=== PATIENT | female | born 1930 | race Caucasian/White ===

== ENCOUNTER 2018-09-30 01:36 | Inpatient (IN) | payer MEDICARE, OTHER ==
[~2018-09-30] VITALS: Ht 157.5 cm; Wt 72.0 kg
[~2018-09-30 01:36] MED LIST: ADVIL; ASPI81TA3; COUM1TAB18; FIBER LAX; HYDR25TA6; PERC5TAB8; POTA20TA; THERGRAN; [UNRECOGNIZED DRUG - OTHER]
[2018-09-30 02:29] VITALS: BP 135/87
[2018-09-30] MEDS ORDERED: GLUCOSE 4 GM CHEW TABLET PO PRN (03:30)
[2018-09-30] MEDS ORDERED: DEXTROSE 50% 50 ML SYRINGE IV PRN (03:30)
[2018-09-30] MEDS ORDERED: D5W/0.45% SODIUM CHLORIDE 1,000 ML IV SCH (03:30)
[2018-09-30] MEDS ORDERED: GLUCAGON FOR INJ 1 MG VIAL (J1610) SC PRN (03:30)
--- NOTE | 2018-09-30 04:16 | HPEPDOC ---
General Date of Admission September 30, 2018 at 02:29 Date of Service: September 30, 2018 Chief Complaint The patient is a 88-year-old female admitted with a reason for visit of Intrathoracic Stomach. 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 She presented to [facility] ER with c/o nausea and vomiting for one day. She admits to intermittent, chronic nausea and vomiting; but gracie severe in nature. Pt is denies abdominal pain, fever, chills. Her last meal was yesterday breakfast. Last bowel movement was yesterday. In the ER, CT chest/abd was reported as "Thoracic stomach with large amount of debris, possible obstruction". WBC 16K, otherwise normal labs and vitals. Pt is functional at baseline; and has no known cardiopulmonary problems. EKG shows RSR patterns with normal QRS and RVH, which may be due to cardiac displacement from hiatal hernia. Home Medications Miscellaneous Medications Hydrochlorothiazide (Hydrochlorothiazide) 25 Mg Tab, (Reported) Multivitamins (Theragran) 1 Tab Tab, (Reported) Oxycodone/Acetaminophen (Percocet) 1 Tab Tab, (Reported) Potassium Chloride (Klor-Con M20) 20 Meq Tab, (Reported) Warfarin Sodium (Coumadin) 2.5 Mg Tab, (Reported) [arthritis tylenol pm] , (Reported) [fiber lax] , (Reported) Allergies Coded Allergies: Penicillins (Verified Allergy, Intermediate, RASH, 09/30/18) diphenhydramine (Verified Allergy, Intermediate, RASH, 09/30/18) Past Medical History Medical History None Surgical History , Hernia Repair, Tonsillectomy Family History Significant Family History: No pertinent family hx Social History * Smoker: Denies Alcohol: Denies Drugs: denies A-FIB/CHADSVASC A-FIB History Current/History of A-Fib/PAF?: No Review of Systems Constitutional: Denies: Chills, Fever Eyes: Denies: Pain ENT: Denies: Head Aches Skin: Denies: Rash, Lesions Pulmonary: Denies: Dyspnea, Cough Cardiovascular: Denies: Chest Pain, Edema Gastrointestinal: Reports: Nausea, Vomiting; Denies: Abdominal Pain, Diarrhea, Constipation Musculoskeletal: Denies: Neck Pain, Back Pain Neurological: Denies: Weakness, Numbness Psych: Reports: Mood Normal; Denies: Anxiety Physical Examination General Exam: Positive: Alert, Cooperative, No Acute Distress Eye Exam: Positive: PERRLA ENT Exam: Positive: Atraumatic Neck Exam: Positive: Supple; Negative: JVD Chest Exam: Positive: Clear to auscultation, Normal air movement Heart Exam: Positive: Rate Normal, Regular Rhythm Abdomen Exam: Positive: Normal bowel sounds, Soft; Negative: Tenderness Extremity Exam: Positive: Normal pulses; Negative: Edema Skin Exam: Positive: Nl turgor and temperature; Negative: Rash, Breakdown Neuro Exam: Positive: Normal Speech, Strength at 5/5 X4 ext Psych Exam: Positive: Mental status NL, Mood NL, Oriented x 3 Vital Signs see nursing note Assessment/Plan Nausea and Vomiting, suspect Hiatal Hernia with Obstruction - Admit to inpatient - NG with LIS; NPO; IV fluid - Surgery consult. I spoke with Dr. Germain who will see pt in the morning; pt agreeable for surgery if needed - Routine labs - Pt needs no medical optimization before surgery; RCRI of 1 (for high risk surgery): Class II risk; 6.0% of 30-day risk of , OK or cardiac arrest. - DVT prophylaxis Plan / VTE VTE Prophylaxis Ordered?: Yes PATRICIA AZUL MD September 30, 2018 04:16
[2018-09-30 05:00] LABS: HEMATOCRIT 47.5 % (36.0-47.0); HEMOGLOBIN 15.7 g/dl (12.0-15.5); MEAN CORPUSCULAR HEMOGLOBIN 30.8 pg (27.0-33.0); MEAN CORPUSCULAR HGB CONC 33.1 g/dl (32.0-36.5); MEAN CORPUSCULAR VOLUME 93.3 fl (80.0-96.0); PLATELET COUNT, AUTOMATED 300 10^3/uL (150-450); RED BLOOD COUNT 5.09 10^6/uL (4.00-5.40); WHITE BLOOD COUNT 20.1 10^3/uL (4.0-10.0)
[2018-09-30 05:10] LABS: INR 0.98; PARTIAL THROMBOPLASTIN TIME 32.8 SECONDS (25.4-37.6); PROTHROMBIN TIME 13.1 SECONDS (12.1-14.4)
[2018-09-30 05:23] LABS: ALBUMIN 3.1 GM/DL (3.2-5.2); BILIRUBIN,TOTAL 0.4 MG/DL (0.2-1.0); CALCIUM LEVEL 9.2 MG/DL (8.8-10.2); CREATININE FOR GFR 0.97 MG/DL (0.55-1.30); GLOMERULAR FILTRATION RATE 57.8 (>32); POTASSIUM SERUM 3.6 MEQ/L (3.5-5.1)
[2018-09-30 06:15] LABS: BASO % 0.1 % (0.0-1.0); LYMPH % 4.9 % (24.0-44.0); MONO # 1.7 10^3/uL (0.0-0.8); MONO % 8.5 % (0.0-5.0); NEUTROPHILS # 16.7 10^3/uL (1.8-7.7); NEUTROPHILS % 85.9 % (36.0-66.0)
[2018-09-30 08:00] VITALS: BP 142/98
[2018-09-30] MEDS ORDERED: PANTOPRAZOLE 40MG INJ (PROTONIX) (C9113) IV SCH (09:00)
[2018-09-30] MEDS ORDERED: SODIUM CHLORIDE 0.9% 1000ML IV ONE (09:15)
[2018-09-30 09:54] LABS: PLATELET ESTIMATE NORMAL (NORMAL)
[2018-09-30] MEDS ORDERED: BUPIVACAINE LIPOSOME/PF 1.3% 20ML VIAL (13.3MG/ML)(EXPAREL)(C9290 PER1MG) As Ordered ONE (10:27)
[2018-09-30] MEDS ORDERED: BUPIVACAINE HCL 0.25% 30 ML VIAL As Ordered ONE (10:27)
[2018-09-30] MEDS ORDERED: ROCURONIUM BROMIDE 50 MG/5 ML VIAL As Ordered ONE ×2 (10:44→13:56)
[2018-09-30] MEDS ORDERED: PROPOFOL 200 MG/20 ML VIAL As Ordered ONE (10:44)
[2018-09-30] MEDS ORDERED: LIDOCAINE 2% INJ 100 MG/5 ML SDV (FOR ANES.) As Ordered ONE ×2 (10:44→19:12)
[2018-09-30] MEDS ORDERED: dexameTHASONE 4 MG/ML 1ML VIAL (J1100) As Ordered ONE (10:48)
[2018-09-30] MEDS ORDERED: ONDANSETRON 4MG/2ML VIAL (J2405) As Ordered ONE (10:49)
[2018-09-30] MEDS ORDERED: KETOROLAC 60 MG/2 ML VIAL (J1885) As Ordered ONE (10:50)
[2018-09-30] MEDS ORDERED: MIDAZOLAM INJ 2 MG/2 ML VIAL (J2250) As Ordered ONE (10:52)
[2018-09-30] MEDS ORDERED: fentaNYL 250 MCG/5 ML INJECTION (J3010) As Ordered ONE (10:52)
--- NOTE | 2018-09-30 10:59 | REP ---
KUB: Two views presented. History: Evaluate for aspiration. Gastric distension. No comparison imaging. Findings: Contrast opacified urine is seen in the intrarenal collecting system of the right kidney and within the urinary bladder. Left kidney shows no evidence of opacification. The left kidney is not clearly apparent. There is a moderate dextroconvex lumbar curvature. The bowel gas pattern is normal in the abdomen. There is air density in what appears to be a large hiatal hernia to the right of midline in the chest. A nasogastric or tube courses to the right of midline in the lower chest and then enters left upper quadrant of the abdomen. Electronically Signed by Beto Cantor MD 09/30/2018 10:45 A
--- NOTE | 2018-09-30 11:02 | REP ---
CHEST X-RAY: Single AP view. HISTORY: Evaluate for aspiration. Gastric distension. No comparison imaging. FINDINGS: A nasogastric tube is seen entering the left upper quadrant of the abdomen coursing through a large hiatal hernia which projects well to the right of midline. There is discoid atelectasis in the right base. No other evidence of infiltrate is seen. Moderate cardiomegaly is observed. Vascular calcification is seen in the transverse aorta. IMPRESSION: There is evidence of a fairly large hiatal hernia with gastric air seen projecting to the right of midline over the heart. NG tube enters left upper quadrant. No definite infiltrate. Discoid atelectasis right base. Electronically Signed by Beto Cantor MD 09/30/2018 12:33 P
[2018-09-30] MEDS ORDERED: SUCCINYLCHOLINE 100 MG/5 ML SYRINGE (J0330) As Ordered ONE (11:26)
[2018-09-30] MEDS ORDERED: ERTAPENEM 1 GM INJ (INVanz) (J1335) As Ordered ONE (11:41)
[2018-09-30] MEDS ORDERED: PHENYLEPHRINE INJ 10MG/ML VIAL (J2370) As Ordered ONE ×2 (12:20→15:51)
--- NOTE | 2018-09-30 13:04 | IPNPDOC ---
Text Note Date of Service The patient was seen on 09/30/18. NOTE SUBJECTIVE: Ms. Goldstein is seen at bedside rounds today, she does have an NG tube in place that is on low intermittent suction with dark brown secretions. She is very tired. She otherwise denied chest pain, shortness breath, nausea, vomiting, fevers, chills. ROS: 12 POINT review of systems was reviewed with patient and negative other than what is described in subjective. OBJECTIVE PHYSICAL EXAMINATION: VITAL SIGNS: Please see below. GENERAL: Elderly 88-year-old female appearing older than her stated age, laying in her bed with NG tube in place. She is very fatigued but is able to answer questions on examination. Does not appear in acute distress HEENT: EOMI, somewhat dry mucous membranes, no JVD appreciated CARDIOVASCULAR: Distant heart sounds but normal S1 and S2 with no murmurs rubs or gallops appreciated RESPIRATORY: Diminished throughout likely secondary to effort, no rales, rhonchi, wheezing or crackles appreciated ABDOMINAL: Soft, NABSx4, no pain to palpation, no distention, no rebound rigidity or guarding, no hepatosplenomegaly or masses appreciated. EXTREMITIES: No clubbing cyanosis or edema NEUROLOGICAL: No focal neurologic deficits appreciated PSYCHOLOGICAL: Appropriate affect LABORATORY DATA, MICROBIOLOGY: Please see below. ASSESSMENT AND PLAN: This is an 88-year-old female who was admitted to the hospital for possible intestinal obstruction and hiatal hernia. PROBLEMS: 1. Nausea and vomiting secondary to hiatal hernia and possible obstruction - General surgery on consult, appreciate their help. Patient does have NG tube in place and is draining dark brown secretions. Seems that her nausea is under control. Continue to monitor for now, we will await surgeries recommendation for patient. Continue with Protonix. 2. Leukocytosis - Elevated CRP, without fever, she received dose of Invanz. We will continue to monitor for now, could be secondary to stress of possible bowel obstruction. DISPOSITION: Patient's prognosis given her age is certainly guarded at this point. We will await to see surgery's recommendations regarding her intra- abdominal pathology. VS,Fishbone, I+O VS, Fishbone, I+O Laboratory Tests 09/30/18 04:42 Red Blood Count 5.09, Mean Corpuscular Volume 93.3, Mean Corpuscular Hemoglobin 30.8, Mean Corpuscular Hemoglobin Concent 33.1, Red Cell Distribution Width 14.6 H, Calcium Level 9.2, Aspartate Amino Transf (AST/SGOT) 15, Alanine Aminotransferase (ALT/SGPT) 14, Alkaline Phosphatase 78, Total Bilirubin 0.4, Total Protein 7.0, Albumin 3.1 L Vital Signs Date Time Temp Pulse Resp B/P (MAP) Pulse Ox O2 Delivery O2 Flow Rate FiO2 09/30/18 08:00 2.0 09/30/18 08:00 98.8 78 18 142/98 (113) 95 I&O- Last 24 Hours up to 6 AM 09/30/18 06:00 Intake Total 0 ml Output Total 0 ml Balance 0 ml GME ATTESTATION GME ATTESTATION My faculty preceptor for this patient encounter was physically present during the encounter and was fully available. All aspects of the patient interview, examination, medical decision making process, and medical care plan development were reviewed and approved by the faculty preceptor. The faculty preceptor is aware and concurs with the plan as stated in the body of this note and will attest to such by his/her cosignature. ATTENDING NOTE I saw and evaluated the patient. I agree with the findings and plan of care as documented in the resident's note MADELEINE GLASS DO September 30, 2018 13:04 RAFAEL COLEY MD Oct 03, 2018 12:20
[2018-09-30] MEDS ORDERED: ePHEDrine SULFATE 25 MG/5 ML(5MG/ML) SYRINGE As Ordered ONE (13:10)
[2018-09-30] MEDS ORDERED: PHENYLephrine HCL 500 MCG/5 ML (100MCG/ML) SYRINGE (J2370) As Ordered ONE (13:10)
[2018-09-30] MEDS ORDERED: KETAMINE HCL 200 MG/20 ML VIAL As Ordered ONE (13:12)
[2018-09-30] MEDS ORDERED: SUGAMMADEX SODIUM 500 MG/5 ML VIAL (BRIDION) As Ordered ONE (13:57)
[2018-09-30 14:40] LABS: HEMATOCRIT 46.8 % (36.0-47.0); HEMOGLOBIN 15.2 g/dl (12.0-15.5)
[2018-09-30] MEDS ORDERED: ACETAMINOPHEN 1000MG 100ML IV BTL (OFIRMEV) (J0131 PER 10MG) As Ordered ONE (16:48)
[2018-09-30] MEDS ORDERED: fentaNYL 100 MCG/2 ML INJECTION (J3010) As Ordered ONE ×2 (18:25→20:50)
[2018-09-30] MEDS: LR 1,000 ML IV SCH (19:50)
[2018-09-30] MEDS ORDERED: ONDANSETRON 4MG/2ML VIAL (J2405) IV PRN ×2 (20:00→20:45)
[2018-09-30] MEDS ORDERED: METOCLOPRAMIDE INJ 10MG/2ML VIAL (J2765) IV PRN (20:00)
[2018-09-30] MEDS ORDERED: MORPHINE 4 MG/ML 1ML VIAL/SYRINGE (J2270) IV PRN ×2 (20:00)
[2018-09-30 20:26] LABS: BASO % 0.2 % (0.0-1.0); HEMATOCRIT 43.7 % (36.0-47.0); HEMOGLOBIN 14.2 g/dl (12.0-15.5); LYMPH # 0.8 10^3/uL (1.5-4.5); LYMPH % 4.2 % (24.0-44.0); MEAN CORPUSCULAR HEMOGLOBIN 31.1 pg (27.0-33.0); MEAN CORPUSCULAR HGB CONC 32.5 g/dl (32.0-36.5); MEAN CORPUSCULAR VOLUME 95.8 fl (80.0-96.0); MONO # 1.3 10^3/uL (0.0-0.8); MONO % 6.9 % (0.0-5.0); NEUTROPHILS # 17.1 10^3/uL (1.8-7.7); NEUTROPHILS % 88.3 % (36.0-66.0); PLATELET COUNT, AUTOMATED 240 10^3/uL (150-450); RED BLOOD COUNT 4.56 10^6/uL (4.00-5.40); WHITE BLOOD COUNT 19.4 10^3/uL (4.0-10.0)
[2018-09-30] MEDS ORDERED: LR 1,000 ML IV SCH (20:45)
[2018-09-30] MEDS ORDERED: MORPHINE 10 MG/ML 1ML VIAL (J2270) IV PRN (20:45)
[2018-09-30] MEDS: fentaNYL 100 MCG/2 ML INJECTION (J3010) IV PRN ×4 (20:55→21:25)
[2018-09-30] MEDS ORDERED: HEPARIN SOD (PORCINE) 5000 UNITS/ML VIAL SC SCH (21:00)
[2018-09-30] MEDS ORDERED: KETOROLAC 30 MG/ML VIAL (J1885) As Ordered ONE (21:00)
[2018-09-30] MEDS: KETOROLAC 30 MG/ML VIAL (J1885) IV PRN (21:02)
[2018-09-30 21:10] LABS: ALBUMIN 2.5 GM/DL (3.2-5.2); ALT/SGPT 97 U/L (12-78); BILIRUBIN,TOTAL 0.4 MG/DL (0.2-1.0); BLOOD UREA NITROGEN 26 MG/DL (7-18); CALCIUM LEVEL 8.3 MG/DL (8.8-10.2); CARBON DIOXIDE LEVEL 23 MEQ/L (21-32); CHLORIDE LEVEL 107 MEQ/L (98-107); CREATININE FOR GFR 0.74 MG/DL (0.55-1.30); GLOMERULAR FILTRATION RATE > 60.0 (>32); GLUCOSE, FASTING 144 MG/DL (70-100); SODIUM LEVEL 138 MEQ/L (136-145); TOTAL PROTEIN 4.3 GM/DL (6.4-8.2)
[2018-09-30] MEDS ORDERED: LR 500 ML IV ONE (21:35)
[2018-09-30 22:09] VITALS: BP_SYST 102; BP_SYST 105; BP_DIAS 64; BP_DIAS 71
[2018-09-30 23:00] VITALS: BP_SYST 102; BP_SYST 97; BP_DIAS 60; BP_DIAS 61
[2018-10-01] VITALS (24 sets, daily range): BP systolic 78–109; BP diastolic 48–70
[2018-10-01] MEDS: HumaLOG INSULIN (NovoLOG) PER UNIT SC SCH ×5 (00:12→23:26)
[2018-10-01] MEDS ORDERED: SODIUM CHLORIDE 0.9% 1000ML IV ONE ×2 (02:30→05:45)
[2018-10-01] MEDS: LR 1,000 ML IV SCH ×2 (02:32→12:34)
--- NOTE | 2018-10-01 02:50 | REPVR ---
EXAM: XR Chest, 1 View EXAM DATE/TIME: 10/01/2018 2:17 AM CLINICAL HISTORY: 88 years old, female; Signs and symptoms; Shortness of breath; Additional info: Decreased lung sounds TECHNIQUE: Imaging protocol: XR of the chest, 1 view. COMPARISON: CR Chest, 1 view 09/30/2018 10:15 AM FINDINGS: Tubes, catheters and devices: Interval removal of the NG tube since the prior study. Lungs: Left base infiltrate or atelectasis obscuring the left hemidiaphragm. Decreased right base infiltrate or atelectasis. Pleural space: Question of left pleural effusion. Heart/Mediastinum: The heart and mediastinum are unchanged. Bones/joints: Unremarkable. Soft tissues: Skin marie overlying the midline upper abdomen and tube across the upper abdomen which may reflect a drain. IMPRESSION: 1. Interval removal of an NG tube since 09/30/2018. 2. Interval upper abdominal surgery to the prior study with a tube or drain extending across the upper abdomen. 3. New left base infiltrate or atelectasis and possible left pleural effusion since the prior study. 4. Decreased right base infiltrate or atelectasis. Electronically signed by: Neno Marina On 10/01/2018 02:50:21 AM
[2018-10-01 06:23] LABS: BASO % 0.1 % (0.0-1.0); HEMATOCRIT 40.1 % (36.0-47.0); HEMOGLOBIN 13.2 g/dl (12.0-15.5); LYMPH # 1.3 10^3/uL (1.5-4.5); MEAN CORPUSCULAR HEMOGLOBIN 30.3 pg (27.0-33.0); MEAN CORPUSCULAR HGB CONC 32.9 g/dl (32.0-36.5); MONO # 1.1 10^3/uL (0.0-0.8); MONO % 7.9 % (0.0-5.0); NEUTROPHILS # 11.5 10^3/uL (1.8-7.7); NEUTROPHILS % 82.6 % (36.0-66.0); PLATELET COUNT, AUTOMATED 216 10^3/uL (150-450); RED BLOOD COUNT 4.36 10^6/uL (4.00-5.40)
[2018-10-01 06:46] LABS: ALBUMIN 2.1 GM/DL (3.2-5.2); ALT/SGPT 98 U/L (12-78); BILIRUBIN,TOTAL 0.5 MG/DL (0.2-1.0); BLOOD UREA NITROGEN 29 MG/DL (7-18); CALCIUM LEVEL 7.7 MG/DL (8.8-10.2); CARBON DIOXIDE LEVEL 24 MEQ/L (21-32); CHLORIDE LEVEL 109 MEQ/L (98-107); CREATININE FOR GFR 0.87 MG/DL (0.55-1.30); GLOMERULAR FILTRATION RATE > 60.0 (>32); GLUCOSE, FASTING 97 MG/DL (70-100); POTASSIUM SERUM 4.4 MEQ/L (3.5-5.1); SODIUM LEVEL 141 MEQ/L (136-145); TOTAL PROTEIN 4.4 GM/DL (6.4-8.2)
[2018-10-01] MEDS: PANTOPRAZOLE 40MG INJ (PROTONIX) (C9113) IV SCH (09:45)
[2018-10-01] MEDS: ERTAPENEM SODIUM 1 GM in NS MINI-BAG PLUS 50 ML IV SCH (09:45)
[2018-10-01] MEDS: KETOROLAC 30 MG/ML VIAL (J1885) IV PRN (09:50)
--- NOTE | 2018-10-01 12:49 | IPNPDOC ---
Text Note Date of Service The patient was seen on 10/01/18. NOTE SUBJECTIVE: Ms. Goldstein is seen at bedside rounds today in the ICU. She is s/p h iatal hernia repair. She currently is laying in bed, fatigued but arouses easily and states she doesn't feel much pain except in her left shoulder after her nurse re-positioned her. She otherwise denied chest pain, shortness breath, nausea, vomiting, fevers, chills. ROS: 12 POINT review of systems was reviewed with patient and negative other than what is described in subjective. OBJECTIVE PHYSICAL EXAMINATION: VITAL SIGNS: Please see below. GENERAL: Elderly 88-year-old female appearing older than her stated age, laying in her bed with GJ tube and FELICITAS drain in place. She is very fatigued. Does not appear in acute distress HEENT: EOMI, moist mucous membranes, no JVD appreciated CARDIOVASCULAR: Distant heart sounds but normal S1 and S2 with no murmurs rubs or gallops appreciated RESPIRATORY: Diminished throughout likely secondary to effort, no rales, rhonchi, wheezing or crackles appreciated ABDOMINAL: Soft, NABSx4, no pain to palpation, no distention, no rebound rigidity or guarding, no hepatosplenomegaly or masses appreciated, GJ tube with dark brown secretions and FELICITAS drain in place with serosanguineous fluid. Dressings are clean and intact. EXTREMITIES: No clubbing cyanosis or edema NEUROLOGICAL: No focal neurologic deficits appreciated PSYCHOLOGICAL: Appropriate affect LABORATORY DATA, MICROBIOLOGY: Please see below. ASSESSMENT AND PLAN: This is an 88-year-old female who was admitted to the hospital for possible intestinal obstruction and hiatal hernia. PROBLEMS: 1. Nausea and vomiting secondary to hiatal hernia and possible obstruction - S/p surgical repair. She has maintenance fluids of LR @125 cc/hr. Can continue this, her MAP is > 60. Hold on bolus fluid for right now. She is being covered broadly with Ertapenem, pain control with toradol & morphine, nausea controlled with zofran and reglan. 2. Leukocytosis - Improved today. She did have an elevated CRP, without fever, but she continues on Ertapenem. We will continue to monitor for now, could be secondary to stress of recent surgery. DISPOSITION: Patient's prognosis given her age is certainly guarded at this point. She is recovering in ICU from surgery. She will need to ambulate and have PT once she is strong enough to do so. VS,Fishbone, I+O VS, Fishbone, I+O Laboratory Tests 09/30/18 14:14 09/30/18 20:12 Red Blood Count 4.56, Mean Corpuscular Volume 95.8, Mean Corpuscular Hemoglobin 31.1, Mean Corpuscular Hemoglobin Concent 32.5, Red Cell Distribution Width 14.6 H, Neutrophils (%) (Auto) 88.3 H, Lymphocytes (%) (Auto) 4.2 L, Monocytes (%) (Auto) 6.9 H, Eosinophils (%) (Auto) 0.0, Basophils (%) (Auto) 0.2, Neutrophils # (Auto) 17.1 H, Lymphocytes # (Auto) 0.8 L, Monocytes # (Auto) 1.3 H, Eosinophils # (Auto) 0.0, Basophils # (Auto) 0.0, Calcium Level 8.3 L, Aspartate Amino Transf (AST/SGOT) 112 H, Alanine Aminotransferase (ALT/SGPT) 97 H, Alkaline Phosphatase 50, Total Bilirubin 0.4, Total Protein 4.3 #L, Albumin 2.5 L 10/01/18 05:53 Red Blood Count 4.36, Mean Corpuscular Volume 92.0, Mean Corpuscular Hemoglobin 30.3, Mean Corpuscular Hemoglobin Concent 32.9, Red Cell Distribution Width 14.7 H, Neutrophils (%) (Auto) 82.6 H, Lymphocytes (%) (Auto) 9.0 L, Monocytes (%) (Auto) 7.9 H, Eosinophils (%) (Auto) 0.0, Basophils (%) (Auto) 0.1, Neutrophils # (Auto) 11.5 H, Lymphocytes # (Auto) 1.3 L, Monocytes # (Auto) 1.1 H, Eosinophils # (Auto) 0.0, Basophils # (Auto) 0.0, Calcium Level 7.7 L, Aspartate Amino Transf (AST/SGOT) 91 H, Alanine Aminotransferase (ALT/SGPT) 98 H, Alkaline Phosphatase 51, Total Bilirubin 0.5, Total Protein 4.4 L, Albumin 2.1 L Vital Signs Date Time Temp Pulse Resp B/P (MAP) Pulse Ox O2 Delivery O2 Flow Rate FiO2 10/01/18 07:59 1.0 10/01/18 06:00 93 16 84/48 (60) 89 81/50 (61) 10/01/18 04:00 97.9 I&O- Last 24 Hours up to 6 AM 10/01/18 06:00 Intake Total 6775 ml Output Total 1330 ml Balance 5445 ml GME ATTESTATION GME ATTESTATION My faculty preceptor for this patient encounter was physically present during the encounter and was fully available. All aspects of the patient interview, examination, medical decision making process, and medical care plan development were reviewed and approved by the faculty preceptor. The faculty preceptor is aware and concurs with the plan as stated in the body of this note and will attest to such by his/her cosignature. ATTENDING NOTE I saw and evaluated the patient. I agree with the findings and plan of care as documented in the resident's note MADELEINE GLASS DO October 01, 2018 12:49 RAFAEL COLEY MD Oct 03, 2018 12:25
[2018-10-01] MEDS: D5W/0.9% SODIUM CHLORIDE 1,000 ML IV SCH ×2 (15:30→22:28)
[2018-10-02] VITALS (13 sets, daily range): BP systolic 86–110; BP diastolic 46–61
[2018-10-02 05:07] LABS: BASO % 0.2 % (0.0-1.0); EOS % 0.4 % (0.0-3.0); HEMATOCRIT 38.5 % (36.0-47.0); HEMOGLOBIN 12.2 g/dl (12.0-15.5); LYMPH # 1.2 10^3/uL (1.5-4.5); MEAN CORPUSCULAR HEMOGLOBIN 30.3 pg (27.0-33.0); MEAN CORPUSCULAR HGB CONC 31.7 g/dl (32.0-36.5); MEAN CORPUSCULAR VOLUME 95.8 fl (80.0-96.0); MONO # 1.3 10^3/uL (0.0-0.8); MONO % 11.5 % (0.0-5.0); NEUTROPHILS # 8.4 10^3/uL (1.8-7.7); NEUTROPHILS % 76.5 % (36.0-66.0); PLATELET COUNT, AUTOMATED 146 10^3/uL (150-450); RED BLOOD COUNT 4.02 10^6/uL (4.00-5.40)
[2018-10-02 05:22] LABS: ALBUMIN 1.8 GM/DL (3.2-5.2); ALT/SGPT 104 U/L (12-78); BILIRUBIN,TOTAL 0.4 MG/DL (0.2-1.0); BLOOD UREA NITROGEN 28 MG/DL (7-18); CALCIUM LEVEL 7.6 MG/DL (8.8-10.2); CARBON DIOXIDE LEVEL 25 MEQ/L (21-32); CHLORIDE LEVEL 113 MEQ/L (98-107); CREATININE FOR GFR 0.78 MG/DL (0.55-1.30); GLOMERULAR FILTRATION RATE > 60.0 (>32); GLUCOSE, FASTING 104 MG/DL (70-100); POTASSIUM SERUM 4.1 MEQ/L (3.5-5.1); SODIUM LEVEL 142 MEQ/L (136-145); TOTAL PROTEIN 4.7 GM/DL (6.4-8.2)
[2018-10-02] MEDS: HumaLOG INSULIN (NovoLOG) PER UNIT SC SCH ×3 (05:55→18:00)
[2018-10-02] MEDS: D5W/0.9% SODIUM CHLORIDE 1,000 ML IV SCH ×3 (05:55→22:50)
--- NOTE | 2018-10-02 08:31 | IPN ---
DATE: 10/01/2018 The patient was seen at approximately 8:30 in the morning. HISTORY: The patient is now postop day #1 from an extensive procedure on the for an incarcerated hiatal hernia with ischemia of the proximal stomach. She underwent a proximal gastric resection with a very difficult esophagogastrostomy. She is in the intensive care unit for very close monitoring. Overnight she received two boluses of fluid from the hospitalist for a mild hypotension and reduced urine output. She reportedly responds appropriately to the nurses when she is awake. She has not requested any pain medication. Vital signs: Show that she has been afebrile since surgery. Her pulse has been in the 70s to low 90s. Her blood pressure has dipped as the low 80s systolically. She has generally maintained a mean arterial pressure above 60 but had dipped just slightly below this requiring the fluid boluses. Intake and output 5100 mL on the with an output of 410 mL of urine 200 from her NG tube and 70 recorded from her Fidel drain. PHYSICAL EXAM: The patient's color is actually quite good. She appears to be dozing quietly. She does open her eyes and respond appropriately to voice. Heart exam shows a regular rhythm in the 90s. Lungs show good bilateral breath sounds without any rhonchi or wheezing. The abdomen is full but soft. Her dressings are dry. Her Sutton gastrojejunal tube in the left side of the abdomen has a small amount of murky bilious possibly old bloody fluid in the tubing. The tubing is flushed and is suction adjusted to a medium intermittent suction. Her Fidel drain has a small amount of serosanguineous fluid in the tubing and in the bulb. She may have a few faint bowel sounds in the lower abdomen. Laboratory studies this morning show a white count of 14,000 with a hemoglobin of 13, hematocrit of 40 and a platelet count of 216,000. Differential count shows 83% neutrophils, 9% lymphocytes and 8% monocytes. Her chemistry profile today shows a sodium of 141, potassium 4.4, chloride 109, CO2 of 24, BUN of 29, creatinine 0.9 and a glucose of 97. AST and ALT are minimally elevated at 91 and 98 respectively. Total protein is low at 4.4 with an albumin of 2.1 and she had a repeat lactic acid of 1.3. IMPRESSION: The patient overall appears to be doing fairly well since her surgery. Her blood pressure has remained borderline but adequate requiring several boluses of fluid, but this appears to have stabilized. Her urine output is I believe adequate at this time. Her drain is putting out acceptable amounts of serosanguineous fluid. PLAN: I adjusted her Sutton tube by deflating the balloon slightly. This had been filled with 10 mL of saline and I reduced this to about 5 to 6 in hopes that this would help prevent the balloon from blocking the gastric outflow tract. I will continue her ertapenem for antibiotic coverage given the contamination at the time of her surgery. She will be kept nothing by mouth. My greatest concern is that her anastomosis is somewhat tenuous and if she develops a leak this could proved to be disaster. I will consider starting her on some enteral feeding through the J-tube portion of the Sutton tube tomorrow. We will reassess her blood tests in the morning as well. The patient will be out of bed as tolerated. TIRSO
[2018-10-02] MEDS: ERTAPENEM SODIUM 1 GM in NS MINI-BAG PLUS 50 ML IV SCH (10:24)
[2018-10-02] MEDS: PANTOPRAZOLE 40MG INJ (PROTONIX) (C9113) IV SCH (10:25)
--- NOTE | 2018-10-02 12:09 | IPNPDOC ---
Text Note Date of Service The patient was seen on 10/02/18. NOTE SUBJECTIVE: Ms. Goldstein is seen at bedside rounds today in the ICU. She is s/p h iatal hernia repair. She currently is laying in bed, she arouses easily and jokes with me on physical examination. She isn't in any pain, she actually has no complaints for me today. She otherwise denied chest pain, shortness breath, nausea, vomiting, fevers, chills. ROS: 12 POINT review of systems was reviewed with patient and negative other than what is described in subjective. OBJECTIVE PHYSICAL EXAMINATION: VITAL SIGNS: Please see below. GENERAL: Elderly 88-year-old female appearing older than her stated age, laying in her bed with GJ tube and FELICITAS drain in place. Does not appear in acute distress, she is in good spirits. HEENT: EOMI, moist mucous membranes, no JVD appreciated CARDIOVASCULAR: Distant heart sounds but normal S1 and S2 with no murmurs rubs or gallops appreciated RESPIRATORY: Diminished throughout likely secondary to effort, no rales, rhonchi, wheezing or crackles appreciated ABDOMINAL: Soft, faint but NABSx4, no pain to palpation, no distention, no rebound rigidity or guarding, no hepatosplenomegaly or masses appreciated, GJ tube in left abdomen with dark brown bilious secretions continued today, and FELICITAS drain in place with minimal serosanguineous fluid. Dressings covering both are clean and intact. EXTREMITIES: No clubbing cyanosis or edema NEUROLOGICAL: No focal neurologic deficits appreciated PSYCHOLOGICAL: Appropriate affect LABORATORY DATA, MICROBIOLOGY: Please see below. ASSESSMENT AND PLAN: This is an 88-year-old female who was admitted to the hosp [facility] for possible intestinal obstruction and hiatal hernia. PROBLEMS: 1. Nausea and vomiting secondary to hiatal hernia and possible obstruction - S/p surgical repair. Her BP is a bit soft, but is maintaining, she had been receiving IVF bolus'. She has maintenance fluids of LR @125 cc/hr. Can continue this, her MAP is > 60. Hold on bolus fluid for right now. She is being covered broadly with Ertapenem, pain control with toradol & morphine, nausea controlled with zofran and reglan. 2. Leukocytosis - Improved today. C/w Ertapenem as per surgery recommendations, apparently there was some contamination during surgey. She did have an elevated CRP, but continues without fever. We will continue to monitor for now, could be secondary to stress of recent surgery. DISPOSITION: Patient's prognosis given her age is certainly guarded at this point. She is still recovering in ICU from surgery, but seems to be doing well. She will need to ambulate and have PT once she is strong enough to do so. VS,Fishbone, I+O VS, Fishbone, I+O Laboratory Tests 10/02/18 04:41 Red Blood Count 4.02, Mean Corpuscular Volume 95.8, Mean Corpuscular Hemoglobin 30.3, Mean Corpuscular Hemoglobin Concent 31.7 L, Red Cell Distribution Width 14.9 H, Neutrophils (%) (Auto) 76.5 H, Lymphocytes (%) (Auto) 11.0 L, Monocytes (%) (Auto) 11.5 H, Eosinophils (%) (Auto) 0.4, Basophils (%) (Auto) 0.2, Neutrophils # (Auto) 8.4 H, Lymphocytes # (Auto) 1.2 L, Monocytes # (Auto) 1.3 H, Eosinophils # (Auto) 0.0, Basophils # (Auto) 0.0, Calcium Level 7.6 L, Aspartate Amino Transf (AST/SGOT) 86 H, Alanine Aminotransferase (ALT/SGPT) 104 H, Alkaline Phosphatase 50, Total Bilirubin 0.4, Total Protein 4.7 L, Albumin 1.8 L Vital Signs Date Time Temp Pulse Resp B/P (MAP) Pulse Ox O2 Delivery O2 Flow Rate FiO2 10/02/18 06:00 76 94/55 (68) 95 3.0 95/54 10/02/18 04:00 98.6 16 I&O- Last 24 Hours up to 6 AM 10/02/18 06:00 Intake Total 2980 ml Output Total 992 ml Balance 1988 ml GME ATTESTATION GME ATTESTATION My faculty preceptor for this patient encounter was physically present during the encounter and was fully available. All aspects of the patient interview, examination, medical decision making process, and medical care plan development were reviewed and approved by the faculty preceptor. The faculty preceptor is aware and concurs with the plan as stated in the body of this note and will attest to such by his/her cosignature. ATTENDING NOTE I saw and evaluated the patient. I agree with the findings and plan of care as documented in the resident's note MADELEINE GLASS DO October 02, 2018 12:09 RAFAEL COLEY MD Oct 03, 2018 12:33
[2018-10-02] MEDS: KETOROLAC 30 MG/ML VIAL (J1885) IV PRN (16:37)
--- NOTE | 2018-10-02 18:09 | IPN ---
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 The anastomosis was very difficult. She has a drain in the area of the anastomosis as well as a Sutton tube entering her residual stomach. She was started on some tube feedings through the jejunal (J) tube portion this morning. Vital signs show that she has been afebrile over the past 24 hours. Her pulse has been in the 70s to 80s. Blood pressure is somewhat improved today with a systolic pressure in the 90s to low one 100s. Intake and output show that yesterday she had 3800 in with 900 out. Her urine output has picked up somewhat today. Her gastric drainage has improved, and this afternoon that appears to be somewhat more bilious, and I suspect that some of the gastric ports, because of her smaller stomach, are down in the duodenum and are now draining some of her bile directly. Her Fidel drain has had only 40 mL out today after 180 mL yesterday. PHYSICAL EXAMINATION: The patient is more alert and interactive. Her heart exam shows a regular rate and rhythm. The lungs are clear. The abdomen shows some faint bowel sounds. Her incisions are all clean. The gastrostomy (G) tube site and drain site appear to be healthy. Laboratory studies show that today her white blood cell count is down to 11 with a differential showing 76% neutrophils, 11% lymphocytes, and 12% monocytes. Hemoglobin and hematocrit are 12 and 38. Her chemistry profile today shows a sodium of 142, potassium 4.1, chloride 113, CO2 of 25, BUN 28, creatinine 0.8, and a glucose of 104. Her protein and albumin are 4.7 and 1.8, respectively. Fingerstick blood sugars have been right around 100. Pathology revealed an unremarkable hernia sac as well as a partial gastric resection with the mucosa showing vascular congestion and ischemic change. IMPRESSION: The patient is doing well at this point without any distinct evidence of an anastomotic leak. Her white count is falling toward normal. Her protein and albumin are low, but we have just started her on some enteral feeds. Her blood pressure is improved, and she is making better urine output today. PLAN: I will increase her tube feeds over the next 12-24 hours. I will cut back her intravenous (IV) fluids slightly, as she now has a better blood pressure. We will continue to follow her white blood cell count. She will remain on the ertapenem for now. NISHAD
[2018-10-03] VITALS: BP 112/60
[2018-10-03 03:33] LABS: HEMATOCRIT 33.3 % (36.0-47.0); HEMOGLOBIN 10.4 g/dl (12.0-15.5); MEAN CORPUSCULAR HEMOGLOBIN 29.9 pg (27.0-33.0); MEAN CORPUSCULAR HGB CONC 31.2 g/dl (32.0-36.5); MEAN CORPUSCULAR VOLUME 95.7 fl (80.0-96.0); PLATELET COUNT, AUTOMATED 162 10^3/uL (150-450); RED BLOOD COUNT 3.48 10^6/uL (4.00-5.40); WHITE BLOOD COUNT 11.4 10^3/uL (4.0-10.0)
[2018-10-03 03:58] LABS: ALBUMIN 1.6 GM/DL (3.2-5.2); ALT/SGPT 81 U/L (12-78); BILIRUBIN,TOTAL 0.3 MG/DL (0.2-1.0); BLOOD UREA NITROGEN 22 MG/DL (7-18); CALCIUM LEVEL 7.8 MG/DL (8.8-10.2); CARBON DIOXIDE LEVEL 28 MEQ/L (21-32); CHLORIDE LEVEL 115 MEQ/L (98-107); CREATININE FOR GFR 0.67 MG/DL (0.55-1.30); GLOMERULAR FILTRATION RATE > 60.0 (>32); GLUCOSE, FASTING 120 MG/DL (70-100); POTASSIUM SERUM 3.5 MEQ/L (3.5-5.1); SODIUM LEVEL 145 MEQ/L (136-145); TOTAL PROTEIN 4.7 GM/DL (6.4-8.2)
[2018-10-03 04:00] VITALS: BP 127/60
[2018-10-03] MEDS: HumaLOG INSULIN (NovoLOG) PER UNIT SC SCH ×4 (06:00→18:27)
[2018-10-03 08:00] VITALS: BP 129/69
[2018-10-03] MEDS: ERTAPENEM SODIUM 1 GM in NS MINI-BAG PLUS 50 ML IV SCH (09:01)
[2018-10-03] MEDS: PANTOPRAZOLE 40MG INJ (PROTONIX) (C9113) IV SCH (09:01)
--- NOTE | 2018-10-03 09:19 | IPNPDOC ---
Date Seen The patient was seen on 10/03/18. Progress Note SUBJECTIVE: Patient tells me that her pain is well-controlled, she denies lightheadedness or dizziness. She complains that she did have some shortness of breath while up ambulating to the bathroom and back otherwise patient denies chest pain, nausea, vomiting, fevers, chills OBJECTIVE PHYSICAL EXAMINATION: VITAL SIGNS: Please see below. GENERAL: Pleasant elderly female laying in bed at 25 angle awake alert oriented speaking in complete sentences appears fatigued no acute distress HEENT: Moist mucous membranes no elevation and CVP CARDIOVASCULAR: S1 S2 regular no additional heart sounds appreciated. RESPIRATORY: Some transmitted upper airway sounds possibly some bibasilar scattered rales ABDOMINAL: Bowel sounds diminished, abdomen soft and nontender. G-tube draining dark green bilious appearing fluid, tube feeds running through J-tube. FELICITAS drain with minimal serosanguineous fluid EXTREMITIES: No clubbing cyanosis or edema NEUROLOGICAL: Spontaneously moves all 4 extremities cranial 2 through 12 grossly intact no gross focal deficits appreciated PSYCHOLOGICAL: Appropriate LABORATORY DATA, MICROBIOLOGY: Please see below. IMAGING STUDIES: Chest x-ray 09/30:There is evidence of a fairly large hiatal hernia with gastric air seen projecting to the right of midline over the heart. NG tube enters left upper quadrant. No definite infiltrate. Discoid atelectasis right base. Abdominal x-ray:Contrast opacified urine is seen in the intrarenal collecting system of the right kidney and within the urinary bladder. Left kidney shows no evidence of opacification. The left kidney is not clearly apparent. There is a moderate dextroconvex lumbar curvature. The bowel gas pattern is normal in the abdomen. There is air density in what appears to be a large hiatal hernia to the right of midline in the chest. A nasogastric or tube courses to the right of midline in the lower chest and then enters left upper quadrant of the abdomen. Chest x-ray 10/01:1. Interval removal of an NG tube since 09/30/2018. 2. Interval upper abdominal surgery to the prior study with a tube or drain extending across the upper abdomen. 3. New left base infiltrate or atelectasis and possible left pleural effusion since the prior study. 4. Decreased right base infiltrate or atelectasis. 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 PROBLEMS: 1. Volvulus infarction of the proximal stomach: Status post resection Gen. surgery's help is greatly appreciated she appears to have tolerated her proce dure quite well. The anastomosis was complicated and as such she does have a FELICITAS drain in place which is minimal output today. Her Yoni tube still has fairly significant output. She is tolerating her tube feeds quite nicely through her J- tube. Her hemoglobin did drop somewhat today but there is no evidence of any active bleeding may be postsurgical as well as partly dilutional she does not meet an indication for transfusion at this time her blood pressure is improved. I'll discontinue IV fluids and recheck her hemoglobin this afternoon I would transfuse her if her hemoglobin drops below 8. Given that she is doing better I believe she is medically stable for transfer the medical surgical floor. Her A- line has been removed. Aggressive management as per general surgery, she remains on ertapenem as well as IV pain control 2. Shortness of breath: She is currently requiring 1 L of oxygen this is different from her baseline she has received significant IV fluids and I do appreciate some bibasilar Rales I will check a chest x-ray this morning. She has also been in bed for the last several days following and leading up to her operation. I've encouraged her to use it is probably treat as well as spends little time in bed as possible today. 3. Left renal mass and left adnexal cyst: Consider outpatient follow-up after her acute illness is resolved. 4. Hypertension: She has been hypotensive her hydrochlorothiazide at home is currently on hold DVT prophylaxis: Antiembolic stockings early ambulation continue to monitor hemoglobin DISPOSITION: [facility]. [facility] Signs/I&O Vital Signs Date Time Temp Pulse Resp B/P (MAP) Pulse Ox O2 Delivery O2 Flow Rate FiO2 10/03/18 08:00 98.3 90 22 129/69 (89) 91 1.0 I&O- Last 24 Hours up to 6 AM 10/03/18 05:59 Intake Total 2775 ml Output Total 1533 ml Balance 1242 ml Laboratory Data 24H LABS Laboratory Tests 2 10/02/18 13:36: Bedside Glucose (Misc Panel) 102 10/02/18 19:20: Bedside Glucose (Misc Panel) 115H 10/03/18 00:08: Bedside Glucose (Misc Panel) 108 10/03/18 03:10: Nucleated Red Blood Cells % (auto) 0.0, Anion Gap 2L, Glomerular Filtration Rate > 60.0, Blood Urea Nitrogen 22H, Creatinine 0.67, Sodium Level 145, Potassium Level 3.5, Chloride Level 115H, Carbon Dioxide Level 28, Calcium Level 7.8L, Aspartate Amino Transf (AST/SGOT) 47H, Alanine Aminotransferase (ALT/SGPT) 81H, Alkaline Phosphatase 53, Total Bilirubin 0.3, Total Protein 4.7L, Albumin 1.6L, Albumin/Globulin Ratio 0.52L 10/03/18 05:51: Bedside Glucose (Misc Panel) 117H CBC/BMP Laboratory Tests 10/03/18 03:10 Red Blood Count 3.48 L, Mean Corpuscular Volume 95.7, Mean Corpuscular Hemoglobin 29.9, Mean Corpuscular Hemoglobin Concent 31.2 L, Red Cell Distrib ution Width 14.8 H, Calcium Level 7.8 L, Aspartate Amino Transf (AST/SGOT) 47 H, Alanine Aminotransferase (ALT/SGPT) 81 H, Alkaline Phosphatase 53, Total Bilirubin 0.3, Total Protein 4.7 L, Albumin 1.6 L RAFAEL COLEY MD Oct 03, 2018 09:19
--- NOTE | 2018-10-03 09:26 | REP ---
Clinical: Shortness of breath. Comparison: 10/01/2018. Findings: Stable cardiomegaly is appreciated. Pulmonary vascular congestion along with bibasilar opacities and pleural effusions appear slightly increased from prior examination. No pneumothorax. Skeletal structures stable. Impression: A presumed pulmonary vascular congestion with bibasilar atelectasis and pleural effusions which appear slightly increased from prior examination. Electronically Signed by Harlan Bell MD 10/03/2018 09:17 A
--- NOTE | 2018-10-03 09:28 | IPNPDOC ---
Subjective General Date/Time Seen The patient was seen on 10/03/18 at 09:24. Subject Chief Complaint/History The patient is a 88-year-old female admitted with a reason for visit of Intrathoracic Stomach. Patient seen in the ICU. She is laying comfortably. Occasional coughing. Seems to have some slight labored breathing though she denies any sensation of shortness of breath. No acute events reported overnight. She has been tolerating tube feedings. Current Medications Current Medications Current Medications Dextrose (Dextrose 50%) 25 ml ASDIRECTED PRN IV SEE LABEL COMMENTS; Start 09/30/18 at 03:30; Stop 09/30/18 at 20:04; Status DC Dextrose/Sodium Chloride 1,000 ml @ 125 mls/hr Q8H IV Last administered on 10/02/18at 22:50; Start 10/01/18 at 15:30; Stop 10/03/18 at 08:46; Status DC Dextrose/Sodium Chloride 1,000 ml @ 150 mls/hr Q6H40M IV Last administered on 09/30/18at 04:38; Start 09/30/18 at 03:30; Stop 09/30/18 at 20:04; Status DC Ertapenem 1 gm/ Sodium Chloride 50 ml @ 100 mls/hr Q24H IV Last administered on 10/03/18at 09:01; Start 10/01/18 at 09:00 Fentanyl Citrate (Sublimaze) 25 mcg Q5MP PRN IV MODERATE PAIN (PS 4-7) Last administered on 09/30/18at 21:25; Start 09/30/18 at 20:45; Stop 09/30/18 at 21:34; Status DC Glucagon (Glucagon) 1 mg ASDIRECTED PRN SC SEE LABEL COMMENTS; Start 09/30/18 at 03:30; Stop 09/30/18 at 20:04; Status DC Glucose (Glucose) 16 GM ASDIRECTED PRN PO SEE LABEL COMMENTS; Start 09/30/18 at 03:30; Stop 09/30/18 at 20:04; Status DC Heparin Sodium (Porcine) (Heparin) 5,000 units Q12H SC ; Start 09/30/18 at 21:00; Stop 09/30/18 at 21:00; Status DC Home Med (Med Rec Complete!) ASDIRECTED XX ; Start 10/01/18 at 08:15; Stop 10/01/18 at 08:15; Status DC Insulin Human Lispro (HumaLOG INSULIN) SEE PROTOCOL TABLE Q6H SC Last administered on 10/01/18at 00:12; Start 10/01/18 at 00:00 Ketorolac Tromethamine (ToRADol) 15 mg Q6HP PRN IV MILD/MODERATE PAIN (PS 1-7) Last administered on 10/02/18at 16:37; Start 09/30/18 at 20:00; Stop 10/05/18 at 19:59 Lactated Ringer's 1,000 ml @ 100 mls/hr Q10H IV ; Start 09/30/18 at 20:45; Stop 09/30/18 at 21:45; Status DC Lactated Ringer's 1,000 ml @ 125 mls/hr Q8H IV Last administered on 10/01/18at 12:34; Start 09/30/18 at 19:50; Stop 10/01/18 at 15:25; Status DC Metoclopramide HCl (REGLAN INJection) 10 mg Q6HP PRN IV NAUSEA OR VOMITING; Start 09/30/18 at 20:00 Morphine Sulfate (Morphine Sulfate Inj) 2 mg Q2HP PRN IV MODERATE/SEVERE PAIN (PS 5-10); Start 09/30/18 at 20:00 Morphine Sulfate (Morphine Sulfate Inj) 2 mg Q5M PRN IV MODERATE/SEVERE PAIN (PS 5-10); Start 09/30/18 at 20:45; Stop 09/30/18 at 21:45; Status DC Morphine Sulfate (Morphine Sulfate Inj) 4 mg Q2HP PRN IV SEVERE PAIN (PS 8-10) Last administered on 10/01/18at 23:23; Start 09/30/18 at 20:00 Ondansetron HCl (ZOFRAN INJection) 4 mg Q4HP PRN IV NAUSEA OR VOMITING; Start 09/30/18 at 20:45; Stop 09/30/18 at 21:45; Status DC Ondansetron HCl (ZOFRAN INJection) 4 mg Q6HP PRN IV NAUSEA OR VOMITING; Start 09/30/18 at 20:00 Pantoprazole Sodium (Protonix) 40 mg DAILY IV Last administered on 09/30/18at 08:11; Start 09/30/18 at 09:00; Stop 09/30/18 at 20:04; Status DC Pantoprazole Sodium (Protonix) 40 mg DAILY IV Last administered on 10/03/18at 09:01; Start 10/01/18 at 09:00 Allergies Coded Allergies: Penicillins (Verified Allergy, Intermediate, RASH, 09/30/18) diphenhydramine (Verified Allergy, Intermediate, RASH, 09/30/18) Objective Physical Examination Examination GENERAL APPEARANCE:relatively comfortable, occasional cough. SKIN: warm and dry. HEENT: Normocephalic, atraumatic. [place] palpebral conjunctiva, anicteric sclerae. Lips and mucosa appear moist. NECK: Supple, no thyromegaly. No obvious jugular venous distention. LUNGS: Clear to auscultation bilaterally. No wheezing appreciated. HEART: No chest wall abnormalities. Regular rate and rhythm with no murmurs appreciated. ABDOMEN: Abdomen is round, soft, nondistended. drain - serosanguenous, Sutton tube drainage mixed bilious and prob tube feeds, not much increase in drainage with increased tube feeding. EXTREMITIES: mild le edema. Vital Signs Vital Signs Date Time Temp Pulse Resp B/P (MAP) Pulse Ox O2 Delivery O2 Flow Rate FiO2 10/03/18 08:00 98.3 90 22 129/69 (89) 91 1.0 I&Os I&O- Last 24 Hours up to 6 AM 10/03/18 05:59 Intake Total 2775 ml Output Total 1533 ml Balance 1242 ml Laboratory Data Labs 24H Laboratory Tests 2 10/02/18 13:36: Bedside Glucose (Misc Panel) 102 10/02/18 19:20: Bedside Glucose (Misc Panel) 115H 10/03/18 00:08: Bedside Glucose (Misc Panel) 108 10/03/18 03:10: Nucleated Red Blood Cells % (auto) 0.0, Anion Gap 2L, Glomerular Filtration Rate > 60.0, Blood Urea Nitrogen 22H, Creatinine 0.67, Sodium Level 145, Potassium Level 3.5, Chloride Level 115H, Carbon Dioxide Level 28, Calcium Level 7.8L, Aspartate Amino Transf (AST/SGOT) 47H, Alanine Aminotransferase (ALT/SGPT) 81H, Alkaline Phosphatase 53, Total Bilirubin 0.3, Total Protein 4.7L, Albumin 1.6L, Albumin/Globulin Ratio 0.52L 10/03/18 05:51: Bedside Glucose (Misc Panel) 117H CBC/BMP Laboratory Tests 10/03/18 03:10 Red Blood Count 3.48 L, Mean Corpuscular Volume 95.7, Mean Corpuscular Hemoglobin 29.9, Mean Corpuscular Hemoglobin Concent 31.2 L, Red Cell Distribution Width 14.8 H, Calcium Level 7.8 L, Aspartate Amino Transf (AST/SGOT) 47 H, Alanine Aminotransferase (ALT/SGPT) 81 H, Alkaline Phosphatase 53, Total Bilirubin 0.3, Total Protein 4.7 L, Albumin 1.6 L Impression POD3 hemigastrectomy, esophagogastrostomy, Sutton tube placement for gastric volvulus doing well over all. No signs of sepsis, Denies chest pains, shortness of breath continue Ertapenem, PPI will increase tube feeds some more start increasing activity, getting out of bed patient would like to hold off on removing werner catheter for one more day at some point next week, esophagram to look at anastomosis X-ray reviewed shows some mild pulmonary vascular congestion. Give her dose of IV Lasix Plan / VTE VTE Prophylaxis Ordered?: Yes JAILYN PANDYA MD Oct 03, 2018 09:28
[2018-10-03] MEDS ORDERED: FUROSEMIDE 40 MG/4 ML VIAL (J1940) IV ONE (11:00)
[2018-10-03 11:44] VITALS: BP 130/82
[2018-10-03 14:00] VITALS: BP 133/72
--- NOTE | 2018-10-03 15:47 | RO ---
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 PROCEDURE PERFORMED: Laparoscopy and laparotomy, reduction of incarcerated hiatal hernia, proximal hemigastrectomy with esophagogastrostomy, placement of gastrojejunal tube, and esophagoscopy. SURGEON: Dr. Rex Germain COMMERCIAL CREDIT OFFICER: Dr. Amado Garcia ANESTHESIA: General. INDICATIONS FOR PROCEDURE: The patient is an 88-year-old woman who had presented at [facility] on the evening of September 29, 2018. She was complaining of upper abdominal and lower chest pain with some nausea and vomiting, which had been ongoing. A CT scan showed a very large hiatal hernia incorporating most if not all of the stomach. There was some compressive atelectasis in both lower lobes of the long. She was transferred to [facility]. A nasogastric (NG) tube was placed, and she was admitted by the hospitalist service. I was consulted. She was draining what appeared to be some old blood from her NG tube, and I was concerned about gastric ischemia, and she is now for laparoscopy and possible laparotomy for repair of her hiatal hernia and possible gastric volvulus. DESCRIPTION OF PROCEDURE: The patient was brought to the operating room and placed supine on the operating table. A nasogastric tube was already in place. A radial arterial line was placed by anesthesia. The patient was placed under general endotracheal anesthesia. A Clancy catheter was inserted. Thromboembolism deterrents (TEDs) and sequentials were utilized. The patient was moved into a low lithotomy position with the lower extremities placed in padded leg holders. The patient's blood pressure was slightly soft, and she required some Shawn-Synephrine from anesthesia. Initially I proceeded laparoscopically. A small incision was made in the left upper quadrant. 0.25% Marcaine was used for her trocar sites. A Veress needle was inserted and after a positive hanging drop test, the abdomen was insufflated with carbon dioxide gas. A 5 mm port with the scope was passed through the abdominal wall without difficulty. Initial examination showed normal appearing liver. There were some filmy adhesions from the omentum up to the area of the falciform ligament and mid abdominal wall. The patient was also noted to have a small hernia along the midline, roughly just above the umbilicus. A second 5 mm trocar was placed in the far lateral left upper quadrant. Hot ritu were used to divide the adhesions. A third 5 mm port was placed just above and slightly to the left of the umbilicus. A fourth 5 mm trocar was placed in the right upper quadrant slightly above the level of the umbilicus and a 5th 5 mm port was placed in the lateral right upper quadrant. A flexible liver retractor was inserted through the far right port and used to elevate the left lobe of the liver, and this was attached to an instrument ellison on the post of the Bookwalter retractor. The patient was tilted somewhat to a reverse Trendelenburg position. Graspers were inserted. The distal stomach was identified and with some gentle traction, the antrum and distal body of the stomach were retracted inferiorly. The fundus was entirely within the chest through what appeared to be a 7-8 cm esophageal hiatus. The upper stomach appeared to be full of air and possibly fluid. I attempted to displace the stomach back down into the abdomen by gentle traction, but there appeared to be adhesions, particularly along the lesser curve side that precluded reducing the hernia. I continued with multiple attempts to identify any attachments that would prevent a reduction of the hernia without success. I did perform some dissection of the lesser omentum and was working along the lesser curve of the stomach using the harmonic scalpel to divide some attachments. Some bleeding resulted and this was controlled with hemoclips. I had spent perhaps an hour to an hour and a half trying to mobilize the stomach and elected to proceed with a laparotomy. Dr. Garcia was not assisting initially with the laparoscopic portion of the procedure. I made the laparotomy and used the Bookwalter retractor for exposure. I was able to insert my hand up through the diaphragmatic hiatus and mobilize the stomach down into the abdomen. The esophagogastric junction remained within the chest. It was difficult to visualize this area because of what appeared to be some shortening of the esophagus, likely chronic from a longstanding hiatal hernia. The fundus of the stomach was noted to be quite dusky and appeared somewhat thinned. It appeared that the fundus and upper portion of the body of the stomach were ischemic. I contacted Dr. Garcia who came to the operating room to assist with the procedure from this point forward. He was essential to the progress of the procedure. He provided exposure at the esophageal hiatus, he was essential to perform upper endoscopy and assist in passage of the EEA stapler anvil down the esophagus to facilitate the anastomosis. He was very helpful in providing additional thoughts on how best to proceed with the procedure. I elected to proceed with resection of the proximal stomach. Therefore, the stomach was transected with two loads of the echelon stapler with green loads. The tissues on the lesser curve side were divided with the cautery. The proximal stomach was then opened and emptied of any residual fluid. I had planned to place an EEA stapler up into the distal esophagus to perform a stapled esophagogastric anastomosis. I attempted to insert a 25 mm stapler up through the gastrotomy into the esophagus. This was unsuccessful. I subsequently attempted passage of a 25 mm EEA sizer, and a linear split of the esophagus just above the gastroesophageal junction occurred. A 21 mm stapler was obtained. I was able to insert the 21 mm anvil into the esophagus. I attempted to place a pursestring suture of #3-0 Prolene while using the attachment to the upper stomach for traction for better control and exposure. However, the tissues were friable, and I was not able to get a secure pursestring in place. The anvil was removed and three Prolene sutures were placed to close the end of the esophagus and to use these for traction, and the esophagus was then stapled with a TX30 stapler to transect and occlude the esophagus. Dr. Garcia then went up to the head and performed upper endoscopy. This allowed identification of the esophageal stump. This was grasped with a long Allis clamp. We had discussed passing the anvil of the EEA stapler down the esophagus. To accomplish this, a flow 20 percutaneous endoscopic gastrostomy (PEG) tube kit was opened, and the internal gastric retention disc was cut off. The silicone tubing would fit snugly over the shaft of the anvil. With the endoscope in the distal esophagus, I inserted the styletted needle into the esophagus adjacent to the staple line and advanced the guidewire up the esophagus. The long dilator of the PEG tube was then inserted down the guidewire and out the end of the esophagus adjacent to the staple line and with gentle traction, the stapler anvil was pulled down the esophagus. It did hang up at the level of the glottis and Dr. Garcia was able to help advance this past this point using the endoscope. The post of the anvil was brought through the end of the esophagus and held with a clamp while the plastic tubing was removed. A small gastrotomy was made in the residual portion of the stomach and the stapler was inserted. The post was directed out the posterior wall of the stomach. This was then advanced up into the lower mediastinum through the dilated esophageal hiatus. The post of the stapler was attached to the anvil, and the stapler was then closed and fired. The stapler was removed. There was an excellent tissue doughnut from the stomach but a few fragments of esophageal muscle were all that was remaining from the proximal doughnut, that is from the esophageal doughnut. I then proceeded to perform endoscopy with the flexible fiberoptic endoscope. I advanced this down to just above the level of the anastomosis. I was able to insufflate air with excellent filling of the stomach. Dr. Garcia monitored for any sign of an air leak with the upper abdomen filled with saline, and there was no sign of air leak. The stomach was then decompressed and the gastroscope was removed. I elected to place a Sutton gastrostomy tube in the residual stomach. This was placed through a small gastrotomy through two pursestring sutures of #0 Vicryl. These were used to suture the stomach to the anterior abdominal wall. The Sutton tube was readily advanced past the pylorus using the guidewire and advanced into the jejunum. The balloon was inflated with 10 mL of saline. Because the stomach was only partial, the tube was inserted closer to the pylorus then perhaps ideal, and I was concerned about the possibility of the balloon causing a gastric outlet obstruction, so the balloon was not inflated to full 20 mL but only to 10. The residual gastrotomy was closed with the TX60G stapler. A #19-[place] Fidel drain was inserted through a stab wound in the left upper quadrant and directed up into the esophageal hiatus. The patient tolerated the procedure surprisingly well. A portion of the hernia sac had been resected, and this was sent as a specimen. The proximal stomach was also sent as a specimen. The midline incision was closed with interrupted simple sutures of #1 Vicryl. The skin incisions were all closed with skin marie. Bandages were applied. A chlorhexidine gluconate OpSite was placed at the drain site. A small split gauze was placed beneath the external flange of the Sutton tube. The patient was awakened in the operating room, extubated and moved to the recovery room in stable condition. TIRSO
[2018-10-03 19:07] LABS: HEMATOCRIT 37.6 % (36.0-47.0)
[2018-10-03 22:00] VITALS: BP 131/73
[2018-10-04 06:00] VITALS: BP 138/80
[2018-10-04] MEDS: HumaLOG INSULIN (NovoLOG) PER UNIT SC SCH ×4 (06:00→18:00)
[2018-10-04 06:09] LABS: HEMATOCRIT 34.2 % (36.0-47.0); HEMOGLOBIN 11.2 g/dl (12.0-15.5); MEAN CORPUSCULAR HEMOGLOBIN 31.1 pg (27.0-33.0); MEAN CORPUSCULAR HGB CONC 32.7 g/dl (32.0-36.5); PLATELET COUNT, AUTOMATED 189 10^3/uL (150-450); WHITE BLOOD COUNT 11.4 10^3/uL (4.0-10.0)
[2018-10-04 06:40] LABS: ALT/SGPT 58 U/L (12-78); BILIRUBIN,TOTAL 0.5 MG/DL (0.2-1.0); BLOOD UREA NITROGEN 16 MG/DL (7-18); CALCIUM LEVEL 8.6 MG/DL (8.8-10.2); CARBON DIOXIDE LEVEL 28 MEQ/L (21-32); CHLORIDE LEVEL 111 MEQ/L (98-107); CREATININE FOR GFR 0.48 MG/DL (0.55-1.30); GLOMERULAR FILTRATION RATE > 60.0 (>32); GLUCOSE, FASTING 86 MG/DL (70-100); POTASSIUM SERUM 3.2 MEQ/L (3.5-5.1); SODIUM LEVEL 147 MEQ/L (136-145); TOTAL PROTEIN 4.5 GM/DL (6.4-8.2)
[2018-10-04 07:48] LABS: MAGNESIUM LEVEL 1.8 MG/DL (1.8-2.4)
[2018-10-04] MEDS: PANTOPRAZOLE 40MG INJ (PROTONIX) (C9113) IV SCH (09:20)
[2018-10-04] MEDS: ERTAPENEM SODIUM 1 GM in NS MINI-BAG PLUS 50 ML IV SCH (09:20)
[2018-10-04] MEDS ORDERED: FUROSEMIDE 40 MG/4 ML VIAL (J1940) IV ONE (10:45)
--- NOTE | 2018-10-04 10:55 | IPNPDOC ---
Date Seen The patient was seen on 10/04/18. Progress Note SUBJECTIVE: Patient tells me that her pain is well-controlled, she tells me she still feels short of breath and notices no significant difference from yesterday. She also continues to complain of cough. She doesn't she did not get out of bed much yesterday that she is intermittently been using incentive spirometer. otherwise patient denies chest pain, nausea, vomiting, fevers, chills OBJECTIVE PHYSICAL EXAMINATION: VITAL SIGNS: Please see below. GENERAL: Pleasant elderly female laying in bed at 25 angle awake alert appears fatigued speaking in complete sentences she is somewhat slow to respond today but does provide appropriate answers to questions. She does have a wet cough during the exam HEENT: Moist mucous membranes no elevation and CVP CARDIOVASCULAR: S1 S2 regular no additional heart sounds appreciated. RESPIRATORY: Some transmitted upper airway sounds possibly some bibasilar scattered rales ABDOMINAL: Bowel sounds diminished, abdomen soft and nontender. G-tube draining dark green bilious appearing fluid, tube feeds running through J-tube. FELICITAS drain with minimal serosanguineous fluid EXTREMITIES: No clubbing cyanosis or edema NEUROLOGICAL: Spontaneously moves all 4 extremities cranial 2 through 12 grossly intact no gross focal deficits appreciated PSYCHOLOGICAL: Appropriate LABORATORY DATA, MICROBIOLOGY: Please see below. IMAGING STUDIES: Chest x-ray 09/30:There is evidence of a fairly large hiatal hernia with gastric air seen projecting to the right of midline over the heart. NG tube enters left upper quadrant. No definite infiltrate. Discoid atelectasis right base. Abdominal x-ray:Contrast opacified urine is seen in the intrarenal collecting system of the right kidney and within the urinary bladder. Left kidney shows no evidence of opacification. The left kidney is not clearly apparent. There is a moderate dextroconvex lumbar curvature. The bowel gas pattern is normal in the abdomen. There is air density in what appears to be a large hiatal hernia to the right of midline in the chest. A nasogastric or tube courses to the right of midline in the lower chest and then enters left upper quadrant of the abdomen. Chest x-ray 10/01:1. Interval removal of an NG tube since 09/30/2018. 2. Interval upper abdominal surgery to the prior study with a tube or drain extending across the upper abdomen. 3. New left base infiltrate or atelectasis and possible left pleural effusion since the prior study. 4. Decreased right base infiltrate or atelectasis. Chest x-ray 61:A presumed pulmonary vascular congestion with bibasilar atelectasis and pleural effusions which appear slightly increased from prior examination. ASSESSMENT AND PLAN: This is a 88-year-old female postop day 4 for proximal gastric resection secondary to volvulus with infarction of incarcerated hiatal hernia. PROBLEMS: 1. Volvulus infarction of the proximal stomach: Status post resection Gen. surge ry's help is greatly appreciated she appears to have tolerated her procedure quite well. The anastomosis was complicated and as such she does have a FELICITAS drain in place which has minimal output at this time. Her Yoni tube still has fairly significant output from her anastomotic site. She is tolerating her tube feeds quite nicely through her J-tube. She remains on ertapenem as well as IV pain control. 2. Shortness of breath: She is currently requiring 2 L of oxygen this is different from her baseline she has received significant IV fluids, chest x-ray yesterday was concerning for pulmonary edema she did receive a one-time dose of 40 of IV Lasix provided with an additional dose of 40 IV Lasix at this time. I also did speak directly with nursing staff encouraged patient to get up out of bed use incentive from her spend more time in the chair and ambulating. I did concern for atelectasis which could progress to pneumonia she is not mobilized adequately. We will discontinue her Clancy catheter this afternoon. 3. Left renal mass and left adnexal cyst: Consider outpatient follow-up after her acute illness is resolved. 4. Hypertension: She has been hypotensive initially her home hydrochlorothiazide is currently on hold, resume as indicated 5. Hypokalemia: I will replete with 20 mEq in 1 L of D5. She has some mild hypernatremia, she is currently receiving tube feeds and IV diuresis. I will Check magnesium level and replete as needed DVT prophylaxis: Antiembolic stockings early ambulation, her hemoglobin has remained stable postoperatively I will start her on Lovenox DISPOSITION: Pending clinical improvement VS, I&O, 24H, Fishbone Vital Signs/I&O Vital Signs Date Time Temp Pulse Resp B/P (MAP) Pulse Ox O2 Delivery O2 Flow Rate FiO2 10/04/18 06:00 97.4 65 21 138/80 (99) 95 2.0 I&O- Last 24 Hours up to 6 AM 10/04/18 06:00 Intake Total 645 ml Output Total 4625 ml Balance -3980 ml Laboratory Data 24H LABS Laboratory Tests 2 10/03/18 12:17: Bedside Glucose (Misc Panel) 111H 10/03/18 17:06: Bedside Glucose (Misc Panel) 121H 10/04/18 05:35: Nucleated Red Blood Cells % (auto) 0.0, Anion Gap 8, Glomerular Filtration Rate > 60.0, Blood Urea Nitrogen 16, Creatinine 0.48L, Sodium Level 147H, Potassium Level 3.2L, Chloride Level 111H, Carbon Dioxide Level 28, Calcium Level 8.6L, Aspartate Amino Transf (AST/SGOT) 25, Alanine Aminotransferase (ALT/SGPT) 58, A lkaline Phosphatase 59, Total Bilirubin 0.5#, Total Protein 4.5L, Albumin 2.0#L, Magnesium Level 1.8, Albumin/Globulin Ratio 0.80L CBC/BMP Laboratory Tests 10/03/18 18:58 10/04/18 05:35 Red Blood Count 3.60 L, Mean Corpuscular Volume 95.0, Mean Corpuscular Hemoglobin 31.1, Mean Corpuscular Hemoglobin Concent 32.7, Red Cell Distribution Width 14.5, Calcium Level 8.6 L, Aspartate Amino Transf (AST/SGOT) 25, Alanine Aminotransferase (ALT/SGPT) 58, Alkaline Phosphatase 59, Total Bilirubin 0.5 #, Total Protein 4.5 L, Albumin 2.0 #L RAFAEL COLEY MD Oct 04, 2018 10:55
[2018-10-04] MEDS ORDERED: MAG SULF 1GM/100ML (MAG RUN) 1 GM in APPROPRIATE DILUENT 1 EA IV ONE (11:00)
[2018-10-04] MEDS ORDERED: KCL 20MEQ IN D5W 1000ML 1,000 ML IV SCH (12:00)
--- NOTE | 2018-10-04 12:13 | IPNPDOC ---
Subjective General Date/Time Seen The patient was seen on 10/04/18 at 12:12. Subject Chief Complaint/History The patient is a 88-year-old female admitted with a reason for visit of Intrathoracic Stomach. Patient seen. Reports not much abdominal discomfort. She denies any chest pains or shortness of breath. Nurse's been reporting slight increase in drainage from the gastrostomy part of her GJ tube. Current Medications Current Medications Current Medications Dextrose (Dextrose 50%) 25 ml ASDIRECTED PRN IV SEE LABEL COMMENTS; Start 09/30/18 at 03:30; Stop 09/30/18 at 20:04; Status DC Dextrose/Sodium Chloride 1,000 ml @ 125 mls/hr Q8H IV Last administered on 10/02/18at 22:50; Start 10/01/18 at 15:30; Stop 10/03/18 at 08:46; Status DC Dextrose/Sodium Chloride 1,000 ml @ 150 mls/hr Q6H40M IV Last administered on 09/30/18at 04:38; Start 09/30/18 at 03:30; Stop 09/30/18 at 20:04; Status DC Enoxaparin Sodium (Lovenox) 40 mg DAILY SC ; Start 10/04/18 at 11:00 Ertapenem 1 gm/ Sodium Chloride 50 ml @ 100 mls/hr Q24H IV Last administered on 10/04/18at 09:20; Start 10/01/18 at 09:00 Fentanyl Citrate (Sublimaze) 25 mcg Q5MP PRN IV MODERATE PAIN (PS 4-7) Last administered on 09/30/18at 21:25; Start 09/30/18 at 20:45; Stop 09/30/18 at 21:34; Status DC Glucagon (Glucagon) 1 mg ASDIRECTED PRN SC SEE LABEL COMMENTS; Start 09/30/18 at 03:30; Stop 09/30/18 at 20:04; Status DC Glucose (Glucose) 16 GM ASDIRECTED PRN PO SEE LABEL COMMENTS; Start 09/30/18 at 03:30; Stop 09/30/18 at 20:04; Status DC Heparin Sodium (Porcine) (Heparin) 5,000 units Q12H SC ; Start 09/30/18 at 21:00; Stop 09/30/18 at 21:00; Status DC Home Med (Med Rec Complete!) ASDIRECTED XX ; Start 10/01/18 at 08:15; Stop 10/01/18 at 08:15; Status DC Insulin Human Lispro (HumaLOG INSULIN) SEE PROTOCOL TABLE Q6H SC Last administered on 10/03/18at 18:27; Start 10/01/18 at 00:00 Ketorolac Tromethamine (ToRADol) 15 mg Q6HP PRN IV MILD/MODERATE PAIN (PS 1-7) Last administered on 10/02/18at 16:37; Start 09/30/18 at 20:00; Stop 10/05/18 at 19:59 Lactated Ringer's 1,000 ml @ 100 mls/hr Q10H IV ; Start 09/30/18 at 20:45; Stop 09/30/18 at 21:45; Status DC Lactated Ringer's 1,000 ml @ 125 mls/hr Q8H IV Last administered on 10/01/18at 12:34; Start 09/30/18 at 19:50; Stop 10/01/18 at 15:25; Status DC Metoclopramide HCl (REGLAN INJection) 10 mg Q6HP PRN IV NAUSEA OR VOMITING; Start 09/30/18 at 20:00 Morphine Sulfate (Morphine Sulfate Inj) 2 mg Q2HP PRN IV MODERATE/SEVERE PAIN (PS 5-10); Start 09/30/18 at 20:00 Morphine Sulfate (Morphine Sulfate Inj) 2 mg Q5M PRN IV MODERATE/SEVERE PAIN (PS 5-10); Start 09/30/18 at 20:45; Stop 09/30/18 at 21:45; Status DC Morphine Sulfate (Morphine Sulfate Inj) 4 mg Q2HP PRN IV SEVERE PAIN (PS 8-10) Last administered on 10/01/18at 23:23; Start 09/30/18 at 20:00 Ondansetron HCl (ZOFRAN INJection) 4 mg Q4HP PRN IV NAUSEA OR VOMITING; Start 09/30/18 at 20:45; Stop 09/30/18 at 21:45; Status DC Ondansetron HCl (ZOFRAN INJection) 4 mg Q6HP PRN IV NAUSEA OR VOMITING; Start 09/30/18 at 20:00 Pantoprazole Sodium (Protonix) 40 mg DAILY IV Last administered on 09/30/18at 08:11; Start 09/30/18 at 09:00; Stop 09/30/18 at 20:04; Status DC Pantoprazole Sodium (Protonix) 40 mg DAILY IV Last administered on 10/04/18at 09:20; Start 10/01/18 at 09:00 Potassium Chloride/Dextrose 1,000 ml @ 50 mls/hr Q20H IV Last administered on 10/04/18at 11:52; Start 10/04/18 at 12:00 Allergies Coded Allergies: Penicillins (Verified Allergy, Intermediate, RASH, 09/30/18) diphenhydramine (Verified Allergy, Intermediate, RASH, 09/30/18) Objective Physical Examination Examination GENERAL APPEARANCE: Appears relatively comfortable. SKIN: Warm and dry. HEENT: Mild pale palpebral conjunctiva, mildly dry. NECK: [Supple, no thyromegaly. No obvious jugular venous distention]. LUNGS: [Clear to auscultation bilaterally. No wheezing appreciated]. HEART: [No chest wall abnormalities. Regular rate and rhythm with no murmurs appreciated]. ABDOMEN: Abdomen is round, soft, nondistended. Drain is serosanguineous. Sutton tube gastrostomy drainage mixed bile and tube feeds. The jejunostomy part disconnected to tube feedings. EXTREMITIES: Mild lower extremity edema. Vital Signs Vital Signs Date Time Temp Pulse Resp B/P (MAP) Pulse Ox O2 Delivery O2 Flow Rate FiO2 10/04/18 06:00 97.4 65 21 138/80 (99) 95 2.0 I&Os I&O- Last 24 Hours up to 6 AM 10/04/18 06:00 Intake Total 645 ml Output Total 4625 ml Balance -3980 ml Laboratory Data Labs 24H Laboratory Tests 2 10/03/18 12:17: Bedside Glucose (Misc Panel) 111H 10/03/18 17:06: Bedside Glucose (Misc Panel) 121H 10/04/18 05:35: Nucleated Red Blood Cells % (auto) 0.0, Anion Gap 8, Glomerular Filtration Rate > 60.0, Blood Urea Nitrogen 16, Creatinine 0.48L, Sodium Level 147H, Potassium Level 3.2L, Chloride Level 111H, Carbon Dioxide Level 28, Calcium Level 8.6L, Aspartate Amino Transf (AST/SGOT) 25, Alanine Aminotransferase (ALT/SGPT) 58, Alkaline Phosphatase 59, Total Bilirubin 0.5#, Total Protein 4.5L, Albumin 2.0#L , Magnesium Level 1.8, Albumin/Globulin Ratio 0.80L CBC/BMP Laboratory Tests 10/03/18 18:58 10/04/18 05:35 Red Blood Count 3.60 L, Mean Corpuscular Volume 95.0, Mean Corpuscular H emoglobin 31.1, Mean Corpuscular Hemoglobin Concent 32.7, Red Cell Distribution Width 14.5, Calcium Level 8.6 L, Aspartate Amino Transf (AST/SGOT) 25, Alanine Aminotransferase (ALT/SGPT) 58, Alkaline Phosphatase 59, Total Bilirubin 0.5 #, Total Protein 4.5 L, Albumin 2.0 #L Impression POD4 hemigastrectomy, esophagogastrostomy for gastric volvulus will come down on tube feeds a little d/c werner today continue antibiotics Plan / VTE VTE Prophylaxis Ordered?: Yes JAILYN PANDYA MD Oct 04, 2018 12:13
[2018-10-04] MEDS: ENOXAPARIN 40 MG/0.4 ML SYRINGE (J1650) SC SCH (13:22)
[2018-10-04 14:00] VITALS: BP 134/65
[2018-10-04 22:00] VITALS: BP 117/70
[2018-10-05] MEDS: HumaLOG INSULIN (NovoLOG) PER UNIT SC SCH ×4 (01:09→17:29)
[2018-10-05 06:00] VITALS: BP 121/71
[2018-10-05 06:31] LABS: BASO % 0.3 % (0.0-1.0); EOS # 0.5 10^3/uL (0.0-0.50); HEMATOCRIT 33.4 % (36.0-47.0); HEMOGLOBIN 11.2 g/dl (12.0-15.5); LYMPH # 1.6 10^3/uL (1.5-4.5); LYMPH % 13.8 % (24.0-44.0); MEAN CORPUSCULAR HEMOGLOBIN 30.1 pg (27.0-33.0); MEAN CORPUSCULAR HGB CONC 33.5 g/dl (32.0-36.5); MEAN CORPUSCULAR VOLUME 89.8 fl (80.0-96.0); MONO # 1.5 10^3/uL (0.0-0.8); MONO % 12.7 % (0.0-5.0); NEUTROPHILS % 67.3 % (36.0-66.0); PLATELET COUNT, AUTOMATED 211 10^3/uL (150-450); RED BLOOD COUNT 3.72 10^6/uL (4.00-5.40); WHITE BLOOD COUNT 11.8 10^3/uL (4.0-10.0)
[2018-10-05 07:17] LABS: ALBUMIN 1.9 GM/DL (3.2-5.2); ALT/SGPT 40 U/L (12-78); BILIRUBIN,TOTAL 0.5 MG/DL (0.2-1.0); BLOOD UREA NITROGEN 16 MG/DL (7-18); CALCIUM LEVEL 8.5 MG/DL (8.8-10.2); CARBON DIOXIDE LEVEL 28 MEQ/L (21-32); CHLORIDE LEVEL 104 MEQ/L (98-107); GLOMERULAR FILTRATION RATE > 60.0 (>32); GLUCOSE, FASTING 112 MG/DL (70-100); POTASSIUM SERUM 2.9 MEQ/L (3.5-5.1); SODIUM LEVEL 140 MEQ/L (136-145); TOTAL PROTEIN 5.2 GM/DL (6.4-8.2)
[2018-10-05] MEDS ORDERED: POTASSIUM CHLORIDE 10% LIQ 20 MEQ/15 ML UDC JT ONE (08:00)
[2018-10-05] MEDS: PANTOPRAZOLE 40MG INJ (PROTONIX) (C9113) IV SCH (08:42)
[2018-10-05] MEDS: KCL 10MEQ/100ML SWI (KRUN) 10 MEQ in APPROPRIATE DILUENT 1 EA IV SCH ×4 (08:43→15:52)
[2018-10-05] MEDS: ERTAPENEM SODIUM 1 GM in NS MINI-BAG PLUS 50 ML IV SCH (08:43)
[2018-10-05] MEDS: ENOXAPARIN 40 MG/0.4 ML SYRINGE (J1650) SC SCH (08:43)
[2018-10-05] MEDS ORDERED: GASTROGRAFIN SOLUTION 30ML (Q9963) As Ordered ONE (14:06)
--- NOTE | 2018-10-05 15:58 | IPNPDOC ---
Subjective Date Seen The patient was seen on 10/05/18. Subjective Chief Complaint/HPI Patient seen and examined at the bedside. No acute overnight events noted. 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 s/p laparscopic and laparotomy reduction of incarcerated hiatal hernia, proximal hemigastrectomy with esophagogastrostomy, and placement of GJ tube FELICITAS drain and Sutton Tube drain totals noted Patient tolerating tube feeds at this time Continue meropenem for intra-abdominal coverage Further management as per surgery Shortness of breath Improved s/p Lasix Will wean off supplemental oxygen as tolerated Patient encouraged to use incentive spirometry, nursing made aware to encourage patient as well Cont to monitor Hypokalemia Repleted GERD/GI prophylaxis Continue Protonix DVT prophylaxis Continue Lovenox VS, I&O, 24H, Mj Vital Signs/I&O Vital Signs Date Time Temp Pulse Resp B/P (MAP) Pulse Ox O2 Delivery O2 Flow Rate FiO2 10/05/18 06:00 98.0 74 19 121/71 (88) 91 10/04/18 06:00 2.0 I&O- Last 24 Hours up to 6 AM 10/05/18 06:00 Intake Total 1195 ml Output Total 3330 ml Balance -2135 ml Laboratory Data 24H LABS Laboratory Tests 2 10/04/18 17:48: Bedside Glucose (Misc Panel) 105 10/05/18 00:50: Bedside Glucose (Misc Panel) 112H 10/05/18 05:48: Bedside Glucose (Misc Panel) 115H 10/05/18 05:54: Immature Granulocyte % (Auto) 1.9, White Blood Count 11.8H, Red Blood Count 3 .72L, Hemoglobin 11.2L, Hematocrit 33.4L, Mean Corpuscular Volume 89.8, Mean Corpuscular Hemoglobin 30.1, Mean Corpuscular Hemoglobin Concent 33.5, Red Cell Distribution Width 14.1, Platelet Count 211, Neutrophils (%) (Auto) 67.3H, Lymphocytes (%) (Auto) 13.8L, Monocytes (%) (Auto) 12.7H, Eosinophils (%) (Auto) 4.0H, Basophils (%) (Auto) 0.3, Neutrophils # (Auto) 8.0H, Lymphocytes # (Auto) 1.6, Monocytes # (Auto) 1.5H, Eosinophils # (Auto) 0.5, Basophils # (Auto) 0.0, Nucleated Red Blood Cells % (auto) 0.0, Anion Gap 8, Glomerular Filtration Rate > 60.0, Blood Urea Nitrogen 16, Creatinine 0.60, Sodium Level 140, Potassium Level 2.9*L, Chloride Level 104, Carbon Dioxide Level 28, Calcium Level 8.5L, Aspartate Amino Transf (AST/SGOT) 19, Alanine Aminotransferase (ALT/SGPT) 40, Alkaline Phosphatase 61, Total Bilirubin 0.5, Total Protein 5.2L, Albumin 1.9L, Albumin/Globulin Ratio 0.58L 10/05/18 11:30: Bedside Glucose (Misc Panel) 82L CBC/BMP Laboratory Tests 10/05/18 05:54 Red Blood Count 3.72 L, Mean Corpuscular Volume 89.8, Mean Corpuscular Hemog lobin 30.1, Mean Corpuscular Hemoglobin Concent 33.5, Red Cell Distribution Width 14.1, Neutrophils (%) (Auto) 67.3 H, Lymphocytes (%) (Auto) 13.8 L, Monocytes (%) (Auto) 12.7 H, Eosinophils (%) (Auto) 4.0 H, Basophils (%) (Auto) 0.3, Neutrophils # (Auto) 8.0 H, Lymphocytes # (Auto) 1.6, Monocytes # (Auto) 1.5 H, Eosinophils # (Auto) 0.5, Basophils # (Auto) 0.0, Calcium Level 8.5 L, Aspartate Amino Transf (AST/SGOT) 19, Alanine Aminotransferase (ALT/SGPT) 40, Alkaline Phosphatase 61, Total Bilirubin 0.5, Total Protein 5.2 L, Albumin 1.9 L ERNESTINE AYALA MD Oct 05, 2018 15:58
[2018-10-05 16:13] LABS: MAGNESIUM LEVEL 1.8 MG/DL (1.8-2.4)
[2018-10-05] MEDS: ACETAMINOPHEN 325 MG/10.15 ML UDC JT PRN (18:49)
[2018-10-05 22:00] VITALS: BP 128/68
--- NOTE | 2018-10-05 22:30 | IPN ---
DATE: 10/05/2018 HISTORY: The patient is now postop day #5 from an emergency laparoscopy and laparotomy with a proximal gastric resection and an ileogastric anastomosis. She has been receiving feedings through a gastrojejunal tube inserted through the stomach. She has remained nothing by mouth since her surgery because there was some concern about the integrity of the esophagogastric anastomosis. Vital signs: The patient has remained afebrile over the past 24 hours. Her pulse is in the 60s and 70s generally and her blood pressure is excellent. Intake and output: She has been receiving some diuretics from the hospitalist apparently. Her intake and output yesterday was 895 recorded in with 3900 recorded out. She had 1700 mL out from her gastric portion of her gastrojejunal tube and 2100 of urine output. She had only 100 mL out in her Fidel drain. Her weight is down 2.2 kg today. PHYSICAL EXAMINATION: The patient is lying quietly in the hospital bed dozing. She arouses readily to voice. Sclerae are anicteric. Skin turgor is good. Patient is alert and appears oriented. Heart exam shows a regular rate and rhythm of about 70. The lungs are clear to auscultation bilaterally. The abdomen shows that her incisions are all healing nicely. The drain in the epigastrium has minimal amount of serosanguineous fluid. She is receiving tube feeds at 45 mL an hour through her J tube portion of her Sutton tube. Laboratory studies today show white count of 12, hemoglobin of 11, hematocrit of 33 and platelet count of 211,000. Her differential count shows 67% neutrophils, 14% lymphocytes and 13% monocytes. Chemistry profile shows a sodium of 140, potassium 2.9, chloride 104, CO2 of 28, BUN of 16, creatinine 0.6 and a glucose of 112. Liver function tests are normal and her total protein has risen slightly to 5.2 with an albumin of 1.9. IMPRESSION: The patient appears to be doing fairly well so far. She has no overt signs of an anastomotic leak. Her white count remains slightly elevated, but it has been 11-12 for the last 4 days. Her differential was returning slowly toward normal. She seems to be tolerating the tube feedings but has a lot of drainage from her G-tube. I suspect that the G-tube suction ports are actually partially down into the duodenum so we are probably also draining her bile and pancreatic fluids. PLAN: The patient will be scheduled for a water-soluble contrast barium swallow today to look for any evidence of the leak. If there is no sign of leak, she can be started on clear liquids. If there is a leak, we will need to assess the extent and determine our best approach to address this. She will be continued on her feedings through the J-tube and we will actually increase the feeds to 65 cc/hour. We will need to keep an eye on her potassium and probably administer some potassium through her J tube. TIRSO
[2018-10-06] MEDS: HumaLOG INSULIN (NovoLOG) PER UNIT SC SCH ×4 (00:49→17:37)
[2018-10-06] MEDS: NS 1,000 ML IV SCH ×2 (05:50→19:52)
[2018-10-06 06:00] VITALS: BP 124/64
[2018-10-06 06:22] LABS: BASO # 0.1 10^3/uL (0.0-0.2); BASO % 0.7 % (0.0-1.0); EOS # 0.7 10^3/uL (0.0-0.50); EOS % 4.9 % (0.0-3.0); HEMATOCRIT 34.8 % (36.0-47.0); HEMOGLOBIN 11.9 g/dl (12.0-15.5); LYMPH # 1.6 10^3/uL (1.5-4.5); LYMPH % 11.7 % (24.0-44.0); MEAN CORPUSCULAR HEMOGLOBIN 31.8 pg (27.0-33.0); MEAN CORPUSCULAR HGB CONC 34.2 g/dl (32.0-36.5); MONO # 1.8 10^3/uL (0.0-0.8); MONO % 13.6 % (0.0-5.0); NEUTROPHILS # 8.8 10^3/uL (1.8-7.7); NEUTROPHILS % 64.7 % (36.0-66.0); PLATELET COUNT, AUTOMATED 236 10^3/uL (150-450); RED BLOOD COUNT 3.74 10^6/uL (4.00-5.40); WHITE BLOOD COUNT 13.5 10^3/uL (4.0-10.0)
[2018-10-06 06:46] LABS: BLOOD UREA NITROGEN 18 MG/DL (7-18); CALCIUM LEVEL 8.4 MG/DL (8.8-10.2); CARBON DIOXIDE LEVEL 24 MEQ/L (21-32); CHLORIDE LEVEL 108 MEQ/L (98-107); GLOMERULAR FILTRATION RATE > 60.0 (>32); GLUCOSE, FASTING 115 MG/DL (70-100); POTASSIUM SERUM 3.9 MEQ/L (3.5-5.1); SODIUM LEVEL 138 MEQ/L (136-145)
[2018-10-06] MEDS ORDERED: ISOVUE-370 76% 100ML VIAL (Q9967) As Ordered ONE (09:31)
[2018-10-06] MEDS: PANTOPRAZOLE 40MG INJ (PROTONIX) (C9113) IV SCH (10:15)
[2018-10-06] MEDS: ENOXAPARIN 40 MG/0.4 ML SYRINGE (J1650) SC SCH (10:15)
[2018-10-06] MEDS: ERTAPENEM SODIUM 1 GM in NS MINI-BAG PLUS 50 ML IV SCH (10:15)
[2018-10-06] MEDS: ACETAMINOPHEN 325 MG/10.15 ML UDC JT PRN (10:16)
--- NOTE | 2018-10-06 11:34 | REP ---
CT CHEST WITH IV CONTRAST: TECHNIQUE: Axial contrast enhanced images from the thoracic inlet to the upper abdomen using 100 mL Isovue 370 intravenous contrast material with multiplanar reformations. The patient has had a recent partial gastric resection specifically of a hiatal hernia. The esophagus was connected surgically to the stomach in the lower posterior mediastinum. An anastomotic suture line is visualized in that region of the gastroesophageal anastomosis. There is some residual oral contrast throughout the esophagus from Gastrografin swallow performed yesterday. Again noted is a contained leak to the right side of the anastomosis. Air and contrast is seen in the right posterior mediastinal region with measurements approximately 5.6 x 5.1 cm. There is adjacent mild to moderate posterior mediastinal fluid present, more so on the right than on the left. In addition, there are moderate bilateral pleural effusions present with mild adjacent bibasilar atelectasis/infiltrate. Mild cardiomegaly is noted with a small amount of pericardial fluid. A surgical drain is seen in the adjacent upper abdomen, adjacent to the stomach and curving to the right upper quadrant with the distal tip in the region of the elysia hepatis. I do not see significant adenopathy in the chest. There is a subcentimeter nodule in the right lobe of the thyroid, which is of doubtful significance. IMPRESSION: As seen on yesterday's Gastrografin swallow, there is a contained leak to the right of the gastroesophageal anastomosis in the lower posterior mediastinum. Collection of air and Gastrografin is seen to the right of the anastomosis measuring 5.6 x 5.1 cm. There is also mild to moderate adjacent unopacified fluid in the posterior mediastinum bilaterally, right greater than left. Moderate bilateral pleural effusions with mild adjacent atelectasis/infiltrate. Mild cardiomegaly and mild amount of pericardial fluid. Electronically Signed by Amado Arteaga MD 10/08/2018 08:33 A
--- NOTE | 2018-10-06 11:54 | REP ---
CT ABDOMEN WITH IV CONTRAST: TECHNIQUE: Axial contrast enhanced images from the lung bases to the pubic symphysis using 100 mL Isovue 370 intravenous contrast material with multiplanar reformations. Posterior mediastinal fluid collection is described on today's CT chest report. Surgical drain is seen in the upper abdomen surrounding the stomach with the distal tip in the elysia hepatis. There is a gastrojejunostomy tube in place. Metallic marie are seen in the midline of the lower chest and anterior abdominal wall. There is mild edema in the perigastric fat without fluid collection. No free air is seen. Small area of low density in the lateral left lobe of the liver may represent postsurgical or inflammatory change measuring about 2.5 cm in diameter. Gallbladder is collapsed. There is no biliary dilatation. The spleen, adrenals, pancreas are unremarkable. Right kidney demonstrates a dilated renal pelvis. The right ureter is normal in caliber containing contrast. Left kidney demonstrates an enhancing mass in the mid aspect measuring approximately 2 cm in diameter. There are adjacent cysts in the upper and lower poles of the left kidney. I see no adenopathy in the abdomen. IMPRESSION: Surgical drain in the upper abdomen. Gastrojejunostomy tube in place. Postsurgical edema in the upper abdomen without evidence of abscess or fluid collection. There is a fluid collection in the posterior mediastinum of the lower chest described in today's CT of the chest report. There is mild ill-defined low density in the lateral segment of the left lobe of the liver approximately 2.5 cm in diameter which may represent postsurgical or inflammatory change. Left renal mass in the mid aspect 2 cm in diameter is exophytic and may represent renal cell carcinoma. Electronically Signed by Amado Arteaga MD 10/08/2018 08:34 A
--- NOTE | 2018-10-06 11:56 | REP ---
Examination Requested: Esophagram Barium Swallow Reason For Exam/Comment: Water soluble contrast small evaluate for perforation Esophagram: The procedure was performed PAZ aBñuelos, under the direct supervision of Dr. Arteaga. The images were reviewed with Dr. Arteaga. The patient has a recent history of a partial resection of the stomach. This is a limited examination to evaluate the gastroesophageal anastomosis. A single PA chest x-ray is submitted as a medical record librarians teacher film. There is bibasilar parenchymal opacities similar in appearance to the chest x-ray done October 03, 2018. A 50/50 mix of gastrograph and water was given to the patient in the right posterior oblique position, in order to perform a water soluble esophagram examination. Oral and pharyngeal stages of the examination were unremarkable. Esophageal transport is efficient and there is no esophagitis, stricture, or mucosal ring noted. Contrast flows freely into the gastric fundus. There is a focal collection of gastrograph outside and to the right of the gastroesophageal anastomosis, consistent with a contained leak. Impression: 1. Focal collection to the right of the gastroesophageal anastomosis consistent with a contained leak 1.4 minutes of fluoroscopy time was utilized for this procedure. Reviewed by PAZ Goodrich 10/05/2018 04:29 P Electronically Signed by Amado Arteaga MD 10/06/2018 11:47 A
[2018-10-06 14:00] VITALS: BP 97/59
--- NOTE | 2018-10-06 15:53 | IPNPDOC ---
Subjective Date Seen The patient was seen on 10/06/18. Subjective Chief Complaint/HPI Complains of some abdominal discomfort at the site of the Drains and the feeding tube. No fever or chills, no chest pain or SOb. 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 s/p laparscopic and laparotomy reduction of incarcerated hiatal hernia, proximal hemigastrectomy with esophagogastrostomy, and placement of GJ tube FELICITAS drain and Sutton Tube drain totals noted Patient tolerating tube feeds at this time Continue Ertapenem for intra-abdominal coverage Further management as per surgery Shortness of breath Improved s/p Lasix successfully weaned off supplemental oxygen Patient encouraged to use incentive spirometry, nursing made aware to encourage patient as well Cont to monitor Hypokalemia Repleted GERD/GI prophylaxis Continue Protonix DVT prophylaxis Continue Lovenox Plan/VTE VTE Prophylaxis Ordered?: Yes VS, [facility] Sign[facility]/I&O Vital Signs Date Time Temp Pulse Resp B/P (MAP) Pulse Ox O2 Delivery O2 Flow Rate FiO2 10/06/18 14:00 98.1 74 20 97/59 (72) 94 10/04/18 06:00 2.0 I&O- Last 24 Hours up to 6 AM 10/06/18 06:00 Intake Total 710 ml Output Total 3765 ml Balance -3055 ml Laboratory Data 24H LABS Laboratory Tests 2 10/05/18 16:37: Bedside Glucose (Misc Panel) 83 10/05/18 23:57: Bedside Glucose (Misc Panel) 104 10/06/18 05:22: Bedside Glucose (Misc Panel) 112H 10/06/18 06:09: Immature Granulocyte % (Auto) 4.4H, White Blood Count 13.5H, Red Blood Count 3.74L, Hemoglobin 11.9L, Hematocrit 34.8L, Mean Corpuscular Volume 93.0, Mean Corpuscular Hemoglobin 31.8, Mean Corpuscular Hemoglobin Concent 34.2, Red Cell Distribution Width 14.5, Platelet Count 236, Neutrophils (%) (Auto) 64.7, Lymphocytes (%) (Auto) 11.7L, Monocytes (%) (Auto) 13.6H, Eosinophils (%) (Auto) 4.9H, Basophils (%) (Auto) 0.7, Neutrophils # (Auto) 8.8H, Lymphocytes # (Auto) 1.6, Monocytes # (Auto) 1.8H, Eosinophils # (Auto) 0.7H, Basophils # (Auto) 0.1, Nucleated Red Blood Cells % (auto) 0.0, Anion Gap 6L, Glomerular Filtration Rate > 60.0, Blood Urea Nitrogen 18, Creatinine 0.60, Sodium Level 138, Potassium Level 3.9#, Chloride Level 108H, Carbon Dioxide Level 24, Calcium Level 8.4L 10/06/18 11:30: Bedside Glucose (Misc Panel) 106 CBC/BMP Laboratory Tests 10/06/18 06:09 Red Blood Count 3.74 L, Mean Corpuscular Volume 93.0, Mean Corpuscular Hemoglobin 31.8, Mean Corpuscular Hemoglobin Concent 34.2, Red Cell Distribution Width 14.5, Neutrophils (%) (Auto) 64.7, Lymphocytes (%) (Auto) 11.7 L, Monocytes (%) (Auto) 13.6 H, Eosinophils (%) (Auto) 4.9 H, Basophils (%) (Auto) 0.7, Neutrophils # (Auto) 8.8 H, Lymphocytes # (Auto) 1.6, Monocytes # (Auto) 1.8 H, Eosinophils # (Auto) 0.7 H, Basophils # (Auto) 0.1, Calcium Level 8.4 L ANTHONY BARRETT MD Oct 06, 2018 15:53
[2018-10-06] MEDS ORDERED: FLUCONAZOLE 400 MG in APPROPRIATE DILUENT 1 EA IV ONE (17:00)
[2018-10-06 22:00] VITALS: BP 138/78
--- NOTE | 2018-10-06 23:31 | IPN ---
DATE: 10/06/2018 HISTORY: The patient is now postop day #6 from her proximal gastrectomy and esophagogastrostomy. She had a water-soluble contrast esophagram yesterday that does show a small leak at the anastomosis with a collection of contrast adjacent to the anastomosis. Vital signs: Show that she has remained afebrile over the past 24 hours. Her pulse is in the 60s and 70s, and her blood pressure has been excellent. Pulse oximetry is normal. Intake and output shows that yesterday she had 950 mL recorded in, although this does not appear to include her tube feedings which are not recorded in the record. She had 2475 recorded out, 525 of urine output and 1900 from her G- tube. There was only 50 mL from her Fidel drain. PHYSICAL EXAMINATION: The patient is awake and alert. She appears fairly comfortable at rest. Heart exam shows a regular rate and rhythm. The lungs are clear. The abdomen shows that her incisions are all healing well. The drain site and G tube site are clean. She has bowel sounds present from all four quadrants and the abdomen is soft. Laboratory studies this morning show a white count of 13.5, hemoglobin of 12, hematocrit of 35 and a platelet count of 236,000. Differential count shows 65% neutrophils, 12% lymphocytes and 14% monocytes. Her chemistry profile shows a sodium of 138, potassium 3.9, chloride 108, CO2 of 24, BUN of 18, creatinine 0.6 and a glucose of 115. IMPRESSION: The patient has now a definite small anastomotic leak confirmed by her oral contrast swallow. The patient was counseled regarding the presence of the leak. I have recommended that we obtain a CT scan of the abdomen and pelvis. This will better help to identify the location of the leak and the fluid collection. PLAN: The patient will be continued on her tube feedings. Her G-tube, which has been on suction, has had a large amount of bilious fluid, and I will place this to gravity drainage. I believe that the reason for the high output stems from the gastric drainage ports being displaced down into the duodenum. Her J-tube appears to be working well and feedings will be increased. I will need to speak with radiology to see if it would be possible to obtain a percutaneous drainage of her anastomotic leak site at [facility] or whether I would need to transfer her elsewhere. I do not think that proceeding with additional surgery, even laparoscopically, would be prudent at this point. Her ertapenem will be continued, and I will actually start her on some fluconazole as well given the possibility of seeding of yeast into the abscess cavity from her oral fluids. We will recheck her labs in the morning and see how the CT scan of the chest and abdomen looks. TIRSO
[2018-10-07 06:00] VITALS: BP 138/78
[2018-10-07] MEDS: HumaLOG INSULIN (NovoLOG) PER UNIT SC SCH ×4 (06:00→17:16)
[2018-10-07 06:39] LABS: HEMATOCRIT 31.1 % (36.0-47.0); HEMOGLOBIN 10.4 g/dl (12.0-15.5); MEAN CORPUSCULAR HEMOGLOBIN 30.3 pg (27.0-33.0); MEAN CORPUSCULAR HGB CONC 33.4 g/dl (32.0-36.5); MEAN CORPUSCULAR VOLUME 90.7 fl (80.0-96.0); PLATELET COUNT, AUTOMATED 296 10^3/uL (150-450); RED BLOOD COUNT 3.43 10^6/uL (4.00-5.40); WHITE BLOOD COUNT 14.7 10^3/uL (4.0-10.0)
[2018-10-07 07:15] LABS: ALBUMIN 1.7 GM/DL (3.2-5.2); ALT/SGPT 55 U/L (12-78); BILIRUBIN,TOTAL 0.4 MG/DL (0.2-1.0); BLOOD UREA NITROGEN 15 MG/DL (7-18); C REACTIVE PROTEIN QUANTITATIV 5.88 MG/DL (0.00-0.30); CALCIUM LEVEL 7.9 MG/DL (8.8-10.2); CARBON DIOXIDE LEVEL 27 MEQ/L (21-32); CHLORIDE LEVEL 110 MEQ/L (98-107); CREATININE FOR GFR 0.54 MG/DL (0.55-1.30); GLOMERULAR FILTRATION RATE > 60.0 (>32); GLUCOSE, FASTING 80 MG/DL (70-100); POTASSIUM SERUM 3.7 MEQ/L (3.5-5.1); SODIUM LEVEL 142 MEQ/L (136-145); TOTAL PROTEIN 5.3 GM/DL (6.4-8.2)
[2018-10-07 07:24] LABS: EOSINOPHILS 5 % (0-5); LYMPHOCYTES 8 % (16-52); MONOCYTES 13 % (0-8); NEUTROPHILS 74 % (35-75)
[2018-10-07 07:25] LABS: PLATELET ESTIMATE NORMAL (NORMAL)
[2018-10-07] MEDS: NS 1,000 ML IV SCH ×2 (08:41→23:42)
[2018-10-07] MEDS: PANTOPRAZOLE 40MG INJ (PROTONIX) (C9113) IV SCH (08:41)
[2018-10-07] MEDS: ERTAPENEM SODIUM 1 GM in NS MINI-BAG PLUS 50 ML IV SCH (08:41)
[2018-10-07] MEDS ORDERED: LIDOCAINE 1% MDV 20ML VIAL As Ordered ONE (08:59)
[2018-10-07 14:00] VITALS: BP 117/71
--- NOTE | 2018-10-07 17:24 | IPNPDOC ---
Subjective Date Seen The patient was seen on 10/07/18. Subjective Chief Complaint/HPI ccomplains of diffuse abdominal pain. No nausea or vomiting. Feels very weak and says does not feel like she is improving. No fever or chills. Objective Physical Examination General Exam: Positive: Alert, Cooperative, No Acute Distress ENT Exam: Positive: Atraumatic Neck Exam: Negative: JVD Chest Exam: Positive: Clear to auscultation, Normal air movement Heart Exam: Positive: Rate Normal, Regular Rhythm, Normal S1, Normal S2; Negative: Gallops, Murmurs, Rubs Abdomen Exam: Positive: BS Hypoactive, Soft, Other (+J/P drain, +Sutton Tube); Negative: Tenderness Extremity Exam: Negative: Clubbing, Cyanosis, Edema, Tenderness, Swelling, Other Psych Exam: Positive: Mental status NL, Mood NL, Oriented x 3 Assessment /Plan Assessment Incarcerated hiatal hernia with obstruction and gangrene gastric infarction and extensive adhesions s/p laparscopic and laparotomic reduction of incarcerated hiatal hernia, proximal hemigastrectomy with esophagogastrostomy, and placement of GJ tube FELICITAS drain and Sutton Tube drain totals noted Patient tolerating tube feeds at this time Continue Ertapenem for intra-abdominal coverage Further management as per surgery Posterior mediastinal fluid collection / abscess contained leak to the right of the gastroesophageal anastomosis in the lower posterior mediastinum. Collection of air and Gastrografin is seen to the right of the anastomosis measuring 5.6 x 5.1 cm. s/p IR drainage today Shortness of breath Moderate bilateral pleural effusions with mild adjacent atelectasis/infiltrate. Mild cardiomegaly and mild amount of pericardial fluid. Improved s/p Lasix successfully weaned off supplemental oxygen Patient encouraged to use incentive spirometry, nursing made aware to encourage patient as well Cont to monitor Hypokalemia Repleted Left renal mass exophytic 2 cm may be renal cell carcinoma. Age related dementia will poor short term memory. GERD/GI prophylaxis Continue Protonix DVT prophylaxis Continue Lovenox Plan/VTE VTE Prophylaxis Ordered?: Yes VS, I&O, 24H, Fishbone Vital Signs/I&O Vital Signs Date Time Temp Pulse Resp B/P (MAP) Pulse Ox O2 Delivery O2 Flow Rate FiO2 10/07/18 14:00 98.6 82 15 117/71 (86) 93 10/04/18 06:00 2.0 I&O- Last 24 Hours up to 6 AM 10/07/18 06:00 Intake Total 900 ml Output Total 1154 ml Balance -254 ml Laboratory Data 24H LABS Laboratory Tests 2 10/07/18 00:05: Bedside Glucose (Misc Panel) 94 10/07/18 02:19: Bedside Glucose (Misc Panel) 78L 10/07/18 04:30: Bedside Glucose (Misc Panel) 86 10/07/18 05:54: Bedside Glucose (Misc Panel) 90 10/07/18 05:59: Immature Granulocyte % (Auto) , Nucleated Red Blood Cells % (auto) 0.0, Neutrophils 74, Lymphocytes (Manual) 8L, Monocytes (Manual) 13H, Eosinophils (Manual) 5, Platelet Estimate NORMAL, Red Blood Cell Morphology NORMAL, Anion Gap 5L, Glomerular Filtration Rate > 60.0, Blood Urea Nitrogen 15, Creatinine 0.54L, Sodium Level 142, Potassium Level 3.7, Chloride Level 110H, Carbon Dioxide Level 27, Calcium Level 7.9L, Aspartate Amino Transf (AST/SGOT) 37, Alanine Aminotransferase (ALT/SGPT) 55, Alkaline Phosphatase 85, Total Bilirubin 0.4, Total Protein 5.3L, Albumin 1.7L, C-Reactive Protein, Quantitative 5.88H, Albumin/Globulin Ratio 0.47L 10/07/18 11:25: Bedside Glucose (Misc Panel) 76L 10/07/18 16:34: Bedside Glucose (Misc Panel) 115H CBC/BMP Laboratory Tests 10/07/18 05:59 Red Blood Count 3.43 L, Mean Corpuscular Volume 90.7, Mean Corpuscular Hemoglobin 30.3, Mean Corpuscular Hemoglobin Concent 33.4, Red Cell Distribution Width 14.6 H, Calcium Level 7.9 L, Aspartate Amino Transf (AST/SGOT) 37, Alanine Aminotransferase (ALT/SGPT) 55, Alkaline Phosphatase 85, Total Bilirubin 0.4, Total Protein 5.3 L, Albumin 1.7 L Microbiology Microbiology 10/07/18 Gram Stain - Final, Resulted 10/07/18 Abscess Culture, Resulted Pending 10/07/18 Anaerobic Culture, Resulted Pending ANTHONY BARRETT MD Oct 07, 2018 17:24
[2018-10-07 20:00] VITALS: BP 122/63
--- NOTE | 2018-10-07 20:07 | REP ---
CT-GUIDED MEDIASTINAL ABSCESS DRAIN The procedure was performed under the personal supervision of Dr. arteaga. The patient has a history of a contained leak to the right of the gastroesophageal anastomosis in the lower posterior mediastinum seen on a previous CT scan dated 10/06/2018. The risks and benefits of the procedure were explained to the patient and informed consent was obtained. The mediastinal fluid collection was localized using CT guidance. The skin was prepped and draped in a sterile fashion. 1% lidocaine was used as a local anesthetic. Using CT guidance and Seldinger technique an 8-[place] Skater APDL catheter was inserted into the collection. 35 ml of base of thick fluid was withdrawn and sent to lab for analysis. The catheter was affixed to the skin and a sterile dressing was applied. Images obtained after catheter placement show that the catheter and three portion of the lung. Dr. Arteaga wall may be recommendation for Dr. Germain to do a daily chest x-ray to make sure no pneumothorax occurs. Reviewed by PAZ Hart 10/07/2018 10:51 A Electronically Signed by Amado Arteaga MD 10/07/2018 07:58 P
[2018-10-07] MEDS: ENOXAPARIN 40 MG/0.4 ML SYRINGE (J1650) SC SCH (20:19)
[2018-10-07] MEDS: FLUCONAZOLE 200 MG in APPROPRIATE DILUENT 1 EA IV SCH (20:19)
[2018-10-07 22:00] VITALS: BP 122/63
--- NOTE | 2018-10-07 23:22 | IPN ---
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 She was found to have a small anastomotic leak and a CT scan yesterday showed a small collection in the lower mediastinum, which appears to lie slightly posterior to the anastomosis. Plan is for a percutaneous drainage today and x-ray. Vital signs: The patient has been afebrile over the last 24 hours. Her pulse is in the 70s and low 80s. Blood pressure is excellent and her pulse oximetry is normal. Intake and output shows that yesterday she had 510 recorded in with 1754 recorded out. Unfortunately, her tube feedings are not being recorded as intake. She had 600 mL of urine recorded and 1000 recorded from her G-tube. Her G-tube was placed to gravity drainage yesterday with a significant reduction in the amount of output. PHYSICAL EXAMINATION The patient is lying quietly in the hospital bed. She is alert and responsive. Heart exam shows a regular rhythm. Lungs are clear. The abdomen is soft and without significant tenderness. Her incisions appear clean. Her drain has minimal serosanguineous fluid in the bulb. There is some bilious fluid in the Clancy bag attached to her G-tube. Laboratory studies show a white count of 14.7, hemoglobin of 10, hematocrit of 31 and a platelet count of 296,000. Her differential count shows 78% neutrophils, 8% lymphocytes and 13% monocytes. Chemistry profile shows sodium of 142, potassium 3.7, chloride 110, CO2 of 27, BUN of 15, creatinine 0.5 and glucose of 80. Her liver function tests are normal. C-reactive protein is only 5.9. Total protein is 5.3 with an albumin of 1.7. IMPRESSION The patient is doing well despite her now documented small esophagogastric anastomotic leak. She is scheduled for a percutaneous drain placement today in x-ray. PLAN The patient's tube feeds will be held in accordance with the request for x-ray. We will try placing the drain. If this is successful then I can address with gastroenterology whether they might have any other suggestions regarding occlusion of the leak. Her gastrostomy will be continued to gravity drainage. She was started on Diflucan yesterday and I will continue this today. Her ertapenem will also be continued. Once her percutaneous drainage has been completed her tube feedings will be resumed. MTDD
[2018-10-08] MEDS: HumaLOG INSULIN (NovoLOG) PER UNIT SC SCH ×4 (01:09→17:43)
[2018-10-08] MEDS: ACETAMINOPHEN 325 MG/10.15 ML UDC JT PRN (01:10)
[2018-10-08 02:25] VITALS: BP 113/58
[2018-10-08 06:00] VITALS: BP 114/56
[2018-10-08 06:23] LABS: HEMOGLOBIN 9.8 g/dl (12.0-15.5); MEAN CORPUSCULAR HEMOGLOBIN 30.7 pg (27.0-33.0); MEAN CORPUSCULAR HGB CONC 32.7 g/dl (32.0-36.5); PLATELET COUNT, AUTOMATED 289 10^3/uL (150-450); RED BLOOD COUNT 3.19 10^6/uL (4.00-5.40); WHITE BLOOD COUNT 16.4 10^3/uL (4.0-10.0)
[2018-10-08 06:52] LABS: ALBUMIN 1.7 GM/DL (3.2-5.2); ALT/SGPT 39 U/L (12-78); BILIRUBIN,TOTAL 0.4 MG/DL (0.2-1.0); BLOOD UREA NITROGEN 16 MG/DL (7-18); CALCIUM LEVEL 8.6 MG/DL (8.8-10.2); CARBON DIOXIDE LEVEL 23 MEQ/L (21-32); CHLORIDE LEVEL 111 MEQ/L (98-107); CREATININE FOR GFR 0.61 MG/DL (0.55-1.30); GLOMERULAR FILTRATION RATE > 60.0 (>32); GLUCOSE, FASTING 124 MG/DL (70-100); POTASSIUM SERUM 3.9 MEQ/L (3.5-5.1); SODIUM LEVEL 141 MEQ/L (136-145); TOTAL PROTEIN 5.2 GM/DL (6.4-8.2)
[2018-10-08] MEDS: ERTAPENEM SODIUM 1 GM in NS MINI-BAG PLUS 50 ML IV SCH (07:59)
[2018-10-08] MEDS: PANTOPRAZOLE 40MG INJ (PROTONIX) (C9113) IV SCH (07:59)
[2018-10-08] MEDS ORDERED: methylPREDNISolone INJ 40 MG/1 ML VIAL (J2920) IV ONE (10:00)
[2018-10-08] MEDS: KETOROLAC 30 MG/ML VIAL (J1885) IV PRN (10:34)
[2018-10-08] MEDS: NS 1,000 ML IV SCH (12:06)
--- NOTE | 2018-10-08 13:00 | IPNPDOC ---
Subjective Date Seen The patient was seen on 10/08/18. Subjective Chief Complaint/HPI Complains of severe right foot pain on the dorsum to restriction in movement due to pain. No fever or chills, the foot is warm and slightly more red than the other. No cough or phlegm , no SOB, Abdominal pain and discomfort unchanged. 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 Collection of air and Gastrografin is seen to the right of the anastomosis measuring 5.6 x 5.1 cm. s/p IR drainage on 10/07/18 culture positive for fungas with hyphae started on fluconazole Right foot pain with redness of the dorsum ? gout will give a dose of methyl pred and give toradol. patient unable to use tylenol CO Shortness of breath Moderate bilateral pleural effusions with mild adjacent atelectasis/infiltrate. Mild cardiomegaly and mild amount of pericardial fluid. Improved s/p Lasix successfully weaned off supplemental oxygen Patient encouraged to use incentive spirometry, nursing made aware to encourage patient as well Cont to monitor Hypokalemia Repleted Left renal mass exophytic 2 cm may be renal cell carcinoma. Age related dementia will poor short term memory. GERD/GI prophylaxis Continue Protonix DVT prophylaxis Continue Lovenox Plan/VTE VTE Prophylaxis Ordered?: Yes VS, I&O, 24H, Fishbone Vital Signs/I&O Vital Signs Date Time Temp Pulse Resp B/P (MAP) Pulse Ox O2 Delivery O2 Flow Rate FiO2 10/08/18 06:00 97.5 75 24 114/56 (75) 94 1.0 I&O- Last 24 Hours up to 6 AM 10/08/18 06:00 Intake Total 2145 ml Output Total 2353 ml Balance -208 ml Laboratory Data 24H LABS Laboratory Tests 2 10/07/18 16:34: Bedside Glucose (Misc Panel) 115H 10/08/18 00:38: Bedside Glucose (Misc Panel) 103 10/08/18 05:44: Bedside Glucose (Misc Panel) 117H 10/08/18 06:05: Nucleated Red Blood Cells % (auto) 0.0, Anion Gap 7L, Glomerular Filtration Rate > 60.0, Blood Urea Nitrogen 16, Creatinine 0.61, Sodium Level 141, Potassium Level 3.9, Chloride Level 111H, Carbon Dioxide Level 23, Calcium Level 8.6L, Aspartate Amino Transf (AST/SGOT) 19, Alanine Aminotransferase (ALT/SGPT) 39, Alkaline Phosphatase 80, Total Bilirubin 0.4, Total Protein 5.2L, Albumin 1.7L, Albumin/Globulin Ratio 0.49L 10/08/18 11:42: Bedside Glucose (Misc Panel) 116H CBC/BMP Laboratory Tests 10/08/18 06:05 Red Blood Count 3.19 L, Mean Corpuscular Volume 94.0, Mean Corpuscular Hemoglobin 30.7, Mean Corpuscular Hemoglobin Concent 32.7, Red Cell Distribution Width 14.6 H, Calcium Level 8.6 L, Aspartate Amino Transf (AST/SGOT) 19, Alanine Aminotransferase (ALT/SGPT) 39, Alkaline Phosphatase 80, Total Bilirubin 0.4, Total Protein 5.2 L, Albumin 1.7 L Microbiology Microbiology 10/07/18 Gram Stain - Final, Resulted 10/07/18 Abscess Culture - Preliminary, Resulted Yeast Like Organism 10/07/18 Anaerobic Culture, Resulted Pending ANTHONY BARRETT MD Oct 08, 2018 12:59
[2018-10-08 14:00] VITALS: BP 113/63
[2018-10-08] MEDS: ENOXAPARIN 40 MG/0.4 ML SYRINGE (J1650) SC SCH (21:21)
[2018-10-08] MEDS: FLUCONAZOLE 200 MG in APPROPRIATE DILUENT 1 EA IV SCH (21:21)
[2018-10-08 22:00] VITALS: BP 114/64
[2018-10-09] MEDS: HumaLOG INSULIN (NovoLOG) PER UNIT SC SCH ×5 (00:42→23:56)
[2018-10-09] MEDS: NS 1,000 ML IV SCH (00:45)
[2018-10-09 06:00] VITALS: BP 128/66
[2018-10-09 06:28] LABS: BASO % 0.2 % (0.0-1.0); EOS % 0.1 % (0.0-3.0); HEMATOCRIT 30.6 % (36.0-47.0); LYMPH % 5.4 % (24.0-44.0); MEAN CORPUSCULAR HEMOGLOBIN 31.1 pg (27.0-33.0); MEAN CORPUSCULAR HGB CONC 32.7 g/dl (32.0-36.5); MONO # 1.1 10^3/uL (0.0-0.8); MONO % 5.9 % (0.0-5.0); NEUTROPHILS % 85.1 % (36.0-66.0); PLATELET COUNT, AUTOMATED 330 10^3/uL (150-450); RED BLOOD COUNT 3.22 10^6/uL (4.00-5.40); WHITE BLOOD COUNT 18.8 10^3/uL (4.0-10.0)
[2018-10-09 06:57] LABS: ALBUMIN 1.7 GM/DL (3.2-5.2); ALT/SGPT 36 U/L (12-78); BILIRUBIN,TOTAL 0.2 MG/DL (0.2-1.0); BLOOD UREA NITROGEN 25 MG/DL (7-18); CALCIUM LEVEL 8.7 MG/DL (8.8-10.2); CARBON DIOXIDE LEVEL 23 MEQ/L (21-32); CHLORIDE LEVEL 113 MEQ/L (98-107); GLOMERULAR FILTRATION RATE > 60.0 (>32); GLUCOSE, FASTING 132 MG/DL (70-100); POTASSIUM SERUM 4.3 MEQ/L (3.5-5.1); SODIUM LEVEL 142 MEQ/L (136-145); TOTAL PROTEIN 5.5 GM/DL (6.4-8.2)
--- NOTE | 2018-10-09 07:30 | IPN ---
DATE: 10/08/2018 HISTORY: The patient is now 8 days postop from a proximal gastrectomy with 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 Several days ago, she was found on contrast swallow to have a small anastomotic leak and a percutaneous drain was placed by Dr. Arteaga of radiology yesterday. She has not been complaining of any significant abdominal pain. She has had no nausea or vomiting. Vital signs show that she has been afebrile over the past 24 hours. Her pulse is in the 70s generally. Blood pressure is excellent with a room air oxygen saturation in the mid 90s. Intake and output shows that yesterday she had 1700 in with 1960 out. I do not believe the numbers reflect her total amount of tube feedings. Her urine output has been excellent. She had 1100 out in gastric drainage. Her Fidel drain had 85 mL. PHYSICAL EXAMINATION: The patient is sitting up in a chair visiting with her daughter. She is alert and oriented. Sclerae are anicteric. Heart and lung exams are unremarkable. The abdomen is soft with positive bowel sounds. Her Fidel drain has minimal out. The G-tube site is clean. She has a pigtail drain in her back. The drain was flushed with 2-3 mL aliquots of sterile water and approximately 6-8 mL of slightly thick clear to milky fluid were returned. LABORATORY STUDIES: Today show a white count now up to 16,000 with a hemoglobin of 10, hematocrit of 30 and a platelet count of 289,000. Chemistry profile shows normal electrolytes with her BUN now stable at 16 with a creatinine of 0.6 and glucose of 124. Her total protein is 5.2 with an albumin of 1.7. IMPRESSION: The patient is doing well now 8 days postop from her surgery. She has a small anastomotic leak and this has now been drained with a percutaneous pigtail catheter. I irrigated this today with return of 6 to 8 additional mL of fluid that looks very much like saliva. She remains afebrile and her white count is up only slightly. She is on Diflucan for the yeast that was identified in her chest fluid. PLAN: The patient will be continued on her ertapenem and her Diflucan. She will be kept nothing by mouth (n.p.o.). We will continue with her enteral feedings. We will give her leak at least several days to a week to see if this will heal without the need for any additional intervention.
[2018-10-09] MEDS: ERTAPENEM SODIUM 1 GM in NS MINI-BAG PLUS 50 ML IV SCH (10:08)
[2018-10-09] MEDS: PANTOPRAZOLE 40MG INJ (PROTONIX) (C9113) IV SCH (10:08)
--- NOTE | 2018-10-09 11:45 | IPNPDOC ---
Subjective Date Seen The patient was seen on 10/09/18. Subjective Chief Complaint/HPI Feeling better today. NO more right foot pain, able to flex and extend the foot without issues. has been working with PT. Did well today. Drains continue to drain significant amounts. No fever or chills. Wbc higher partly because of methyl pred she got yesterday. 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 She was found on contrast swallow to have a small anastomotic leak placement of GJ tube, FELICITAS drain and Sutton Tube drain totals noted Patient tolerating tube feeds at this time Continue Ertapenem and fluconazole Further management as per surgery Posterior mediastinal fluid collection / abscess contained leak to the right of the gastroesophageal anastomosis in the lower posterior mediastinum. Collection of air and Gastrografin is seen to the right of the anastomosis measuring 5.6 x 5.1 cm. s/p IR drainage on 10/07/18 continue Ertapenem and fluconazole. Right foot pain with redness of the dorsum ? gout attack now improved with toradol and methyl pred 1 dose. Moderate bilateral pleural effusions with mild adjacent atelectasis/infiltrate. Mild cardiomegaly and mild amount of pericardial fluid. Improved s/p Lasix successfully weaned off supplemental oxygen Patient encouraged to use incentive spirometry, nursing made aware to encourage patient as well Cont to monitor Hypokalemia Repleted Left renal mass exophytic 2 cm may be renal cell carcinoma. Age related dementia will poor short term memory. GERD/GI prophylaxis Continue Protonix DVT prophylaxis Continue Lovenox Plan/VTE VTE Prophylaxis Ordered?: Yes VS, I&O, 24H, Fishbone Vital Signs/I&O Vital Signs Date Time Temp Pulse Resp B/P (MAP) Pulse Ox O2 Delivery O2 Flow Rate FiO2 10/09/18 06:00 97.8 65 18 128/66 (86) 96 10/08/18 21:00 0.5 I&O- Last 24 Hours up to 6 AM 10/09/18 06:00 Intake Total 1880 ml Output Total 2725 ml Balance -845 ml Laboratory Data 24H LABS Laboratory Tests 2 10/08/18 11:42: Bedside Glucose (Misc Panel) 116H 10/08/18 17:39: Bedside Glucose (Misc Panel) 138H 10/09/18 00:22: Bedside Glucose (Misc Panel) 145H 10/09/18 05:01: Bedside Glucose (Misc Panel) 127H 10/09/18 06:00: Immature Granulocyte % (Auto) 3.3H, White Blood Count 18.8H, Red Blood Count 3.22L, Hemoglobin 10.0L, Hematocrit 30.6L, Mean Corpuscular Volume 95.0, Mean Corpuscular Hemoglobin 31.1, Mean Corpuscular Hemoglobin Concent 32.7, Red Cell Distribution Width 15.0H, Platelet Count 330, Neutrophils (%) (Auto) 85.1H, Ly mphocytes (%) (Auto) 5.4L, Monocytes (%) (Auto) 5.9H, Eosinophils (%) (Auto) 0.1, Basophils (%) (Auto) 0.2, Neutrophils # (Auto) 16.0H, Lymphocytes # (Auto) 1.0L, Monocytes # (Auto) 1.1H, Eosinophils # (Auto) 0.0, Basophils # (Auto) 0.0, Nucleated Red Blood Cells % (auto) 0.0, Anion Gap 6L, Glomerular Filtration Rate > 60.0, Blood Urea Nitrogen 25#H, Creatinine 0.60, Sodium Level 142, Potassium Level 4.3, Chloride Level 113H, Carbon Dioxide Level 23, Calcium Level 8.7L, Aspartate Amino Transf (AST/SGOT) 22, Alanine Aminotransferase (ALT/SGPT) 36, Alkaline Phosphatase 102, Total Bilirubin 0.2, Total Protein 5.5L, Albumin 1.7L, Albumin/Globulin Ratio 0.45L CBC/BMP Laboratory Tests 10/09/18 06:00 Red Blood Count 3.22 L, Mean Corpuscular Volume 95.0, Mean Corpuscular Hemog lobin 31.1, Mean Corpuscular Hemoglobin Concent 32.7, Red Cell Distribution Width 15.0 H, Neutrophils (%) (Auto) 85.1 H, Lymphocytes (%) (Auto) 5.4 L, Monocytes (%) (Auto) 5.9 H, Eosinophils (%) (Auto) 0.1, Basophils (%) (Auto) 0.2, Neutrophils # (Auto) 16.0 H, Lymphocytes # (Auto) 1.0 L, Monocytes # (Auto) 1.1 H, Eosinophils # (Auto) 0.0, Basophils # (Auto) 0.0, Calcium Level 8.7 L, Aspartate Amino Transf (AST/SGOT) 22, Alanine Aminotransferase (ALT/SGPT) 36, Alkaline Phosphatase 102, Total Bilirubin 0.2, Total Protein 5.5 L, Albumin 1.7 L Microbiology Microbiology 10/07/18 Gram Stain - Final, Resulted 10/07/18 Abscess Culture - Preliminary, Resulted Yeast Like Organism 10/07/18 Anaerobic Culture, Resulted Pending ANTHONY BARRETT MD Oct 09, 2018 11:45
--- NOTE | 2018-10-09 13:15 | IPNPDOC ---
Subjective General Date/Time Seen The patient was seen on 10/09/18 at 13:07. Subject Chief Complaint/History Patient seen sitting up on a recliner. She looks comfortable. She denies any ongoing abdominal pain, chest pain, shortness of breath. She is a little confused on the date/day. Current Medications Current Medications Current Medications Acetaminophen (Tylenol Suspension) 650 mg Q4HP PRN JT MILD PAIN or TEMP > 100.4 Last administered on 10/08/18at 01:10; Start 10/05/18 at 14:15 Dextrose (Dextrose 50%) 25 ml ASDIRECTED PRN IV SEE LABEL COMMENTS; Start 09/30 at 03:30; Stop 09/30/18 at 20:04; Status DC Dextrose/Sodium Chloride 1,000 ml @ 125 mls/hr Q8H IV Last administered on 10/02/18at 22:50; Start 10/01/18 at 15:30; Stop 10/03/18 at 08:46; Status DC Dextrose/Sodium Chloride 1,000 ml @ 150 mls/hr Q6H40M IV Last administered on 09/30/18at 04:38; Start 09/30/18 at 03:30; Stop 09/30/18 at 20:04; Status DC Enoxaparin Sodium (Lovenox) 40 mg DAILY SC Last administered on 10/06/18at 10:15; Start 10/04/18 at 11:00; Stop 10/06/18 at 16:54; Status DC Enoxaparin Sodium (Lovenox) 40 mg DAILY@2000 SC Last administered on 10/08/18at 21:21; Start 10/07/18 at 20:00 Ertapenem 1 gm/ Sodium Chloride 50 ml @ 100 mls/hr Q24H IV Last administered on 10/09/18at 10:08; Start 10/01/18 at 09:00 Fentanyl Citrate (Sublimaze) 25 mcg Q5MP PRN IV MODERATE PAIN (PS 4-7) Last administered on 09/30/18at 21:25; Start 09/30/18 at 20:45; Stop 09/30/18 at 21:34; Status DC Fluconazole 200 mg/IV Miscellaneous Supplies 100 ml @ 100 mls/hr Q24H IV Last administered on 10/08/18at 21:21; Start 10/07/18 at 20:00 Glucagon (Glucagon) 1 mg ASDIRECTED PRN SC SEE LABEL COMMENTS; Start 09/30/18 at 03:30; Stop 09/30/18 at 20:04; Status DC Glucose (Glucose) 16 GM ASDIRECTED PRN PO SEE LABEL COMMENTS; Start 09/30/18 at 03:30; Stop 09/30/18 at 20:04; Status DC Heparin Sodium (Porcine) (Heparin) 5,000 units Q12H SC ; Start 09/30/18 at 21:00; Stop 09/30/18 at 21:00; Status DC Home Med (Med Rec Complete!) ASDIRECTED XX ; Start 10/01/18 at 08:15; Stop 10/01/18 at 08:15; Status DC Insulin Human Lispro (HumaLOG INSULIN) SEE PROTOCOL TABLE Q6H SC Last administered on 10/09/18at 05:09; Start 10/01/18 at 00:00 Ketorolac Tromethamine (ToRADol) 15 mg Q6H PRN IV PAIN Last administered on 10/08/18at 10:34; Start 10/08/18 at 09:45; Stop 10/13/18 at 09:44 Ketorolac Tromethamine (ToRADol) 15 mg Q6HP PRN IV MILD/MODERATE PAIN (PS 1-7) Last administered on 10/02/18at 16:37; Start 09/30/18 at 20:00; Stop 10/05/18 at 14:20; Status DC Lactated Ringer's 1,000 ml @ 100 mls/hr Q10H IV ; Start 09/30/18 at 20:45; Stop 09/30/18 at 21:45; Status DC Lactated Ringer's 1,000 ml @ 125 mls/hr Q8H IV Last administered on 10/01/18at 12:34; Start 09/30/18 at 19:50; Stop 10/01/18 at 15:25; Status DC Metoclopramide HCl (REGLAN INJection) 10 mg Q6HP PRN IV NAUSEA OR VOMITING; Start 09/30/18 at 20:00; Stop 10/05/18 at 14:20; Status DC Morphine Sulfate (Morphine Sulfate Inj) 2 mg Q2HP PRN IV MODERATE/SEVERE PAIN (PS 5-10); Start 09/30/18 at 20:00; Stop 10/05/18 at 09:24; Status DC Morphine Sulfate (Morphine Sulfate Inj) 2 mg Q5M PRN IV MODERATE/SEVERE PAIN (PS 5-10); Start 09/30/18 at 20:45; Stop 09/30/18 at 21:45; Status DC Morphine Sulfate (Morphine Sulfate Inj) 4 mg Q2HP PRN IV SEVERE PAIN (PS 8-10) Last administered on 10/01/18at 23:23; Start 09/30/18 at 20:00; Stop 10/05/18 at 0 9:24; Status DC Ondansetron HCl (ZOFRAN INJection) 4 mg Q4HP PRN IV NAUSEA OR VOMITING; Start 09/30/18 at 20:45; Stop 09/30/18 at 21:45; Status DC Ondansetron HCl (ZOFRAN INJection) 4 mg Q6HP PRN IV NAUSEA OR VOMITING; Start 09/30/18 at 20:00 Pantoprazole Sodium (Protonix) 40 mg DAILY IV Last administered on 09/30/18at 08:11; Start 09/30/18 at 09:00; Stop 09/30/18 at 20:04; Status DC Pantoprazole Sodium (Protonix) 40 mg DAILY IV Last administered on 10/09/18at 10:08; Start 10/01/18 at 09:00 Potassium Chloride 10 meq/ IV Miscellaneous Supplies 100 ml @ 100 mls/hr Q1H IV Last administered on 10/05/18at 15:52; Start 10/05/18 at 08:00; Stop 10/05/18 at 11:59; Status DC Potassium Chloride/Dextrose 1,000 ml @ 50 mls/hr Q20H IV Last administered on 10/04/18at 11:52; Start 10/04/18 at 12:00; Stop 10/05/18 at 08:00; Status DC Sodium Chloride 1,000 ml @ 75 mls/hr [id number] IV Last administered on 10/09/18at 00:45; Start 10/06/18 at 05:45; Stop 10/09/18 at 11:45; Status DC Allergies Coded Allergies: Penicillins (Verified Allergy, Intermediate, RASH, 09/30/18) diphenhydramine (Verified Allergy, Intermediate, RASH, 09/30/18) Objective Physical Examination Examination GENERAL APPEARANCE: Looks comfortable.. SKIN: Warm and moist.. LUNGS: Clear to auscultation bilaterally. No wheezing appreciated. HEART: Regular heart rate and rhythm. ABDOMEN: Abdomen is round, soft, nondistended. Upper midline incision is covered with dry gauze. She has a operative drain is putting out serous fluid. She has a feeding tube is working. She has a new percutaneous drain with thick yellowish fluid in the bag. EXTREMITIES: No edema. Vital Signs Vital Signs Date Time Temp Pulse Resp B/P (MAP) Pulse Ox O2 Delivery O2 Flow Rate FiO2 10/09/18 06:00 97.8 65 18 128/66 (86) 96 10/08/18 21:00 0.5 I&Os I&O- Last 24 Hours up to 6 AM 10/09/18 06:00 Intake Total 1880 ml Output Total 2725 ml Balance -845 ml Laboratory Data Labs 24H Laboratory Tests 2 10/08/18 17:39: Bedside Glucose (Misc Panel) 138H 10/09/18 00:22: Bedside Glucose (Misc Panel) 145H 10/09/18 05:01: Bedside Glucose (Misc Panel) 127H 10/09/18 06:00: Immature Granulocyte % (Auto) 3.3H, White Blood Count 18.8H, Red Blood Count 3 .22L, Hemoglobin 10.0L, Hematocrit 30.6L, Mean Corpuscular Volume 95.0, Mean Corpuscular Hemoglobin 31.1, Mean Corpuscular Hemoglobin Concent 32.7, Red Cell Distribution Width 15.0H, Platelet Count 330, Neutrophils (%) (Auto) 85.1H, Lymphocytes (%) (Auto) 5.4L, Monocytes (%) (Auto) 5.9H, Eosinophils (%) (Auto) 0.1, Basophils (%) (Auto) 0.2, Neutrophils # (Auto) 16.0H, Lymphocytes # (Auto) 1.0L, Monocytes # (Auto) 1.1H, Eosinophils # (Auto) 0.0, Basophils # (Auto) 0.0, Nucleated Red Blood Cells % (auto) 0.0, Anion Gap 6L, Glomerular Filtration Rate > 60.0, Blood Urea Nitrogen 25#H, Creatinine 0.60, Sodium Level 142, Potassium Level 4.3, Chloride Level 113H, Carbon Dioxide Level 23, Calcium Level 8.7L, Aspartate Amino Transf (AST/SGOT) 22, Alanine Aminotransferase (ALT/SGPT) 36, Alkaline Phosphatase 102, Total Bilirubin 0.2, Total Protein 5.5L, Albumin 1.7L, Albumin/Globulin Ratio 0.45L 10/09/18 11:48: Bedside Glucose (Misc Panel) 94 CBC/BMP Laboratory Tests 10/09/18 06:00 Red Blood Count 3.22 L, Mean Corpuscular Volume 95.0, Mean Corpuscular Hem oglobin 31.1, Mean Corpuscular Hemoglobin Concent 32.7, Red Cell Distribution Width 15.0 H, Neutrophils (%) (Auto) 85.1 H, Lymphocytes (%) (Auto) 5.4 L, Monocytes (%) (Auto) 5.9 H, Eosinophils (%) (Auto) 0.1, Basophils (%) (Auto) 0.2, Neutrophils # (Auto) 16.0 H, Lymphocytes # (Auto) 1.0 L, Monocytes # (Auto) 1.1 H, Eosinophils # (Auto) 0.0, Basophils # (Auto) 0.0, Calcium Level 8.7 L, Aspartate Amino Transf (AST/SGOT) 22, Alanine Aminotransferase (ALT/SGPT) 36, Alkaline Phosphatase 102, Total Bilirubin 0.2, Total Protein 5.5 L, Albumin 1.7 L Microbiology Microbiology 10/07/18 Gram Stain - Final, Resulted 10/07/18 Abscess Culture - Preliminary, Resulted Yeast Like Organism 10/07/18 Anaerobic Culture, Resulted Pending Impression Postop day 9 after hemigastrectomy with esophagogastrostomy Anastomotic leak controlled with percutaneous drain placed Despite the leak, she is not showing any signs of severe inflammatory response, mediastinitis. They think it is adequately controlled at this point. She will continue on tube feedings through the weekend at some point next week would need another check if the leakage seals itself up. Continue with Diflucan and there And then for antibiotic coverage. Increase activity continue with PT Saline lock IV fluid Plan / VTE VTE Prophylaxis Ordered?: Yes JAILYN PANDYA MD Oct 09, 2018 13:15
[2018-10-09 14:00] VITALS: BP 132/71
[2018-10-09] MEDS: ENOXAPARIN 40 MG/0.4 ML SYRINGE (J1650) SC SCH (20:53)
[2018-10-09] MEDS: FLUCONAZOLE 200 MG in APPROPRIATE DILUENT 1 EA IV SCH (20:53)
[2018-10-09 22:00] VITALS: BP 115/70
[2018-10-10 06:00] VITALS: BP 127/66
[2018-10-10] MEDS: HumaLOG INSULIN (NovoLOG) PER UNIT SC SCH ×3 (06:00→17:51)
[2018-10-10 09:10] LABS: BASO # 0.1 10^3/uL (0.0-0.2); BASO % 0.8 % (0.0-1.0); EOS # 0.8 10^3/uL (0.0-0.50); EOS % 5.2 % (0.0-3.0); HEMATOCRIT 32.1 % (36.0-47.0); HEMOGLOBIN 10.5 g/dl (12.0-15.5); LYMPH # 1.6 10^3/uL (1.5-4.5); LYMPH % 11.3 % (24.0-44.0); MEAN CORPUSCULAR HEMOGLOBIN 31.3 pg (27.0-33.0); MEAN CORPUSCULAR HGB CONC 32.7 g/dl (32.0-36.5); MEAN CORPUSCULAR VOLUME 95.5 fl (80.0-96.0); MONO # 0.9 10^3/uL (0.0-0.8); MONO % 5.9 % (0.0-5.0); NEUTROPHILS # 10.7 10^3/uL (1.8-7.7); NEUTROPHILS % 73.9 % (36.0-66.0); PLATELET COUNT, AUTOMATED 417 10^3/uL (150-450); RED BLOOD COUNT 3.36 10^6/uL (4.00-5.40); WHITE BLOOD COUNT 14.5 10^3/uL (4.0-10.0)
[2018-10-10 09:26] LABS: BLOOD UREA NITROGEN 24 MG/DL (7-18); CALCIUM LEVEL 8.4 MG/DL (8.8-10.2); CARBON DIOXIDE LEVEL 26 MEQ/L (21-32); CHLORIDE LEVEL 111 MEQ/L (98-107); CREATININE FOR GFR 0.59 MG/DL (0.55-1.30); GLOMERULAR FILTRATION RATE > 60.0 (>32); GLUCOSE, FASTING 92 MG/DL (70-100); POTASSIUM SERUM 3.7 MEQ/L (3.5-5.1); SODIUM LEVEL 143 MEQ/L (136-145)
[2018-10-10] MEDS: PANTOPRAZOLE 40MG INJ (PROTONIX) (C9113) IV SCH (09:59)
[2018-10-10] MEDS: ERTAPENEM SODIUM 1 GM in NS MINI-BAG PLUS 50 ML IV SCH (09:59)
--- NOTE | 2018-10-10 10:21 | IPNPDOC ---
Subjective Date Seen The patient was seen on 10/10/18. Subjective Chief Complaint/HPI Patient looks much better last 2 days, working more with PT. More interactive and showing more interest in getting better. DOes not offer any new complaints today. Her foot is better no further pain. Output from her 3 drains have come down significantly overnight. 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 She was found on contrast swallow to have a small anastomotic leak placement of GJ tube, FELICITAS drain and Sutton Tube drain totals noted Patient tolerating tube feeds at this time Continue Ertapenem and fluconazole Further management as per surgery Posterior mediastinal fluid collection / abscess contained leak to the right of the gastroesophageal anastomosis in the lower posterior mediastinum. Collection of air and Gastrografin is seen to the right of the anastomosis measuring 5.6 x 5.1 cm. s/p IR drainage on 10/07/18 continue Ertapenem and fluconazole. Right foot pain with redness of the dorsum gout attack now improved with toradol and methyl pred 1 dose. Moderate bilateral pleural effusions with mild adjacent atelectasis/infiltrate. Mild cardiomegaly and mild amount of pericardial fluid. Improved s/p Lasix successfully weaned off supplemental oxygen Patient encouraged to use incentive spirometry, nursing made aware to encourage patient as well Cont to monitor Hypokalemia Repleted Left renal mass exophytic 2 cm may be renal cell carcinoma. Age related dementia will poor short term memory. GERD/GI prophylaxis Continue Protonix DVT prophylaxis Continue Lovenox Plan/VTE VTE Prophylaxis Ordered?: Yes VS, I&O, 24H, Fishbone Vital Signs/I&O Vital Signs Date Time Temp Pulse Resp B/P (MAP) Pulse Ox O2 Delivery O2 Flow Rate FiO2 10/10/18 06:00 98.5 71 19 127/66 (86) 92 10/08/18 21:00 0.5 I&O- Last 24 Hours up to 6 AM0 10/10/18 06:00 Intake Total 2110 ml Output Total 1711 ml Balance 399 ml Laboratory Data 24H LABS Laboratory Tests 2 10/09/18 11:48: Bedside Glucose (Misc Panel) 94 10/09/18 16:40: Bedside Glucose (Misc Panel) 77L 10/09/18 23:49: Bedside Glucose (Misc Panel) 97 10/10/18 05:50: Bedside Glucose (Misc Panel) 88 10/10/18 08:14: Immature Granulocyte % (Auto) 2.9, White Blood Count 14.5H, Red Blood Count 3.36L, Hemoglobin 10.5L, Hematocrit 32.1L, Mean Corpuscular Volume 95.5, Mean Corpuscular Hemoglobin 31.3, Mean Corpuscular Hemoglobin Concent 32.7, Red Cell Distribution Width 14.9H, Platelet Count 417, Neutrophils (%) (Auto) 73.9H, Lymphocytes (%) (Auto) 11.3L, Monocytes (%) (Auto) 5.9H, Eosinophils (%) (Auto) 5.2H, Basophils (%) (Auto) 0.8, Neutrophils # (Auto) 10.7H, Lymphocytes # (Auto) 1.6, Monocytes # (Auto) 0.9H, Eosinophils # (Auto) 0.8H, Basophils # (Auto) 0.1, Nucleated Red Blood Cells % (auto) 0.0, Anion Gap 6L, Glomerular Filtration Rate > 60.0, Blood Urea Nitrogen 24H, Creatinine 0.59, Sodium Level 143, Potassium Level 3.7, Chloride Level 111H, Carbon Dioxide Level 26, Calcium Level 8.4L CBC/BMP Laboratory Tests 10/10/18 08:14 Red Blood Count 3.36 L, Mean Corpuscular Volume 95.5, Mean Corpuscular Hem oglobin 31.3, Mean Corpuscular Hemoglobin Concent 32.7, Red Cell Distribution Width 14.9 H, Neutrophils (%) (Auto) 73.9 H, Lymphocytes (%) (Auto) 11.3 L, Monocytes (%) (Auto) 5.9 H, Eosinophils (%) (Auto) 5.2 H, Basophils (%) (Auto) 0.8, Neutrophils # (Auto) 10.7 H, Lymphocytes # (Auto) 1.6, Monocytes # (Auto) 0.9 H, Eosinophils # (Auto) 0.8 H, Basophils # (Auto) 0.1, Calcium Level 8.4 L Microbiology Microbiology 10/07/18 Gram Stain - Final, Complete 10/07/18 Abscess Culture - Final, Complete Streptococcus Oralis Yeast Like Organism 10/07/18 Anaerobic Culture - Final, Complete ANTHONY BARRETT MD Oct 10, 2018 10:21
[2018-10-10 14:00] VITALS: BP 144/82
--- NOTE | 2018-10-10 14:01 | IPN ---
DATE: 10/10/2018 The patient overall has been relatively stable. No complaints at this time. Has had good urine output and has had some bowel movements. Not complaining of any specific pain or discomfort and complains that her shortness of breath is still present but it is much better than it was previously. She is not having any nausea. She is actually hungry at this time. Her tube feeds are running and she has two drains in place. A Benedicto-Mir drain is only putting out minimal. The drain in her back, however, had put out 200 mL and today has put out 55 mL. On her physical exam her lungs are clear anteriorly. Abdomen is soft, nontender, nondistended. No guarding or rebound. No peritoneal signs are appreciated. IMPRESSION AND PLAN: The patient overall is doing relatively well at this point. She has had an anastomotic leak and it is under control at this point and she seems clinically to be doing well. Her white count is down today. Her drainage is not purulent and does not appear to be bloody and thus at this point it may be reasonable to continue with current treatment as we are currently doing. I have discussed at length that her leak may heal without further intervention but she also may need additional intervention or may be to continue with tube feeds for long period of time. However, at this point we have some obvious significant improvement and stability without any need for general or emergent intervention. Thus will continue the current treatment for now.
[2018-10-10] MEDS: ENOXAPARIN 40 MG/0.4 ML SYRINGE (J1650) SC SCH (21:17)
[2018-10-10] MEDS: FLUCONAZOLE 200 MG in APPROPRIATE DILUENT 1 EA IV SCH (21:17)
[2018-10-10 22:00] VITALS: BP 142/81
[2018-10-11 06:00] VITALS: BP 137/73
[2018-10-11] MEDS: HumaLOG INSULIN (NovoLOG) PER UNIT SC SCH ×4 (06:15→17:45)
[2018-10-11] MEDS: PANTOPRAZOLE 40MG INJ (PROTONIX) (C9113) IV SCH (10:09)
--- NOTE | 2018-10-11 12:21 | IPNPDOC ---
Subjective Date Seen The patient was seen on 10/11/18. Subjective Chief Complaint/HPI Does not offer any complaints today. No fever or chills, [address] FELICITAS drain minimal output. The back drain also has come down significantly Objective Physical Examination General Exam: Positive: Alert, Cooperative, No Acute Distress ENT Exam: Positive: Atraumatic Neck Exam: Negative: JVD Chest Exam: Positive: Clear to auscultation, Normal air movement Heart Exam: Positive: Rate Normal, Regular Rhythm, Normal S1, Normal S2; Negative: Gallops, Murmurs, Rubs Abdomen Exam: Positive: BS Hypoactive, Soft, Other (+J/P drain, +Sutton Tube); Negative: Tenderness Extremity Exam: Negative: Clubbing, Cyanosis, Edema, Tenderness, Swelling, Other Psych Exam: Positive: Mental status NL, Mood NL, Oriented x 3 Assessment /Plan Assessment 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 She was found on contrast swallow to have a small anastomotic leak placement of GJ tube, FELICITAS drain and Sutton Tube drain totals noted Patient tolerating tube feeds at this time Continue Ertapenem and fluconazole. will stop Ertapenem after 14 day total . Further management as per surgery Posterior mediastinal fluid collection / abscess contained leak to the right of the gastroesophageal anastomosis in the lower posterior mediastinum. Collection of air and Gastrografin is seen to the right of the anastomosis measuring 5.6 x 5.1 cm. s/p IR drainage on 10/07/18 continue Ertapenem and fluconazole. Right foot pain with redness of the dorsum gout attack now improved with toradol and methyl pred 1 dose. Moderate bilateral pleural effusions with mild adjacent atelectasis/infiltrate. Mild cardiomegaly and mild amount of pericardial fluid. Improved s/p Lasix successfully weaned off supplemental oxygen Patient encouraged to use incentive spirometry, nursing made aware to encourage patient as well Cont to monitor Hypokalemia Repleted Left renal mass exophytic 2 cm may be renal cell carcinoma. Age related dementia will poor short term memory. GERD/GI prophylaxis Continue Protonix DVT prophylaxis Continue Lovenox Plan/VTE VTE Prophylaxis Ordered?: Yes VS, I&O, 24H, Fishbone Vital Signs/I&O Vital Signs Date Time Temp Pulse Resp B/P (MAP) Pulse Ox O2 Delivery O2 Flow Rate FiO2 10/11/18 06:00 97.7 68 18 137/73 (94) 93 10/08/18 21:00 0.5 I&O- Last 24 Hours up to 6 AM 10/11/18 06:00 Intake Total 1570 ml Output Total 2113 ml Balance -543 ml Laboratory Data 24H LABS Laboratory Tests 2 10/10/18 17:47: Bedside Glucose (Misc Panel) 87 10/11/18 00:09: Bedside Glucose (Misc Panel) 86 10/11/18 06:09: Bedside Glucose (Misc Panel) 110 10/11/18 11:51: Bedside Glucose (Misc Panel) 97 Microbiology Microbiology 10/07/18 Gram Stain - Final, Complete 10/07/18 Abscess Culture - Final, Complete Streptococcus Oralis Yeast Like Organism 10/07/18 Anaerobic Culture - Final, Complete ANTHONY BARRETT MD Oct 11, 2018 12:21
[2018-10-11 14:00] VITALS: BP 112/69
--- NOTE | 2018-10-11 16:23 | IPN ---
DATE: 10/11/2018 Patient overall has been stable overnight, feeling well, has no other complaints at this time. She is still thirsty. Her white count was down yesterday. We do not have a followup white count, but we will get some tomorrow morning, but overall, we seem to be making some slow but progressive improvements. Her vitals have been stable. She has been afebrile and her Benedicto-Mir drain every day has had minimal and less than 23 mL. It is very minimal serous, at most serosanguineous, but essentially has had about 5 mL over the last 8-12 hours. The other drain, however, continues to drain adequately. She has started to have some bowel movements yesterday and otherwise, her abdomen is soft, nontender, nondistended. IMPRESSION/PLAN: Patient is status post partial gastrectomy and is doing relatively well at this point. Her anastomotic leak seems to be well under control. We will get a followup white count tomorrow, but I anticipate this should be slowly decreasing. I anticipate it will not normalize until the drainage completely resolves. At this point, will see how she is doing overnight and when she stops draining, then proceeding with a repeat swallow study as a reasonable option for us, or if she develops increasing temperature, fever, et cetera, or her white count, we may want to consider that there may be another undrained abscess collection, if she is not continuing to do as well as she has been over the last 48 hours. Otherwise, continue with supportive care at this time.
[2018-10-11] MEDS: ENOXAPARIN 40 MG/0.4 ML SYRINGE (J1650) SC SCH (20:42)
[2018-10-11] MEDS: FLUCONAZOLE 200 MG in APPROPRIATE DILUENT 1 EA IV SCH (20:43)
[2018-10-11 22:00] VITALS: BP 132/73
[2018-10-12] MEDS: HumaLOG INSULIN (NovoLOG) PER UNIT SC SCH ×5 (01:15→23:52)
[2018-10-12 06:00] VITALS: BP 130/66
[2018-10-12 06:10] LABS: BASO # 0.1 10^3/uL (0.0-0.2); BASO % 0.5 % (0.0-1.0); EOS # 0.7 10^3/uL (0.0-0.50); EOS % 3.8 % (0.0-3.0); HEMATOCRIT 33.4 % (36.0-47.0); LYMPH # 1.9 10^3/uL (1.5-4.5); LYMPH % 10.2 % (24.0-44.0); MEAN CORPUSCULAR HEMOGLOBIN 30.6 pg (27.0-33.0); MEAN CORPUSCULAR HGB CONC 32.9 g/dl (32.0-36.5); MONO # 1.2 10^3/uL (0.0-0.8); MONO % 6.4 % (0.0-5.0); NEUTROPHILS # 14.1 10^3/uL (1.8-7.7); NEUTROPHILS % 76.3 % (36.0-66.0); PLATELET COUNT, AUTOMATED 458 10^3/uL (150-450); RED BLOOD COUNT 3.59 10^6/uL (4.00-5.40); WHITE BLOOD COUNT 18.5 10^3/uL (4.0-10.0)
[2018-10-12 06:37] LABS: BLOOD UREA NITROGEN 14 MG/DL (7-18); CALCIUM LEVEL 8.4 MG/DL (8.8-10.2); CARBON DIOXIDE LEVEL 26 MEQ/L (21-32); CHLORIDE LEVEL 106 MEQ/L (98-107); GLOMERULAR FILTRATION RATE > 60.0 (>32); GLUCOSE, FASTING 110 MG/DL (70-100); POTASSIUM SERUM 4.1 MEQ/L (3.5-5.1); SODIUM LEVEL 139 MEQ/L (136-145)
[2018-10-12] MEDS: ERTAPENEM SODIUM 1 GM in NS MINI-BAG PLUS 50 ML IV SCH (08:00)
[2018-10-12] MEDS: PANTOPRAZOLE 40MG INJ (PROTONIX) (C9113) IV SCH (09:00)
--- NOTE | 2018-10-12 10:36 | IPN ---
DATE: 10/12/2018 The patient overall seems to be doing well. She has not complaints per se; however, white count did bump up today. She has still been afebrile. The antibiotics that she was on previously were stopped a couple days ago and thus may have had an elevated white count because of this issue. However, at this point, she seems to be doing well. Her FELICITAS was removed yesterday and her current drain in her back seems to be draining much less fluids, it is a little purulent still but it is decreasing. I irrigated the tube and it irrigated easily, aspirated adequately and there is some minimal purulent fluid but no significant air leak, etc. The urine output seems to be doing well. She has some bilious output in her gastrostomy tube, but otherwise the tube feeds seem to be adequate at this time. Abdomen is otherwise soft, nontender, nondistended. IMPRESSION/PLAN: The patient has an anastomotic leak, it seems to be well-controlled from a surgical standpoint. She looks better each day so each day she seems to be looking better and from my standpoint she is making some good progress. 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 If she continues have decreasing output, it may be reasonable to repeat the upper GI to see if the fistula has closed off. Both of those tests might be in her future, but we will see how we do today given that she continues to look better on a daily basis.
--- NOTE | 2018-10-12 11:31 | IPNPDOC ---
Date Seen The patient was seen on 10/12/18. Progress Note SUBJECTIVE: Patient is a 88-year-old female with intrathoracic stomach s/p laparoscopy and laparotomy with reduction of incarcerated hiatal hernia and proximal hemigastrectomy with esophagogastrostomy and placement of gastrojejunal tube and esophagoscopy. Patient is evaluated at bedside this morning. She states that she would like to go home to be with her dog who she thinks is in the kennel. She has no pain. She denies chest pain, shortness of breath, fever, night sweats, chills. OBJECTIVE PHYSICAL EXAMINATION: VITAL SIGNS: Please see below. GENERAL: Well nourished, well developed female, answers questions appropriately, no acute distress. HEENT: Atraumatic, normocephalic, PERRL, EOMI, oral mucosa appears pink and moist, nasal septum appears midline, nares are patent. CARDIOVASCULAR: Regular rate and rhythm, normal S1 and S2, no murmur, rub, click. RESPIRATORY: Clear to auscultation bilaterally, no wheeze, rhonchi, crackles. ABDOMINAL: Midline stapled incision, drainage tubing note in LUQ with receptacle containing minimal cream/yellow drainage, skin around drainage tube is clean, dry, intact without erythema. EXTREMITIES: Trace pitting edema noted on the RLE, no chronic venous stasis changes noted, peripheral pulses equal and symmetrical. NEUROLOGICAL: CN II-XII grossly intact. PSYCHOLOGICAL: Pleasant, alert. LABORATORY DATA, IMAGING STUDIES, MICROBIOLOGY: Please see below. DVT prophylaxis ordered?: Lovenox 40mg SQ daily. ASSESSMENT AND PLAN: This is a 88-year-old female with intrathoracic stomach s/p laparoscopy and laparotomy with reduction of incarcerated hiatal hernia and proximal hemigastrectomy with esophagogastrostomy and placement of gastrojejunal tube and esophagoscopy. PROBLEMS: 1. 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 NG tube enters left upper quadrant. No definite infiltrate. Discoid atelectasis right base. KUB on 09/30/2018: Contrast opacified urine is seen in the intrarenal collecting system of the right kidney and within the urinary bladder. Left kidney shows no evidence of opacification. The left kidney is not clearly apparent. There is a moderate dextroconvex lumbar curvature. The bowel gas pattern is normal in the abdomen. There is air density in what appears to be a large hiatal hernia to the right of midline in the chest. A nasogastric or tube courses to the right of midline in the lower chest and then enters left upper quadrant of the abdomen. Portable chest x-ray on 10/01/2018: Interval removal of an NG tube since . Interval upper abdominal surgery to the prior study with a tube or drain extending across the upper abdomen. New left base infiltrate or atelectasis and possible left pleural effusion since the prior study. Decreased right base infiltrate or atelectasis. Portable chest x-ray on 10/03/2018: A presumed pulmonary vascular congestion with bibasilar atelectasis and pleural effusions which appear slightly increased from prior examination. Esophagram barium swallow on 10/05/2018: Focal collection to the right of the gastroesophageal anastomosis consistent with a contained leak. CT chest with contrast on 10/06/2018: As seen on yesterday's Gastrografin swallow, there is a contained leak to the right of the gastroesophageal anastomosis in the lower posterior mediastinum. Collection of air and Gastrografin is seen to the right of the anastomosis measuring 5.6 x 5.1 cm. There is also mild to moderate adjacent unopacified fluid in the posterior mediastinum bilaterally, right greater than left. Moderate bilateral pleural effusions with mild adjacent atelectasis/ infiltrate. Mild cardiomegaly and mild amount of pericardial fluid. CT abdomen with IV contrast on 10/06/2018: Surgical drain in the upper abdomen. Gastrojejunostomy tube in place. Postsurgical edema in the upper abdomen without evidence of abscess or fluid collection. There is a fluid collection in the posterior mediastinum of the lower chest described in today's CT of the chest report. There is mild ill-defined low density in the lateral segment of the left lobe of the liver approximately 2.5 cm in diameter which may represent postsurgical or inflammatory change. Left renal mass in the mid aspect 2 cm in diameter is exophytic and may represent renal cell carcinoma. CT guided percutaneous drain of mediastinal fluid collection Patient is tolerating tube feeds @ 65 Minimal drainage from tubes Restarted Ertapenem for 4 days; total 14 days; chest culture positive for Streptococcus Oralis from 10/07/2018 C/W Fluconazole; chest culture positive for Angela Albicans from 10/07/2018 General surgery consulted: recommend continuing antibiotic, obtain updated CT if further increase in white count, consider upper GI if drainage output continues to decrease Remains NPO, FSBS Q6H, SSI Q6H 2. Posterior mediastinal fluid collection / abscess See imaging and drainage results as listed in #1 C/W Fluconazole; chest culture positive for Angela Albicans from 10/07/2018 3. Neutrophilic leukocytosis General surgery consulted Restarted Ertapenem for 4 more days; has already received 10 doses VS stable Low threshold for re-imaging with CT if white count continues to increase or patient develops a fever 4. Right foot pain with erythema on dorsum of foot 2/2 gout attack S/P 1x dose of Methylprednisolone C/W Ketorolac (renal function adequate) 5. Moderate bilateral pleural effusions with mild adjacent atelectasis/infiltrate Mild cardiomegaly and mild amount of pericardial fluid S/P Lasix Oxygen therapy as needed C/W incentive spirometry 6. Left exophytic renal mass, 2cm ? renal cell carcinoma Out-patient work-up 7. Age related dementia Poor short-term memory 8. GERD/GI prophylaxis C/W Protonix DISPOSITION: Continue to monitor. May require updated imaging based on labs and VS. Attending Note I have examined the patient and discussed the plan of care with the resident. I agree with the resident's documentation. VS, I&O, 24H, Fishbone Vital Signs/I&O Vital Signs Date Time Temp Pulse Resp B/P (MAP) Pulse Ox O2 Delivery O2 Flow Rate FiO2 10/12/18 06:00 97.6 73 15 130/66 (87) 94 10/08/18 21:00 0.5 I&O- Last 24 Hours up to 6 AM 10/12/18 06:00 Intake Total 2695 ml Output Total 3400 ml Balance -705 ml Laboratory Data 24H LABS Laboratory Tests 2 10/11/18 11:51: Bedside Glucose (Misc Panel) 97 10/11/18 18:18: Bedside Glucose (Misc Panel) 92 10/12/18 00:24: Bedside Glucose (Misc Panel) 102 10/12/18 05:50: Immature Granulocyte % (Auto) 2.8, White Blood Count 18.5H, Red Blood Count 3.59L, Hemoglobin 11.0L, Hematocrit 33.4L, Mean Corpuscular Volume 93.0, Mean Corpuscular Hemoglobin 30.6, Mean Corpuscular Hemoglobin Concent 32.9, Red Cell Distribution Width 14.7H, Platelet Count 458H, Neutrophils (%) (Auto) 76.3H, Lymphocytes (%) (Auto) 10.2L, Monocytes (%) (Auto) 6.4H, Eosinophils (%) (Auto) 3.8H, Basophils (%) (Auto) 0.5, Neutrophils # (Auto) 14.1H, Lymphocytes # (Auto) 1.9, Monocytes # (Auto) 1.2H, Eosinophils # (Auto) 0.7H, Basophils # (Auto) 0.1, Nucleated Red Blood Cells % (auto) 0.0, Anion Gap 7L, Glomerular Filtration Rate > 60.0, Blood Urea Nitrogen 14, Creatinine 0.60, Sodium Level 139, Potassium Level 4.1, Chloride Level 106, Carbon Dioxide Level 26, Calcium Level 8.4L 10/12/18 06:01: Bedside Glucose (Misc Panel) 121H CBC/BMP Laboratory Tests 10/12/18 05:50 Red Blood Count 3.59 L, Mean Corpuscular Volume 93.0, Mean Corpuscular Hemoglobin 30.6, Mean Corpuscular Hemoglobin Concent 32.9, Red Cell Distribution Width 14.7 H, Neutrophils (%) (Auto) 76.3 H, Lymphocytes (%) (Auto) 10.2 L, Monocytes (%) (Auto) 6.4 H, Eosinophils (%) (Auto) 3.8 H, Basophils (%) (Auto) 0.5, Neutrophils # (Auto) 14.1 H, Lymphocytes # (Auto) 1.9, Monocytes # (Auto) 1.2 H, Eosinophils # (Auto) 0.7 H, Basophils # (Auto) 0.1, Calcium Level 8.4 L Microbiology Microbiology 10/07/18 - Final, Complete Angela Albicans 10/07/18 Gram Stain - Final, Complete 10/07/18 Abscess Culture - Final, Complete Streptococcus Oralis Yeast Like Organism 10/07/18 Anaerobic Culture - Final, Complete OOSTHUIZEN,NIRAV DO Oct 12, 2018 11:31 ANTHONY BARRETT MD Oct 12, 2018 23:42
[2018-10-12 14:00] VITALS: BP 123/71
[2018-10-12] MEDS: ENOXAPARIN 40 MG/0.4 ML SYRINGE (J1650) SC SCH (20:19)
[2018-10-12] MEDS: FLUCONAZOLE 200 MG in APPROPRIATE DILUENT 1 EA IV SCH (20:19)
[2018-10-12] MEDS: KETOROLAC 30 MG/ML VIAL (J1885) IV PRN (21:47)
[2018-10-12 22:00] VITALS: BP 105/67
[2018-10-13 06:00] VITALS: BP 134/72
[2018-10-13] MEDS: HumaLOG INSULIN (NovoLOG) PER UNIT SC SCH ×4 (06:16→23:50)
[2018-10-13 06:41] LABS: BASO # 0.1 10^3/uL (0.0-0.2); BASO % 0.4 % (0.0-1.0); EOS # 0.6 10^3/uL (0.0-0.50); EOS % 3.5 % (0.0-3.0); HEMATOCRIT 30.2 % (36.0-47.0); HEMOGLOBIN 9.8 g/dl (12.0-15.5); LYMPH # 1.7 10^3/uL (1.5-4.5); LYMPH % 9.7 % (24.0-44.0); MEAN CORPUSCULAR HEMOGLOBIN 29.9 pg (27.0-33.0); MEAN CORPUSCULAR HGB CONC 32.5 g/dl (32.0-36.5); MEAN CORPUSCULAR VOLUME 92.1 fl (80.0-96.0); MONO # 1.4 10^3/uL (0.0-0.8); MONO % 8.4 % (0.0-5.0); NEUTROPHILS # 12.6 10^3/uL (1.8-7.7); NEUTROPHILS % 74.6 % (36.0-66.0); PLATELET COUNT, AUTOMATED 440 10^3/uL (150-450); RED BLOOD COUNT 3.28 10^6/uL (4.00-5.40)
[2018-10-13 07:13] LABS: BLOOD UREA NITROGEN 22 MG/DL (7-18); CALCIUM LEVEL 8.1 MG/DL (8.8-10.2); CARBON DIOXIDE LEVEL 27 MEQ/L (21-32); CHLORIDE LEVEL 106 MEQ/L (98-107); CREATININE FOR GFR 0.68 MG/DL (0.55-1.30); GLOMERULAR FILTRATION RATE > 60.0 (>32); GLUCOSE, FASTING 116 MG/DL (70-100); SODIUM LEVEL 139 MEQ/L (136-145)
[2018-10-13] MEDS: ERTAPENEM SODIUM 1 GM in NS MINI-BAG PLUS 50 ML IV SCH (08:25)
[2018-10-13] MEDS: PANTOPRAZOLE 40MG INJ (PROTONIX) (C9113) IV SCH (08:25)
--- NOTE | 2018-10-13 10:49 | IPNPDOC ---
Date Seen The patient was seen on 10/13/18. Progress Note SUBJECTIVE: Pt was seen and examined at the bedside. "I just want to know if I can go back to how it was before, driving by myself, and living on my own." Patient requests re-positioning in bed. She has not been sitting on a chair, or ambulating. "Not today. Maybe tomorrow." She has no pain. She denies chest pain, shortness of breath, fever, night sweats, chills. OBJECTIVE PHYSICAL EXAMINATION: VITAL SIGNS: Please see below. General Exam: Positive: Alert, Cooperative, No Acute Distress ENT Exam: Positive: Atraumatic Neck Exam: Negative: JVD Chest Exam: Positive: Clear to auscultation, Normal air movement Heart Exam: Positive: Rate Normal, Regular Rhythm, Normal S1, Normal S2; Negative: Gallops, Murmurs, Rubs Abdomen Exam: Positive: BS Hypoactive, Soft, Other (+J/P drain, +Sutton Tube); Negative: Tenderness Extremity Exam: Negative: Clubbing, Cyanosis, Edema, Tenderness, Swelling, Other Psych Exam: Positive: Mental status NL, Mood NL, Oriented x 3 LABORATORY DATA, IMAGING STUDIES, MICROBIOLOGY: Please see below. DVT prophylaxis ordered?: Lovenox 40mg SQ daily. ASSESSMENT AND PLAN: This is a 88-year-old female with intrathoracic stomach s/p laparoscopy and laparotomy with reduction of incarcerated hiatal hernia and proximal hemigastrectomy with esophagogastrostomy and placement of gastrojejunal tube and esophagoscopy. 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 She was found on contrast swallow to have a small anastomotic leak placement of GJ tube, FELICITAS drain and Sutton Tube drain totals noted Patient tolerating tube feeds at this time Continue Ertapenem and fluconazole. will stop Ertapenem after 14 day total . Further management as per surgery Posterior mediastinal fluid collection / abscess contained leak to the right of the gastroesophageal anastomosis in the lower posterior mediastinum. Collection of air and Gastrografin is seen to the right of the anastomosis measuring 5.6 x 5.1 cm. s/p IR drainage on 10/07/18 continue Ertapenem and fluconazole. Right foot pain with redness of the dorsum gout attack now improved with toradol and methyl pred 1 dose. Moderate bilateral pleural effusions with mild adjacent atelectasis/infiltrate. Mild cardiomegaly and mild amount of pericardial fluid. Improved s/p Lasix successfully weaned off supplemental oxygen Patient encouraged to use incentive spirometry, nursing made aware to encourage patient as well Cont to monitor Hypokalemia, resolved Repleted Left renal mass exophytic 2 cm may be renal cell carcinoma. Age related dementia will poor short term memory. GERD/GI prophylaxis Continue Protonix DVT prophylaxis Continue Lovenox VS, I&O, 24H, Fishbone Vital Signs/I&O Vital Signs Date Time Temp Pulse Resp B/P (MAP) Pulse Ox O2 Delivery O2 Flow Rate FiO2 10/13/18 06:00 98.1 70 18 134/72 (92) 96 10/08/18 21:00 0.5 I&O- Last 24 Hours up to 6 AM 10/13/18 06:00 Intake Total 1810 ml Output Total 1395 ml Balance 415 ml Laboratory Data 24H LABS Laboratory Tests 2 10/12/18 12:42: Bedside Glucose (Misc Panel) 99 10/12/18 16:50: Bedside Glucose (Misc Panel) 88 10/12/18 20:10: Bedside Glucose (Misc Panel) 117H 10/12/18 23:34: Bedside Glucose (Misc Panel) 125H 10/13/18 05:39: Bedside Glucose (Misc Panel) 125H 10/13/18 06:13: Immature Granulocyte % (Auto) 3.4H, White Blood Count 17.0H, Red Blood Count 3.28L, Hemoglobin 9.8L, Hematocrit 30.2L, Mean Corpuscular Volume 92.1, Mean Corpuscular Hemoglobin 29.9, Mean Corpuscular Hemoglobin Concent 32.5, Red Cell Distribution Width 14.7H, Platelet Count 440, Neutrophils (%) (Auto) 74.6H, Lymphocytes (%) (Auto) 9.7L, Monocytes (%) (Auto) 8.4H, Eosinophils (%) (Auto) 3.5H, Basophils (%) (Auto) 0.4, Neutrophils # (Auto) 12.6H, Lymphocytes # (Auto) 1.7, Monocytes # (Auto) 1.4H, Eosinophils # (Auto) 0.6H, Basophils # (Auto) 0.1, Nucleated Red Blood Cells % (auto) 0.0, Anion Gap 6L, Glomerular Filtration Rate > 60.0, Blood Urea Nitrogen 22#H, Creatinine 0.68, Sodium Level 139, Potassium Level 4.0, Chloride Level 106, Carbon Dioxide Level 27, Calcium Level 8.1L CBC/BMP Laboratory Tests 10/13/18 06:13 Red Blood Count 3.28 L, Mean Corpuscular Volume 92.1, Mean Corpuscular Hemoglobin 29.9, Mean Corpuscular Hemoglobin Concent 32.5, Red Cell Distribution Width 14.7 H, Neutrophils (%) (Auto) 74.6 H, Lymphocytes (%) (Auto) 9.7 L, Monocytes (%) (Auto) 8.4 H, Eosinophils (%) (Auto) 3.5 H, Basophils (%) (Auto) 0.4, Neutrophils # (Auto) 12.6 H, Lymphocytes # (Auto) 1.7, Monocytes # (Auto) 1.4 H, Eosinophils # (Auto) 0.6 H, Basophils # (Auto) 0.1, Calcium Level 8.1 L Microbiology Microbiology 10/07/18 - Final, Complete Angela Albicans 10/07/18 Gram Stain - Final, Complete 10/07/18 Abscess Culture - Final, Complete Streptococcus Oralis Yeast Like Organism 10/07/18 Anaerobic Culture - Final, Complete LEANNE RUSSO MD Oct 13, 2018 10:37
[2018-10-13 14:00] VITALS: BP 116/76
[2018-10-13] MEDS: ENOXAPARIN 40 MG/0.4 ML SYRINGE (J1650) SC SCH (20:13)
[2018-10-13] MEDS: FLUCONAZOLE 200 MG in APPROPRIATE DILUENT 1 EA IV SCH (20:18)
[2018-10-13 22:00] VITALS: BP 113/57
[2018-10-14] MEDS: HumaLOG INSULIN (NovoLOG) PER UNIT SC SCH ×3 (05:54→17:59)
[2018-10-14 06:00] VITALS: BP 133/81
[2018-10-14 06:12] LABS: BASO # 0.1 10^3/uL (0.0-0.2); BASO % 0.5 % (0.0-1.0); EOS # 0.4 10^3/uL (0.0-0.50); EOS % 2.6 % (0.0-3.0); HEMATOCRIT 32.5 % (36.0-47.0); HEMOGLOBIN 10.8 g/dl (12.0-15.5); LYMPH # 1.2 10^3/uL (1.5-4.5); LYMPH % 7.2 % (24.0-44.0); MEAN CORPUSCULAR HEMOGLOBIN 30.9 pg (27.0-33.0); MEAN CORPUSCULAR HGB CONC 33.2 g/dl (32.0-36.5); MEAN CORPUSCULAR VOLUME 93.1 fl (80.0-96.0); MONO # 1.5 10^3/uL (0.0-0.8); NEUTROPHILS # 12.8 10^3/uL (1.8-7.7); NEUTROPHILS % 78.1 % (36.0-66.0); PLATELET COUNT, AUTOMATED 512 10^3/uL (150-450); RED BLOOD COUNT 3.49 10^6/uL (4.00-5.40); WHITE BLOOD COUNT 16.5 10^3/uL (4.0-10.0)
[2018-10-14 06:38] LABS: BLOOD UREA NITROGEN 22 MG/DL (7-18); CALCIUM LEVEL 8.5 MG/DL (8.8-10.2); CARBON DIOXIDE LEVEL 26 MEQ/L (21-32); CHLORIDE LEVEL 106 MEQ/L (98-107); CREATININE FOR GFR 0.68 MG/DL (0.55-1.30); GLOMERULAR FILTRATION RATE > 60.0 (>32); GLUCOSE, FASTING 116 MG/DL (70-100); POTASSIUM SERUM 4.5 MEQ/L (3.5-5.1); SODIUM LEVEL 137 MEQ/L (136-145)
[2018-10-14] MEDS: ERTAPENEM SODIUM 1 GM in NS MINI-BAG PLUS 50 ML IV SCH (09:10)
[2018-10-14] MEDS: PANTOPRAZOLE 40MG INJ (PROTONIX) (C9113) IV SCH (09:11)
--- NOTE | 2018-10-14 10:24 | REP ---
Chest one-view HISTORY: Pleural effusion Comparison: 10/03/2018 Parenchymal densities are present in the lower lobes consistent with bibasilar atelectasis that is decreased compared to the previous study. Small bilateral pleural effusions are present slightly increased on the right and decreased on the left. The cardiac silhouette is enlarged. The heart is normal in size. The pulmonary vasculature is normal in appearance. A drainage catheter and gastrostomy tube are present. Impression: 1. Bibasilar atelectasis decreased compared to the previous study. 2. Small bilateral pleural effusions slightly increased on the right and decreased on the left. Electronically Signed by Audie Gamez MD 10/14/2018 10:15 A
--- NOTE | 2018-10-14 13:09 | IPNPDOC ---
Date Seen The patient was seen on 10/14/18. Progress Note SUBJECTIVE: Pt c/o slight sob s/p ivfluids due to npo status s/p s/p laparoscopy and laparotomy with reduction of incarcerated hiatal hernia and proximal hemigastrectomy with esophagogastrostomy and placement of gastrojejunal tube and esophagoscopy. CXR: small bilateral effusions. s/p one dose of iv lasix 20mg. Pt denies any chest pain pressure, tightness, dizziness, lightheadedness. still w postop pain rated at 5/10 while sitting still. Pt c/o fatigue but has been cooperative with physical therapy. She is worried about not being able to go back to her previous activities, and worried about not being independent in the near future. OBJECTIVE PHYSICAL EXAMINATION: VITAL SIGNS: Please see below. General Exam: Positive: Alert, Cooperative, No Acute Distress ENT Exam: Positive: Atraumatic Neck Exam: Negative: JVD Chest Exam: Positivediminished, fine bibasilar crackles Normal air movement Heart Exam: Positive: Rate Normal, Regular Rhythm, Normal S1, Normal S2; Negative: Gallops, Murmurs, Rubs Abdomen Exam: Positive: BS Hypoactive, Soft, Other (+J/P drain, +Sutton Tube); Negative: Tenderness Extremity Exam: Negative: Clubbing, Cyanosis, Edema, Tenderness, Swelling, Other Psych Exam: Positive: Mental status NL, Mood NL, Oriented x 3 LABORATORY DATA, IMAGING STUDIES, MICROBIOLOGY: Please see below. DVT prophylaxis ordered?: Lovenox 40mg SQ daily. ASSESSMENT AND PLAN: This is a 88-year-old female with intrathoracic stomach s/p laparoscopy and laparotomy with reduction of incarcerated hiatal hernia and proximal hemigastrectomy with esophagogastrostomy and placement of gastrojejunal tube and esophagoscopy. 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 She was found on contrast swallow to have a small anastomotic leak placement of GJ tube, FELICITAS drain and Sutton Tube drain totals noted Patient tolerating tube feeds at this time Continue Ertapenem and fluconazole. will stop Ertapenem after 14 day total . Further management as per surgery Bilateral pleural effusions/Acute fluid overload due to ivfluids due to npo status s/p one dose lasix 20 mg iv 10/14/18 on TPN will need to monitor i/o and may need daily lasix to keep euvolemic Posterior mediastinal fluid collection / abscess contained leak to the right of the gastroesophageal anastomosis in the lower posterior mediastinum. Collection of air and Gastrografin is seen to the right of the anastomosis measuring 5.6 x 5.1 cm. s/p IR drainage on 10/07/18 continue Ertapenem and fluconazole. Right foot pain with redness of the dorsum gout attack now improved with toradol and methyl pred 1 dose. Moderate bilateral pleural effusions with mild adjacent atelectasis/infiltrate. Mild cardiomegaly and mild amount of pericardial fluid. Improved s/p Lasix successfully weaned off supplemental oxygen Patient encouraged to use incentive spirometry, nursing made aware to encourage patient as well Cont to monitor Hypokalemia, resolved Repleted Left renal mass exophytic 2 cm may be renal cell carcinoma. Age related dementia will poor short term memory. GERD/GI prophylaxis Continue Protonix DVT prophylaxis Continue Lovenox VS, I&O, 24H, [facility] Vital Signs/I&O Vital Signs Date Time Temp Pulse Resp B/P (MAP) Pulse Ox O2 Delivery O2 Flow Rate FiO2 10/14/18 06:00 98.0 67 18 133/81 (98) 95 10/08/18 21:00 0.5 I&O- Last 24 Hours up to 6 AM 10/14/18 06:00 Intake Total 1910 ml Output Total 2075 ml Balance -165 ml Laboratory Data 24H LABS Laboratory Tests 2 10/13/18 17:42: Bedside Glucose (Misc Panel) 115H 10/13/18 23:38: Bedside Glucose (Misc Panel) 113H 10/14/18 05:32: Bedside Glucose (Misc Panel) 145H 10/14/18 05:50: Immature Granulocyte % (Auto) 2.6, White Blood Count 16.5H, Red Blood Count 3.49L, Hemoglobin 10.8L, Hematocrit 32.5L, Mean Corpuscular Volume 93.1, Mean Corpuscular Hemoglobin 30.9, Mean Corpuscular Hemoglobin Concent 33.2, Red Cell Distribution Width 14.7H, Platelet Count 512H, Neutrophils (%) (Auto) 78.1H, Ly mphocytes (%) (Auto) 7.2L, Monocytes (%) (Auto) 9.0H, Eosinophils (%) (Auto) 2.6, Basophils (%) (Auto) 0.5, Neutrophils # (Auto) 12.8H, Lymphocytes # (Auto) 1.2L, Monocytes # (Auto) 1.5H, Eosinophils # (Auto) 0.4, Basophils # (Auto) 0.1, Nucleated Red Blood Cells % (auto) 0.0, Anion Gap 5L, Glomerular Filtration Rate > 60.0, Blood Urea Nitrogen 22H, Creatinine 0.68, Sodium Level 137, Potassium Level 4.5, Chloride Level 106, Carbon Dioxide Level 26, Calcium Level 8.5L 10/14/18 11:23: Bedside Glucose (Misc Panel) 107 CBC/BMP Laboratory Tests 10/14/18 05:50 Red Blood Count 3.49 L, Mean Corpuscular Volume 93.1, Mean Corpuscular Hemoglobin 30.9, Mean Corpuscular Hemoglobin Concent 33.2, Red Cell Distribution Width 14.7 H, Neutrophils (%) (Auto) 78.1 H, Lymphocytes (%) (Auto) 7.2 L, Monocytes (%) (Auto) 9.0 H, Eosinophils (%) (Auto) 2.6, Basophils (%) (Auto) 0.5, Neutrophils # (Auto) 12.8 H, Lymphocytes # (Auto) 1.2 L, Monocytes # (Auto) 1.5 H, Eosinophils # (Auto) 0.4, Basophils # (Auto) 0.1, Calcium Level 8.5 L Microbiology Microbiology 10/07/18 - Final, Complete Angela Albicans 10/07/18 Gram Stain - Final, Complete 10/07/18 Abscess Culture - Final, Complete Streptococcus Oralis Yeast Like Organism 10/07/18 Anaerobic Culture - Final, Complete LEANNE RUSSO MD Oct 14, 2018 13:09
[2018-10-14 14:00] VITALS: BP 115/58
[2018-10-14] MEDS ORDERED: FUROSEMIDE 20 MG/2 ML VIAL (J1940) IV ONE (14:00)
[2018-10-14] MEDS: FLUCONAZOLE 200 MG in APPROPRIATE DILUENT 1 EA IV SCH (20:05)
[2018-10-14] MEDS: ENOXAPARIN 40 MG/0.4 ML SYRINGE (J1650) SC SCH (20:05)
[2018-10-14 22:00] VITALS: BP 114/68
[2018-10-15] MEDS: HumaLOG INSULIN (NovoLOG) PER UNIT SC SCH ×4 (00:25→17:17)
[2018-10-15 06:00] VITALS: BP 104/62
[2018-10-15 06:23] LABS: BASO # 0.1 10^3/uL (0.0-0.2); BASO % 0.6 % (0.0-1.0); EOS # 0.3 10^3/uL (0.0-0.50); HEMATOCRIT 30.1 % (36.0-47.0); HEMOGLOBIN 9.6 g/dl (12.0-15.5); LYMPH # 1.3 10^3/uL (1.5-4.5); LYMPH % 7.2 % (24.0-44.0); MEAN CORPUSCULAR HEMOGLOBIN 29.4 pg (27.0-33.0); MEAN CORPUSCULAR HGB CONC 31.9 g/dl (32.0-36.5); MONO # 1.8 10^3/uL (0.0-0.8); MONO % 10.3 % (0.0-5.0); NEUTROPHILS # 13.5 10^3/uL (1.8-7.7); NEUTROPHILS % 77.7 % (36.0-66.0); PLATELET COUNT, AUTOMATED 537 10^3/uL (150-450); RED BLOOD COUNT 3.27 10^6/uL (4.00-5.40); WHITE BLOOD COUNT 17.4 10^3/uL (4.0-10.0)
[2018-10-15 06:47] LABS: ALBUMIN 1.7 GM/DL (3.2-5.2); ALT/SGPT 55 U/L (12-78); BILIRUBIN,TOTAL 0.3 MG/DL (0.2-1.0); BLOOD UREA NITROGEN 29 MG/DL (7-18); CALCIUM LEVEL 8.6 MG/DL (8.8-10.2); CARBON DIOXIDE LEVEL 27 MEQ/L (21-32); CHLORIDE LEVEL 105 MEQ/L (98-107); CREATININE FOR GFR 0.78 MG/DL (0.55-1.30); GLOMERULAR FILTRATION RATE > 60.0 (>32); GLUCOSE, FASTING 133 MG/DL (70-100); POTASSIUM SERUM 4.4 MEQ/L (3.5-5.1); SODIUM LEVEL 138 MEQ/L (136-145); TOTAL PROTEIN 6.2 GM/DL (6.4-8.2)
[2018-10-15] MEDS: PANTOPRAZOLE 40MG INJ (PROTONIX) (C9113) IV SCH (08:20)
[2018-10-15] MEDS: ACETAMINOPHEN 325 MG/10.15 ML UDC JT PRN ×2 (08:31→13:54)
[2018-10-15] MEDS ORDERED: FUROSEMIDE 40 MG/4 ML VIAL (J1940) IV ONE (09:00)
--- NOTE | 2018-10-15 09:15 | REP ---
Chest one-view HISTORY: Pleural effusion Comparison: 10/14/2018 Parenchymal densities are present in the lower lobes consistent with bibasilar atelectasis that is decreased compared to the previous study. Small bilateral pleural effusions are present unchanged on the right and decreased on the left. The heart is normal in size. The pulmonary vasculature is normal in appearance. Impression: 1. Bibasilar atelectasis decreased compared to the previous study. 2. Small bilateral pleural effusions unchanged on the right and decreased on the left. Electronically Signed by Audie Gamez MD 10/15/2018 09:06 A
[2018-10-15] MEDS: ERTAPENEM SODIUM 1 GM in NS MINI-BAG PLUS 50 ML IV SCH (09:50)
--- NOTE | 2018-10-15 10:39 | IPNPDOC ---
Date Seen The patient was seen on 10/15/18. Progress Note SUBJECTIVE: Pt was found to have small b/l pleural effusions on cxr 10/14/18 s/p one dose of iv lasix 20mg with urine output of about 900ml yesterday. Overnight, pt denies sob, chest pain, pressure, heaviness, tightness, dizziness. She continues to c/o fatigue, generalized weakness,and 3/10 pain at surgical site. OBJECTIVE PHYSICAL EXAMINATION: VITAL SIGNS: Please see below. General Exam: Positive: Alert, Cooperative, No Acute Distress ENT Exam: Positive: Atraumatic Neck Exam: Negative: JVD Chest Exam: Positivediminished, fine bibasilar crackles Normal air movement Heart Exam: Positive: Rate Normal, Regular Rhythm, Normal S1, Normal S2; Negative: Gallops, Murmurs, Rubs Abdomen Exam: Positive: BS Hypoactive, Soft, Other (+J/P drain, +Sutton Tube); Negative: Tenderness Extremity Exam: Negative: Clubbing, Cyanosis, Edema, Tenderness, Swelling, Other Psych Exam: Positive: Mental status NL, Mood NL, Oriented x 3 LABORATORY DATA, IMAGING STUDIES, MICROBIOLOGY: Please see below. DVT prophylaxis ordered?: Lovenox 40mg SQ daily. 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 She was found on contrast swallow to have a small anastomotic leak placement of GJ tube, FELICITAS drain and Sutton Tube drain totals noted Patient tolerating tube feeds at this time Continue Ertapenem and fluconazole. will stop Ertapenem after 14 day total . Further management as per surgery Bilateral pleural effusions/Acute fluid overload due to ivfluids due to npo status s/p one dose lasix 20 mg iv 10/14/18 on TPN will need to monitor i/o and may need bid lasix to keep euvolemic Posterior mediastinal fluid collection / abscess contained leak to the right of the gastroesophageal anastomosis in the lower posterior mediastinum. Collection of air and Gastrografin is seen to the right of the anastomosis measuring 5.6 x 5.1 cm. s/p IR drainage on 10/07/18 continue Ertapenem and fluconazole. Right foot pain with redness of the dorsum gout attack now improved with toradol and methyl pred 1 dose. Moderate bilateral pleural effusions with mild adjacent atelectasis/infiltrate. Mild cardiomegaly and mild amount of pericardial fluid. Improved s/p Lasix successfully weaned off supplemental oxygen Patient encouraged to use incentive spirometry, nursing made aware to encourage patient as well Cont to monitor Hypokalemia, resolved Repleted Left renal mass exophytic 2 cm may be renal cell carcinoma. Age related dementia will poor short term memory. GERD/GI prophylaxis Continue Protonix DVT prophylaxis Continue Lovenox VS, I&O, 24H, Fishbone Vital Signs/I&O Vital Signs Date Time Temp Pulse Resp B/P (MAP) Pulse Ox O2 Delivery O2 Flow Rate FiO2 10/15/18 06:00 99.0 88 16 104/62 (76) 99 I&O- Last 24 Hours up to 6 AM 10/15/18 06:00 Intake Total 1620 ml Output Total 2470 ml Balance -850 ml Laboratory Data 24H LABS Laboratory Tests 2 10/14/18 11:23: Bedside Glucose (Misc Panel) 107 10/14/18 17:51: Bedside Glucose (Misc Panel) 118H 10/15/18 00:15: Bedside Glucose (Misc Panel) 131H 10/15/18 05:47: Bedside Glucose (Misc Panel) 135H 10/15/18 05:57: Immature Granulocyte % (Auto) 2.2, White Blood Count 17.4H, Red Blood Count 3.27L, Hemoglobin 9.6L, Hematocrit 30.1L, Mean Corpuscular Volume 92.0, Mean Corpuscular Hemoglobin 29.4, Mean Corpuscular Hemoglobin Concent 31.9L, Red Cell Distribution Width 14.6H, Platelet Count 537H, Neutrophils (%) (Auto) 77.7H, Lymphocytes (%) (Auto) 7.2L, Monocytes (%) (Auto) 10.3H, Eosinophils (%) (Auto) 2.0, Basophils (%) (Auto) 0.6, Neutrophils # (Auto) 13.5H, Lymphocytes # (Auto) 1.3L, Monocytes # (Auto) 1.8H, Eosinophils # (Auto) 0.3, Basophils # (Auto) 0.1, Nucleated Red Blood Cells % (auto) 0.0, Anion Gap 6L, Glomerular Filtration Rate > 60.0, Blood Urea Nitrogen 29H, Creatinine 0.78, Sodium Level 138, Potassium Level 4.4, Chloride Level 105, Carbon Dioxide Level 27, Calcium Level 8.6L, Aspartate Amino Transf (AST/SGOT) 21, Alanine Aminotransferase (ALT/SGPT) 55, Alkaline Phosphatase 176H, Total Bilirubin 0.3, Total Protein 6.2L, Albumin 1.7L, Albumin/Globulin Ratio 0.38L CBC/BMP Laboratory Tests 10/15/18 05:57 Red Blood Count 3.27 L, Mean Corpuscular Volume 92.0, Mean Corpuscular Hemoglobin 29.4, Mean Corpuscular Hemoglobin Concent 31.9 L, Red Cell Distribution Width 14.6 H, Neutrophils (%) (Auto) 77.7 H, Lymphocytes (%) (Auto) 7.2 L, Monocytes (%) (Auto) 10.3 H, Eosinophils (%) (Auto) 2.0, Basophils (%) (Auto) 0.6, Neutrophils # (Auto) 13.5 H, Lymphocytes # (Auto) 1.3 L, Monocytes # (Auto) 1.8 H, Eosinophils # (Auto) 0.3, Basophils # (Auto) 0.1, Calcium Level 8.6 L, Aspartate Amino Transf (AST/SGOT) 21, Alanine Aminotransferase (ALT/SGPT) 55, Alkaline Phosphatase 176 H, Total Bilirubin 0.3, Total Protein 6.2 L, Albumin 1.7 L Microbiology Microbiology 10/07/18 - Final, Complete Angela Albicans 10/07/18 Gram Stain - Final, Complete 10/07/18 Abscess Culture - Final, Complete Streptococcus Oralis Yeast Like Organism 10/07/18 Anaerobic Culture - Final, Complete LEANNE RUSSO MD Oct 15, 2018 10:39
[2018-10-15] MEDS ORDERED: LACTULOSE 20 GM/30 ML SYRUP UD PO PRN (13:45)
[2018-10-15] MEDS ORDERED: MOM 30ML SUSPENSION UDC PO PRN (13:45)
[2018-10-15 14:00] VITALS: BP 101/58
--- NOTE | 2018-10-15 15:46 | CR.PDOC ---
General Date of Consultation: Oct 15, 2018 Referring Provider: Rex Germain Attending Physician: KEYUR ANDREA MD Consultation Primary physician/ hospitalist: Dr. Germain and Dr. Desai Reason for consult: Abnormal CT scan, anastomotic leak. Information obtained from patient, floor RNs and EMR, patient is alert and awake but not able to provide detailed history. HPI: 88-year-old female patient with HTN, hiatal hernia, (unclear history of atrial fibrillation on Coumadin, patient had INR of 0.9 at the time of presentation), has initially presented to [facility] ER with complaints of nausea and vomiting, occurring intermittently for a while. Agent had CT chest/abdomen in [facility] ER - reports not available to review but as per admission note, was noted to have for thoracic stomach with large amount of debris and possible. Patient was evaluated by surgery and had laparoscopic and laparotomy, reduction of incarcerated hiatal hernia, proximal hemigastrectomy with esophagogastrostomy and placement of gastrojejunal tube and esophagoscopy for incarcerated hiatal hernia with gastric infarction and adhesions. Post operatively patient is noted with leak and fluid accumulation in thorax. Patient treated with IR drain in right hemithorax and IV antibiotics. GI was consulted for further evaluation. Patient on examination at bedside denies any chest or abdominal pain but reports she has high pain tolerance. Patient is noted to have bilious drainage from gastric drain part of the Gastrojejunal tube. The drain from IR thoracic drain is minimal. Patient is tolerated Jejunal feeding with bowel movements every 1-2 days. Patient denies any vomiting or chest pain. Pertinent negative GI symptoms: Patient denies nausea, vomiting, diarrhea, loss of appetite, early satiety or unintentional weight loss. No history of hematemesis, melena or hematochezia. Review of Systems: GI: as stated above CVS: No chest pain, No palpitations, No leg swelling. 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 Skin: No rash : No hematuria, No burning sensation of the urine ENT: No ear discharge/ pain, No dysphagia. Eyes: No photophobia. Home medications: reviewed. Antithrombotic agents -none in this hospitalization Medical h/o: As above. Surgical h/o: As above. Social h/o: Alcohol-denies, tobacco-denies, IVDA/ drugs-denies. Family h/o of GI cancers -noncontributory Prior Endoscopies: None in [facility] Prior GI evaluation: None in [facility] Exam: Vitals: reviewed General: Alert and oriented x 3, not in distress HEENT: NO pallor, no icterus. Normal oropharynx, NO cervical lymph nodes. Chest: symmetric with bilateral air entry, right side posterior chest wall drain with mucopulurent discharge. CVS: S1, S2 heard, normal, no murmurs . Abdomen: non-distended, midline laparotomy wound with marie. Non-dstended, Soft, non-tender, no palpable masses, normal bowel sounds heard. Rectal exam: Patient refused. Extremities: no pedal edema, pulses palpable. 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 Moves all extremities Skin: no rash. Labs: reviewed. Imaging tests: reviewed Impression: - Esophago-gastrostomy with anastomotic leak and contained collection in chest, currently being drained by IR thoracic drain. - Elevated WBC likely from above. Recommendations: - Patient educated about the test results, possible differential diagnoses and All questions answered. - Reviewed all imaging and clinically patient is improving. Due to patient clinical status and age, the course can be prolonged. - At this time to assess the anastomotic status would recommend repeat es ophagogram, then upper GI with Gastrografin contrast through gastric port of Gastro-jejunostomy and though jejunostomy port at different time intervals, depending on the clinical course. Or can consider repeat CT imaging. - Due to recent surgery, anastomotic leak with collection and patient clinical status, the benefit of endoscopic evaluation are minimal. If advanced endoscopic assessment is required consider transferring to tertiary center. - Please recall GI if any change in status. Plan of care discussed with patient and primary surgery team.. Laboratory Data CBC/BMP Laboratory Tests 10/15/18 05:57 Allergies Coded Allergies: Penicillins (Verified Allergy, Intermediate, RASH, 09/30/18) diphenhydramine (Verified Allergy, Intermediate, RASH, 09/30/18) Home Medications No Active Prescriptions or Reported Meds KEYUR ANDREA MD Oct 15, 2018 15:46
[2018-10-15] MEDS ORDERED: FUROSEMIDE 20 MG/2 ML VIAL (J1940) IV SCH (17:00)
[2018-10-15 17:04] VITALS: BP 134/60
--- NOTE | 2018-10-15 17:47 | IPN ---
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 She has a stapled esophagus to stomach remnant anastomosis with a leak being controlled by a percutaneously placed drain. She is receiving tube feeds through a gastrojejunal tube. Vital signs: Show that she has been afebrile for the past 24 hours. Her pulse is in the 70s and 80s and her blood pressure is good. Her room air oxygen saturations are normal. Intake and output show that yesterday she had 2500 mL recorded in with 1275 of urine output, 625 from her gastrostomy tube and 80 mL from her percutaneous drain. She had two bowel movements recorded. PHYSICAL EXAMINATION The patient is alert and appears fairly comfortable. She is lying quietly in bed when I saw her this afternoon at about 04:00 p.m. Sclerae are anicteric. Heart exam shows a regular rhythm. The lungs are clear. The abdomen is soft. Her incisions are all healing nicely. Her previous Fidel drain site is healed. The G-tube site is clean and she has some lightly bilious or yellowish rather turbid fluid draining from her gastrostomy. Her back drain has a small amount of also lightly turbid yellowish fluid. Laboratory studies today showed a white count of 17, hemoglobin of 10, hematocrit 30 and platelet count of 537,000. Differential count showed 78% neutrophils, 7% lymphocytes and 10% monocytes. Chemistry profile showed normal electrolytes with a BUN of 29, creatinine 0.8 and a glucose of 133. Liver function tests are normal with a slight elevation of the alkaline phosphatase to 176. Total protein has improved to 6.2 with an albumin of 1.7. Chest x-ray yesterday had shown some improved aeration in the lower lobes. She apparently had another chest x-ray today. IMPRESSION The patient is doing well overall. There is no sign of sepsis. She continues to drain from her drain at the leak site. She is tolerating her jejunal feedings well and her nutritional parameters have improved. PLAN We will reorder some cultures from her drain fluid in the morning. I spoke with Dr. Baeza who saw her today in consultation and at this time he does not recommend any sort of endoscopic intervention. We will continue to monitor her drain output and support her nutritionally. The fluconazole will be continued.
--- NOTE | 2018-10-15 19:32 | IPN ---
DATE: 10/14/2018 HISTORY: The patient is now postop day 14 from her exploration and proximal gastrectomy with an esophagogastric anastomosis. She is tolerating her tube feeds well. She is draining still from the percutaneous drain placed in her lower mediastinum for her anastomotic leak. VITAL SIGNS: Showed that she has been afebrile over the past 24 hours. Her pulse has been in the 60s to 80s. Blood pressure is good and her oxygen saturations are normal. Intake and output show that yesterday she had matched intake and output of 1900 mL. Her percutaneous drain had 85 mL recorded. Her G tube had 1400 and her urine output had 400. PHYSICAL EXAM: The patient was alert and oriented, sitting up in a chair when I saw her in the morning. Sclerae are anicteric. Mucous membranes are moist. Heart exam shows a regular rhythm. The lungs are clear. The drain exits her mid back and had a small amount of turbid yellowish fluid in the collection bag. Abdomen is soft and nontender with active bowel sounds. Laboratory studies for the 12th showed a white count 16,000, hemoglobin of 11, hematocrit of 32 and platelet count of 512,000. Differential count showed 78% neutrophils, 7% lymphocytes and 9% monocytes. Chemistry profile showed normal electrolytes with BUN of 22, creatinine 0.7 and a glucose of 116. IMPRESSION: The patient appears to be doing very well overall from her gastrectomy and anastomotic leak. PLAN: I will continue her J tube feedings. I will order a chest x-ray today to see if her mediastinal fluid and fluid within the hiatal hernia site has diminished. I will continue her ertapenem and fluconazole for now. I will ask Dr. Baeza to see the patient and see if he would recommend any other interventions that might help to close her anastomotic leak.
[2018-10-15] MEDS: ENOXAPARIN 40 MG/0.4 ML SYRINGE (J1650) SC SCH (20:40)
[2018-10-15] MEDS: FLUCONAZOLE 200 MG in APPROPRIATE DILUENT 1 EA IV SCH (20:41)
[2018-10-15 22:00] VITALS: BP 108/62
[2018-10-16] MEDS: HumaLOG INSULIN (NovoLOG) PER UNIT SC SCH ×4 (00:25→17:15)
[2018-10-16 06:00] VITALS: BP 109/64
[2018-10-16 06:05] LABS: BASO # 0.1 10^3/uL (0.0-0.2); BASO % 0.6 % (0.0-1.0); EOS # 0.6 10^3/uL (0.0-0.50); EOS % 3.6 % (0.0-3.0); HEMATOCRIT 33.6 % (36.0-47.0); HEMOGLOBIN 10.9 g/dl (12.0-15.5); LYMPH # 1.5 10^3/uL (1.5-4.5); LYMPH % 8.6 % (24.0-44.0); MEAN CORPUSCULAR HEMOGLOBIN 29.5 pg (27.0-33.0); MEAN CORPUSCULAR HGB CONC 32.4 g/dl (32.0-36.5); MEAN CORPUSCULAR VOLUME 90.8 fl (80.0-96.0); MONO # 1.6 10^3/uL (0.0-0.8); MONO % 9.4 % (0.0-5.0); NEUTROPHILS # 13.2 10^3/uL (1.8-7.7); PLATELET COUNT, AUTOMATED 594 10^3/uL (150-450); WHITE BLOOD COUNT 17.4 10^3/uL (4.0-10.0)
[2018-10-16 06:29] LABS: BLOOD UREA NITROGEN 36 MG/DL (7-18); CALCIUM LEVEL 9.5 MG/DL (8.8-10.2); CARBON DIOXIDE LEVEL 24 MEQ/L (21-32); CHLORIDE LEVEL 107 MEQ/L (98-107); CREATININE FOR GFR 0.88 MG/DL (0.55-1.30); GLOMERULAR FILTRATION RATE > 60.0 (>32); GLUCOSE, FASTING 121 MG/DL (70-100); POTASSIUM SERUM 4.7 MEQ/L (3.5-5.1); SODIUM LEVEL 139 MEQ/L (136-145)
[2018-10-16] MEDS: PANTOPRAZOLE 40MG INJ (PROTONIX) (C9113) IV SCH (09:03)
[2018-10-16] MEDS: ACETAMINOPHEN 325 MG/10.15 ML UDC JT PRN (09:14)
--- NOTE | 2018-10-16 10:38 | IPNPDOC ---
Date Seen The patient was seen on 10/16/18. Progress Note Date Seen The patient was seen on 10/16/18 Progress Note SUBJECTIVE: Pt c/o diffuse abd pain /10 without radiation nausea vomiting fever or chills. white count is increasing, and concern for anastomotic leak. per GI, "esophagogram, then upper GI with Gastrografin contrast through gastric port of Gastro-jejunostomy and though jejunostomy port at different time intervals, depending on the clinical course. Or can consider repeat CT imaging." OBJECTIVE PHYSICAL EXAMINATION: VITAL SIGNS: Please see below. General Exam: Positive: Alert, Cooperative, No Acute Distress ENT Exam: Positive: Atraumatic Neck Exam: Negative: JVD Chest Exam: Positivediminished, fine bibasilar crackles Normal air movement Heart Exam: Positive: Rate Normal, Regular Rhythm, Normal S1, Normal S2; Negative: Gallops, Murmurs, Rubs Abdomen Exam: Positive: BS Hypoactive, Soft, Other (+J/P drain, +Sutton Tube); Negative: Tenderness Extremity Exam: Negative: Clubbing, Cyanosis, Edema, Tenderness, Swelling, Other Psych Exam: Positive: Mental status NL, Mood NL, Oriented x 3 LABORATORY DATA, IMAGING STUDIES, MICROBIOLOGY: Please see below. DVT prophylaxis ordered?: Lovenox 40mg SQ daily. 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 She was found on contrast swallow to have a small anastomotic leak placement of GJ tube, FELICITAS drain and Sutton Tube drain totals noted Patient tolerating tube feeds at this time Continue Ertapenem and fluconazole. will stop Ertapenem after 14 day total . Further management as per surgery S/p gastrectomy with anastomotic leak Due to concerns about anastomotic leak, Dr. Baeza was consulted. "to assess the anastomotic status would recommend repeat esophagogram, then upper GI with Gastrografin contrast through gastric port of Gastro-jejunostomy and though jejunostomy port at different time intervals, depending on the clinical course. Or can consider repeat CT imaging. - Due to recent surgery, anastomotic leak with collection and patient clinical status, the benefit of endoscopic evaluation are minimal. If advanced endoscopic assessment is required consider transferring to tertiary center. - Please recall GI if any change in status." Bilateral pleural effusions/Acute fluid overload due to ivfluids due to npo status s/p one dose lasix 20 mg iv 10/14/18 on TPN will need to monitor i/o and may need bid lasix to keep euvolemic Posterior mediastinal fluid collection / abscess contained leak to the right of the gastroesophageal anastomosis in the lower posterior mediastinum. Collection of air and Gastrografin is seen to the right of the anastomosis measuring 5.6 x 5.1 cm. s/p IR drainage on 10/07/18 continue Ertapenem and fluconazole. Right foot pain with redness of the dorsum gout attack now improved with toradol and methyl pred 1 dose. Moderate bilateral pleural effusions with mild adjacent atelectasis/infiltrate. Mild cardiomegaly and mild amount of pericardial fluid. Improved s/p Lasix successfully weaned off supplemental oxygen Patient encouraged to use incentive spirometry, nursing made aware to encourage patient as well Cont to monitor Hypokalemia, resolved Repleted Left renal mass exophytic 2 cm may be renal cell carcinoma. Age related dementia will poor short term memory. GERD/GI prophylaxis Continue Protonix DVT prophylaxis Continue Lovenox VS, I&O, 24H, Fishbone Vital Signs/I&O Vital Signs Date Time Temp Pulse Resp B/P (MAP) Pulse Ox O2 Delivery O2 Flow Rate FiO2 10/16/18 06:00 97.9 79 18 109/64 (79) 95 I&O- Last 24 Hours up to 6 AM 10/16/18 06:00 Intake Total 2600 ml Output Total 2013 ml Balance 587 ml Laboratory Data 24H LABS Laboratory Tests 2 10/15/18 11:51: Bedside Glucose (Misc Panel) 123H 10/15/18 16:45: Bedside Glucose (Misc Panel) 108 10/16/18 00:06: Bedside Glucose (Misc Panel) 112H 10/16/18 05:51: Immature Granulocyte % (Auto) 1.8, White Blood Count 17.4H, Red Blood Count 3.70L, Hemoglobin 10.9L, Hematocrit 33.6L, Mean Corpuscular Volume 90.8, Mean Corpuscular Hemoglobin 29.5, Mean Corpuscular Hemoglobin Concent 32.4, Red Cell Distribution Width 14.6H, Platelet Count 594H, Neutrophils (%) (Auto) 76.0H, Lymphocytes (%) (Auto) 8.6L, Monocytes (%) (Auto) 9.4H, Eosinophils (%) (Auto) 3.6H, Basophils (%) (Auto) 0.6, Neutrophils # (Auto) 13.2H, Lymphocytes # (Auto) 1.5, Monocytes # (Auto) 1.6H, Eosinophils # (Auto) 0.6H, Basophils # (Auto) 0.1, Nucleated Red Blood Cells % (auto) 0.0, Anion Gap 8, Glomerular Filtration Rate > 60.0, Blood Urea Nitrogen 36H, Creatinine 0.88, Sodium Level 139, Potassium Level 4.7, Chloride Level 107, Carbon Dioxide Level 24, Calcium Level 9.5, C- Reactive Protein, Quantitative 10.60H 10/16/18 06:09: Bedside Glucose (Misc Panel) 117H CBC/BMP Laboratory Tests 10/16/18 05:51 Red Blood Count 3.70 L, Mean Corpuscular Volume 90.8, Mean Corpuscular Hemoglobin 29.5, Mean Corpuscular Hemoglobin Concent 32.4, Red Cell Distribution Width 14.6 H, Neutrophils (%) (Auto) 76.0 H, Lymphocytes (%) (Auto) 8.6 L, Monocytes (%) (Auto) 9.4 H, Eosinophils (%) (Auto) 3.6 H, Basophils (%) (Auto) 0.6, Neutrophils # (Auto) 13.2 H, Lymphocytes # (Auto) 1.5, Monocytes # (Auto) 1.6 H, Eosinophils # (Auto) 0.6 H, Basophils # (Auto) 0.1, Calcium Level 9.5 Microbiology Microbiology 10/07/18 - Final, Complete Angela Albicans 10/07/18 Gram Stain - Final, Complete 10/07/18 Abscess Culture - Final, Complete Streptococcus Oralis Yeast Like Organism 10/07/18 Anaerobic Culture - Final, Complete LEANNE RUSSO MD Oct 16, 2018 09:17
--- NOTE | 2018-10-16 17:58 | IPN ---
DATE: 10/16/2018 HISTORY: The patient is now approximately postop day number 16 from resection of her proximal stomach for volvulus with ischemia and creation of an esophagogastric anastomosis. She subsequently was found to have a small leak from this anastomosis and a percutaneous drain was placed into the lower mediastinum from a posterior approach. She has been kept nothing by mouth and is receiving tube feeds through a jejunal feeding tube. Vital signs: The patient has been afebrile over the past 24 hours. Her pulse is in the 70s to 80s and her blood pressure is good with normal room air oxygen saturations. Intake and output shows that yesterday she had 2600 in with 2700 recorded out. Her G-tube drainage was 2250, but only 13 was recorded from her mediastinal drain. 20 was recorded this morning. PHYSICAL EXAMINATION: The patient is sitting up in the chair looking quite comfortable. She is alert and responsive. Heart and lung exams are unremarkable. The abdomen is soft. I flushed her mediastinal drain with several mL of saline and there was return of air from her catheter. No significant fluid was returned. Laboratory studies today showed a white count of 17, hemoglobin of 11, hematocrit of 34 and a platelet count of 594,000. Differential count showed 76% neutrophils, 9% lymphocytes and 9% monocytes. Chemistries showed normal electrolytes with a BUN up to 36 and a creatinine of 0.9. Glucose was 121. A C-reactive protein today was 10.6. Most recent level was 6 on October 07, 2018. IMPRESSION: The patient still has a small amount of fluid draining from her mediastinal drain, although it seems to be less since putting her G-tube back to suction. I was able to aspirate some air through the tube today, which could be a sign of air leak from the esophagogastric anastomotic leak or could represent air from within a cavity in the mediastinum. PLAN: The patient will be continued on her tube feedings. I will order a repeat CT scan of the abdomen for tomorrow with some oral contrast only to assess the leak and try to estimate the size of whatever cavity might be present. She remains on the fluconazole. The ertapenem was discontinued yesterday.
[2018-10-16] MEDS: ENOXAPARIN 40 MG/0.4 ML SYRINGE (J1650) SC SCH (20:13)
[2018-10-16] MEDS: FLUCONAZOLE 200 MG in APPROPRIATE DILUENT 1 EA IV SCH (20:13)
[2018-10-16 22:00] VITALS: BP 112/60
[2018-10-17] MEDS: HumaLOG INSULIN (NovoLOG) PER UNIT SC SCH ×4 (00:17→18:47)
[2018-10-17 06:00] VITALS: BP 108/62
[2018-10-17 06:31] LABS: BASO # 0.1 10^3/uL (0.0-0.2); BASO % 0.8 % (0.0-1.0); EOS # 0.4 10^3/uL (0.0-0.50); EOS % 2.5 % (0.0-3.0); HEMATOCRIT 38.2 % (36.0-47.0); HEMOGLOBIN 12.2 g/dl (12.0-15.5); LYMPH # 1.9 10^3/uL (1.5-4.5); MEAN CORPUSCULAR HEMOGLOBIN 29.3 pg (27.0-33.0); MEAN CORPUSCULAR HGB CONC 31.9 g/dl (32.0-36.5); MEAN CORPUSCULAR VOLUME 91.6 fl (80.0-96.0); MONO # 1.6 10^3/uL (0.0-0.8); MONO % 9.2 % (0.0-5.0); NEUTROPHILS # 12.6 10^3/uL (1.8-7.7); NEUTROPHILS % 74.1 % (36.0-66.0); PLATELET COUNT, AUTOMATED 649 10^3/uL (150-450); RED BLOOD COUNT 4.17 10^6/uL (4.00-5.40); WHITE BLOOD COUNT 16.9 10^3/uL (4.0-10.0)
[2018-10-17 06:53] LABS: CALCIUM LEVEL 10.2 MG/DL (8.8-10.2); CREATININE FOR GFR 1.15 MG/DL (0.55-1.30); GLOMERULAR FILTRATION RATE 47.5 (>32); POTASSIUM SERUM 5.3 MEQ/L (3.5-5.1)
[2018-10-17] MEDS: GASTROGRAFIN SOLUTION 30ML PO SCH ×2 (07:23→08:12)
[2018-10-17] MEDS: PANTOPRAZOLE 40MG INJ (PROTONIX) (C9113) IV SCH (07:23)
--- NOTE | 2018-10-17 09:42 | IPNPDOC ---
Date Seen The patient was seen on 10/17/18. Progress Note SUBJECTIVE: Pt appeared more fatigued today, and whispering this morning. "I feel very weak." requested to reposition her legs. "I have no energy." no sob, chest heaviness. no nausea or vomiting. OBJECTIVE PHYSICAL EXAMINATION: VITAL SIGNS: Please see below. General Exam: Positive: Alert, Cooperative, No Acute Distress ENT Exam: Positive: Atraumatic Neck Exam: Negative: JVD Chest Exam: Positivediminished, fine bibasilar crackles Normal air movement Heart Exam: Positive: Rate Normal, Regular Rhythm, Normal S1, Normal S2; Negative: Gallops, Murmurs, Rubs Abdomen Exam: Positive: BS Hypoactive, Soft, Other (+J/P drain, +Sutton Tube); Negative: Tenderness Extremity Exam: Negative: Clubbing, Cyanosis, Edema, Tenderness, Swelling, Other Psych Exam: Positive: Mental status NL, Mood NL, Oriented x 3 LABORATORY DATA, IMAGING STUDIES, MICROBIOLOGY: Please see below. DVT prophylaxis ordered?: Lovenox 40mg SQ daily. 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 She was found on contrast swallow to have a small a nastomotic leak placement of GJ tube, FELICITAS drain and Sutton Tube drain totals noted Patient tolerating tube feeds at this time Continue Ertapenem and fluconazole. will stop Ertapenem after 14 day total . Further management as per surgery S/p gastrectomy with anastomotic leak Due to concerns about anastomotic leak, Dr. Baeza was consulted. "to assess the anastomotic status would recommend repeat esophagogram, then upper GI with Gastrografin contrast through gastric port of Gastro-jejunostomy and though jejunostomy port at different time intervals, depending on the clinical course. Or can consider repeat CT imaging. - Due to recent surgery, anastomotic leak with collection and patient clinical status, the benefit of endoscopic evaluation are minimal. If advanced endoscopic assessment is required consider transferring to tertiary center. - Please recall GI if any change in status." Bilateral pleural effusions/Acute fluid overload due to ivfluids due to npo status s/p one dose lasix 20 mg iv 10/14/18 on TPN will need to monitor i/o and may need bid lasix to keep euvolemic Posterior mediastinal fluid collection / abscess contained leak to the right of the gastroesophageal anastomosis in the lower posterior mediastinum. Collection of air and Gastrografin is seen to the right of the anastomosis measuring 5.6 x 5.1 cm. s/p IR drainage on 10/07/18 continue Ertapenem and fluconazole. Right foot pain with redness of the dorsum gout attack now improved with toradol and methyl pred 1 dose. Moderate bilateral pleural effusions with mild adjacent atelectasis/infiltrate. Mild cardiomegaly and mild amount of pericardial fluid. Improved s/p Lasix successfully weaned off supplemental oxygen Patient encouraged to use incentive spirometry, nursing made aware to encourage patient as well Cont to monitor Hypokalemia, resolved Repleted Left renal mass exophytic 2 cm may be renal cell carcinoma. Age related dementia will poor short term memory. GERD/GI prophylaxis Continue Protonix DVT prophylaxis Continue Lovenox VS, I&O, 24H, Fishbone Vital Signs/I&O Vital Signs Date Time Temp Pulse Resp B/P (MAP) Pulse Ox O2 Delivery O2 Flow Rate FiO2 10/16/18 22:00 99.0 70 16 112/60 (77) 92 I&O- Last 24 Hours up to 6 AM 10/17/18 06:00 Intake Total 980 ml Output Total 2170 ml Balance -1190 ml Laboratory Data 24H LABS Laboratory Tests 2 10/16/18 11:35: Bedside Glucose (Misc Panel) 121H 10/16/18 17:10: Bedside Glucose (Misc Panel) 101 10/16/18 23:38: Bedside Glucose (Misc Panel) 122H 10/17/18 06:06: Immature Granulocyte % (Auto) 2.4, White Blood Count 16.9H, Red Blood Count 4.17, Hemoglobin 12.2, Hematocrit 38.2, Mean Corpuscular Volume 91.6, Mean Corpuscular Hemoglobin 29.3, Mean Corpuscular Hemoglobin Concent 31.9L, Red Cell Distribution Width 14.9H, Platelet Count 649H, Neutrophils (%) (Auto) 74.1H, Lymphocytes (%) (Auto) 11.0L, Monocytes (%) (Auto) 9.2H, Eosinophils (%) (Auto) 2.5, Basophils (%) (Auto) 0.8, Neutrophils # (Auto) 12.6H, Lymphocytes # (Auto) 1.9, Monocytes # (Auto) 1.6H, Eosinophils # (Auto) 0.4, Basophils # (Auto) 0.1, Nucleated Red Blood Cells % (auto) 0.0 10/17/18 06:09: Bedside Glucose (Misc Panel) 124H CBC/BMP Laboratory Tests 10/17/18 06:06 Red Blood Count 4.17, Mean Corpuscular Volume 91.6, Mean Corpuscular Hemoglobin 29.3, Mean Corpuscular Hemoglobin Concent 31.9 L, Red Cell Distribution Width 14.9 H, Neutrophils (%) (Auto) 74.1 H, Lymphocytes (%) (Auto) 11.0 L, Monocytes (%) (Auto) 9.2 H, Eosinophils (%) (Auto) 2.5, Basophils (%) (Auto) 0.8, Neutrophils # (Auto) 12.6 H, Lymphocytes # (Auto) 1.9, Monocytes # (Auto) 1.6 H, Eosinophils # (Auto) 0.4, Basophils # (Auto) 0.1 Microbiology Microbiology 10/07/18 - Final, Complete Angela Albicans 10/07/18 Gram Stain - Final, Complete 10/07/18 Abscess Culture - Final, Complete Streptococcus Oralis Yeast Like Organism 10/07/18 Anaerobic Culture - Final, Complete LEANNE RUSSO MD Oct 17, 2018 06:53
--- NOTE | 2018-10-17 11:39 | REP ---
CT ABDOMEN WITHOUT IV CONTRAST: CT abdomen is performed without IV contrast. More soluble oral contrast was administered for the exam. Contrast is seen in the esophagus. The anastomotic suture line is visualized. There is an adjacent pigtail drainage catheter which has been placed 10/07/2018 for a anastomotic leak. There does appear to be a small amount of oral contrast surrounding the distal pigtail of the catheter as well as a small amount of air. This is compatible with persistent anastomotic leak. There is mild residual adjacent posterior mediastinal fluid which has significantly improved since the prior study of 10/06/2018. There is mild adjacent right pleural fluid which has decreased. There is mild adjacent patchy atelectasis or infiltrate in the inferior right lower lobe. Left pleural effusion has resolved with some very mild patchy atelectasis or infiltrate in the inferior left lower lobe. A gastrojejunal ostomy tube is again noted in place. Small hypodense area in the lateral left lobe of the liver peripherally has decreased probably representing resolving postsurgical inflammatory changes. Spleen, adrenals, pancreas and right kidney are grossly unremarkable There are left renal cysts. There is no hydronephrosis. No adenopathy, free air of free fluid is seen in the abdomen. On the most inferior images of the upper pelvis there appears to be a pelvic cyst which is partially imaged having a diameter 4.5 cm. There are degenerative changes of the spine. Previously noted surgical drain in the upper abdomen has been removed . Left renal mass is again seen. IMPRESSION: Ingested oral contrast appears to be present surrounding the distal pigtail of the drainage catheter adjacent to the gastroesophageal anastomosis. This is compatible with persistent leak at the anastomotic suture line. There is significant improvement of posterior mediastinal fluid collection with mild residual. Left pleural effusion has resolved. There is mild persistent right pleural effusion. There is mild bibasilar atelectasis /infiltrate in the lung bases. Surgical drain has been removed from the upper abdomen. No free air or free fluid in the abdomen. In the visualized upper pelvis a partially imaged right pelvic cyst is seen with the visualized portion having a maximum diameter of 4.5 cm. Electronically Signed by Amado Arteaga MD 10/17/2018 07:28 P
[2018-10-17 14:00] VITALS: BP 109/62
--- NOTE | 2018-10-17 18:25 | IPN ---
DATE: 10/17/2018 HISTORY: Patient is now postoperative day #17 from her partial gastrectomy and esophagogastrostomy. She had a CT scan today with some oral contrast. She denies any significant pain. She room remains fairly comfortable at rest. VITAL SIGNS: Show that she has been afebrile over the past 24 hours. Her pulse is in the 60s to low 80s. Blood pressure is normal and she has an excellent room air oxygen saturation. INTAKE AND OUTPUT: Shows that she had 980 mL recorded intake yesterday with 2400 out. Given her tube feeding rate, I anticipate that her intake was significantly underreported. She had 2150 from her gastric tube with 20 reported from her back drain and only 200 of urine recorded. PHYSICAL EXAMINATION: The patient is lying quietly in the hospital bed. She responds to voice appropriately. SKIN: Is warm and dry. HEART EXAM: Shows a regular rhythm. LUNGS: Are clear. ABDOMEN: Soft and without tenderness. Her incisions are nicely healed. The gastrostomy (G) tube site is clean. LABORATORY STUDIES: Show that her complete blood count (CBC) today shows a white count of 17,000, hemoglobin of 12, hematocrit of 38 and platelet count of 649,000. Differential count shows 74% neutrophils, 11% lymphocytes, 9% monocytes. Her chemistry profile shows sodium 137, potassium 5.3, chloride 108, CO2 of 21, BUN of 55, creatinine 1.15 and a glucose of 127. The CT scan from today was reviewed. The radiologist indicated that the ingested oral contrast was noted around the pigtail catheter in the lower mediastinum adjacent to the gastroesophageal anastomosis. This was compatible with a persistent leak, although the open space around the catheter seemed to have diminished significantly and her other inflammatory changes and pleural effusions had improved significantly. IMPRESSION: Patient has evidence of a persistent leak at her gastroesophageal anastomosis. She has been putting a small amount of turbid yellowish fluid out through the drain, very similar to what is coming from her G-tube. It may well be that some of the fluid from within her stomach is what is being drained out through her pigtail catheter. For now, she has remained remarkably stable with this as it is PLAN: We will continue her tube feedings. I will consider again just stopping her suction to her gastric drain to allow more fluid potentially to go south. The only downside of this is the potential that it increases the leakage through her mediastinal drain. She will remain on the Diflucan can for now. She is off other antibiotics.
[2018-10-17] MEDS: FLUCONAZOLE 200 MG in APPROPRIATE DILUENT 1 EA IV SCH (20:23)
[2018-10-17] MEDS: ENOXAPARIN 40 MG/0.4 ML SYRINGE (J1650) SC SCH (20:23)
[2018-10-17 22:00] VITALS: BP 102/64
[2018-10-18] MEDS: HumaLOG INSULIN (NovoLOG) PER UNIT SC SCH ×4 (00:13→17:19)
[2018-10-18 06:00] VITALS: BP 116/65
[2018-10-18 06:18] LABS: BASO # 0.2 10^3/uL (0.0-0.2); BASO % 0.9 % (0.0-1.0); EOS # 0.3 10^3/uL (0.0-0.50); EOS % 1.5 % (0.0-3.0); HEMATOCRIT 38.2 % (36.0-47.0); HEMOGLOBIN 12.4 g/dl (12.0-15.5); LYMPH # 2.5 10^3/uL (1.5-4.5); LYMPH % 13.3 % (24.0-44.0); MEAN CORPUSCULAR HEMOGLOBIN 29.4 pg (27.0-33.0); MEAN CORPUSCULAR HGB CONC 32.5 g/dl (32.0-36.5); MEAN CORPUSCULAR VOLUME 90.5 fl (80.0-96.0); MONO # 1.6 10^3/uL (0.0-0.8); MONO % 8.5 % (0.0-5.0); NEUTROPHILS # 13.5 10^3/uL (1.8-7.7); NEUTROPHILS % 71.7 % (36.0-66.0); PLATELET COUNT, AUTOMATED 735 10^3/uL (150-450); RED BLOOD COUNT 4.22 10^6/uL (4.00-5.40); WHITE BLOOD COUNT 18.8 10^3/uL (4.0-10.0)
[2018-10-18 06:37] LABS: CALCIUM LEVEL 10.2 MG/DL (8.8-10.2); CREATININE FOR GFR 1.36 MG/DL (0.55-1.30); GLOMERULAR FILTRATION RATE 39.2 (>32); POTASSIUM SERUM 6.2 MEQ/L (3.5-5.1)
[2018-10-18] MEDS ORDERED: PATIROMER SORBITEX CALCIUM 8.4 GM POWDER PACKET (VELTASSA) PO ONE (06:45)
[2018-10-18] MEDS ORDERED: CALCIUM GLUCONATE 1,000 MG in D5W MINI-BAG PLUS 100 ML IV ONE (07:00)
[2018-10-18] MEDS ORDERED: NS 1,000 ML IV SCH (07:00)
[2018-10-18] MEDS: PANTOPRAZOLE 40MG INJ (PROTONIX) (C9113) IV SCH (07:21)
--- NOTE | 2018-10-18 10:20 | IPNPDOC ---
Date Seen The patient was seen on 10/18/18. Progress Note SUBJECTIVE: Hyperkalemic this am with acute kidney injury s/p patiromer and calcium gluconate, placed on telemetry. trial of ivfluids, ua, and renal us pending. nephrology consulted. Pt appears to be much more lethargic, but arousable. She c/o fatigue and generalized weakness. s/p ertapenem. still on diflucan. repeat CT abd/pelvis 10/17 " persistent leak at the anastomotic suture line. There issignificant improvement of posterior mediastinal fluid collection with mild residual. Left pleural effusion has resolved. There is mild persistent right pleural effusion. There is mild bibasilar atelectasis /infiltrate in the lung bases. Surgical drain has been removed from the upper abdomen. No free air orfree fluid in the abdomen.In the visualized upper pelvis a partially imaged right pelvic cyst is seen with the visualized portion having a maximum diameter of 4.5 cm." Postop management per surgery, "continue her tube feedings, consider again just stopping her suction to her gastric drain to allow more fluid potentially to go south, potential that it increases the leakage through her mediastinal drain. " OBJECTIVE PHYSICAL EXAMINATION: VITAL SIGNS: Please see below. General Exam: Positive: Alert, Cooperative, No Acute Distress ENT Exam: Positive: Atraumatic Neck Exam: Negative: JVD Chest Exam: Positivediminished, fine bibasilar crackles Normal air movement Heart Exam: Positive: Rate Normal, Regular Rhythm, Normal S1, Normal S2; Negative: Gallops, Murmurs, Rubs Abdomen Exam: Positive: BS Hypoactive, Soft, Other (+J/P drain, +Sutton Tube); Negative: Tenderness Extremity Exam: Negative: Clubbing, Cyanosis, Edema, Tenderness, Swelling, Other Psych Exam: Positive: Mental status NL, Mood NL, Oriented x 3 LABORATORY DATA, IMAGING STUDIES, MICROBIOLOGY: Please see below. 10/17/18 CT ABD/PELVIS: Small hypodense area in the lateral left lobe of the liver peripherally has decreased probably representing resolving postsurgical inflammatory changes. Spleen, adrenals, pancreas and right kidney are grossly unremarkable There are left renal cysts. There is no hydronephrosis. No adenopathy, free air of free fluid is seen in the abdomen. On the most inferior images of the upper pelvis there appears to be a pelvic cyst which is partially imaged having a diameter 4.5 cm. There are degenerative changes of the spine. Previously noted surgical drain in the upper abdomen has been removed . Left renal mass is again seen. Ingested oral contrast appears to be present surrounding the distal pigtail of the drainage catheter adjacent to the gastroesophageal anastomosis. This is compatible with persistent leak at the anastomotic suture line. There is significant improvement of posterior mediastinal fluid collection with mild residual. Left pleural effusion has resolved. There is mild persistent right pleural effusion. There is mild bibasilar atelectasis /infiltrate in the lung bases. Surgical drain has been removed from the upper abdomen. No free air or free fluid in the abdomen.In the visualized upper pelvis a partially imaged right pelvic cyst is seen with the visualized portion having a maximum diameter of 4.5 cm. DVT prophylaxis ordered?: Lovenox 40mg SQ daily. 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 She was found on contrast swallow to have a small anastomotic leak placement of GJ tube, FELICITAS drain and Sutton Tube drain totals noted Patient tolerating tube feeds at this time s/p Ertapenem still on fluconazole. Further management as per surgery 10/17/18 CT ABD/PELVIS: Small hypodense area in the lateral left lobe of the liver peripherally has decreased probably representing resolving postsurgical inflammatory changes. Spleen, adrenals, pancreas and right kidney are grossly unremarkable There are left renal cysts. There is no hydronephrosis. No adenopathy, free air of free fluid is seen in the abdomen. On the most inferior images of the upper pelvis there appears to be a pelvic cyst which is partially imaged having a diameter 4.5 cm. There are degenerative changes of the spine. Previously noted surgical drain in the upper abdomen has been removed . Left renal mass is again seen. Ingested oral contrast appears to be present surrounding the distal pigtail of the drainage catheter adjacent to the gastroesophageal anastomosis. This is compatible with persistent leak at the anastomotic suture line. There is significant improvement of posterior mediastinal fluid collection with mild residual. Left pleural effusion has resolved. There is mild persistent right pleural effusion. There is mild bibasilar atelectasis /infiltrate in the lung bases. Surgical drain has been removed from the upper abdomen. No free air or free fluid in the abdomen.In the visualized upper pelvis a partially imaged right pelvic cyst is seen with the visualized portion having a maximum diameter of 4.5 cm. S/p gastrectomy with anastomotic leak Due to concerns about anastomotic leak, Dr. Baeza was consulted. "to assess the anastomotic status would recommend repeat esophagogram, then upper GI with Gastrografin contrast through gastric port of Gastro-jejunostomy and though jejunostomy port at different time intervals, depending on the clinical course. Or can consider repeat CT imaging. - Due to recent surgery, anastomotic leak with collection and patient clinical status, the benefit of endoscopic evaluation are minimal. If advanced endoscopic assessment is required consider transferring to tertiary center. - 10/17/18 CT ABD/PELVIS: Small hypodense area in the lateral left lobe of the liver peripherally has decreased probably representing resolving postsurgical inflammatory changes. Spleen, adrenals, pancreas and right kidney are grossly unremarkable There are left renal cysts. There is no hydronephrosis. No adenopathy, free air of free fluid is seen in the abdomen. On the most inferior images of the upper pelvis there appears to be a pelvic cyst which is partially imaged having a diameter 4.5 cm. There are degenerative changes of the spine. Previously noted surgical drain in the upper abdomen has been removed . Left renal mass is again seen. Ingested oral contrast appears to be present surrounding the distal pigtail of the drainage catheter adjacent to the gastroesophageal anastomosis. This is compatible with persistent leak at the anastomotic suture line. There is significant improvement of posterior mediastinal fluid collection with mild residual. Left pleural effusion has resolved. There is mild persistent right pleural effusion. There is mild bibasilar atelectasis /infiltrate in the lung bases. Surgical drain has been removed from the upper abdomen. No free air or free fluid in the abdomen.In the visualized upper pelvis a partially imaged right pelvic cyst is seen with the visualized portion having a maximum diameter of 4.5 cm.lease recall GI if any change in status." Bilateral pleural effusions/Acute fluid overload due to ivfluids s/p one dose lasix 20 mg iv 10/14/18 on TPN will need to monitor i/o and may need bid lasix to keep euvolemic Posterior mediastinal fluid collection / abscess contained leak to the right of the gastroesophageal anastomosis in the lower posterior mediastinum. Collection of air and Gastrografin is seen to the right of the anastomosis measuring 5.6 x 5.1 cm. s/p IR drainage on 10/07/18 s/p Ertapenem still on fluconazole. Right foot pain with redness of the dorsum gout attack now improved with toradol and methyl pred 1 dose. Mild cardiomegaly and mild amount of pericardial fluid. Cont to monitor Hyperkalemia s/p patiromer Left renal mass exophytic 2 cm may be renal cell carcinoma. 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 GERD/GI prophylaxis Continue Protonix DVT prophylaxis Continue Lovenox VS, I&O, 24H, Fishbone Vital Signs/I&O Vital Signs Date Time Temp Pulse Resp B/P (MAP) Pulse Ox O2 Delivery O2 Flow Rate FiO2 10/18/18 06:00 97.6 74 20 116/65 (82) 96 I&O- Last 24 Hours up to 6 AM 10/18/18 06:00 Intake Total 950 ml Output Total 1432 ml Balance -482 ml Laboratory Data 24H LABS Laboratory Tests 2 10/17/18 11:25: Bedside Glucose (Misc Panel) 101 10/17/18 17:35: Bedside Glucose (Misc Panel) 128H 10/17/18 23:31: Bedside Glucose (Misc Panel) 125H 10/18/18 05:34: Bedside Glucose (Misc Panel) 156H 10/18/18 05:50: Immature Granulocyte % (Auto) 4.1H, White Blood Count 18.8H, Red Blood Count 4.22, Hemoglobin 12.4, Hematocrit 38.2, Mean Corpuscular Volume 90.5, Mean Corpuscular Hemoglobin 29.4, Mean Corpuscular Hemoglobin Concent 32.5, Red Cell Distribution Width 14.9H, Platelet Count 735H, Neutrophils (%) (Auto) 71.7H, Lymphocytes (%) (Auto) 13.3L, Monocytes (%) (Auto) 8.5H, Eosinophils (%) (Auto) 1.5, Basophils (%) (Auto) 0.9, Neutrophils # (Auto) 13.5H, Lymphocytes # (Auto) 2.5, Monocytes # (Auto) 1.6H, Eosinophils # (Auto) 0.3, Basophils # (Auto) 0.2, Nucleated Red Blood Cells % (auto) 0.0, Anion Gap 9, Glomerular Filtration Rate 39.2, Blood Urea Nitrogen 79H, Creatinine 1.36H, Sodium Level 136, Potassium Level 6.2*H, Chloride Level 110H, Carbon Dioxide Level 17L, Calcium Level 10.2 CBC/BMP Laboratory Tests 10/18/18 05:50 Red Blood Count 4.22, Mean Corpuscular Volume 90.5, Mean Corpuscular Hemoglobin 29.4, Mean Corpuscular Hemoglobin Concent 32.5, Red Cell Distribution Width 14.9 H, Neutrophils (%) (Auto) 71.7 H, Lymphocytes (%) (Auto) 13.3 L, Monocytes (%) (Auto) 8.5 H, Eosinophils (%) (Auto) 1.5, Basophils (%) (Auto) 0.9, Neutrophils # (Auto) 13.5 H, Lymphocytes # (Auto) 2.5, Monocytes # (Auto) 1.6 H, Eosinophils # (Auto) 0.3, Basophils # (Auto) 0.2, Calcium Level 10.2 LEANNE RUSSO MD Oct 18, 2018 06:43
--- NOTE | 2018-10-18 11:16 | REP ---
RENAL ULTRASOUND: Real-time sonographic evaluation of the kidneys performed. Right kidney is mildly atrophic. Right kidney measures 8.8 x 4.1 x 3.8 cm and left kidney 9.3 x 3.8 x 4.8 cm. There appears to be an extrarenal pelvis on the right. There is no hydronephrosis bilaterally. Cyst with a septation in the upper pole of the left kidney measures 2.5 cm in diameter. There is a solid mass of the mid left kidney laterally 2 cm in diameter. A cyst just inferior to this measures 1.5 cm. Note is made of a cyst in the right lower quadrant which may be ovarian or mesenteric measuring 5.5 x 3.7 x 4.6 cm. Urinary bladder is not well distended and not well evaluated. IMPRESSION: Extrarenal pelvis right kidney. No overt hydronephrosis bilaterally. Solid mass mid left kidney 2 cm in diameter. There are also two cyst in the left kidney. Note is made of a cystic structure in the right lower quadrant which may be mesenteric or ovarian in etiology. Maximum diameter is 5.5 cm. Electronically Signed by Amado Arteaga MD 10/18/2018 04:33 P
[2018-10-18 12:25] LABS: CALCIUM LEVEL 10.4 MG/DL (8.8-10.2); CREATININE FOR GFR 1.23 MG/DL (0.55-1.30)
--- NOTE | 2018-10-18 13:46 | ECGEPIP ---
[facility] Test Date: 2018-10-18 Pat Name: NELLY CUMMINS Department: Room: [place] [address] Gender: Female [employer]: HUNTER : [id number] Requested By: LEANNE Prather Order Number: [id number] Reading MD: Bernard Chavarria Measurements Intervals [place] Rate: 76 P: 30 OH: 145 QRS: 7 QRSD: 96 T: 44 QT: 353 QTc: 399 Interpretive Statements SINUS RHYTHM Low QRS complex voltage in the limb leads Comparison tracing not on file Electronically Signed on 10-18-2018 13:45:57 EDT by Bernard Chavarria
[2018-10-18 14:00] VITALS: BP 105/58
[2018-10-18] MEDS ORDERED: NS 500 ML IV ONE (14:00)
[2018-10-18 15:08] LABS: APPEARANCE, URINE HAZY (CLEAR); BACTERIA, URINE AUTO NEGATIVE (NEGATIVE); BILIRUBIN, URINE AUTO NEGATIVE (NEGATIVE); BLOOD, URINE BLOOD NEGATIVE (NEGATIVE); COLOR, URINE AMBER (YELLOW); GLUCOSE, URINE (UA) AUTO NEGATIVE (NEGATIVE); KETONE, URINE AUTO NEGATIVE (NEGATIVE); LEUKOCYTE ESTERASE, URINE AUTO NEGATIVE (NEGATIVE); MUCUS, URINE SMALL (NEGATIVE); NITRITE, URINE AUTO NEGATIVE (NEGATIVE); PROTEIN, URINE AUTO NEGATIVE (NEGATIVE); RBC, URINE AUTO 2 /HPF (0-3); SPECIFIC GRAVITY URINE AUTO 1.023 (1.002-1.035); SQUAMOUS EPITHELIAL CELL UR AU 3 /HPF (0-6); UROBILINOGEN, URINE AUTO 0.2 mg/dL (0.0-2.0); WBC, URINE AUTO 2 /HPF (0-3)
[2018-10-18 18:08] LABS: POTASSIUM RANDOM URINE 75.5 MEQ/L
[2018-10-18 18:29] LABS: CALCIUM LEVEL 9.5 MG/DL (8.8-10.2); CREATININE FOR GFR 1.06 MG/DL (0.55-1.30); GLOMERULAR FILTRATION RATE 52.2 (>32); POTASSIUM SERUM 5.5 MEQ/L (3.5-5.1)
[2018-10-18] MEDS: FLUCONAZOLE 200 MG in APPROPRIATE DILUENT 1 EA IV SCH (19:25)
[2018-10-18] MEDS: ENOXAPARIN 40 MG/0.4 ML SYRINGE (J1650) SC SCH (19:26)
[2018-10-18 22:00] VITALS: BP 110/59
[2018-10-19 00:04] LABS: CALCIUM LEVEL 9.6 MG/DL (8.8-10.2); CREATININE FOR GFR 0.94 MG/DL (0.55-1.30); POTASSIUM SERUM 5.5 MEQ/L (3.5-5.1)
[2018-10-19] MEDS: HumaLOG INSULIN (NovoLOG) PER UNIT SC SCH ×4 (00:13→16:41)
[2018-10-19 06:00] VITALS: BP 108/67
--- NOTE | 2018-10-19 06:01 | CR ---
DATE OF CONSULTATION: 10/18/2018 REQUESTING PHYSICIAN: Dr. Laurel Ramos REASON FOR CONSULTATION: Management of acute kidney injury and hyperkalemia. The patient was admitted on September 30, 2018 with persistent nausea, vomiting, abdominal pain. NOTE: The history was obtained from the patient's chart and from the medical team. The patient is unable to provide any reliable history. HISTORY OF PRESENT ILLNESS: Carol Ann Goldstein is an 88-year-old female with no significant past medical history aside from a hiatal hernia. She was admitted on September 30, 2018 with persistent abdominal pain. Further investigation including CAT scan showed the patient had incarcerated hiatal hernia. The patient was taken to the operating room (OR) on September 30, 2018. She was found to have an incarcerated hiatal hernia with gastric infarction and extensive adhesions. She had laparoscopy and laparotomy. She had reduction of the incarcerated hernia. She had a proximal hemigastrectomy with the esophageal gastrostomy and placement of a gastrojejunal tube. Postoperative course was complicated by persistent gastroesophageal anastomosis leak. She has a drain in the back which is draining the anastomotic leakage fluid. The patient continues to be on tube feed. Today morning the patient developed acute renal failure with a creatinine that bumped from 1.1 - 1.3 and hyperkalemia. Potassium was 6.2. Nephrology service was called for further help in the management of this patient with acute renal failure and hyperkalemia. I saw and evaluated the patient today morning at the bedside. The patient is very weak and cachectic. She is unable to provide much history and she continues to be on tube feed. PAST MEDICAL HISTORY: Past medical history of hiatal hernia. PAST SURGICAL HISTORY: 1. History of (C) section in the past. 2. History of tonsillectomy. 3. History of hernia repair status post partial gastrectomy and reduction of hernia on September 30, 2018. ALLERGIES: Allergic to PENICILLINS and DIPHENHYDRAMINE. FAMILY HISTORY: No significant family history of end-stage renal disease requiring hemodialysis. SOCIAL HISTORY: There is no history of smoking, illicit drug abuse or alcohol abuse. REVIEW OF SYSTEMS: The patient is very sleepy and drowsy. She is weak and cachectic. She is laying in the bed and she is unable to provide any significant review of systems but clinically she is not in any apparent respiratory distress. PHYSICAL EXAMINATION: GENERAL: The patient is drowsy but arousable. Follows commands, laying in bed, malnourished. VITAL SIGNS: Temperature is 98.6, blood pressure 105/58, pulse is 65, respiratory of 20, saturating 96% on room air. INTAKE AND OUTPUT: Urine output recorded since overnight is 320 mL, gastric drainage is 1 liter, drainage from the catheter in the bag is around 5 mL and according to intake and output the patient has a negative fluid balance for the last three days. HEAD AND NECK EXAM: The patient has bitemporal wasting. Pupils equally round and reactive to light. Mucous membranes are moist. NECK: Neck is supple. There is no jugular venous distention (JVD). Cardiovascular: S1, S2 regular rate. No edema of the bilateral lower extremities. RESPIRATORY: Chest is clear to auscultation bilaterally. Bilateral equal air entry. No rales or rhonchi. ABDOMEN: Soft. The patient has marie in the midline. She has a gastrojejunal in the epigastrium and the patient has a drain in the back which has a small amount of yellowish fluid in the bag. The patient gastrojejunal tube, the gastric part is attached to the suctioning and jejunal part is being used for Jevity tube feeds. GENITOURINARY: The bladder is not palpable. The patient does not have a Clancy catheter. MUSCULOSKELETAL: No clubbing or cyanosis. Pulses are 2+. There is no edema of the lower extremities. SKI: The patient has a very low skin turgor indicating signs of dehydration and volume depletion. LABORATORY REVIEW: CBC showed WBC of 18.8, hemoglobin is 12.4, platelets are 735. Urinalysis done today showed no protein, no leukocyte esterase. Urine random creatinine was 138. Random sodium was 11 only. Random potassium of 75 and chloride was 76. Basic metabolic panel (BMP) today morning showed sodium 136, potassium 6.2, chloride 110, bicarb 17, BUN 79, creatinine 1.3, calcium 10.2. IMAGING STUDIES: A renal ultrasound was done today morning which showed extrarenal pelvis on the right kidney. There was no overt hydronephrosis. There was a solid mass in the left kidney which is 2 cm in diameter. There are two cysts on the left kidney. The right kidney is mildly atrophic with the length of 8.8 cm. There was a cystic structure in the right lower quadrant which may be mesenteric or ovarian in etiology. It was 5.5 cm. CURRENT INPATIENT MEDICATIONS: The patient's medications include: - calcium gluconate 1 gram intravenous (IV) times one dose - fluconazole 200 mg IV every 24 - she has been started on normal saline 60 mL an hour starting today morning - she is getting Jevity tube feed at 65 5 mL an hour - she is on Tylenol as needed - Lovenox 40 mg subcutaneous daily - insulin sliding scale - Zofran as needed - Protonix 40 mg IV daily - she was given a dose of Veltassa 8.4 grams by mouth times one dose ASSESSMENT: 88-year-old female initially admitted with an incarcerated hiatal hernia status post reduction of the hiatal heirnia, proximal hemigastrectomy with esophageal gastrostomy, placement of gastrojejunal tube now with acute renal failure and hyperkalemia and evidence of a mass in the left kidney. PLAN: 1. Acute renal failure. Clinically the patient looks dehydrated, urine electrolytes also point towards volume depletion. The patient has a negative fluid balance for the last three days. She is getting constant suctioning of gastric contents. The patient has already been started on normal saline at 60 mL an hour by the primary team. I have also ordered normal saline 500 mL bolus. Further fluid orders management will be done tomorrow morning after seeing the response of IV fluids. 2. Hyperkalemia. It is secondary to acute renal failure and volume depletion. The patient already got a dose of Veltassa. The patient needs IV fluids for improvement of the hyperkalemia. Repeat basic metabolic panel (BMP) done in the afternoon showed improvement of the potassium 5.5. Continue normal saline hydration. 3. Hyponatremia. The patient has hypovolemic hyponatremia. Sodium is expected to improve with IV fluid hydration. 4. Mass in the left kidney. The patient got the ultrasound done today morning which showed evidence of a 2 cm mass in the left kidney. Because of the acute renal failure the patient cannot get any CAT scan with contrast or an MRI because of her medical status. She is not a surgical candidate at this point given her clinical status. I would avoid doing further extensive imaging of this patient. Continue the conservative management of acute renal failure and hyperkalemia. 5. Atrophic right kidney. The patient's right kidney is smaller most likely the majority of the function is coming from the left kidney. No further imaging or workup is needed at this point. Blood pressures are within the acceptable range. 6. Persistent anastomosis leak from the gastroesophageal anastomosis. The patient has a drain in the back. She is being seen by the surgical service. She continues to be on tube feeds. The patient needs continuous slow IV fluid hydration while she is getting the suctioning of the gastric contents. Thank you for involving me in the care of this patient. I shall be happy to follow the patient along with you tomorrow morning.
[2018-10-19] MEDS: PANTOPRAZOLE 40MG INJ (PROTONIX) (C9113) IV SCH (09:02)
[2018-10-19 09:18] LABS: BASO # 0.2 10^3/uL (0.0-0.2); BASO % 1.3 % (0.0-1.0); EOS # 0.4 10^3/uL (0.0-0.50); EOS % 2.4 % (0.0-3.0); HEMATOCRIT 39.8 % (36.0-47.0); HEMOGLOBIN 12.5 g/dl (12.0-15.5); LYMPH # 2.1 10^3/uL (1.5-4.5); LYMPH % 12.9 % (24.0-44.0); MEAN CORPUSCULAR HEMOGLOBIN 29.8 pg (27.0-33.0); MEAN CORPUSCULAR HGB CONC 31.4 g/dl (32.0-36.5); MONO # 1.4 10^3/uL (0.0-0.8); MONO % 8.6 % (0.0-5.0); NEUTROPHILS # 11.3 10^3/uL (1.8-7.7); NEUTROPHILS % 70.4 % (36.0-66.0); PLATELET COUNT, AUTOMATED 631 10^3/uL (150-450); RED BLOOD COUNT 4.19 10^6/uL (4.00-5.40)
[2018-10-19 09:40] LABS: ERYTHROCYTE SEDIMENTATION RATE 72 mm/hr (0-42)
[2018-10-19 09:43] LABS: ALBUMIN 2.4 GM/DL (3.2-5.2); ALT/SGPT 176 U/L (12-78); BILIRUBIN,TOTAL 0.3 MG/DL (0.2-1.0); BLOOD UREA NITROGEN 70 MG/DL (7-18); C REACTIVE PROTEIN QUANTITATIV 1.05 MG/DL (0.00-0.30); CALCIUM LEVEL 9.9 MG/DL (8.8-10.2); CARBON DIOXIDE LEVEL 19 MEQ/L (21-32); CHLORIDE LEVEL 113 MEQ/L (98-107); CREATININE FOR GFR 0.99 MG/DL (0.55-1.30); GLOMERULAR FILTRATION RATE 56.5 (>32); GLUCOSE, FASTING 96 MG/DL (70-100); NT-PRO BNP 118 PG/ML (<450); POTASSIUM SERUM 5.6 MEQ/L (3.5-5.1); SODIUM LEVEL 138 MEQ/L (136-145); TOTAL PROTEIN 6.9 GM/DL (6.4-8.2)
[2018-10-19] MEDS: NS 1,000 ML IV SCH (09:56)
[2018-10-19 10:11] LABS: PREALBUMIN 34.3 MG/DL (20.0-40.0)
[2018-10-19] MEDS ORDERED: PATIROMER SORBITEX CALCIUM 8.4 GM POWDER PACKET (VELTASSA) PO ONE (11:00)
[2018-10-19] MEDS ORDERED: CALCIUM GLUCONATE 1,000 MG in D5W MINI-BAG PLUS 100 ML IV ONE (11:00)
[2018-10-19] MEDS: ACETAMINOPHEN 325 MG/10.15 ML UDC JT PRN (11:46)
--- NOTE | 2018-10-19 11:57 | IPN ---
DATE: 10/18/2018 The patient was seen at approximately 1 o'clock in the afternoon. HISTORY: The patient is now postop day 18 from a proximal gastric resection for volvulus with infarction. She has had a small leak at the esophagogastric anastomosis and this was drained with a percutaneous drain approximately 10-12 days ago. She has a Sutton gastrostomy in the gastric remnant which has been suction draining some bilious turbid yellow fluid. She is also receiving tube feedings. VITAL SIGNS: The patient has been afebrile over the past 24 hours. Her pulse is in the 60s to 80s. Blood pressure is good and her room air oxygen saturations are normal. Intake and output show that yesterday she had 525 mL reported as intake, though her tube feedings have been running at approximately 65 mL/hour and these are not recorded. She had a urine output of 900 mL and gastric output of 750 mL. Her percutaneous drain in the back had only 7 mL recorded. PHYSICAL EXAMINATION: The patient appears somewhat frail and tired, but is otherwise arousable to voice and alert. Skin is warm and dry. Sclerae are anicteric. Heart exam shows a regular rhythm and the lungs are clear. The abdomen is soft. Her incisions are well-healed. Laboratory studies this morning showed a white count of 19,000 with a hemoglobin of 12, hematocrit of 38 and a platelet count of 735,000. Differential count showed 72% neutrophils, 13% lymphocytes and 8% monocytes. Chemistry profile showed a sodium of 136, potassium of 6.2, chloride 110, CO2 of 17, BUN of 79 and a creatinine of 1.36. Her glucose was 138. The hospitalist has now started some IV fluid and requested a consultation from nephrology. She also received some medications for her hyperkalemia from the hospitalist. IMPRESSION: 1. Persistent small esophagogastric anastomotic leak. 2. Hyperkalemia. 3. Acute kidney failure. PLAN: Patient's worsened renal failure and likely her elevated potassium may be partially related to her diuresis by the hospitalist earlier this week. She has had a fair amount of fluid out from her gastrostomy as well and unfortunately the intake is not being clearly recorded in the intake and output record. I agree with giving her some IV fluid and we should also continue her tube feedings. I will have her surgical marie removed. She otherwise appears to be tolerating her anastomotic leak, surprisingly well. We will continue her fluconazole for now.
[2018-10-19 13:06] LABS: HEPATITIS B SURFACE ANTIGEN NEGATIVE (NEGATIVE)
[2018-10-19 13:33] LABS: HEPATITIS C VIRUS ABY INDEX < 0.0 INDEX (<0.8)
[2018-10-19 13:34] LABS: HEPATITIS B CORE ANTIBODY IGM NEGATIVE (NEGATIVE)
[2018-10-19 13:35] LABS: HEPATITIS A ANTIBODY IGM NEGATIVE (NEGATIVE)
[2018-10-19 14:00] VITALS: BP 106/60
--- NOTE | 2018-10-19 14:10 | IPN ---
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 She had a small anastomotic leak addressed by a percutaneous drain in the lower mediastinum. She has generally been doing well and tolerating tube feedings through a Sutton tube. Yesterday, she was noted to have hyperkalemia with a maximum level of 6.2 and she was started on some normal saline by the hospitalist and a nephrology consultation was requested. The patient denies any pain today. Vital Signs: She has remained afebrile over the past 24 hours with a pulse generally in the 70s. Her blood pressure is in the range of 102-116 systolic. Intake and output shows that yesterday she had 3500 in with 1730 out. Her urine output yesterday was recorded as 320 with 1400 of G tube output and only 10 mL from her back drain. PHYSICAL EXAMINATION: The patient is alert and cooperative. She seems somewhat tired, but not particularly uncomfortable. Heart exam shows a regular rhythm. The lungs are clear to auscultation. The abdomen shows that her wounds are nicely healed with the marie now out. The abdomen is soft and nontender. She has bowel sounds present. The G-tube site is clean. There is some turbid yellow fluid in the drainage container. Examination of her back drain shows that the site appears clean. I flushed this gently and returned perhaps 1 or 2 mL of lightly turbid fluid, but nothing of significance and there did not appear to be any air leak with irrigation. LABORATORY STUDIES: Show sodium of 138, potassium 5.6, chloride 113, CO2 of 19, BUN of 70, creatinine 0.99 and a glucose of 96. Her liver function tests show a normal bilirubin with slight elevations of the AST, ALT and alk phos. She has a C-reactive protein that is only 1.05. Total protein is 6.9 with an albumin of 2.4. A CBC shows a white count of 16 with a hemoglobin of 12, hematocrit of 40 and a platelet count of 631,000. Differential count shows 70% neutrophils, 13% lymphocytes and 9% monocytes. She had an ESR of 72. IMPRESSION: The patient appears overall to be doing quite well for what has been going on. Her potassium is down to a safer level today. She remains on some normal saline. She appears be tolerating her tube feedings. I cannot document a definite continued leak at the esophagogastric junction. When I flushed the catheter, there does not seem to be any definite return of significance. I suspect that her leak is sealing. PLAN: I will go ahead and stop the suction to her gastrostomy tube and see if she will continue to tolerate her tube feedings. This should increase her enteral fluid intake significantly as we have been removing a significant amount of fluid this way. She remains on her Diflucan because of the early yeast culture from the mediastinum. We will continue with physical therapy and encourage her to be out of bed as tolerated. I will let her take a few ice chips and see if this has any effect on the drainage from her mediastinal drain.
--- NOTE | 2018-10-19 15:24 | REP ---
CT of the abdomen and pelvis without IV and oral contrast for hepatic Code inflammation": Comparison is 10/17/2018. There is a percutaneous graphic tube with the tip terminating in proximal small bowel loops. This is unchanged. There is a pigtail drainage catheter with its tip near the gastric cardia. This is unchanged. The volume of mediastinal fluid and right pleural effusion of fluid continues to decrease. In the absence of IV contrast the study is insensitive for hepatic abscess. The unenhanced hepatic parenchyma is otherwise unremarkable. Consider MRI follow up for further evaluation of the hepatic parenchyma. There is a tiny gallbladder calculus. The gallbladder is collapsed. The gallbladder is otherwise unremarkable. Pancreas and spleen are unremarkable. The adrenals are unremarkable. The there are left renal cysts, unchanged. The unenhanced abdominal aorta is unremarkable except for occasional calcified atheroma. There is no bowel distension or obstruction. The previous bowel contrast is migrated into the colon. The mesentery is unremarkable. There is no pneumoperitoneum. No ascites. Pelvis: There is descending colon and sigmoid colon diverticulosis without diverticulitis. The uterus appears atrophic. The adnexa are unremarkable. The bladder is incompletely distended and cannot be further evaluated. Impression: No evidence of hepatic abscess, however the study is insensitive in the absence of IV contrast. Further evaluation of the liver might be considered by MRI. The volume of mediastinal fluid and right pleural continues to decrease. Electronically Signed by Amado Florez MD 10/19/2018 03:16 P
--- NOTE | 2018-10-19 19:46 | IPNPDOC ---
Date Seen The patient was seen on 10/19/18. Progress Note SUBJECTIVE: cooperative with physical therapy, but still very weak. white count still elevated much more alert. fluids managed by nephrology due recent ERICKA with hyperkalemia s/p patiromer and calcium gluconate. increasing lft's with ctabd; liver-inflammatory changes. denies sob this am. "when can I eat?", deferred to general surgery. afebrile overnight. OBJECTIVE PHYSICAL EXAMINATION: VITAL SIGNS: Please see below. General Exam: Positive: Alert, Cooperative, No Acute Distress ENT Exam: Positive: Atraumatic Neck Exam: Negative: JVD Chest Exam: Positivediminished, fine bibasilar crackles Normal air movement Heart Exam: Positive: Rate Normal, Regular Rhythm, Normal S1, Normal S2; Negative: Gallops, Murmurs, Rubs Abdomen Exam: Positive: BS Hypoactive, Soft, Other (+J/P drain, +Sutton Tube); Negative: Tenderness Extremity Exam: Negative: Clubbing, Cyanosis, Edema, Tenderness, Swelling, Other Psych Exam: Positive: Mental status NL, Mood NL, Oriented x 3 LABORATORY DATA, IMAGING STUDIES, MICROBIOLOGY: Please see below. 10/17/18 CT ABD/PELVIS: Small hypodense area in the lateral left lobe of the liver peripherally has decreased probably representing resolving postsurgical inflammatory changes. Spleen, adrenals, pancreas and right kidney are grossly unremarkable There are left renal cysts. There is no hydronephrosis. No adenopathy, free air of free fluid is seen in the abdomen. On the most inferior images of the upper pelvis there appears to be a pelvic cyst which is partially imaged having a diameter 4.5 cm. There are degenerative changes of the spine. Previously noted surgical drain in the upper abdomen has been removed . Left renal mass is again seen. Ingested oral contrast appears to be present surrounding the distal pigtail of the drainage catheter adjacent to the gastroesophageal anastomosis. This is compatible with persistent leak at the anastomotic suture line. There is significant improvement of posterior mediastinal fluid collection with mild residual. Left pleural effusion has resolved. There is mild persistent right pleural effusion. There is mild bibasilar atelectasis /infiltrate in the lung bases. Surgical drain has been removed from the upper abdomen. No free air or free fluid in the abdomen.In the visualized upper pelvis a partially imaged right pelvic cyst is seen with the visualized portion having a maximum diameter of 4.5 cm. DVT prophylaxis ordered?: Lovenox 40mg SQ daily. 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 She was found on contrast swallow to have a small anastomotic leak placement of GJ tube, FELICITAS drain and Sutton Tube drain totals noted Patient tolerating tube feeds at this time s/p Ertapenem still on fluconazole. Further management as per surgery 10/17/18 CT ABD/PELVIS: Small hypodense area in the lateral left lobe of the liver peripherally has decreased probably representing resolving postsurgical inflammatory changes. Spleen, adrenals, pancreas and right kidney are grossly unremarkable There are left renal cysts. There is no hydronephrosis. No adenopathy, free air of free fluid is seen in the abdomen. On the most inferior images of the upper pelvis there appears to be a pelvic cyst which is partially imaged having a diameter 4.5 cm. There are degenerative changes of the spine. Previously noted surgical drain in the upper abdomen has been removed . Left renal mass is again seen. Ingested oral contrast appears to be present surrounding the distal pigtail of the drainage catheter adjacent to the gastroesophageal anastomosis. This is compatible with persistent leak at the anastomotic suture line. There is significant improvement of posterior mediastinal fluid collection with mild residual. Left pleural effusion has resolved. There is mild persistent right pleural effusion. There is mild bibasilar atelectasis /infiltrate in the lung bases. Surgical drain has been removed from the upper abdomen. No free air or free fluid in the abdomen.In the visualized upper pelvis a partially imaged right pelvic cyst is seen with the visualized portion having a maximum diameter of 4.5 cm. S/p gastrectomy with anastomotic leak Due to concerns about anastomotic leak, Dr. Baeza was consulted. "to assess the anastomotic status would recommend repeat esophagogram, then upper GI with Gastrografin contrast through gastric port of Gastro-jejunostomy and though jejunostomy port at different time intervals, depending on the clinical course. Or can consider repeat CT imaging. - Due to recent surgery, anastomotic leak with collection and patient clinical status, the benefit of endoscopic evaluation are minimal. If advanced endoscopic assessment is required consider transferring to tertiary center. - 10/17/18 CT ABD/PELVIS: Small hypodense area in the lateral left lobe of the liver peripherally has decreased probably representing resolving postsurgical inflammatory changes. Spleen, adrenals, pancreas and right kidney are grossly unremarkable There are left renal cysts. There is no hydronephrosis. No adenopathy, free air of free fluid is seen in the abdomen. On the most inferior images of the upper pelvis there appears to be a pelvic cyst which is partially imaged having a diameter 4.5 cm. There are degenerative changes of the spine. Previously noted surgical drain in the upper abdomen has been removed . Left renal mass is again seen. Ingested oral contrast appears to be present surrounding the distal pigtail of the drainage catheter adjacent to the gastroesophageal anastomosis. This is compatible with persistent leak at the anastomotic suture line. There is significant improvement of posterior mediastinal fluid collection with mild residual. Left pleural effusion has resolved. There is mild persistent right pleural effusion. There is mild bibasilar atelectasis /infiltrate in the lung bases. Surgical drain has been removed from the upper abdomen. No free air or free fluid in the abdomen.In the visualized upper pelvis a partially imaged right pelvic cyst is seen with the visualized portion having a maximum diameter of 4.5 cm.lease recall GI if any change in status." Bilateral pleural effusions/Acute fluid overload due to ivfluids s/p one dose lasix 20 mg iv 10/14/18 on TPN will need to monitor i/o and may need bid lasix to keep euvolemic Posterior mediastinal fluid collection / abscess contained leak to the right of the gastroesophageal anastomosis in the lower posterior mediastinum. Collection of air and Gastrografin is seen to the right of the anastomosis measuring 5.6 x 5.1 cm. s/p IR drainage on 10/07/18 s/p Ertapenem still on fluconazole. Right foot pain with redness of the dorsum gout attack now improved with toradol and methyl pred 1 dose. Mild cardiomegaly and mild amount of pericardial fluid. Cont to monitor Hyperkalemia s/p patiromer Left renal mass exophytic 2 cm may be renal cell carcinoma. 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 GERD/GI prophylaxis Continue Protonix DVT prophylaxis Continue Lovenox VS, I&O, 24H, Fishbone Vital Signs/I&O Vital Signs Date Time Temp Pulse Resp B/P (MAP) Pulse Ox O2 Delivery O2 Flow Rate FiO2 10/19/18 06:00 97.0 74 18 108/67 (81) 93 I&O- Last 24 Hours up to 6 AM 10/19/18 05:59 Intake Total 3760 ml Output Total 2030 ml Balance 1730 ml Laboratory Data 24H LABS Laboratory Tests 2 10/18/18 11:42: Bedside Glucose (Misc Panel) 146H 10/18/18 11:54: Anion Gap 6L, Glomerular Filtration Rate 44.0, Blood Urea Nitrogen 78H, Creatinine 1.23, Sodium Level 135L, Potassium Level 6.0H, Chloride Level 109H, Carbon Dioxide Level 20L, Calcium Level 10.4H 10/18/18 14:50: Urine Appearance HAZY, Urine Color PERLITA, Urine pH 5.0, Urine Specific Douglass 1.023, Urine Protein NEGATIVE, Urine Glucose (UA) NEGATIVE, Urine Ketones NEGATIVE, Urine Urobilinogen 0.2, Urine Bilirubin NEGATIVE, Urine Leukocyte Esterase NEGATIVE, Urine Blood NEGATIVE, Urine Nitrite NEGATIVE, Urine WBC (Auto) 2, Urine RBC (Auto) 2, Urine Hyaline Casts (Auto) 14, Urine Bacteria (Auto) NEGATIVE, Urine Squamous Epithelial Cells 3, Urine Mucus (Auto) SMALL, Urine Sperm (Auto) , Urine Random Creatinine 138.0, Urine Random Sodium 11, Urine Random Potassium 75.5, Urine Random Chloride 76 10/18/18 16:53: Bedside Glucose (Misc Panel) 110 10/18/18 18:00: Anion Gap 6L, Glomerular Filtration Rate 52.2, Blood Urea Nitrogen 73H, Creatinine 1.06, Sodium Level 136, Potassium Level 5.5H, Chloride Level 112H, Carbon Dioxide Level 18L, Calcium Level 9.5 10/18/18 23:29: Anion Gap 8, Glomerular Filtration Rate 60.0, Blood Urea Nitrogen 75H, Creatinine 0.94, Sodium Level 139, Potassium Level 5.5H, Chloride Level 113H, Carbon Dioxide Level 18L, Calcium Level 9.6 10/18/18 23:49: Bedside Glucose (Misc Panel) 103 10/19/18 05:34: Bedside Glucose (Misc Panel) 101 CBC/BMP Laboratory Tests 10/18/18 11:54 Calcium Level 10.4 H 10/18/18 18:00 Calcium Level 9.5 10/18/18 23:29 Calcium Level 9.6 LEANNE RUSSO MD Oct 19, 2018 08:44
[2018-10-19] MEDS: FLUCONAZOLE 200 MG in APPROPRIATE DILUENT 1 EA IV SCH (20:35)
[2018-10-19] MEDS: ENOXAPARIN 40 MG/0.4 ML SYRINGE (J1650) SC SCH (20:36)
[2018-10-19 22:00] VITALS: BP 119/69
--- NOTE | 2018-10-19 22:03 | IPN ---
DATE: 10/19/2018 SUBJECTIVE: The patient was seen and examined at the bedside today, morning. She is still lethargic. She continues to be on tube feeds. She was given intravenous (IV) fluid hydration yesterday. There is slight improvement in the renal function today as compared with yesterday. She is persistently mildly hyperkalemic. Patient is still lethargic and answers very few questions. OBJECTIVE: VITAL SIGNS: Temperature is 97 degrees Fahrenheit, blood pressure 108/67, pulse is 74, respiratory rate of 18, saturating 93% on room air. INTAKE/OUTPUT: Urine output recorded is only 300 mL since overnight. Gastric drainage so far is 550 mL. Weight on the bed scale is 61.5 kg. PHYSICAL EXAMINATION: GENERAL: The patient is lethargic, laying in bed but otherwise she wakes up and answers questions. HEAD AND NECK EXAM: Extraocular muscles intact. Pupils equally round and reactive to light. Mucous membranes are moist. Neck is supple. There is no jugular venous distention (JVD). CARDIOVASCULAR: S1, S2, regular rate. No edema of the bilateral lower extremities. RESPIRATORY: Chest is clear to auscultation bilaterally. Bilateral equal air entry. No rales or rhonchi. ABDOMEN: Abdomen is soft. She has marie in the midline. She has a gastrojejunal tube in the epigastrium. Gastric part is attached to suctioning and from jejunal part, she is getting the tube feeds. And patient also has a drain in the back. Very small amount of fluid is seen in the drain. GENITOURINARY: Bladder is not palpable. MUSCULOSKELETAL: No clubbing or cyanosis. Pulses are 2+. SKIN: Low skin turgor indicating signs of dehydration. CENTRAL NERVOUS SYSTEM (PERSONAL CHEF): No focal deficit. Power is 5/5 in bilateral upper extremities. LAB REVIEW: CBC showed a WBC of 16, hemoglobin 12.5, platelets are 631. BMP showed sodium 138, potassium is 5.6, chloride 113, bicarbonate 19, BUN 70, creatinine is 0.99. CURRENT INPATIENT MEDICATIONS: The patient's medications were all reviewed by me. I have restarted the patient on normal saline at 60 mL an hour. No other change in the medications today as compared with yesterday. ASSESSMENT AND PLAN: 1. Acute renal failure. It is secondary to dehydration and volume depletion. The patient was started on intravenous (IV) fluid hydration yesterday. BUN level is still high. Creatinine is stable and improving. Continue IV fluid hydration and daily intake and output including daily weights. 2. Hyperkalemia. It is secondary to acute renal failure and volume depletion. The patient has been started on normal saline hydration. Potassium level has been staying stable at 5.5 to 5.6. She was already given Veltassa dose by primary team today, morning. 3. Metabolic acidosis. The patient has normal anion gap metabolic acidosis. Bicarbonate level is staying stable at around 18 to 19. No need of IV bicarbonate administration at this time. Continue IV fluid hydration. Acidosis should improve with improvement in the renal function. 4. Mass in the left kidney. Patient is medically and clinically unstable. She is not a surgical candidate. No need of further extensive workup. It will be done as an outpatient if needed once the patient is medically stable. 5. Persistent anastomosis leak from the gastroesophageal anastomosis. Patient continues to have suctioning of the stomach. Continue IV fluid hydration. Continue the tube feeds with Jevity. Because of the multiple issues, patient overall has a poor prognosis at this point. MTDD
[2018-10-20] MEDS: HumaLOG INSULIN (NovoLOG) PER UNIT SC SCH ×4 (00:16→18:00)
[2018-10-20] MEDS: NS 1,000 ML IV SCH (04:21)
[2018-10-20 06:19] LABS: BASO # 0.1 10^3/uL (0.0-0.2); BASO % 0.7 % (0.0-1.0); EOS # 0.5 10^3/uL (0.0-0.50); EOS % 2.6 % (0.0-3.0); HEMATOCRIT 35.1 % (36.0-47.0); HEMOGLOBIN 11.2 g/dl (12.0-15.5); LYMPH # 1.8 10^3/uL (1.5-4.5); LYMPH % 9.9 % (24.0-44.0); MEAN CORPUSCULAR HEMOGLOBIN 29.5 pg (27.0-33.0); MEAN CORPUSCULAR HGB CONC 31.9 g/dl (32.0-36.5); MEAN CORPUSCULAR VOLUME 92.4 fl (80.0-96.0); MONO # 1.5 10^3/uL (0.0-0.8); MONO % 8.2 % (0.0-5.0); NEUTROPHILS # 13.3 10^3/uL (1.8-7.7); NEUTROPHILS % 74.8 % (36.0-66.0); PLATELET COUNT, AUTOMATED 581 10^3/uL (150-450); WHITE BLOOD COUNT 17.8 10^3/uL (4.0-10.0)
[2018-10-20 06:52] LABS: BLOOD UREA NITROGEN 57 MG/DL (7-18); CALCIUM LEVEL 9.5 MG/DL (8.8-10.2); CARBON DIOXIDE LEVEL 22 MEQ/L (21-32); CHLORIDE LEVEL 111 MEQ/L (98-107); CREATININE FOR GFR 0.79 MG/DL (0.55-1.30); GLOMERULAR FILTRATION RATE > 60.0 (>32); GLUCOSE, FASTING 121 MG/DL (70-100); SODIUM LEVEL 137 MEQ/L (136-145)
[2018-10-20] MEDS: PANTOPRAZOLE 40MG INJ (PROTONIX) (C9113) IV SCH (08:11)
[2018-10-20 14:00] VITALS: BP 131/80
[2018-10-20] MEDS ORDERED: MIRALAX *UNIT DOSE* 17GM PACKET PO PRN (14:00)
--- NOTE | 2018-10-20 19:16 | IPNPDOC ---
Subjective Date Seen The patient was seen on 10/20/18. Subjective Chief Complaint/HPI The patient feels sad because she is lying down all day with minimal physical activities. She denies any pain. Denies diarrhea, chest pain, or shortness of breath. She feels constipated. General: Reports: Fatigue Constitutional: Denies: Chills, Fever, Malaise, Night Sweats, Weakness, Fatigue, Weight Loss, Lethargy, Other Eyes: Denies: Pain, Vision change, Conjunctivae inflammation, Eyelid inflammation, Redness, Other ENT: Denies: Head Aches, Ear Pain, Dysphagia, Sinus Congestion, Post Nasal Drip, Sore Throat, Epistaxis, Other Symptoms Skin: Denies: Rash, Lesions, Jaundice, Bruising, Itching, Dry, Breakdown, Nail Changes, Other Pulmonary: Denies: Dyspnea, Cough, Pleuritic Chest Pain, Other Symptoms Cardiovascular: Denies: Chest Pain, Palpitations, Orthopnea, Paroxysmal Noc. Dyspnea, Edema, Lt Headedness, Other Symptoms Gastrointestinal: Reports: Constipation Genitourinary: Denies: Dysuria, Frequency, Incontinence, Hematuria, Retention, Other Symptoms Hematologic: Denies: Bruising, Bleeding Excessively, Petecchia, Purpura, Enlarged Lymph Nodes, Other Hematologic Endocrine: Denies: Polydipsia, Polyphagia, Polyuria, Heat Intolerance, Cold Intolerance, Other Endocrine Sx Musculoskeletal: Denies: Neck Pain, Back Pain, Shoulder Pain, Arm Pain, Hand Pain, Leg Pain, Foot Pain, Joint Pain, Muscle Pain, Spasms, Other Symptoms Neurological: Denies: Weakness, Numbness, Incoordination, Change in speech, Confusion, Seizures, Other Symptoms Psych: Denies: Mood Normal, Anxiety, Depression, Memory Issues, Thoughts of Self Harm, Anger, Thoughts of Harming Other, Other Psych Objective Physical Examination General Exam: Positive: Alert, Cooperative, No Acute Distress ENT Exam: Positive: Atraumatic Neck Exam: Negative: JVD Chest Exam: Positive: Clear to auscultation, Normal air movement Heart Exam: Positive: Rate Normal, Regular Rhythm, Normal S1, Normal S2; Negative: Gallops, Murmurs, Rubs Abdomen Exam: Positive: BS Hypoactive, Soft, Other (+J/P drain, +Sutton Tube); Negative: Tenderness Extremity Exam: Negative: Clubbing, Cyanosis, Edema, Tenderness, Swelling, Other Psych Exam: Positive: Mental status NL, Mood NL, Oriented x 3 Assessment /Plan Assessment # 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 - It is complicated by leak in the esophagogastrostomy, and she has the FELICITAS drain from the mediastinum. - She also has PEG, continue enteral feeding. Only allowed to have ice chips. - s/p ertapenem. - She has received 13 infusion of fluconazole, and LFT is rising. Stop fluconazole. - Contained leak to the right of the gastroesophageal anastomosis in the lower posterior mediastinum with collection of air and Gastrografin is seen to the right of the anastomosis measuring 5.6 x 5.1 cm. s/p IR drainage on 10/07/18. - Surgery recommendation appreciated. # Right foot pain with redness of the dorsum - Gout attack, now improved with toradol and methyl pred 1 dose. # Mild cardiomegaly and mild amount of pericardial fluid. - Cont to monitor # Left renal mass exophytic, 2 cm - Could be renal cell carcinoma. Follow urine cytology # Acute renal failure - Cr improving on IV hydration. # Constipation - Miralax PRN and senna-S ATC DVT prophylaxis, continue Lovenox Plan/VTE VTE Prophylaxis Ordered?: Yes VS, I&O, 24H, Fishbone Vital Signs/I&O Vital Signs Date Time Temp Pulse Resp B/P (MAP) Pulse Ox O2 Delivery O2 Flow Rate FiO2 10/20/18 14:00 97.9 69 16 131/80 (97) 95 I&O- Last 24 Hours up to 6 AM 10/20/18 06:00 Intake Total 3140 ml Output Total 1415 ml Balance 1725 ml Laboratory Data 24H LABS Laboratory Tests 2 10/19/18 23:55: Bedside Glucose (Misc Panel) 122H 10/20/18 05:00: Bedside Glucose (Misc Panel) 115H 10/20/18 05:52: Immature Granulocyte % (Auto) 3.8H, White Blood Count 17.8H, Red Blood Count 3.80L, Hemoglobin 11.2L, Hematocrit 35.1L, Mean Corpuscular Volume 92.4, Mean Corpuscular Hemoglobin 29.5, Mean Corpuscular Hemoglobin Concent 31.9L, Red Cell Distribution Width 15.1H, Platelet Count 581H, Neutrophils (%) (Auto) 74.8H, Lymphocytes (%) (Auto) 9.9L, Monocytes (%) (Auto) 8.2H, Eosinophils (%) (Auto) 2.6, Basophils (%) (Auto) 0.7, Neutrophils # (Auto) 13.3H, Lymphocytes # (Auto) 1.8, Monocytes # (Auto) 1.5H, Eosinophils # (Auto) 0.5, Basophils # (Auto) 0.1, Nucleated Red Blood Cells % (auto) 0.0, Anion Gap 4L, Glomerular Filtration Rate > 60.0, Blood Urea Nitrogen 57H, Creatinine 0.79, Sodium Level 137, Potassium Level 5.0, Chloride Level 111H, Carbon Dioxide Level 22, Calcium Level 9.5 10/20/18 11:37: Bedside Glucose (Misc Panel) 118H 10/20/18 17:50: Bedside Glucose (Misc Panel) 100 CBC/BMP Laboratory Tests 10/20/18 05:52 Red Blood Count 3.80 L, Mean Corpuscular Volume 92.4, Mean Corpuscular Hemoglobin 29.5, Mean Corpuscular Hemoglobin Concent 31.9 L, Red Cell Distribution Width 15.1 H, Neutrophils (%) (Auto) 74.8 H, Lymphocytes (%) (Auto) 9.9 L, Monocytes (%) (Auto) 8.2 H, Eosinophils (%) (Auto) 2.6, Basophils (%) (Auto) 0.7, Neutrophils # (Auto) 13.3 H, Lymphocytes # (Auto) 1.8, Monocytes # (Auto) 1.5 H, Eosinophils # (Auto) 0.5, Basophils # (Auto) 0.1, Calcium Level 9.5 DENEEN FOSTER MD Oct 20, 2018 19:16
[2018-10-20] MEDS: ENOXAPARIN 40 MG/0.4 ML SYRINGE (J1650) SC SCH (20:47)
[2018-10-20] MEDS: SENOKOT S TAB PO SCH (20:48)
[2018-10-20] MEDS: ACETAMINOPHEN 325 MG/10.15 ML UDC JT PRN (20:59)
--- NOTE | 2018-10-20 21:03 | IPN ---
DATE: 10/20/2018 SUBJECTIVE: The patient was seen and examined at the bedside today morning. She was actually sitting in the sofa. Her gastric suctioning has been stopped. She continues to be on jejunal tube feeds and IV fluids. Her renal function is better today as compared with yesterday and hyperkalemia is also improving. Patient is much more awake today as compared with yesterday. OBJECTIVE: VITAL SIGNS: Temperature is 97.9 degrees Fahrenheit, blood pressure 131/80, pulse is 69, respiratory rate of 16, saturating 95% on room air. INTAKE AND OUTPUT: Urine output recorded is 1.2 liters yesterday, 850 mL so far today since overnight. Weight in the bed scale was 61.5 kg yesterday. PHYSICAL EXAMINATION: GENERAL: The patient is awake, alert, oriented times two, sitting up in the sofa, no apparent distress. HEAD AND NECK EXAM: Extraocular muscles intact. Pupils equally round and reactive to light. Mucous membranes are moist. Neck is supple. There is no JVD. CARDIOVASCULAR: S1, S2, regular rate. No edema of the bilateral lower extremities. RESPIRATORY: Chest is clear to auscultation bilaterally. Bilateral equal air entry. No rales or rhonchi. ABDOMEN: Soft. She has marie in the midline. She has gastrojejunal tube in the epigastrium. Gastric suctioning has been stopped. She is getting tube feeds through the jejunal port. She also has a drain in the back which is draining light yellow colored fluid. GENITOURINARY: Bladder is not palpable. MUSCULOSKELETAL: No clubbing or cyanosis. Pulses are 2+. [employer]: No focal deficit, power is 5/5 in bilateral upper extremities. The patient is otherwise weak and lethargic. LABORATORY REVIEW: CBC showed a WBC of 17.8, hemoglobin 11.2, platelets are 581. BMP showed sodium 137, potassium of 5, chloride 111, bicarbonate 22, BUN 57, creatinine 0.79. CURRENT INPATIENT MEDICATIONS: The patient's medications were all reviewed by me. The patient's IV fluconazole has been stopped. I have decreased the IV fluid rate to 30 mL an hour. She continues to be on jejunal tube feeds. She has been started on MiraLax as needed for constipation. ASSESSMENT/PLAN: 1. Acute renal failure. It was prerenal in etiology. The patient was given IV fluid. Creatinine level is improving. Since gastric suctioning has been decreased, I have decreased the IV fluid rate. 2. Hyperkalemia. Potassium level has improved with IV fluid hydration. Potassium is down to 5. Continue gentle IV fluid hydration. 3. Metabolic acidosis. It was secondary to acute renal failure. Bicarbonate level is improving with improvement in renal function. 4. Mass in left kidney. Further workup will be done as outpatient once the patient is medically stable. 5. Persistent anastomosis leak from the gastroesophageal anastomosis. The patient's gastric suctioning has been stopped. She is still draining from a drain in the back. Management is as per general surgery.
[2018-10-20 22:00] VITALS: BP 118/68
[2018-10-20] MEDS ORDERED: MIRALAX *UNIT DOSE* 17GM PACKET JT PRN (23:30)
[2018-10-21] MEDS: HumaLOG INSULIN (NovoLOG) PER UNIT SC SCH ×4 (00:35→18:44)
[2018-10-21] MEDS: NS 1,000 ML IV SCH (05:35)
[2018-10-21 06:45] LABS: BASO # 0.1 10^3/uL (0.0-0.2); BASO % 0.6 % (0.0-1.0); EOS # 0.7 10^3/uL (0.0-0.50); EOS % 4.3 % (0.0-3.0); HEMATOCRIT 33.8 % (36.0-47.0); HEMOGLOBIN 10.9 g/dl (12.0-15.5); LYMPH # 1.9 10^3/uL (1.5-4.5); MEAN CORPUSCULAR HEMOGLOBIN 29.5 pg (27.0-33.0); MEAN CORPUSCULAR HGB CONC 32.2 g/dl (32.0-36.5); MEAN CORPUSCULAR VOLUME 91.6 fl (80.0-96.0); MONO # 1.2 10^3/uL (0.0-0.8); MONO % 7.8 % (0.0-5.0); NEUTROPHILS # 11.2 10^3/uL (1.8-7.7); NEUTROPHILS % 71.4 % (36.0-66.0); PLATELET COUNT, AUTOMATED 551 10^3/uL (150-450); RED BLOOD COUNT 3.69 10^6/uL (4.00-5.40); WHITE BLOOD COUNT 15.7 10^3/uL (4.0-10.0)
[2018-10-21 07:14] LABS: ALBUMIN 1.9 GM/DL (3.2-5.2); ALT/SGPT 124 U/L (12-78); BILIRUBIN,TOTAL 0.3 MG/DL (0.2-1.0); BLOOD UREA NITROGEN 39 MG/DL (7-18); CALCIUM LEVEL 9.3 MG/DL (8.8-10.2); CARBON DIOXIDE LEVEL 24 MEQ/L (21-32); CHLORIDE LEVEL 106 MEQ/L (98-107); CREATININE FOR GFR 0.69 MG/DL (0.55-1.30); GLOMERULAR FILTRATION RATE > 60.0 (>32); GLUCOSE, FASTING 124 MG/DL (70-100); POTASSIUM SERUM 4.3 MEQ/L (3.5-5.1); SODIUM LEVEL 136 MEQ/L (136-145); TOTAL PROTEIN 6.2 GM/DL (6.4-8.2)
[2018-10-21] MEDS: SENOKOT S TAB PO SCH ×2 (07:41→20:36)
[2018-10-21] MEDS: PANTOPRAZOLE 40MG INJ (PROTONIX) (C9113) IV SCH (07:41)
--- NOTE | 2018-10-21 09:53 | IPN ---
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 She has had a small leak in her anastomosis which is drained by a percutaneous drain. Yesterday, the suction was discontinued from her gastrostomy tube (G-tube) to allow her to absorb more of this. She apparently has tolerated this well. She has had no nausea or vomiting reported. VITAL SIGNS: Show that she has been afebrile with pulse in the 60s and a normal blood pressure. INTAKE AND OUTPUT: Shows that yesterday she had 2900 mL in recorded with 1865 recorded out. She had 40 mL recorded from her percutaneous drain in the mediastinum. PHYSICAL EXAMINATION: The patient is resting quietly. She denies any pain. Her percutaneous drain appears to be draining somewhat more fluid. This is yellowish in color and turbid, very similar to what had been coming out of her G-tube when this was on suction. LABORATORY STUDIES: Today showed a white count of 18,000, hemoglobin of 11, hematocrit of 35, and a platelet count of 581,000. Differential count shows 75% neutrophils, 10% lymphocytes, and 8% monocytes. Her chemistry profile today shows a sodium of 137, her potassium is down to 5.0, chloride is 111, CO2 is 22, BUN is down to 57, and her creatinine and 0.8, with a glucose of 121. IMPRESSION: The patient appears to be tolerating having her G-tube clamped. This has not led to any nausea or vomiting. She may have slightly more drainage from her mediastinal drain, and the color of the fluid is certainly consistent with a persistent small leak from the stomach through her gastroesophageal anastomosis. PLAN: For now, I will leave her G-tube clamped and monitor closely. She is off antibiotics now. Her vital signs are stable, and her white count is also stable. Her renal function is improving at this point.
[2018-10-21] MEDS ORDERED: BISACODYL 5 MG TAB PEG ONE (11:00)
[2018-10-21 14:00] VITALS: BP 120/68
[2018-10-21] MEDS: FLEET ENEMA PR PRN (16:19)
--- NOTE | 2018-10-21 17:00 | IPNPDOC ---
Subjective Date Seen The patient was seen on 10/21/18. Subjective Chief Complaint/HPI The patient complaints of constipation. Feeling fatigued. No other complaints. No fevers, chills, nausea, vomiting. General: Denies: ROS Unobtainable, Chills, Night Sweats, Fatigue, Malaise, Normal Appetite, Other Symptoms Constitutional: Denies: Chills, Fever, Malaise, Night Sweats, Weakness, Fatigu e, Weight Loss, Lethargy, Other Eyes: Denies: Pain, Vision change, Conjunctivae inflammation, Eyelid inflammation, Redness, Other ENT: Denies: Head Aches, Ear Pain, Dysphagia, Sinus Congestion, Post Nasal Drip, Sore Throat, Epistaxis, Other Symptoms Skin: Denies: Rash, Lesions, Jaundice, Bruising, Itching, Dry, Breakdown, Nail Changes, Other Pulmonary: Denies: Dyspnea, Cough, Pleuritic Chest Pain, Other Symptoms Cardiovascular: Denies: Chest Pain, Palpitations, Orthopnea, Paroxysmal Noc. Dyspnea, Edema, Lt Headedness, Other Symptoms Gastrointestinal: Reports: Constipation Genitourinary: Denies: Dysuria, Frequency, Incontinence, Hematuria, Retention, Other Symptoms Hematologic: Denies: Bruising, Bleeding Excessively, Petecchia, Purpura, Enlarged Lymph Nodes, Other Hematologic Endocrine: Denies: Polydipsia, Polyphagia, Polyuria, Heat Intolerance, Cold Intolerance, Other Endocrine Sx Musculoskeletal: Denies: Neck Pain, Back Pain, Shoulder Pain, Arm Pain, Hand Pain, Leg Pain, Foot Pain, Joint Pain, Muscle Pain, Spasms, Other Symptoms Neurological: Denies: Weakness, Numbness, Incoordination, Change in speech, Confusion, Seizures, Other Symptoms Objective Physical Examination General Exam: Positive: Alert, Cooperative, No Acute Distress ENT Exam: Positive: Atraumatic Neck Exam: Negative: JVD Chest Exam: Positive: Clear to auscultation, Normal air movement Heart Exam: Positive: Rate Normal, Regular Rhythm, Normal S1, Normal S2; Negative: Gallops, Murmurs, Rubs Abdomen Exam: Positive: BS Hypoactive, Soft, Other (+J/P drain, +Sutton Tube); Negative: Tenderness Extremity Exam: Negative: Clubbing, Cyanosis, Edema, Tenderness, Swelling, Other Psych Exam: Positive: Mental status NL, Mood NL, Oriented x 3 Assessment /Plan Assessment # 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 - It is complicated by leak in the esophagogastrostomy, and she has the FELICITAS drain from the mediastinum. - She also has PEG, continue enteral feeding. Only allowed to have ice chips. - s/p ertapenem. - She has received 13 infusion of fluconazole, and LFT is rising. Stop fluconazole on 10/20/18. - Contained leak to the right of the gastroesophageal anastomosis in the lower posterior mediastinum with collection of air and Gastrografin is seen to the right of the anastomosis measuring 5.6 x 5.1 cm. s/p IR drainage on 10/07/18. - Surgery recommendation appreciated: continue to clamp the G tube. # Right foot pain with redness of the dorsum - Gout attack, now improved with toradol and methyl pred 1 dose. # Mild cardiomegaly and mild amount of pericardial fluid. - Cont to monitor # Left renal mass exophytic, 2 cm - Could be renal cell carcinoma. Follow urine cytology # Acute renal failure - Cr improving on IV hydration. # Constipation - Miralax PRN and senna-S ATC # Moderate protein calorie malnutrition - Continue enteral feeding. DVT prophylaxis, continue Lovenox. Plan/VTE VTE Prophylaxis Ordered?: Yes VS, I&O, 24H, Fishbone Vital Signs/I&O Vital Signs Date Time Temp Pulse Resp B/P (MAP) Pulse Ox O2 Delivery O2 Flow Rate FiO2 10/20/18 22:00 97.5 69 17 118/68 (85) 95 I&O- Last 24 Hours up to 6 AM 10/21/18 06:00 Intake Total 2260 ml Output Total 1464 ml Balance 796 ml Laboratory Data 24H LABS Laboratory Tests 2 10/20/18 17:50: Bedside Glucose (Misc Panel) 100 10/21/18 00:12: Bedside Glucose (Misc Panel) 104 10/21/18 05:31: Bedside Glucose (Misc Panel) 109 10/21/18 06:04: Immature Granulocyte % (Auto) 3.9H, White Blood Count 15.7H, Red Blood Count 3.69L, Hemoglobin 10.9L, Hematocrit 33.8L, Mean Corpuscular Volume 91.6, Mean Corpuscular Hemoglobin 29.5, Mean Corpuscular Hemoglobin Concent 32.2, Red Cell Distribution Width 14.6H, Platelet Count 551H, Neutrophils (%) (Auto) 71.4H, Lymphocytes (%) (Auto) 12.0L, Monocytes (%) (Auto) 7.8H, Eosinophils (%) (Auto) 4.3H, Basophils (%) (Auto) 0.6, Neutrophils # (Auto) 11.2H, Lymphocytes # (Auto) 1.9, Monocytes # (Auto) 1.2H, Eosinophils # (Auto) 0.7H, Basophils # (Auto) 0.1, Nucleated Red Blood Cells % (auto) 0.0, Anion Gap 6L, Glomerular Filtration Rate > 60.0, Blood Urea Nitrogen 39H, Creatinine 0.69, Sodium Level 136, Potassium Level 4.3, Chloride Level 106, Carbon Dioxide Level 24, Calcium Level 9.3, Aspartate Amino Transf (AST/SGOT) 48H, Alanine Aminotransferase (ALT/SGPT) 124H, Alkaline Phosphatase 269H, Total Bilirubin 0.3, Total Protein 6.2L, Albumin 1.9#L, Albumin/Globulin Ratio 0.44L 10/21/18 11:51: Bedside Glucose (Misc Panel) 124H CBC/BMP Laboratory Tests 10/21/18 06:04 Red Blood Count 3.69 L, Mean Corpuscular Volume 91.6, Mean Corpuscular Hemoglobin 29.5, Mean Corpuscular Hemoglobin Concent 32.2, Red Cell Distribution Width 14.6 H, Neutrophils (%) (Auto) 71.4 H, Lymphocytes (%) (Auto) 12.0 L, Monocytes (%) (Auto) 7.8 H, Eosinophils (%) (Auto) 4.3 H, Basophils (%) (Auto) 0.6, Neutrophils # (Auto) 11.2 H, Lymphocytes # (Auto) 1.9, Monocytes # (Auto) 1.2 H, Eosinophils # (Auto) 0.7 H, Basophils # (Auto) 0.1, Calcium Level 9.3, Aspartate Amino Transf (AST/SGOT) 48 H, Alanine Aminotransferase (ALT/SGPT) 124 H, Alkaline Phosphatase 269 H, Total Bilirubin 0.3, Total Protein 6.2 L, Albumin 1.9 #L DENEEN FOSTER MD Oct 21, 2018 17:00
--- NOTE | 2018-10-21 18:17 | IPN ---
DATE: 10/21/2018 HISTORY: Patient is now 21 days postoperative from a proximal gastric resection with esophagogastrostomy for gastric volvulus. She has a small leak at her esophagogastric anastomosis and has a small percutaneous drain in the mediastinum adjacent to the anastomosis. She has been doing quite well. I clamped her gastrostomy (G) tube, which had been on suction approximately two days ago. She has had a slight increase in the output from her mediastinal drain, but is tolerating this very well and overall seems to be doing quite well. Vital signs show that she has been afebrile. Her pulse is in the 60s. Her blood pressure is excellent and her room air oxygen saturations are normal. Intake and output shows that she had 2400 in with 1000 out. Her drain had 139 mL total yesterday and 50 so far this morning. PHYSICAL EXAMINATION: Patient is lying quietly in the recliner chair. She is dozing, but when awakened, she is alert and appropriately responsive. Skin is warm and dry. Heart exam shows a regular rhythm. Drain bag shows a small amount of turbid, yellowish fluid similar to what had been draining from her G tube and this was on suction. The abdomen is soft and without any significant tenderness. Laboratory studies show that her white count is 16, with a hemoglobin of 11, hematocrit of 34 and a platelet count of 551,000. Her differential count shows 71% neutrophils, 12% lymphocytes and 8% monocytes. Chemistries show a sodium of 136, potassium 4.3, chloride 106, carbon dioxide of 24, BUN is 39 and a creatinine 0.7. Glucose is 124. Total protein is 6.2 with an albumin of 1.9. She has slight elevations of her AST, ALT and alkaline phosphatase, with a normal total bilirubin. IMPRESSION: Patient continues to remain stable despite a small leak from her esophagogastric anastomosis. She has had slightly increased output since her G tube was clamped, but she has otherwise tolerated this well and I believe is benefiting from retention of the tube feedings and free water, which is not being removed through her G tube. Her renal function impairment which, I believe, followed use of some diuretics by the hospitalist, seems to be resolving nicely. PLAN: I spoke with Dr. Faye of the hospitalist service this morning about the patient's care and I have still recommended against starting her on oral diet. I will order her an esophagram/upper GI series for 10/26/2018, to reassess her leak. We should continue with physical therapy (PT) and occupational therapy (OT) as appropriate to try to strengthen her. Her nutritional parameters have been improving nicely. If she continues to do well but her leak does not seal soon, then I will either speak again with Dr. Baeza about endoscopic options or I may just proceed with an upper endoscopy myself to see if I can better define the source of her leak.
--- NOTE | 2018-10-21 18:30 | IPN ---
DATE: 10/21/2018 SUBJECTIVE: The patient was seen and examined the bedside today morning. He was sitting up in the sofa. Her renal function is stable and improving. She continues to be on tube feeds and gentle intravenous (IV) fluid hydration, BUN level is also improving. Electrolytes are within the acceptable range now. She continues to have a mild amount of drainage from drain in the bag. OBJECTIVE: Vital signs: Temperature is 97.5 degrees Fahrenheit, blood pressure 118/68, pulse is 69, respiratory rate of 17, saturating 95% on room air. Intake and output: Urine output recorded is 795 mL so far today. Drainage from the bag is only 50 mL overnight. Weight in the bed scale is 62.3 kg. PHYSICAL EXAMINATION: GENERAL: The patient is awake, alert, oriented times three, weak and cachectic, sitting up in the sofa. No apparent distress. HEAD AND NECK : Patient has bitemporal wasting. Mucous membranes are moist. Neck is supple. There is no jugular venous distention (JVD). CARDIOVASCULAR: S1, S2, regular rate. No edema of the bilateral lower extremities. RESPIRATORY: Chest is clear to auscultation bilaterally. Bilateral equal air entry. No rales or rhonchi. ABDOMEN: Soft. She has marie in the midline. Gastrojejunal tube was noted. She is getting tube feeds through the jejunal part. She has a drain in the back. Yellow-colored fluid was noted in the bag. GENITOURINARY: Bladder is not palpable. MUSCULOSKELETAL: No clubbing or cyanosis. Pulses are 2+. CENTRAL NERVOUS SYSTEM: No focal deficit. Power is 5/5 in all extremities. LABORATORY REVIEW: CBC showed WBC of 15.7, hemoglobin 10.9, platelets are 551. BMP showed sodium 136, potassium 4.3, chloride 106, bicarb 24, BUN 39, creatinine is 0.69, calcium 9.3. AST 48, ALT 124, alkaline phosphatase 269, which is improving. Albumin is 1.9. CURRENT INPATIENT MEDICATIONS: The patient's medications were all reviewed by me. I have stopped the IV fluid hydration. The patient continues to be on tube feeds with intermittent free water flushes ASSESSMENT: 1. Acute renal failure. It was prerenal in nature. The patient was given IV fluid hydration in addition to the tube feeds. Renal function is improving. Since there is normal suctioning being done through the stomach, IV fluid is being stopped. 2. Persistent anastomosis leak from the gastroesophageal anastomosis. The patient has low level of anastomotic leak. Gastric suctioning has been stopped. Management of the leak is as per surgical service. If her gastric sectioning is started again, the patient would need normal saline hydration. 3. Mass in the left kidney. Further workup will be done as outpatient once the patient is clinically stable. The patient's renal function has improved close to the baseline. Electrolyte levels are within the acceptable range. Nephrology service is going to sign off. Please call nephrology service for any help in the management of this patient during this hospitalization.
[2018-10-21] MEDS: ENOXAPARIN 40 MG/0.4 ML SYRINGE (J1650) SC SCH (20:36)
[2018-10-21] MEDS: ACETAMINOPHEN 325 MG/10.15 ML UDC JT PRN (21:02)
[2018-10-21 22:00] VITALS: BP 129/74
[2018-10-22] MEDS: HumaLOG INSULIN (NovoLOG) PER UNIT SC SCH ×4 (00:41→18:00)
[2018-10-22 06:00] VITALS: BP 113/60
[2018-10-22 06:36] LABS: BASO # 0.1 10^3/uL (0.0-0.2); BASO % 0.4 % (0.0-1.0); EOS # 0.8 10^3/uL (0.0-0.50); EOS % 4.6 % (0.0-3.0); HEMATOCRIT 31.3 % (36.0-47.0); HEMOGLOBIN 10.3 g/dl (12.0-15.5); LYMPH # 1.8 10^3/uL (1.5-4.5); LYMPH % 10.7 % (24.0-44.0); MEAN CORPUSCULAR HEMOGLOBIN 29.3 pg (27.0-33.0); MEAN CORPUSCULAR HGB CONC 32.9 g/dl (32.0-36.5); MEAN CORPUSCULAR VOLUME 89.2 fl (80.0-96.0); MONO # 1.3 10^3/uL (0.0-0.8); MONO % 7.8 % (0.0-5.0); NEUTROPHILS # 12.1 10^3/uL (1.8-7.7); PLATELET COUNT, AUTOMATED 527 10^3/uL (150-450); RED BLOOD COUNT 3.51 10^6/uL (4.00-5.40); WHITE BLOOD COUNT 16.6 10^3/uL (4.0-10.0)
[2018-10-22 06:51] LABS: ALBUMIN 1.8 GM/DL (3.2-5.2); ALT/SGPT 104 U/L (12-78); BILIRUBIN,TOTAL 0.2 MG/DL (0.2-1.0); BLOOD UREA NITROGEN 26 MG/DL (7-18); CALCIUM LEVEL 8.7 MG/DL (8.8-10.2); CARBON DIOXIDE LEVEL 26 MEQ/L (21-32); CHLORIDE LEVEL 103 MEQ/L (98-107); CREATININE FOR GFR 0.57 MG/DL (0.55-1.30); GLOMERULAR FILTRATION RATE > 60.0 (>32); GLUCOSE, FASTING 131 MG/DL (70-100); POTASSIUM SERUM 4.3 MEQ/L (3.5-5.1); SODIUM LEVEL 135 MEQ/L (136-145); TOTAL PROTEIN 5.8 GM/DL (6.4-8.2)
[2018-10-22] MEDS: SENOKOT S TAB PO SCH ×2 (10:17→20:58)
[2018-10-22] MEDS: PANTOPRAZOLE 40MG INJ (PROTONIX) (C9113) IV SCH (10:17)
--- NOTE | 2018-10-22 12:53 | IPNPDOC ---
Subjective Date Seen The patient was seen on 10/22/18. Subjective Chief Complaint/HPI The patient feels hopeless and depressed. She is not sure if she could come back to her normal life of walking a dog and playing card games with her friends. She does not have any physical complaints. She had a good BM yesterday, and she is happy about it. General: Denies: ROS Unobtainable, Chills, Night Sweats, Fatigue, Malaise, Normal Appetite, Other Symptoms Constitutional: Denies: Chills, Fever, Malaise, Night Sweats, Weakness, Fatigue, Weight Loss, Lethargy, Other Eyes: Denies: Pain, Vision change, Conjunctivae inflammation, Eyelid inflammation, Redness, Other ENT: Denies: Head Aches, Ear Pain, Dysphagia, Sinus Congestion, Post Nasal Drip, Sore Throat, Epistaxis, Other Symptoms Skin: Denies: Rash, Lesions, Jaundice, Bruising, Itching, Dry, Breakdown, Nail Changes, Other Pulmonary: Denies: Dyspnea, Cough, Pleuritic Chest Pain, Other Symptoms Cardiovascular: Denies: Chest Pain, Palpitations, Orthopnea, Paroxysmal Noc. Dyspnea, Edema, Lt Headedness, Other Symptoms Gastrointestinal: Denies: Nausea, Vomiting, Abdominal Pain, Diarrhea, Constipation, Melena, Hematochezia, Other Symptoms Genitourinary: Denies: Dysuria, Frequency, Incontinence, Hematuria, Retention, Other Symptoms Hematologic: Denies: Bruising, Bleeding Excessively, Petecchia, Purpura, Enlarged Lymph Nodes, Other Hematologic Endocrine: Denies: Polydipsia, Polyphagia, Polyuria, Heat Intolerance, Cold Intolerance, Other Endocrine Sx Musculoskeletal: Denies: Neck Pain, Back Pain, Shoulder Pain, Arm Pain, Hand Pain, Leg Pain, Foot Pain, Joint Pain, Muscle Pain, Spasms, Other Symptoms Neurological: Denies: Weakness, Numbness, Incoordination, Change in speech, Confusion, Seizures, Other Symptoms Psych: Reports: Depression Objective Physical Examination General Exam: Positive: Alert, Cooperative, No Acute Distress ENT Exam: Positive: Atraumatic Neck Exam: Negative: JVD Chest Exam: Positive: Clear to auscultation, Normal air movement Heart Exam: Positive: Rate Normal, Regular Rhythm, Normal S1, Normal S2; Negative: Gallops, Murmurs, Rubs Abdomen Exam: Positive: BS Hypoactive, Soft, Other (+J/P drain, +Sutton Tube); Negative: Tenderness Extremity Exam: Negative: Clubbing, Cyanosis, Edema, Tenderness, Swelling, Other Psych Exam: Positive: Mental status NL, Mood NL, Oriented x 3 Assessment /Plan Assessment # 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 - It is complicated by leak in the esophagogastrostomy. Upper NG suction was discontinued, and she has FELICITAS drain from the mediastinal area. - She also has PEG, continue enteral feeding. Only allowed to have ice chips. - s/p ertapenem and fluconazole. - Dr. Germain recommends esophagram next 10/26/2018 to assess the degree of leakage. # Depression - The patient feels hopeless. She agreed to start zoloft. Will start from 25 mg daily. # Right foot pain with redness of the dorsum - Gout attack, now improved with toradol and methyl pred 1 dose. # Mild cardiomegaly and mild amount of pericardial fluid. - Cont to monitor # Left renal mass exophytic, 2 cm - Could be renal cell carcinoma. Follow urine cytology # Acute renal failure - Resolved. # Constipation - Miralax PRN and senna-S ATC # Moderate protein calorie malnutrition - Continue enteral feeding. Plan/VTE VTE Prophylaxis Ordered?: Yes VS, I&O, 24H, Fishbone Vital Signs/I&O Vital Signs Date Time Temp Pulse Resp B/P (MAP) Pulse Ox O2 Delivery O2 Flow Rate FiO2 10/22/18 06:00 98.0 77 18 113/60 (77) 96 I&O- Last 24 Hours up to 6 AM 10/22/18 06:00 Intake Total 2535 ml Output Total 453 ml Balance 2082 ml Laboratory Data 24H LABS Laboratory Tests 2 10/21/18 18:08: Bedside Glucose (Misc Panel) 117H 10/21/18 23:44: Bedside Glucose (Misc Panel) 130H 10/22/18 06:00: Bedside Glucose (Misc Panel) 134H 10/22/18 06:04: Immature Granulocyte % (Auto) 3.5H, White Blood Count 16.6H, Red Blood Count 3.51L, Hemoglobin 10.3L, Hematocrit 31.3L, Mean Corpuscular Volume 89.2, Mean Corpuscular Hemoglobin 29.3, Mean Corpuscular Hemoglobin Concent 32.9, Red Cell Distribution Width 14.6H, Platelet Count 527H, Neutrophils (%) (Auto) 73.0H, Lymphocytes (%) (Auto) 10.7L, Monocytes (%) (Auto) 7.8H, Eosinophils (%) (Auto) 4.6H, Basophils (%) (Auto) 0.4, Neutrophils # (Auto) 12.1H, Lymphocytes # (Auto) 1.8, Monocytes # (Auto) 1.3H, Eosinophils # (Auto) 0.8H, Basophils # (Auto) 0.1, Nucleated Red Blood Cells % (auto) 0.0, Anion Gap 6L, Glomerular Filtration Rate > 60.0, Blood Urea Nitrogen 26H, Creatinine 0.57, Sodium Level 135L, Potassium Level 4.3, Chloride Level 103, Carbon Dioxide Level 26, Calcium Level 8.7L, Aspartate Amino Transf (AST/SGOT) 44H, Alanine Aminotransferase (ALT/SGPT) 104H, Alkaline Phosphatase 226H, Total Bilirubin 0.2, Total Protein 5.8L, Albumin 1.8L, Albumin/Globulin Ratio 0.45L 10/22/18 11:53: Bedside Glucose (Misc Panel) 134H CBC/BMP Laboratory Tests 10/22/18 06:04 Red Blood Count 3.51 L, Mean Corpuscular Volume 89.2, Mean Corpuscular Hemoglobin 29.3, Mean Corpuscular Hemoglobin Concent 32.9, Red Cell Distribution Width 14.6 H, Neutrophils (%) (Auto) 73.0 H, Lymphocytes (%) (Auto) 10.7 L, Monocytes (%) (Auto) 7.8 H, Eosinophils (%) (Auto) 4.6 H, Basophils (%) (Auto) 0.4, Neutrophils # (Auto) 12.1 H, Lymphocytes # (Auto) 1.8, Monocytes # (Auto) 1.3 H, Eosinophils # (Auto) 0.8 H, Basophils # (Auto) 0.1, Calcium Level 8.7 L, Aspartate Amino Transf (AST/SGOT) 44 H, Alanine Aminotransferase (ALT/SGPT) 104 H, Alkaline Phosphatase 226 H, Total Bilirubin 0.2, Total Protein 5.8 L, Albumin 1.8 L DENEEN FOSTER MD Oct 22, 2018 12:53
[2018-10-22 14:00] VITALS: BP 112/67
[2018-10-22] MEDS: SERTRALINE HCL 25 MG TABLET PEG SCH (14:47)
[2018-10-22] MEDS: ENOXAPARIN 40 MG/0.4 ML SYRINGE (J1650) SC SCH (20:58)
[2018-10-22] MEDS: ACETAMINOPHEN 325 MG/10.15 ML UDC JT PRN (20:58)
--- NOTE | 2018-10-22 21:31 | IPN ---
DATE: 10/22/2018 The patient is status post gastrectomy with esophagogastric anastomosis, had an anastomotic leak, and has had a drain in place for awhile now. The plan by her primary surgeon was to continue with the drainage catheter in place, and the G-tube had been clamped, but unfortunately with the clamping of the G-tube, the patient had an increased leakage out of the anastomotic area. And unfortunately has had significant output. She still has had some persistent elevation of her white count. 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 She has been afebrile and she does not complain of any significant pain or discomfort. Intake and output reveal that she still has significant output out of her drain, her G-tube has been clamped. She has had some bowel movements. And urine output has been good. Her white count is still elevated at 16.6, her hematocrit is slowly drifting down but still greater than 30. And overall her BUN is slowly returning back towards normal. On her physical exam, abdomen is soft, nontender, nondistended. Her pigtail catheter through her chest is draining bilious-like fluid. Her G-tube site is clean and dry. Her abdomen is soft otherwise. 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 Dr. Germain has considered placing clips across this anastomosis as a possibility, and may be a reasonable option; stenting at this time may be another type of option for him. But at this point, I would recommend that we see how she does with the gastrostomy tube to gravity drainage and see how it impacts her drainage catheter output. As well as see how it affects her white count and inflammatory process.
[2018-10-22 22:00] VITALS: BP 120/66
[2018-10-23 06:00] VITALS: BP 120/61
[2018-10-23] MEDS: HumaLOG INSULIN (NovoLOG) PER UNIT SC SCH ×4 (06:00→17:25)
[2018-10-23 06:26] LABS: BASO # 0.2 10^3/uL (0.0-0.2); BASO % 0.9 % (0.0-1.0); EOS # 0.9 10^3/uL (0.0-0.50); EOS % 5.7 % (0.0-3.0); HEMATOCRIT 34.1 % (36.0-47.0); HEMOGLOBIN 11.1 g/dl (12.0-15.5); LYMPH # 2.3 10^3/uL (1.5-4.5); LYMPH % 14.4 % (24.0-44.0); MEAN CORPUSCULAR HEMOGLOBIN 29.8 pg (27.0-33.0); MEAN CORPUSCULAR HGB CONC 32.6 g/dl (32.0-36.5); MEAN CORPUSCULAR VOLUME 91.4 fl (80.0-96.0); MONO # 1.2 10^3/uL (0.0-0.8); MONO % 7.2 % (0.0-5.0); NEUTROPHILS # 10.6 10^3/uL (1.8-7.7); NEUTROPHILS % 66.8 % (36.0-66.0); PLATELET COUNT, AUTOMATED 532 10^3/uL (150-450); RED BLOOD COUNT 3.73 10^6/uL (4.00-5.40); WHITE BLOOD COUNT 15.9 10^3/uL (4.0-10.0)
[2018-10-23 06:48] LABS: ALBUMIN 2.1 GM/DL (3.2-5.2); ALT/SGPT 97 U/L (12-78); BILIRUBIN,TOTAL 0.2 MG/DL (0.2-1.0); BLOOD UREA NITROGEN 24 MG/DL (7-18); CALCIUM LEVEL 9.2 MG/DL (8.8-10.2); CARBON DIOXIDE LEVEL 26 MEQ/L (21-32); CHLORIDE LEVEL 102 MEQ/L (98-107); CREATININE FOR GFR 0.65 MG/DL (0.55-1.30); GLOMERULAR FILTRATION RATE > 60.0 (>32); GLUCOSE, FASTING 113 MG/DL (70-100); POTASSIUM SERUM 4.5 MEQ/L (3.5-5.1); SODIUM LEVEL 133 MEQ/L (136-145); TOTAL PROTEIN 6.2 GM/DL (6.4-8.2)
--- NOTE | 2018-10-23 08:38 | IPN ---
DATE: 10/23/2018 The patient has been stable overnight. She has been afebrile. Her white count is down slightly today from 16.6 down to 15.9 and her drain from her chest is significantly diminished. With the G-tube open, she has had significant drainage out of the G-tube, 400-500 mL a day. She has dropped her drainage out of her chest tube to 60 mL overnight. Her abdomen is soft, nontender, nondistended. Drainage tubes are as expected. Bilious drainage out of her gastrostomy tube. Minimal drainage out of her chest drainage site. IMPRESSION AND PLAN: The patient seems to be draining less out of her anastomotic leak and at this point my recommendation is to keep her on gravity drainage for her G-tube and then if she has some minimal output rechecking on Friday by clamping the G-tube to see if she has increased output. If she does, then considering the next step, which may be clipping the area or esophageal stent.
[2018-10-23] MEDS: SERTRALINE HCL 25 MG TABLET PEG SCH (10:17)
[2018-10-23] MEDS: SENOKOT S TAB PO SCH ×2 (10:17→21:40)
[2018-10-23] MEDS: PANTOPRAZOLE 40MG INJ (PROTONIX) (C9113) IV SCH (10:18)
[2018-10-23] MEDS: ACETAMINOPHEN 325 MG/10.15 ML UDC JT PRN ×3 (10:18→21:41)
[2018-10-23 14:00] VITALS: BP 102/60
--- NOTE | 2018-10-23 14:09 | IPNPDOC ---
Subjective Date Seen The patient was seen on 10/23/18. Subjective Chief Complaint/HPI The patient has no pain, but feeling depressed. No physical complaints. No abdominal pain. No chest pain. Denies a fever, chills, nausea, vomiting, or diarrhea. She had a good BM. General: Denies: ROS Unobtainable, Chills, Night Sweats, Fatigue, Malaise, Normal Appetite, Other Symptoms Constitutional: Denies: Chills, Fever, Malaise, Night Sweats, Weakness, Fatigue, Weight Loss, Lethargy, Other Eyes: Denies: Pain, Vision change, Conjunctivae inflammation, Eyelid inflammation, Redness, Other ENT: Denies: Head Aches, Ear Pain, Dysphagia, Sinus Congestion, Post Nasal Drip, Sore Throat, Epistaxis, Other Symptoms Skin: Denies: Rash, Lesions, Jaundice, Bruising, Itching, Dry, Breakdown, Nail Changes, Other Pulmonary: Denies: Dyspnea, Cough, Pleuritic Chest Pain, Other Symptoms Cardiovascular: Denies: Chest Pain, Palpitations, Orthopnea, Paroxysmal Noc. Dyspnea, Edema, Lt Headedness, Other Symptoms Gastrointestinal: Denies: Nausea, Vomiting, Abdominal Pain, Diarrhea, Constipation, Melena, Hematochezia, Other Symptoms Genitourinary: Denies: Dysuria, Frequency, Incontinence, Hematuria, Retention, Other Symptoms Hematologic: Denies: Bruising, Bleeding Excessively, Petecchia, Purpura, Enlarged Lymph Nodes, Other Hematologic Endocrine: Denies: Polydipsia, Polyphagia, Polyuria, Heat Intolerance, Cold Intolerance, Other Endocrine Sx Musculoskeletal: Denies: Neck Pain, Back Pain, Shoulder Pain, Arm Pain, Hand Pain, Leg Pain, Foot Pain, Joint Pain, Muscle Pain, Spasms, Other Symptoms Neurological: Denies: Weakness, Numbness, Incoordination, Change in speech, Confusion, Seizures, Other Symptoms Psych: Reports: Depression; Denies: Mood Normal, Anxiety, Memory Issues, Thoughts of Self Harm, Anger, Thoughts of Harming Other, Other Psych Objective Physical Examination General Exam: Positive: Alert, Cooperative, No Acute Distress ENT Exam: Positive: Atraumatic Neck Exam: Negative: JVD Chest Exam: Positive: Clear to auscultation, Normal air movement Heart Exam: Positive: Rate Normal, Regular Rhythm, Normal S1, Normal S2; Negative: Gallops, Murmurs, Rubs Abdomen Exam: Positive: BS Hypoactive, Soft, Other (+J/P drain, +Sutton Tube); Negative: Tenderness Extremity Exam: Negative: Clubbing, Cyanosis, Edema, Tenderness, Swelling, Other Psych Exam: Positive: Mental status NL, Mood NL, Oriented x 3 Assessment /Plan Assessment # 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 - It is complicated by leak in the esophagogastrostomy. - She also has PEG, continue enteral feeding. Only allowed to have ice chips. - Per Dr. Hurst's recommendation, keep her on gravity drainage for her G-tube and then if she has some minimal output rechecking on Friday by clamping the G- tube to see if she has increased output. If she does, then considering the next step, which may be clipping the area or esophageal stent. - s/p ertapenem and fluconazole. # Depression - The patient feels hopeless. Continue zoloft 25 mg daily. # Right foot pain with redness of the dorsum - Gout attack, now improved with toradol and methyl pred 1 dose. # Mild cardiomegaly and mild amount of pericardial fluid. - Cont to monitor # Left renal mass exophytic, 2 cm - Could be renal cell carcinoma. Follow urine cytology # Acute renal failure - Resolved. # Constipation - Miralax PRN and senna-S ATC # Moderate protein calorie malnutrition - Continue enteral feeding. Plan/VTE VTE Prophylaxis Ordered?: Yes VS, I&O, 24H, Mj Vital Signs/I&O Vital Signs Date Time Temp Pulse Resp B/P (MAP) Pulse Ox O2 Delivery O2 Flow Rate FiO2 10/23/18 06:00 96.8 69 18 120/61 (80) 95 I&O- Last 24 Hours up to 6 AM 10/23/18 06:00 Intake Total 2080 ml Output Total 1070 ml Balance 1010 ml Laboratory Data 24H LABS Laboratory Tests 2 10/22/18 17:05: Bedside Glucose (Misc Panel) 113H 10/22/18 23:41: Bedside Glucose (Misc Panel) 126H 10/23/18 05:57: Immature Granulocyte % (Auto) 5.0H, White Blood Count 15.9H, Red Blood Count 3.73L, Hemoglobin 11.1L, Hematocrit 34.1L, Mean Corpuscular Volume 91.4, Mean Corpuscular Hemoglobin 29.8, Mean Corpuscular Hemoglobin Concent 32.6, Red Cell Distribution Width 14.6H, Platelet Count 532H, Neutrophils (%) (Auto) 66.8H, Lymphocytes (%) (Auto) 14.4L, Monocytes (%) (Auto) 7.2H, Eosinophils (%) (Auto) 5.7H, Basophils (%) (Auto) 0.9, Neutrophils # (Auto) 10.6H, Lymphocytes # (Auto) 2.3, Monocytes # (Auto) 1.2H, Eosinophils # (Auto) 0.9H, Basophils # (Auto) 0.2, Nucleated Red Blood Cells % (auto) 0.0, Anion Gap 5L, Glomerular Filtration Rate > 60.0, Blood Urea Nitrogen 24H, Creatinine 0.65, Sodium Level 133L, Potassium Level 4.5, Chloride Level 102, Carbon Dioxide Level 26, Calcium Level 9.2, Aspartate Amino Transf (AST/SGOT) 41H, Alanine Aminotransferase (ALT/SGPT) 97H, Alkaline Phosphatase 213H, Total Bilirubin 0.2, Total Protein 6.2L, Albumin 2.1L, Albumin/Globulin Ratio 0.51L 10/23/18 06:25: Bedside Glucose (Misc Panel) 116H 10/23/18 11:50: Bedside Glucose (Misc Panel) 130H CBC/BMP Laboratory Tests 10/23/18 05:57 Red Blood Count 3.73 L, Mean Corpuscular Volume 91.4, Mean Corpuscular Hemoglobin 29.8, Mean Corpuscular Hemoglobin Concent 32.6, Red Cell Distribution Width 14.6 H, Neutrophils (%) (Auto) 66.8 H, Lymphocytes (%) (Auto) 14.4 L, Monocytes (%) (Auto) 7.2 H, Eosinophils (%) (Auto) 5.7 H, Basophils (%) (Auto) 0.9, Neutrophils # (Auto) 10.6 H, Lymphocytes # (Auto) 2.3, Monocytes # (Auto) 1.2 H, Eosinophils # (Auto) 0.9 H, Basophils # (Auto) 0.2, Calcium Level 9.2, Aspartate Amino Transf (AST/SGOT) 41 H, Alanine Aminotransferase (ALT/SGPT) 97 H, Alkaline Phosphatase 213 H, Total Bilirubin 0.2, Total Protein 6.2 L, Albumin 2.1 L DENEEN FOSTER MD Oct 23, 2018 14:09
[2018-10-23] MEDS: ENOXAPARIN 40 MG/0.4 ML SYRINGE (J1650) SC SCH (21:40)
[2018-10-23 22:00] VITALS: BP 114/67
[2018-10-24] MEDS: HumaLOG INSULIN (NovoLOG) PER UNIT SC SCH ×5 (00:28→23:52)
[2018-10-24 06:22] LABS: BASO # 0.1 10^3/uL (0.0-0.2); BASO % 0.5 % (0.0-1.0); EOS # 0.6 10^3/uL (0.0-0.50); EOS % 3.9 % (0.0-3.0); HEMATOCRIT 31.1 % (36.0-47.0); HEMOGLOBIN 10.2 g/dl (12.0-15.5); LYMPH # 1.6 10^3/uL (1.5-4.5); MEAN CORPUSCULAR HEMOGLOBIN 29.5 pg (27.0-33.0); MEAN CORPUSCULAR HGB CONC 32.8 g/dl (32.0-36.5); MEAN CORPUSCULAR VOLUME 89.9 fl (80.0-96.0); MONO # 1.2 10^3/uL (0.0-0.8); MONO % 7.2 % (0.0-5.0); NEUTROPHILS # 11.9 10^3/uL (1.8-7.7); NEUTROPHILS % 74.1 % (36.0-66.0); PLATELET COUNT, AUTOMATED 465 10^3/uL (150-450); RED BLOOD COUNT 3.46 10^6/uL (4.00-5.40); WHITE BLOOD COUNT 16.1 10^3/uL (4.0-10.0)
[2018-10-24 06:52] LABS: ALT/SGPT 88 U/L (12-78); BILIRUBIN,TOTAL 0.2 MG/DL (0.2-1.0); BLOOD UREA NITROGEN 23 MG/DL (7-18); CALCIUM LEVEL 8.9 MG/DL (8.8-10.2); CARBON DIOXIDE LEVEL 22 MEQ/L (21-32); CHLORIDE LEVEL 102 MEQ/L (98-107); CREATININE FOR GFR 0.64 MG/DL (0.55-1.30); GLOMERULAR FILTRATION RATE > 60.0 (>32); GLUCOSE, FASTING 126 MG/DL (70-100); POTASSIUM SERUM 4.4 MEQ/L (3.5-5.1); SODIUM LEVEL 133 MEQ/L (136-145)
--- NOTE | 2018-10-24 08:32 | IPNPDOC ---
Text Note Date of Service The patient was seen on 10/24/18. NOTE No acute events overnight. Tolerating TF. Drain output has decreased, and there us a lot of output from the G-tube as well. drain - 70 gastrostomy - 1800 VSSAF NAD abd - soft, non tender, no rebound or guarding, incisions c/d/i labs - below A) 88yo female s/p partial gastrectomy, currently with an anastamotic leak, and possible gastroparesis P) sips and chips strict I's and O's IVF abx IS TFs monitor drain output will discuss with Dr. Germain on Friday. Jose Eduardo Garcia DO VS,Fishbone, I+O VS, Fishbone, I+O Laboratory Tests 10/24/18 06:03 Red Blood Count 3.46 L, Mean Corpuscular Volume 89.9, Mean Corpuscular Hemoglobin 29.5, Mean Corpuscular Hemoglobin Concent 32.8, Red Cell Distribution Width 14.6 H, Neutrophils (%) (Auto) 74.1 H, Lymphocytes (%) (Auto) 10.0 L, Monocytes (%) (Auto) 7.2 H, Eosinophils (%) (Auto) 3.9 H, Basophils (%) (Auto) 0.5, Neutrophils # (Auto) 11.9 H, Lymphocytes # (Auto) 1.6, Monocytes # (Auto) 1.2 H, Eosinophils # (Auto) 0.6 H, Basophils # (Auto) 0.1, Calcium Level 8.9, Aspartate Amino Transf (AST/SGOT) 22, Alanine Aminotransferase (ALT/SGPT) 88 H, Alkaline Phosphatase 189 H, Total Bilirubin 0.2, Total Protein 6.0 L, Albumin 2.0 L Vital Signs Date Time Temp Pulse Resp B/P (MAP) Pulse Ox O2 Delivery O2 Flow Rate FiO2 10/23/18 22:00 97.2 65 17 114/67 (83) 92 I&O- Last 24 Hours up to 6 AM 10/24/18 06:00 Intake Total 1960 ml Output Total 1395 ml Balance 565 ml BNEJAMIN GARCIA DO Oct 24, 2018 08:32
[2018-10-24] MEDS: PANTOPRAZOLE 40MG INJ (PROTONIX) (C9113) IV SCH (10:03)
[2018-10-24] MEDS: SERTRALINE HCL 25 MG TABLET PEG SCH (10:03)
[2018-10-24] MEDS: SENOKOT S TAB PO SCH ×2 (10:03→20:11)
--- NOTE | 2018-10-24 12:33 | IPNPDOC ---
Subjective Date Seen The patient was seen on 10/24/18. Subjective Chief Complaint/HPI The patient has no complaints, except for being depressed. Denies abdominal pain, nausea, vomiting. General: Denies: ROS Unobtainable, Chills, Night Sweats, Fatigue, Malaise, Normal Appetite, Other Symptoms Constitutional: Denies: Chills, Fever, Malaise, Night Sweats, Weakness, Fatigue, Weight Loss, Lethargy, Other Eyes: Denies: Pain, Vision change, Conjunctivae inflammation, Eyelid inflammation, Redness, Other ENT: Denies: Head Aches, Ear Pain, Dysphagia, Sinus Congestion, Post Nasal Drip, Sore Throat, Epistaxis, Other Symptoms Skin: Denies: Rash, Lesions, Jaundice, Bruising, Itching, Dry, Breakdown, Nail Changes, Other Pulmonary: Denies: Dyspnea, Cough, Pleuritic Chest Pain, Other Symptoms Cardiovascular: Denies: Chest Pain, Palpitations, Orthopnea, Paroxysmal Noc. Dyspnea, Edema, Lt Headedness, Other Symptoms Gastrointestinal: Denies: Nausea, Vomiting, Abdominal Pain, Diarrhea, Constipation, Melena, Hematochezia, Other Symptoms Genitourinary: Denies: Dysuria, Frequency, Incontinence, Hematuria, Retention, Other Symptoms Hematologic: Denies: Bruising, Bleeding Excessively, Petecchia, Purpura, Enlarged Lymph Nodes, Other Hematologic Endocrine: Denies: Polydipsia, Polyphagia, Polyuria, Heat Intolerance, Cold Intolerance, Other Endocrine Sx Musculoskeletal: Denies: Neck Pain, Back Pain, Shoulder Pain, Arm Pain, Hand Pain, Leg Pain, Foot Pain, Joint Pain, Muscle Pain, Spasms, Other Symptoms Neurological: Denies: Weakness, Numbness, Incoordination, Change in speech, Confusion, Seizures, Other Symptoms Psych: Reports: Depression Objective Physical Examination General Exam: Positive: Alert, Cooperative, No Acute Distress ENT Exam: Positive: Atraumatic Neck Exam: Negative: JVD Chest Exam: Positive: Clear to auscultation, Normal air movement Heart Exam: Positive: Rate Normal, Regular Rhythm, Normal S1, Normal S2; Negative: Gallops, Murmurs, Rubs Abdomen Exam: Positive: BS Hypoactive, Soft, Other (+J/P drain, +Suttno Tube); Negative: Tenderness Extremity Exam: Negative: Clubbing, Cyanosis, Edema, Tenderness, Swelling, Other Psych Exam: Positive: Mental status NL, Mood NL, Oriented x 3 Assessment /Plan Assessment # 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 - It is complicated by leak in the esophagogastrostomy. - She also has PEG, continue enteral feeding. Only allowed to have ice chips. - Per Dr. Hurst's recommendation, keep her on gravity drainage for her G-tube and then if she has some minimal output rechecking on Friday by clamping the G- tube to see if she has increased output. If she does, then considering the next step, which may be clipping the area or esophageal stent. - s/p ertapenem and fluconazole. # Depression - The patient feels hopeless. Continue zoloft 25 mg daily. # Right foot pain with redness of the dorsum - Gout attack, now improved with toradol and methyl pred 1 dose. # Mild cardiomegaly and mild amount of pericardial fluid. - Cont to monitor # Left renal mass exophytic, 2 cm - Could be renal cell carcinoma. Follow urine cytology # Acute renal failure - Resolved. # Constipation - Miralax PRN and senna-S ATC # Moderate protein calorie malnutrition - Continue enteral feeding. Plan/VTE VTE Prophylaxis Ordered?: Yes VS, I&O, 24H, Fishbone Vital Signs/I&O Vital Signs Date Time Temp Pulse Resp B/P (MAP) Pulse Ox O2 Delivery O2 Flow Rate FiO2 10/23/18 22:00 97.2 65 17 114/67 (83) 92 I&O- Last 24 Hours up to 6 AM 10/24/18 06:00 Intake Total 1960 ml Output Total 1395 ml Balance 565 ml Laboratory Data 24H LABS Laboratory Tests 2 10/23/18 16:42: Bedside Glucose (Misc Panel) 98 10/23/18 23:51: Bedside Glucose (Misc Panel) 117H 10/24/18 05:43: Bedside Glucose (Misc Panel) 127H 10/24/18 06:03: Immature Granulocyte % (Auto) 4.3H, White Blood Count 16.1H, Red Blood Count 3.46L, Hemoglobin 10.2L, Hematocrit 31.1L, Mean Corpuscular Volume 89.9, Mean Corpuscular Hemoglobin 29.5, Mean Corpuscular Hemoglobin Concent 32.8, Red Cell Distribution Width 14.6H, Platelet Count 465H, Neutrophils (%) (Auto) 74.1H, Lymphocytes (%) (Auto) 10.0L, Monocytes (%) (Auto) 7.2H, Eosinophils (%) (Auto) 3.9H, Basophils (%) (Auto) 0.5, Neutrophils # (Auto) 11.9H, Lymphocytes # (Auto) 1.6, Monocytes # (Auto) 1.2H, Eosinophils # (Auto) 0.6H, Basophils # (Auto) 0.1, Nucleated Red Blood Cells % (auto) 0.0, Anion Gap 9, Glomerular Filtration Rate > 60.0, Blood Urea Nitrogen 23H, Creatinine 0.64, Sodium Level 133L, Potassium Level 4.4, Chloride Level 102, Carbon Dioxide Level 22, Calcium Level 8.9, Aspartate Amino Transf (AST/SGOT) 22, Alanine Aminotransferase (ALT/SGPT) 88H, Alkaline Phosphatase 189H, Total Bilirubin 0.2, Total Protein 6.0L, Albumin 2.0L, Albumin/Globulin Ratio 0.50L 10/24/18 12:12: Bedside Glucose (Misc Panel) 112H CBC/BMP Laboratory Tests 10/24/18 06:03 Red Blood Count 3.46 L, Mean Corpuscular Volume 89.9, Mean Corpuscular Hemoglobin 29.5, Mean Corpuscular Hemoglobin Concent 32.8, Red Cell Distribution Width 14.6 H, Neutrophils (%) (Auto) 74.1 H, Lymphocytes (%) (Auto) 10.0 L, Monocytes (%) (Auto) 7.2 H, Eosinophils (%) (Auto) 3.9 H, Basophils (%) (Auto) 0.5, Neutrophils # (Auto) 11.9 H, Lymphocytes # (Auto) 1.6, Monocytes # (Auto) 1.2 H, Eosinophils # (Auto) 0.6 H, Basophils # (Auto) 0.1, Calcium Level 8.9, Aspartate Amino Transf (AST/SGOT) 22, Alanine Aminotransferase (ALT/SGPT) 88 H, Alkaline Phosphatase 189 H, Total Bilirubin 0.2, Total Protein 6.0 L, Albumin 2.0 L DENEEN FOSTER MD Oct 24, 2018 12:33
[2018-10-24 14:00] VITALS: BP 107/71
[2018-10-24] MEDS: ENOXAPARIN 40 MG/0.4 ML SYRINGE (J1650) SC SCH (20:11)
[2018-10-24 22:00] VITALS: BP 114/71
[2018-10-24] MEDS: ACETAMINOPHEN 325 MG/10.15 ML UDC JT PRN (23:35)
[2018-10-25 06:00] VITALS: BP 123/80
[2018-10-25] MEDS: HumaLOG INSULIN (NovoLOG) PER UNIT SC SCH ×3 (06:44→18:12)
[2018-10-25 07:13] LABS: ALT/SGPT 84 U/L (12-78); BILIRUBIN,TOTAL 0.2 MG/DL (0.2-1.0); BLOOD UREA NITROGEN 25 MG/DL (7-18); CALCIUM LEVEL 9.2 MG/DL (8.8-10.2); CARBON DIOXIDE LEVEL 24 MEQ/L (21-32); CHLORIDE LEVEL 103 MEQ/L (98-107); CREATININE FOR GFR 0.66 MG/DL (0.55-1.30); GLOMERULAR FILTRATION RATE > 60.0 (>32); GLUCOSE, FASTING 123 MG/DL (70-100); POTASSIUM SERUM 4.4 MEQ/L (3.5-5.1); SODIUM LEVEL 133 MEQ/L (136-145); TOTAL PROTEIN 6.2 GM/DL (6.4-8.2)
--- NOTE | 2018-10-25 09:26 | IPNPDOC ---
Text Note Date of Service The patient was seen on 10/25/18. NOTE No acute events overnight. Tolerating TF at goal and the drain and g-tube are still draining the same fluid. drain - 70 gastrostomy - 1150 BM - 4 VSSAF NAD abd - soft, non tender, no rebound or guarding, incisions c/d/i labs - below A) 88yo female s/p partial gastrectomy, currently with an anastamotic leak, and possible gastroparesis P) sips and chips strict I's and O's IVF abx IS TFs monitor drain output will discuss with Dr. Germain on Friday. Jose Eduardo Garcia DO VS,Fishbone, I+O VS, Fishbone, I+O Laboratory Tests 10/25/18 06:17 Calcium Level 9.2, Aspartate Amino Transf (AST/SGOT) 34, Alanine Aminotransferase (ALT/SGPT) 84 H, Alkaline Phosphatase 200 H, Total Bilirubin 0.2, Total Protein 6.2 L, Albumin 2.0 L Vital Signs Date Time Temp Pulse Resp B/P (MAP) Pulse Ox O2 Delivery O2 Flow Rate FiO2 10/25/18 06:00 97.6 69 18 123/80 (94) 95 I&O- Last 24 Hours up to 6 AM 10/25/18 06:00 Intake Total 1405 ml Output Total 1425 ml Balance -20 ml BENJAMIN GARCIA DO Oct 25, 2018 09:26
[2018-10-25] MEDS: PANTOPRAZOLE 40MG INJ (PROTONIX) (C9113) IV SCH (09:56)
[2018-10-25] MEDS: SENOKOT S TAB PO SCH ×2 (09:56→20:06)
[2018-10-25] MEDS: SERTRALINE HCL 25 MG TABLET PEG SCH (09:56)
--- NOTE | 2018-10-25 10:56 | IPNPDOC ---
Subjective Date Seen The patient was seen on 10/25/18. Subjective Chief Complaint/HPI Patient sleepy but easily arousable and does not offer any complaints. When woken up General: Denies: ROS Unobtainable, Chills, Night Sweats, Fatigue, Malaise, Normal Appetite, Other Symptoms Constitutional: Denies: Chills, Fever, Malaise, Night Sweats, Weakness, Fatigue, Weight Loss, Lethargy, Other Eyes: Denies: Pain, Vision change, Conjunctivae inflammation, Eyelid inflamma tion, Redness, Other ENT: Denies: Head Aches, Ear Pain, Dysphagia, Sinus Congestion, Post Nasal Drip, Sore Throat, Epistaxis, Other Symptoms Skin: Denies: Rash, Lesions, Jaundice, Bruising, Itching, Dry, Breakdown, Nail Changes, Other Pulmonary: Denies: Dyspnea, Cough, Pleuritic Chest Pain, Other Symptoms Cardiovascular: Denies: Chest Pain, Palpitations, Orthopnea, Paroxysmal Noc. Dyspnea, Edema, Lt Headedness, Other Symptoms Gastrointestinal: Denies: Nausea, Vomiting, Abdominal Pain, Diarrhea, Constipation, Melena, Hematochezia, Other Symptoms Musculoskeletal: Denies: Neck Pain, Back Pain, Shoulder Pain, Arm Pain, Hand Pain, Leg Pain, Foot Pain, Joint Pain, Muscle Pain, Spasms, Other Symptoms Neurological: Denies: Weakness, Numbness, Incoordination, Change in speech, Confusion, Seizures, Other Symptoms Psych: Denies: Mood Normal, Anxiety, Depression, Memory Issues, Thoughts of Self Harm, Anger, Thoughts of Harming Other, Other Psych Objective Physical Examination General Exam: Positive: Alert, Cooperative, No Acute Distress ENT Exam: Positive: Atraumatic Neck Exam: Negative: JVD Chest Exam: Positive: Clear to auscultation, Normal air movement Heart Exam: Positive: Rate Normal, Regular Rhythm, Normal S1, Normal S2; Negative: Gallops, Murmurs, Rubs Abdomen Exam: Positive: BS Hypoactive, Soft, Other (+J/P drain, +Sutton Tube); Negative: Tenderness Extremity Exam: Negative: Clubbing, Cyanosis, Edema, Tenderness, Swelling, O ther Psych Exam: Positive: Mental status NL, Mood NL, Oriented x 3 Assessment /Plan Problems (1) Gastric outflow obstruction Plan/VTE VTE Prophylaxis Ordered?: Yes Plan # 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 - It is complicated by leak in the esophagogastrostomy. - She also has PEG, continue enteral feeding. Only allowed to have ice chips. - Per Dr. Hurst's recommendation, keep her on gravity drainage for her G-tube and then if she has some minimal output rechecking on Friday by clamping the G- tube to see if she has increased output. If she does, then considering the next step, which may be clipping the area or esophageal stent. - s/p ertapenem and fluconazole. # Depression - The patient feels hopeless. Continue zoloft 25 mg daily. # Right foot pain with redness of the dorsum - Gout attack, now improved with toradol and methyl pred 1 dose. # Mild cardiomegaly and mild amount of pericardial fluid. - Cont to monitor # Left renal mass exophytic, 2 cm - Could be renal cell carcinoma. Follow urine cytology # Acute renal failure - Resolved. # Constipation - Miralax PRN and senna-S ATC # Moderate protein calorie malnutrition - Continue enteral feeding VS, I&O, 24H, Fishbone Vital Signs/I&O Vital Signs Date Time Temp Pulse Resp B/P (MAP) Pulse Ox O2 Delivery O2 Flow Rate FiO2 10/25/18 06:00 97.6 69 18 123/80 (94) 95 I&O- Last 24 Hours up to 6 AM 10/25/18 06:00 Intake Total 1405 ml Output Total 1425 ml Balance -20 ml Laboratory Data 24H LABS Laboratory Tests 2 10/24/18 12:12: Bedside Glucose (Misc Panel) 112H 10/24/18 16:49: Bedside Glucose (Misc Panel) 102 10/24/18 23:39: Bedside Glucose (Misc Panel) 120H 10/25/18 06:17: Anion Gap 6L, Glomerular Filtration Rate > 60.0, Blood Urea Nitrogen 25H, Creatinine 0.66, Sodium Level 133L, Potassium Level 4.4, Chloride Level 103, Carbon Dioxide Level 24, Calcium Level 9.2, Aspartate Amino Transf (AST/SGOT) 34, Alanine Aminotransferase (ALT/SGPT) 84H, Alkaline Phosphatase 200H, Total Bilirubin 0.2, Total Protein 6.2L, Albumin 2.0L, Albumin/Globulin Ratio 0.48L 10/25/18 06:33: Bedside Glucose (Misc Panel) 126H CBC/BMP Laboratory Tests 10/25/18 06:17 Calcium Level 9.2, Aspartate Amino Transf (AST/SGOT) 34, Alanine Aminotran sferase (ALT/SGPT) 84 H, Alkaline Phosphatase 200 H, Total Bilirubin 0.2, Total Protein 6.2 L, Albumin 2.0 L GERALD PRIDE MD Oct 25, 2018 10:56
[2018-10-25 14:00] VITALS: BP 132/71
[2018-10-25] MEDS: ACETAMINOPHEN 325 MG/10.15 ML UDC JT PRN (20:05)
[2018-10-25] MEDS: ENOXAPARIN 40 MG/0.4 ML SYRINGE (J1650) SC SCH (20:06)
[2018-10-25 22:00] VITALS: BP 106/68
[2018-10-26 06:00] VITALS: BP 113/73
[2018-10-26] MEDS: HumaLOG INSULIN (NovoLOG) PER UNIT SC SCH ×4 (06:00→18:17)
[2018-10-26 06:37] LABS: HEMATOCRIT 38.6 % (36.0-47.0); HEMOGLOBIN 12.6 g/dl (12.0-15.5); MEAN CORPUSCULAR HGB CONC 32.6 g/dl (32.0-36.5); MEAN CORPUSCULAR VOLUME 88.9 fl (80.0-96.0); PLATELET COUNT, AUTOMATED 537 10^3/uL (150-450); RED BLOOD COUNT 4.34 10^6/uL (4.00-5.40); WHITE BLOOD COUNT 23.2 10^3/uL (4.0-10.0)
[2018-10-26 07:15] LABS: ALBUMIN 2.1 GM/DL (3.2-5.2); ALT/SGPT 76 U/L (12-78); BILIRUBIN,TOTAL 0.6 MG/DL (0.2-1.0); BLOOD UREA NITROGEN 33 MG/DL (7-18); CALCIUM LEVEL 9.9 MG/DL (8.8-10.2); CARBON DIOXIDE LEVEL 22 MEQ/L (21-32); CHLORIDE LEVEL 102 MEQ/L (98-107); CREATININE FOR GFR 0.84 MG/DL (0.55-1.30); GLOMERULAR FILTRATION RATE > 60.0 (>32); GLUCOSE, FASTING 124 MG/DL (70-100); POTASSIUM SERUM 5.7 MEQ/L (3.5-5.1); SODIUM LEVEL 130 MEQ/L (136-145); TOTAL PROTEIN 7.1 GM/DL (6.4-8.2)
[2018-10-26] MEDS ORDERED: NS 500 ML IV ONE (08:45)
[2018-10-26] MEDS: SENOKOT S TAB PO SCH ×2 (08:54→20:41)
[2018-10-26] MEDS: PANTOPRAZOLE 40MG INJ (PROTONIX) (C9113) IV SCH (08:54)
[2018-10-26] MEDS: SERTRALINE HCL 25 MG TABLET PEG SCH (08:54)
[2018-10-26] MEDS: NS 1,000 ML IV SCH (08:55)
[2018-10-26] MEDS: MOXIFLOXACIN HCL 400 MG in APPROPRIATE DILUENT 1 EA IV SCH (10:38)
--- NOTE | 2018-10-26 11:49 | IPNPDOC ---
Subjective Date Seen The patient was seen on 10/26/18. Subjective Chief Complaint/HPI Patient is comfortable offers no new complaints at the present time General: Denies: ROS Unobtainable, Chills, Night Sweats, Fatigue, Malaise, Normal Appetite, Other Symptoms Constitutional: Denies: Chills, Fever, Malaise, Night Sweats, Weakness, Fatigue, Weight Loss, Lethargy, Other Eyes: Denies: Pain, Vision change, Conjunctivae inflammation, Eyelid inflammation, Redness, Other ENT: Denies: Head Aches, Ear Pain, Dysphagia, Sinus Congestion, Post Nasal Drip, Sore Throat, Epistaxis, Other Symptoms Skin: Denies: Rash, Lesions, Jaundice, Bruising, Itching, Dry, Breakdown, Nail Changes, Other Pulmonary: Denies: Dyspnea, Cough, Pleuritic Chest Pain, Other Symptoms Cardiovascular: Denies: Chest Pain, Palpitations, Orthopnea, Paroxysmal Noc. Dyspnea, Edema, Lt Headedness, Other Symptoms Musculoskeletal: Denies: Neck Pain, Back Pain, Shoulder Pain, Arm Pain, Hand Pain, Leg Pain, Foot Pain, Joint Pain, Muscle Pain, Spasms, Other Symptoms Neurological: Denies: Weakness, Numbness, Incoordination, Change in speech, Confusion, Seizures, Other Symptoms Psych: Denies: Mood Normal, Anxiety, Depression, Memory Issues, Thoughts of Self Harm, Anger, Thoughts of Harming Other, Other Psych Objective Physical Examination General Exam: Positive: Alert, Cooperative, No Acute Distress ENT Exam: Positive: Atraumatic Neck Exam: Negative: JVD Chest Exam: Positive: Clear to auscultation, Normal air movement Heart Exam: Positive: Rate Normal, Regular Rhythm, Normal S1, Normal S2; Negative: Gallops, Murmurs, Rubs Abdomen Exam: Positive: BS Hypoactive, Soft, Other (+J/P drain, +Sutton Tube); Negative: Tenderness Extremity Exam: Negative: Clubbing, Cyanosis, Edema, Tenderness, Swelling, Other Psych Exam: Positive: Mental status NL, Mood NL, Oriented x 3 Assessment /Plan Problems (1) Gastric outflow obstruction Status: Acute Plan/VTE VTE Prophylaxis Ordered?: Yes Plan # 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 - It is complicated by leak in the esophagogastrostomy. - She also has PEG, continue enteral feeding. Only allowed to have ice chips. - Per Dr. Hurst's recommendation, keep her on gravity drainage for her G-tube and then if she has some minimal output rechecking on Friday by clamping the G- tube to see if she has increased output. If she does, then considering the next step, which may be clipping the area or esophageal stent. - s/p ertapenem and fluconazole. - Patient. WBC count is 23,000 today and wound culture is positive for strep oralis, as per sensitivity. Will start patient on moxifloxacin and repeat laboratory work in a.m. # Depression - The patient feels hopeless. Continue zoloft 25 mg daily. # Right foot pain with redness of the dorsum - Gout attack, now improved with toradol and methyl pred 1 dose. # Mild cardiomegaly and mild amount of pericardial fluid. - Cont to monitor # Left renal mass exophytic, 2 cm - Could be renal cell carcinoma. Follow urine cytology # Acute renal failure - Resolved. # Constipation - Miralax PRN and senna-S ATC # Moderate protein calorie malnutrition - Continue enteral feeding VS, I&O, 24H, Fishbone Vital Signs/I&O Vital Signs Date Time Temp Pulse Resp B/P (MAP) Pulse Ox O2 Delivery O2 Flow Rate FiO2 10/26/18 06:00 97.8 91 18 113/73 (86) 93 I&O- Last 24 Hours up to 6 AM 10/26/18 06:00 Intake Total 1860 ml Output Total 1620 ml Balance 240 ml Laboratory Data 24H LABS Laboratory Tests 2 10/25/18 16:41: Bedside Glucose (Misc Panel) 110 10/26/18 00:04: Bedside Glucose (Misc Panel) 162H 10/26/18 05:32: Bedside Glucose (Misc Panel) 122H 10/26/18 06:17: Nucleated Red Blood Cells % (auto) 0.0, Anion Gap 6L, Glomerular Filtration Rate > 60.0, Blood Urea Nitrogen 33H, Creatinine 0.84, Sodium Level 130L, Potassium Level 5.7H, Chloride Level 102, Carbon Dioxide Level 22, Calcium Level 9.9, Aspa rtate Amino Transf (AST/SGOT) 28, Alanine Aminotransferase (ALT/SGPT) 76, Alkaline Phosphatase 218H, Total Bilirubin 0.6#, Total Protein 7.1, Albumin 2.1L, Albumin/Globulin Ratio 0.42L 10/26/18 11:28: Bedside Glucose (Misc Panel) 105 CBC/BMP Laboratory Tests 10/26/18 06:17 Red Blood Count 4.34, Mean Corpuscular Volume 88.9, Mean Corpuscular Hemoglobin 29.0, Mean Corpuscular Hemoglobin Concent 32.6, Red Cell Distribution Width 14.8 H, Calcium Level 9.9, Aspartate Amino Transf (AST/SGOT) 28, Alanine Aminotransferase (ALT/SGPT) 76, Alkaline Phosphatase 218 H, Total Bilirubin 0.6 #, Total Protein 7.1, Albumin 2.1 L GERALD PRIDE MD Oct 26, 2018 11:49
[2018-10-26 14:00] VITALS: BP 104/68
[2018-10-26] MEDS ORDERED: GASTROGRAFIN SOLUTION 30ML (Q9963) As Ordered ONE (14:15)
[2018-10-26] MEDS: ENOXAPARIN 40 MG/0.4 ML SYRINGE (J1650) SC SCH (20:40)
[2018-10-26 22:00] VITALS: BP 116/70
[2018-10-27] MEDS: NS 1,000 ML IV SCH ×2 (04:53→12:17)
[2018-10-27 06:00] VITALS: BP 111/68
[2018-10-27] MEDS: HumaLOG INSULIN (NovoLOG) PER UNIT SC SCH ×4 (06:07→18:00)
[2018-10-27 08:00] LABS: HEMATOCRIT 34.2 % (36.0-47.0); MEAN CORPUSCULAR HEMOGLOBIN 29.6 pg (27.0-33.0); MEAN CORPUSCULAR HGB CONC 32.2 g/dl (32.0-36.5); MEAN CORPUSCULAR VOLUME 91.9 fl (80.0-96.0); PLATELET COUNT, AUTOMATED 450 10^3/uL (150-450); RED BLOOD COUNT 3.72 10^6/uL (4.00-5.40)
[2018-10-27] MEDS: SERTRALINE HCL 25 MG TABLET PEG SCH (08:27)
[2018-10-27] MEDS: SENOKOT S TAB PO SCH ×2 (08:27→21:17)
[2018-10-27] MEDS: MOXIFLOXACIN HCL 400 MG in APPROPRIATE DILUENT 1 EA IV SCH (08:28)
[2018-10-27] MEDS: PANTOPRAZOLE 40MG INJ (PROTONIX) (C9113) IV SCH (08:28)
[2018-10-27 08:34] LABS: ALBUMIN 1.8 GM/DL (3.2-5.2); ALT/SGPT 57 U/L (12-78); BILIRUBIN,TOTAL 0.2 MG/DL (0.2-1.0); BLOOD UREA NITROGEN 40 MG/DL (7-18); CARBON DIOXIDE LEVEL 23 MEQ/L (21-32); CHLORIDE LEVEL 106 MEQ/L (98-107); CREATININE FOR GFR 0.82 MG/DL (0.55-1.30); GLOMERULAR FILTRATION RATE > 60.0 (>32); GLUCOSE, FASTING 135 MG/DL (70-100); POTASSIUM SERUM 4.9 MEQ/L (3.5-5.1); SODIUM LEVEL 136 MEQ/L (136-145); TOTAL PROTEIN 5.5 GM/DL (6.4-8.2)
--- NOTE | 2018-10-27 08:37 | REP ---
Examination Requested: Esophagram Barium Swallow Reason For Exam/Comment: Evaluate for anastomotic leak Esophagram: The procedure was performed PAZ Bañuelos, under the direct supervision of Dr. Bell. The images were reviewed with Dr. Bell. The patient has a history of partial resection of the stomach, and is currently status post revision for anastomotic leak along the anterior/right lateral aspect of the gastroesophageal junction region. A 50/50 mix of gastrographin and water was given to the patient in the right posterior oblique position, in order to perform a water soluble esophagram examination. Oral and pharyngeal stages of the examination were unremarkable. Esophageal transport is efficient and there is no esophagitis, stricture, or mucosal ring noted. Contrast flows freely into the gastric fundus. The previously noted contained leak has completely resolved. There is a well defined outpouching of contrast at the level of the suture line, to the left and posteriorly. When compared to the most recent CT scan dated 10/19/2018, this area appears to be a portion of the stomach that appears to extend left of midline and was possibly previously collapsed due to extrinsic mass effect from adjacent fluid and a previously placed surgical drain. Clinical correlation is needed, and if necessary a followup CT may be considered. Impression: 1. The previously identified contained leak has completely resolved. 2. A new area of contained outpouching noted posteriorly at the suture line in the region of the gastroesophageal junction is now appreciated, but in correlation with CT this may reflect normal portion of residual stomach. Correlation is required and if necessary follow-up CT may be considered. 0.5 minutes of fluoroscopy time was utilized for this procedure. Some fluoroscopic images are performed with last image hold technology. These images require no additional radiation. Reviewed by PAZ Goodrich 10/26/2018 04:45 P Electronically Signed by Harlan Bell MD 10/27/2018 07:54 A
--- NOTE | 2018-10-27 11:16 | IPNPDOC ---
Subjective Date Seen The patient was seen on 10/27/18. Subjective Chief Complaint/HPI Comfortable in no distress. No new complaints General: Denies: ROS Unobtainable, Chills, Night Sweats, Fatigue, Malaise, No rmal Appetite, Other Symptoms Constitutional: Denies: Chills, Fever, Malaise, Night Sweats, Weakness, Fatigue, Weight Loss, Lethargy, Other Eyes: Denies: Pain, Vision change, Conjunctivae inflammation, Eyelid inflammation, Redness, Other ENT: Denies: Head Aches, Ear Pain, Dysphagia, Sinus Congestion, Post Nasal Drip, Sore Throat, Epistaxis, Other Symptoms Skin: Denies: Rash, Lesions, Breakdown Pulmonary: Denies: Dyspnea, Cough, Pleuritic Chest Pain, Other Symptoms Cardiovascular: Denies: Chest Pain, Palpitations, Orthopnea, Paroxysmal Noc. Dyspnea, Edema, Lt Headedness, Other Symptoms Gastrointestinal: Denies: Nausea, Vomiting, Abdominal Pain, Diarrhea, Constipation, Melena, Hematochezia, Other Symptoms Musculoskeletal: Denies: Neck Pain, Back Pain, Shoulder Pain, Arm Pain, Hand Pain, Leg Pain, Foot Pain, Joint Pain, Muscle Pain, Spasms, Other Symptoms Neurological: Denies: Weakness, Numbness, Incoordination, Change in speech, Confusion, Seizures, Other Symptoms Psych: Denies: Mood Normal, Anxiety, Depression, Memory Issues, Thoughts of Self Harm, Anger, Thoughts of Harming Other, Other Psych Objective Physical Examination General Exam: Positive: Alert, Cooperative, No Acute Distress ENT Exam: Positive: Atraumatic Neck Exam: Negative: JVD Chest Exam: Positive: Clear to auscultation, Normal air movement Heart Exam: Positive: Rate Normal, Regular Rhythm, Normal S1, Normal S2; Negative: Gallops, Murmurs, Rubs Abdomen Exam: Positive: BS Hypoactive, Soft, Other (+J/P drain, +Sutton Tube); Negative: Tenderness Extremity Exam: Negative: Clubbing, Cyanosis, Edema, Tenderness, Swelling, Other Psych Exam: Positive: Mental status NL, Mood NL, Oriented x 3 Assessment /Plan Problems (1) Gastric outflow obstruction Status: Acute Plan/VTE VTE Prophylaxis Ordered?: Yes Plan # 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 - It is complicated by leak in the esophagogastrostomy. - She also has PEG, continue enteral feeding. Only allowed to have ice chips. - Per Dr. Hurst's recommendation, keep her on gravity drainage for her G-tube and then if she has some minimal output rechecking on Friday by clamping the G- tube to see if she has increased output. If she does, then considering the next step, which may be clipping the area or esophageal stent. - s/p ertapenem and fluconazole. -Patient. WBC count is improving with the addition of moxifloxacin, will continue the same for at least [address] Hurst to assess for further plan of care from surgical point of view # Depression - The patient feels hopeless. Continue zoloft 25 mg daily. # Right foot pain with redness of the dorsum - Gout attack, now improved with toradol and methyl pred 1 dose. # Mild cardiomegaly and mild amount of pericardial fluid. - Cont to monitor # Left renal mass exophytic, 2 cm - Could be renal cell carcinoma. Follow urine cytology # Acute renal failure - Resolved. # Constipation - Miralax PRN and senna-S ATC # Moderate protein calorie malnutrition - Continue enteral fee VS, I&O, 24H, Fishbone Vital Signs/I&O Vital Signs Date Time Temp Pulse Resp B/P (MAP) Pulse Ox O2 Delivery O2 Flow Rate FiO2 10/27/18 06:00 97.8 81 20 111/68 (82) 94 I&O- Last 24 Hours up to 6 AM 10/27/18 06:00 Intake Total 900 ml Output Total 304 ml Balance 596 ml Laboratory Data 24H LABS Laboratory Tests 2 10/26/18 11:28: Bedside Glucose (Misc Panel) 105 10/26/18 17:53: Bedside Glucose (Misc Panel) 128H 10/27/18 05:22: Bedside Glucose (Misc Panel) 148H 10/27/18 07:24: Nucleated Red Blood Cells % (auto) 0.0, Anion Gap 7L, Glomerular Filtration Rate > 60.0, Blood Urea Nitrogen 40H, Creatinine 0.82, Sodium Level 136, Potassium Level 4.9, Chloride Level 106, Carbon Dioxide Level 23, Calcium Level 9.0, Aspartate Amino Transf (AST/SGOT) 23, Alanine Aminotransferase (ALT/SGPT) 57, Alkaline Phosphatase 184H, Total Bilirubin 0.2#, Total Protein 5.5#L, Albumin 1.8L, Albumin/Globulin Ratio 0.49L CBC/BMP Laboratory Tests 10/27/18 07:24 Red Blood Count 3.72 L, Mean Corpuscular Volume 91.9, Mean Corpuscular Hemoglobin 29.6, Mean Corpuscular Hemoglobin Concent 32.2, Red Cell Distribution Width 15.1 H, Calcium Level 9.0, Aspartate Amino Transf (AST/SGOT) 23, Alanine Aminotransferase (ALT/SGPT) 57, Alkaline Phosphatase 184 H, Total Bilirubin 0.2 #, Total Protein 5.5 #L, Albumin 1.8 L GERALD PRIDE MD Oct 27, 2018 11:16
[2018-10-27 14:00] VITALS: BP 121/71
--- NOTE | 2018-10-27 16:11 | IPNPDOC ---
Date Seen The patient was seen on 10/27/18. Progress Note Interval History: Patient denies any new symptoms. Patient does report having fatigue but denied any abdominal pain, fever, chills, nausea, or vomiting. Patient had an interval Esophageal Barium Swallow and CT abdomen. OBJECTIVE PHYSICAL EXAMINATION: VITAL SIGNS: Please see below. GENERAL: Not in distress but fatigued HEENT: No pallor, no icterus, no cervical lymph nodes CARDIOVASCULAR: Regular rate and rhythm, no murmurs. RESPIRATORY: clear to auscultation bilaterally. ABDOMINAL: Soft, non-distended, non-tender. Midline laparotomy wound healing well. Noted gastrojejunostomy tube. Normal bowel sounds. Bowel movement before physical exam. EXTREMITIES: No edema, pulses palpable bilaterally. NEUROLOGICAL: Alert and oriented x3 Drains: Right posterior ID drain - noted small amount of bilious drain. Gastric drain is clamped. Labs: Please see below. Imaging: Esophagram Barium Swallow showed that the leak has resolved. Abdominal CT shows mediastinal fluid and R pleural fluid continues to decrease. Impression: - H/o Parital gastrectomy with Esophago gastric anastomosis with subsequent anastomotic leak, into the mediastinum, drained with IR drain in right posterior chest wall, currently, s/p Antibiotic therapy with gradual improvement in drain output but persistent small leak in Esophagogram/ gastrograffin study ( images reviewed with radiology). - Elevated WBC most likely from dehydration vs less likely sepsis from mediastinal leak.. - Anemia -- multifactorial. Recommendations: -- Reviewed the images with radiology and surgery team. -- Continue antibiotics for now. -- Respiratory therapy and incentive spirometry as tolerated. -- Due to persistent leak as per discussion with Surgery team and patient and her family, discussed endoscopic therapy for closing the leak with clips. -- Patient and her daughter are educated about the procedure, its indications, risks, benefits, limitations and alternatives, Both verbalized understanding and agreed for the procedure. Patients daughter who is the health care care proxy signed the informed consent. -- Patient is tentatively scheduled for tomorrow for the above procedure. -- NPO after 12 midnight for possible procedure tomorrow. Plan of care discussed with patient and primary team. Attending physician addendum: Above note by Medical student is personally reviewed by me, patient examined and changes made. The plan of care discussed with patient , family and consent obtained and recommendations communicated to primary team. VS, I&O, 24H, Fishbone Vital Signs/I&O Vital Signs Date Time Temp Pulse Resp B/P (MAP) Pulse Ox O2 Delivery O2 Flow Rate FiO2 10/27/18 14:00 97.2 71 17 121/71 (88) 95 I&O- Last 24 Hours up to 6 AM 10/27/18 06:00 Intake Total 900 ml Output Total 304 ml Balance 596 ml Laboratory Data CBC/BMP Laboratory Tests 10/27/18 07:24 Red Blood Count 3.72 L, Mean Corpuscular Volume 91.9, Mean Corpuscular Hemoglobin 29.6, Mean Corpuscular Hemoglobin Concent 32.2, Red Cell Distribution Width 15.1 H, Calcium Level 9.0, Aspartate Amino Transf (AST/SGOT) 23, Alanine Aminotransferase (ALT/SGPT) 57, Alkaline Phosphatase 184 H, Total Bilirubin 0.2 #, Total Protein 5.5 #L, Albumin 1.8 L ASAD ROSALES OMS-3 Oct 27, 2018 15:42 KEYUR ANDREA MD Oct 28, 2018 17:16
--- NOTE | 2018-10-27 18:12 | IPN ---
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 She developed a small leak at her esophagogastric anastomosis, which has been managed with a percutaneous drain in the lower mediastinum. She was noted yesterday to have a slightly elevated white blood cell count, and both her hematocrit and albumin were also elevated, consistent with some dehydration. She was started on some intravenous (IV) fluid. I also clamped her gastrostomy (G) tube so that she is retaining more of her tube feedings. Her contrast swallow yesterday was read by the radiologist as showing no evidence of leak, but she continues to put some lightly bile-stained fluid out through her mediastinal drain. Vital signs show that she has been afebrile over the past 24 hours with a pulse in the 70s to low 90s and a normal blood pressure. Her room air oxygen saturation is normal. Intake and output shows that yesterday she had 450 listed on her intake and output sheet, but this is clearly inaccurate, as her tube feedings are not recorded at all. Her drain yesterday has 30 mL recorded, and today she had 49 mL this morning recorded. PHYSICAL EXAMINATION: The patient generally appears quite tired when I come to visit her. She is dozing much during the day, but when roused from sleep she does seem appropriate and globally oriented. Heart exam shows a regular rhythm. Her lungs are clear. The abdomen is soft and nontender. Her Sutton tube is clamped, and the drain in her back today has a very small amount of lightly greenish-yellow, turbid fluid in the bag. Laboratory studies today show sodium of 136, potassium 4.9, chloride 106, CO2 of 23, BUN of 40, creatinine 0.8, and a glucose of 135. Her liver function tests show only a slight elevation of the alkaline phosphatase to 184. Total protein is 5.5 with an albumin of 1.8. Her hematology shows white count of 20,000 with hemoglobin of 11, hematocrit 34, and platelet count of 450,000. Imaging yesterday was reported as showing no evidence of a leak at her esophagogastric anastomosis. I reviewed the images myself and would agree that there does not appear to be any of the contrast clearly leaking out at the time of the study; however, today she clearly has a small amount of lightly colored fluid coming from the drain, consistent with a persistent leak, though probably quite small. PLAN: I spoke with the patient's son-in-law today, this morning, about her progress and my hope that we would be able to intervene to stop her on an anastomotic leak soon. I will speak with Dr. Baeza about the possibility of upper endoscopy, possibly with clip placement to occlude her anastomotic leak. We will otherwise continue her tube feedings for now, and I will continue the additional normal sailing a little longer before stopping this.
[2018-10-27] MEDS: ENOXAPARIN 40 MG/0.4 ML SYRINGE (J1650) SC SCH (21:17)
[2018-10-27 22:00] VITALS: BP 110/60
[2018-10-28] MEDS: HumaLOG INSULIN (NovoLOG) PER UNIT SC SCH ×4 (00:57→17:45)
[2018-10-28] MEDS: NS 1,000 ML IV SCH (02:31)
[2018-10-28 06:00] VITALS: BP 118/64
[2018-10-28] MEDS: SERTRALINE HCL 25 MG TABLET PEG SCH (10:19)
[2018-10-28] MEDS: SENOKOT S TAB PO SCH ×2 (10:19→20:19)
[2018-10-28] MEDS: MOXIFLOXACIN HCL 400 MG in APPROPRIATE DILUENT 1 EA IV SCH (10:19)
[2018-10-28] MEDS: PANTOPRAZOLE 40MG INJ (PROTONIX) (C9113) IV SCH (10:19)
--- NOTE | 2018-10-28 11:02 | IPNPDOC ---
Subjective Date Seen The patient was seen on 10/28/18. Subjective Chief Complaint/HPI Patient comfortable lying in bed. Offers no new complaints General: Denies: ROS Unobtainable, Chills, Night Sweats, Fatigue, Malaise, Normal Appetite, Other Symptoms Constitutional: Denies: Chills, Fever, Malaise, Night Sweats, Weakness, Fatigue, Weight Loss, Lethargy, Other Eyes: Denies: Pain, Vision change, Conjunctivae inflammation, Eyelid inflammation, Redness, Other ENT: Denies: Head Aches, Ear Pain, Dysphagia, Sinus Congestion, Post Nasal Drip, Sore Throat, Epistaxis, Other Symptoms Skin: Denies: Rash, Lesions, Jaundice, Bruising, Itching, Dry, Breakdown, Nail Changes, Other Pulmonary: Denies: Dyspnea, Cough, Pleuritic Chest Pain, Other Symptoms Cardiovascular: Denies: Chest Pain, Palpitations, Orthopnea, Paroxysmal Noc. Dyspnea, Edema, Lt Headedness, Other Symptoms Gastrointestinal: Denies: Nausea, Vomiting, Abdominal Pain, Diarrhea, Constipation, Melena, Hematochezia, Other Symptoms Musculoskeletal: Denies: Neck Pain, Back Pain, Shoulder Pain, Arm Pain, Hand Pain, Leg Pain, Foot Pain, Joint Pain, Muscle Pain, Spasms, Other Symptoms Objective Physical Examination General Exam: Positive: Alert, Cooperative, No Acute Distress ENT Exam: Positive: Atraumatic Neck Exam: Negative: JVD Chest Exam: Positive: Clear to auscultation, Normal air movement Heart Exam: Positive: Rate Normal, Regular Rhythm, Normal S1, Normal S2; Negative: Gallops, Murmurs, Rubs Abdomen Exam: Positive: BS Hypoactive, Soft, Other (+J/P drain, +Sutton Tube); Negative: Tenderness Extremity Exam: Negative: Clubbing, Cyanosis, Edema, Tenderness, Swelling, Other Psych Exam: Positive: Mental status NL, Mood NL, Oriented x 3 Assessment /Plan Problems (1) Gastric outflow obstruction Status: Acute Problem Text: # 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 - It is complicated by leak in the esophagogastrostomy. - She also has PEG, continue enteral feeding. Only allowed to have ice chips. - Per Dr. Hurst's recommendation, keep her on gravity drainage for her G-tube and then if she has some minimal output rechecking on Friday by clamping the G- tube to see if she has increased output. If she does, then considering the next step, which may be clipping the area or esophageal stent. - s/p ertapenem and fluconazole. -Patient. WBC count is improving with the addition of moxifloxacin, will continue the same for at least 5 days possible EGD for clipping to stop the esophageal leak # Depression - The patient feels hopeless. Continue zoloft 25 mg daily. # Right foot pain with redness of the dorsum - Gout attack, now improved with toradol and methyl pred 1 dose. # Mild cardiomegaly and mild amount of pericardial fluid. - Cont to monitor # Left renal mass exophytic, 2 cm - Could be renal cell carcinoma. Follow urine cytology # Acute renal failure - Resolved. # Constipation - Miralax PRN and senna-S ATC # Moderate protein calorie malnutrition - Continue enteral fee Plan/VTE VTE Prophylaxis Ordered?: Yes VS, I&O, 24H, Fishbone Vital Signs/I&O Vital Signs Date Time Temp Pulse Resp B/P (MAP) Pulse Ox O2 Delivery O2 Flow Rate FiO2 10/28/18 06:00 97.9 68 18 118/64 (82) 94 I&O- Last 24 Hours up to 6 AM 10/28/18 06:00 Intake Total 2860 ml Output Total 1360 ml Balance 1500 ml Laboratory Data 24H LABS Laboratory Tests 2 10/27/18 11:29: Bedside Glucose (Misc Panel) 137H 10/27/18 17:32: Bedside Glucose (Misc Panel) 128H 10/27/18 23:56: Bedside Glucose (Misc Panel) 120H 10/28/18 05:50: Bedside Glucose (Misc Panel) 135H GERALD PRIDE MD Oct 28, 2018 11:02
[2018-10-28 14:00] VITALS: BP 116/60
--- NOTE | 2018-10-28 17:17 | IPNPDOC ---
Date Seen The patient was seen on 10/28/18. Progress Note Interval History: Patient denies any new symptoms. Patient does report having fatigue but denied any abdominal pain, fever, chills, nausea, or vomiting. Patient had an interval Esophageal Barium Swallow and CT abdomen. OBJECTIVE PHYSICAL EXAMINATION: VITAL SIGNS: Please see below. GENERAL: Not in distress but fatigued HEENT: No pallor, no icterus, no cervical lymph nodes CARDIOVASCULAR: Regular rate and rhythm, no murmurs. RESPIRATORY: clear to auscultation bilaterally. ABDOMINAL: Soft, non-distended, non-tender. Midline laparotomy wound healing well. Noted gastrojejunostomy tube. Normal bowel sounds. Bowel movement before physical exam. EXTREMITIES: No edema, pulses palpable bilaterally. NEUROLOGICAL: Alert and oriented x3 Drains: Right posterior ID drain - noted small amount of bilious drain. Gastric drain is clamped. Labs: Please see below. Imaging: Esophagram Barium Swallow showed that the leak has resolved. Abdominal CT shows mediastinal fluid and R pleural fluid continues to decrease. Impression: - H/o Parital gastrectomy with Esophago gastric anastomosis with subsequent anastomotic leak, into the mediastinum, drained with IR drain in right posterior chest wall, currently, s/p Antibiotic therapy with gradual improvement in drain output but persistent small leak in Esophagogram/ gastrograffin study ( images reviewed with radiology). - Elevated WBC most likely from dehydration vs less likely sepsis from mediastinal leak.. - Anemia -- multifactorial. Recommendations: -- Reviewed the images with radiology and surgery team. -- Continue antibiotics for now. -- Respiratory therapy and incentive spirometry as tolerated. -- Due to persistent leak as per discussion with Surgery team and patient and her family, discussed endoscopic therapy for closing the leak with clips. -- Patient and her daughter are educated about the procedure, its indications, risks, benefits, limitations and alternatives, Both verbalized understanding and agreed for the procedure. Patients daughter who is the health care care proxy signed the informed consent. -- Patient is tentatively scheduled for tomorrow for the above procedure. -- NPO after 12 midnight for possible procedure tomorrow. Plan of care discussed with patient and primary team. VS, I&O, 24H, Fishbone Vital Signs/I&O Vital Signs Date Time Temp Pulse Resp B/P (MAP) Pulse Ox O2 Delivery O2 Flow Rate FiO2 10/28/18 14:00 98.0 79 17 116/60 (78) 94 I&O- Last 24 Hours up to 6 AM 10/28/18 05:59 Intake Total 2860 ml Output Total 1504 ml Balance 1356 ml Laboratory Data 24H LABS Laboratory Tests 2 10/27/18 17:32: Bedside Glucose (Misc Panel) 128H 10/27/18 23:56: Bedside Glucose (Misc Panel) 120H 10/28/18 05:50: Bedside Glucose (Misc Panel) 135H 10/28/18 11:24: Bedside Glucose (Misc Panel) 132H KEYUR ANDREA MD Oct 28, 2018 17:17
[2018-10-28] MEDS: ENOXAPARIN 40 MG/0.4 ML SYRINGE (J1650) SC SCH (20:19)
[2018-10-28 22:00] VITALS: BP 115/63
[2018-10-29] MEDS: HumaLOG INSULIN (NovoLOG) PER UNIT SC SCH ×4 (00:53→18:00)
[2018-10-29 06:00] VITALS: BP 112/57
[2018-10-29 06:31] LABS: BASO # 0.1 10^3/uL (0.0-0.2); BASO % 0.3 % (0.0-1.0); EOS # 0.4 10^3/uL (0.0-0.50); EOS % 2.5 % (0.0-3.0); HEMATOCRIT 30.3 % (36.0-47.0); HEMOGLOBIN 9.8 g/dl (12.0-15.5); LYMPH # 1.1 10^3/uL (1.5-4.5); LYMPH % 6.5 % (24.0-44.0); MEAN CORPUSCULAR HEMOGLOBIN 29.3 pg (27.0-33.0); MEAN CORPUSCULAR HGB CONC 32.3 g/dl (32.0-36.5); MEAN CORPUSCULAR VOLUME 90.7 fl (80.0-96.0); MONO % 12.6 % (0.0-5.0); NEUTROPHILS # 13.3 10^3/uL (1.8-7.7); NEUTROPHILS % 75.8 % (36.0-66.0); PLATELET COUNT, AUTOMATED 398 10^3/uL (150-450); RED BLOOD COUNT 3.34 10^6/uL (4.00-5.40); WHITE BLOOD COUNT 17.5 10^3/uL (4.0-10.0)
[2018-10-29 07:01] LABS: ALBUMIN 1.6 GM/DL (3.2-5.2); ALT/SGPT 43 U/L (12-78); BILIRUBIN,TOTAL 0.2 MG/DL (0.2-1.0); BLOOD UREA NITROGEN 28 MG/DL (7-18); CALCIUM LEVEL 8.9 MG/DL (8.8-10.2); CARBON DIOXIDE LEVEL 27 MEQ/L (21-32); CHLORIDE LEVEL 106 MEQ/L (98-107); CREATININE FOR GFR 0.62 MG/DL (0.55-1.30); GLOMERULAR FILTRATION RATE > 60.0 (>32); GLUCOSE, FASTING 143 MG/DL (70-100); POTASSIUM SERUM 3.8 MEQ/L (3.5-5.1); SODIUM LEVEL 137 MEQ/L (136-145); TOTAL PROTEIN 5.6 GM/DL (6.4-8.2)
[2018-10-29 07:10] LABS: MONO # 2.2 10^3/uL (0.0-0.8)
--- NOTE | 2018-10-29 07:21 | IPN ---
DATE: 10/29/2018 HISTORY: The patient is now 28 days postop from her proximal gastrectomy and esophagogastrostomy. She has been tolerating her tube feeds well with her G tube clamped. She still has a small amount of drainage from her percutaneous drain in the back. Vital signs show that she has been afebrile over the past 24 hours with a pulse in the 70s to 80s and a normal blood pressure. Intake and output shows that yesterday she had 2900 in with 1500 out in primarily urine output. Her percutaneous drain had 49 mL yesterday. Her weight is up slightly today given her additional hydration. PHYSICAL EXAMINATION: The patient is generally lying quietly in bed. She does not appear uncomfortable. She rouses readily to voice. Skin is warm and dry. Heart exam shows a regular rhythm. The abdomen is soft and nontender. Her gastrostomy tube site is clean. LABORATORY STUDIES: Today showed only some fingerstick blood sugars that were in the 110-140 range. IMPRESSION: The patient has been doing well the last couple of days with some additional normal saline hydration. PLAN: She will have labs checked tomorrow morning. I have spoken with Dr. Baeza who spoke with me again this afternoon and we agreed that he will schedule the patient for an upper endoscopy to assess her anastomosis and see if there would be a way to try to endoscopically occlude her anastomotic leak. He hopes to accomplish this in the next day or two. I did speak with the patient and her family about this plan later this afternoon.
[2018-10-29] MEDS: PANTOPRAZOLE 40MG INJ (PROTONIX) (C9113) IV SCH (08:16)
[2018-10-29] MEDS: SERTRALINE HCL 25 MG TABLET PEG SCH (08:16)
[2018-10-29] MEDS: SENOKOT S TAB PO SCH ×2 (08:16→20:01)
[2018-10-29] MEDS: MOXIFLOXACIN HCL 400 MG in APPROPRIATE DILUENT 1 EA IV SCH (10:20)
--- NOTE | 2018-10-29 11:30 | IPNPDOC ---
Subjective Date Seen The patient was seen on 10/29/18. Subjective Chief Complaint/HPI No new complaints comfortable in no distress General: Denies: ROS Unobtainable, Chills, Night Sweats, Fatigue, Malaise, Nor mal Appetite, Other Symptoms Constitutional: Denies: Chills, Fever, Malaise, Night Sweats, Weakness, Fatigue, Weight Loss, Lethargy, Other Eyes: Denies: Pain, Vision change, Conjunctivae inflammation, Eyelid inflammation, Redness, Other ENT: Denies: Head Aches, Ear Pain, Dysphagia, Sinus Congestion, Post Nasal Drip, Sore Throat, Epistaxis, Other Symptoms Skin: Denies: Rash, Lesions, Jaundice, Bruising, Itching, Dry, Breakdown, Nail Changes, Other Pulmonary: Denies: Dyspnea, Cough, Pleuritic Chest Pain, Other Symptoms Gastrointestinal: Denies: Nausea, Vomiting, Abdominal Pain, Diarrhea, Constipation, Melena, Hematochezia, Other Symptoms Neurological: Denies: Weakness, Numbness, Incoordination, Change in speech, Confusion, Seizures, Other Symptoms Psych: Denies: Mood Normal, Anxiety, Depression, Memory Issues, Thoughts of Self Harm, Anger, Thoughts of Harming Other, Other Psych Objective Physical Examination General Exam: Positive: Alert, Cooperative, No Acute Distress ENT Exam: Positive: Atraumatic Neck Exam: Negative: JVD Chest Exam: Positive: Clear to auscultation, Normal air movement Heart Exam: Positive: Rate Normal, Regular Rhythm, Normal S1, Normal S2; Negative: Gallops, Murmurs, Rubs Abdomen Exam: Positive: BS Hypoactive, Soft, Other (+J/P drain, +Sutton Tube); Negative: Tenderness Extremity Exam: Negative: Clubbing, Cyanosis, Edema, Tenderness, Swelling, Other Psych Exam: Positive: Mental status NL, Mood NL, Oriented x 3 Assessment /Plan Problems (1) Gastric outflow obstruction Status: Acute Problem Text: # 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 - It is complicated by leak in the esophagogastrostomy. - She also has PEG, continue enteral feeding. Only allowed to have ice chips. - Per Dr. Hurst's recommendation, keep her on gravity drainage for her G-tube and then if she has some minimal output rechecking on Friday by clamping the G- tube to see if she has increased output. If she does, then considering the next step, which may be clipping the area or esophageal stent. - s/p ertapenem and fluconazole. -Patient. WBC count is improving with the addition of moxifloxacin, will continu e the same for at least 5 days Possible EGD for clipping by GI. Esophageal leak Other as per surgical recommendation # Depression - The patient feels hopeless. Continue zoloft 25 mg daily. # Right foot pain with redness of the dorsum - Gout attack, now improved with toradol and methyl pred 1 dose. # Mild cardiomegaly and mild amount of pericardial fluid. - Cont to monitor # Left renal mass exophytic, 2 cm - Could be renal cell carcinoma. Follow urine cytology # Acute renal failure - Resolved. # Constipation - Miralax PRN and senna-S ATC # Moderate protein calorie malnutrition - Continue enteral fee Plan/VTE VTE Prophylaxis Ordered?: Yes VS, I&O, 24H, [facility] Vital Signs/I&O Vital Signs Date Time Temp Pulse Resp B/P (MAP) Pulse Ox O2 Delivery O2 Flow Rate FiO2 10/29/18 06:00 97.6 96 16 112/57 (75) 92 I&O- Last 24 Hours up to 6 AM 10/29/18 06:00 Intake Total 2020 ml Output Total 506 ml Balance 1514 ml Laboratory Data 24H LABS Laboratory Tests 2 10/28/18 17:35: Bedside Glucose (Misc Panel) 118H 10/29/18 00:25: Bedside Glucose (Misc Panel) 149H 10/29/18 06:07: Immature Granulocyte % (Auto) 2.3, White Blood Count 17.5H, Red Blood Count 3.34L, Hemoglobin 9.8L, Hematocrit 30.3L, Mean Corpuscular Volume 90.7, Mean Corpuscular Hemoglobin 29.3, Mean Corpuscular Hemoglobin Concent 32.3, Red Cell Distribution Width 14.9H, Platelet Count 398, Neutrophils (%) (Auto) 75.8H, Lymphocytes (%) (Auto) 6.5L, Monocytes (%) (Auto) 12.6H, Eosinophils (%) (Auto) 2.5, Basophils (%) (Auto) 0.3, Neutrophils # (Auto) 13.3H, Lymphocytes # (Auto) 1.1L, Monocytes # (Auto) 2.2H, Eosinophils # (Auto) 0.4, Basophils # (Auto) 0.1, Nucleated Red Blood Cells % (auto) 0.0, Anion Gap 4L, Glomerular Filtration Rate > 60.0, Blood Urea Nitrogen 28H, Creatinine 0.62, Sodium Level 137, Potassium Level 3.8#, Chloride Level 106, Carbon Dioxide Level 27, Calcium Level 8.9, Aspartate Amino Transf (AST/SGOT) 20, Alanine Aminotransferase (ALT/SGPT) 43, Alkaline Phosphatase 145H, Total Bilirubin 0.2, Total Protein 5.6L, Albumin 1.6L, Albumin/Globulin Ratio 0.40L 10/29/18 06:26: Bedside Glucose (Misc Panel) 156H CBC/BMP Laboratory Tests 10/29/18 06:07 Red Blood Count 3.34 L, Mean Corpuscular Volume 90.7, Mean Corpuscular Hemoglobin 29.3, Mean Corpuscular Hemoglobin Concent 32.3, Red Cell Distribution Width 14.9 H, Neutrophils (%) (Auto) 75.8 H, Lymphocytes (%) (Auto) 6.5 L, Monocytes (%) (Auto) 12.6 H, Eosinophils (%) (Auto) 2.5, Basophils (%) (Auto) 0.3, Neutrophils # (Auto) 13.3 H, Lymphocytes # (Auto) 1.1 L, Monocytes # (Auto) 2.2 H, Eosinophils # (Auto) 0.4, Basophils # (Auto) 0.1, Calcium Level 8.9, As partate Amino Transf (AST/SGOT) 20, Alanine Aminotransferase (ALT/SGPT) 43, Alkaline Phosphatase 145 H, Total Bilirubin 0.2, Total Protein 5.6 L, Albumin 1.6 L GERALD PRIDE MD Oct 29, 2018 11:30
[2018-10-29] MEDS ORDERED: PROPOFOL 200 MG/20 ML VIAL As Ordered ONE (12:07)
[2018-10-29] MEDS ORDERED: LIDOCAINE 2% INJ 100 MG/5 ML SDV (FOR ANES.) As Ordered ONE (12:07)
[2018-10-29] MEDS ORDERED: fentaNYL 100 MCG/2 ML INJECTION (J3010) As Ordered ONE (14:25)
[2018-10-29] MEDS ORDERED: PHENYLephrine HCL 500 MCG/5 ML (100MCG/ML) SYRINGE (J2370) As Ordered ONE (15:44)
[2018-10-29] MEDS ORDERED: ePHEDrine SULFATE 25 MG/5 ML(5MG/ML) SYRINGE As Ordered ONE (15:44)
[2018-10-29 16:10] VITALS: BP 111/59
[2018-10-29 16:40] VITALS: BP 106/56
[2018-10-29 17:40] VITALS: BP 115/55
--- NOTE | 2018-10-29 17:40 | ROOR ---
Patient Name: Carol Ann Goldstein Procedure Date: 10/29/2018 3:24 PM Date of : 1930 Age: 88 Room: [facility] Gender: Female Note Status: Finalized Procedure: Upper GI endoscopy Indications: For therapy of operative complication from previous surgery Providers: Frank Baeza MD Referring MD: Rex Germain MD Requesting Provider: Medicines: Monitored Anesthesia Care Complications: No immediate complications. Procedure: Pre-Anesthesia Assessment: - Prior to the procedure, a History and Physical was performed, and patient medications and allergies were reviewed. The patient is competent. The risks and benefits of the procedure and the sedation options and risks were discussed with the patient. All questions were answered and informed consent was obtained. Patient identification and proposed procedure were verified by the physician, the nurse and the anesthesiologist in the procedure room. Mental Status Examination: alert and oriented. CV Examination: normal. Prophylactic Antibiotics: The patient does not require prophylactic antibiotics. Prior Anticoagulants: The patient has taken naproxen, last dose was 6 days prior to procedure. ASA Grade Assessment: III - A patient with severe systemic disease. After reviewing the risks and benefits, the patient was deemed in satisfactory condition to undergo the procedure. The anesthesia plan was to use monitored anesthesia care (MAC). Immediately prior to administration of medications, the patient was re-assessed for adequacy to receive sedatives. The heart rate, respiratory rate, oxygen saturations, blood pressure, adequacy of pulmonary ventilation, and response to care were monitored throughout the procedure. The physical status of the patient was re-assessed after the procedure. The Endoscope was introduced through the mouth, and advanced to the duodenal bulb. The upper GI endoscopy was accomplished without difficulty. The patient tolerated the procedure well. 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 To close the fistula/ leak, two hemostatic clips were successful and one hemostatic clip was unsuccessfully placed. There was no bleeding at the end of the procedure. Evidence of a Gastro- esophageal anastomosis were found in the gastroesophageal junction. This was characterized by an intact staple line. There was evidence of a Gastrojejunostomy tube with gastric balloon present in the gastric antrum. This was characterized by healthy appearing mucosa. 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 Clips were placed. - A Gastro- esophageal anastomosis were found, characterized by an intact staple line. - Gastrojejunostomy tube with gastric balloon present characterized by healthy appearing mucosa. - No specimens collected. Recommendation: - [facility]. - Patient has a contact number available for emergencies. The signs and symptoms of potential delayed complications were discussed with the patient. Return to normal activities tomorrow. Written discharge instructions were provided to the patient. - NPO for 3 days. - Resume tube feeding after 12 hours at the previous rate (adjust as per Surgeon). - Continue present medications. - Observe patient's clinical course. - Return to referring physician. Frank Baeza MD Frank Baeza MD 10/29/2018 5:39:44 PM Electronically signed by Frank Baeza MD Number of Addenda: 0 Note Initiated On: 10/29/2018 3:24 PM Estimated Blood Loss: Estimated blood loss was minimal.
[2018-10-29] MEDS ORDERED: D5W 1,000 ML IV SCH (18:00)
[2018-10-29] MEDS: LR 1,000 ML IV SCH (18:26)
[2018-10-29] MEDS: ENOXAPARIN 40 MG/0.4 ML SYRINGE (J1650) SC SCH (20:02)
[2018-10-29 22:00] VITALS: BP 106/55
[2018-10-30 02:00] VITALS: BP 130/70
[2018-10-30] MEDS: ACETAMINOPHEN 325 MG/10.15 ML UDC JT PRN (03:51)
[2018-10-30 06:00] VITALS: BP 131/69
[2018-10-30] MEDS: HumaLOG INSULIN (NovoLOG) PER UNIT SC SCH ×4 (06:00→17:22)
[2018-10-30] MEDS: LR 1,000 ML IV SCH (06:38)
[2018-10-30] MEDS: SENOKOT S TAB PO SCH (08:52)
[2018-10-30] MEDS: SERTRALINE HCL 25 MG TABLET PEG SCH (08:52)
[2018-10-30] MEDS: PANTOPRAZOLE 40MG INJ (PROTONIX) (C9113) IV SCH (08:52)
[2018-10-30] MEDS: MOXIFLOXACIN HCL 400 MG in APPROPRIATE DILUENT 1 EA IV SCH (09:57)
[2018-10-30 10:00] VITALS: BP 106/67
--- NOTE | 2018-10-30 11:06 | IPNPDOC ---
Subjective Date Seen The patient was seen on 10/30/18. 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 The present time General: Reports: Normal Appetite; Denies: Chills, Night Sweats, Fatigue, Malaise Constitutional: Denies: Chills, Fever, Malaise, Night Sweats, Weakness, Fatigue, Weight Loss, Lethargy, Other Eyes: Denies: Pain, Vision change, Conjunctivae inflammation, Eyelid inflammation, Redness, Other ENT: Denies: Head Aches, Ear Pain, Dysphagia, Sinus Congestion, Post Nasal Drip, Sore Throat, Epistaxis, Other Symptoms Skin: Denies: Rash, Lesions, Jaundice, Bruising, Itching, Dry, Breakdown, Nail Changes, Other Pulmonary: Denies: Dyspnea, Cough, Pleuritic Chest Pain, Other Symptoms Gastrointestinal: Denies: Nausea, Vomiting, Abdominal Pain, Diarrhea, Constipation, Melena, Hematochezia, Other Symptoms Musculoskeletal: Denies: Neck Pain, Back Pain, Shoulder Pain, Arm Pain, Hand Pain, Leg Pain, Foot Pain, Joint Pain, Muscle Pain, Spasms, Other Symptoms Neurological: Denies: Weakness, Numbness, Incoordination, Change in speech, Confusion, Seizures, Other Symptoms Objective Physical Examination General Exam: Positive: Alert, Cooperative, No Acute Distress ENT Exam: Positive: Atraumatic Neck Exam: Negative: JVD Chest Exam: Positive: Clear to auscultation, Normal air movement Heart Exam: Positive: Rate Normal, Regular Rhythm, Normal S1, Normal S2; Negative: Gallops, Murmurs, Rubs Abdomen Exam: Positive: BS Hypoactive, Soft, Other (+J/P drain, +Sutton Tube); Negative: Tenderness Extremity Exam: Negative: Clubbing, Cyanosis, Edema, Tenderness, Swelling, Other Psych Exam: Positive: Mental status NL, Mood NL, Oriented x 3 Assessment /Plan Problems (1) Gastric outflow obstruction Status: Acute Problem Text: # 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 - It is complicated by leak in the esophagogastrostomy. - She also has PEG, continue enteral feeding. Only allowed to have ice chips. - Per Dr. Hurst's recommendation, keep her on gravity drainage for her G-tube and then if she has some minimal output rechecking on Friday by clamping the G- tube to see if she has increased output. If she does, then considering the next step, which may be clipping the area or esophageal stent. - s/p ertapenem and fluconazole. -Patient. WBC count is improving with the addition of moxifloxacin, will continue the same for at least 5 days EGD with clipping of fistula was done by GI. Last night Feeding and further, as per surgical recommendations # Depression - The patient feels hopeless. Continue zoloft 25 mg daily. # Right foot pain with redness of the dorsum - Gout attack, now improved with toradol and methyl pred 1 dose. # Mild cardiomegaly and mild amount of pericardial fluid. - Cont to monitor # Left renal mass exophytic, 2 cm - Could be renal cell carcinoma. Follow urine cytology # Acute renal failure - Resolved. # Constipation - Miralax PRN and senna-S ATC # Moderate protein calorie malnutrition - Continue enteral fee Plan/VTE VTE Prophylaxis Ordered?: Yes VS, I&O, 24H, Fishbone Vital Signs/I&O Vital Signs Date Time Temp Pulse Resp B/P (MAP) Pulse Ox O2 Delivery O2 Flow Rate FiO2 10/30/18 10:00 96.9 100 17 106/67 (80) 96 I&O- Last 24 Hours up to 6 AM 10/30/18 06:00 Intake Total 1260 ml Output Total 82 ml Balance 1178 ml Laboratory Data 24H LABS Laboratory Tests 2 10/29/18 11:24: Bedside Glucose (Misc Panel) 76L 10/29/18 16:30: Bedside Glucose (Misc Panel) 89 10/29/18 17:49: Bedside Glucose (Misc Panel) 81L 10/30/18 00:27: Bedside Glucose (Misc Panel) 94 10/30/18 06:08: Bedside Glucose (Misc Panel) 97 GERALD PRIDE MD Oct 30, 2018 11:06
[2018-10-30 14:00] VITALS: BP 104/54
[2018-10-30] MEDS ORDERED: LIDOCAINE 1% MDV 20ML VIAL As Ordered ONE (14:43)
[2018-10-30 18:00] VITALS: BP 129/64
[2018-10-30] MEDS ORDERED: HumaLOG INSULIN (NovoLOG) PER UNIT SC SCH (18:00)
[2018-10-30] MEDS ORDERED: FAT EMULSION IV 20% 500 ML IV SCH (18:00)
[2018-10-30] MEDS ORDERED: MULTIVITAMIN -ADULT INJECTION 10 ML, CR/CU/SE/MN/ZN INJ 1 ML in AMINO AC/ELECTROLYTE/DE... IV SCH (18:00)
[2018-10-30] MEDS: ENOXAPARIN 40 MG/0.4 ML SYRINGE (J1650) SC SCH (21:49)
[2018-10-30 22:00] VITALS: BP 145/76
[2018-10-31] MEDS: HumaLOG INSULIN (NovoLOG) PER UNIT SC SCH ×4 (00:58→17:53)
[2018-10-31] MEDS: ACETAMINOPHEN 650 MG SUPP PR PRN (01:11)
[2018-10-31 02:00] VITALS: BP 135/79
[2018-10-31 06:00] VITALS: BP 138/78
[2018-10-31] MEDS: SODIUM CHLORIDE 0.9% INJ 10 ML SYR IV SCH ×2 (06:18→17:54)
[2018-10-31 08:31] LABS: BASO % 0.2 % (0.0-1.0); EOS # 0.1 10^3/uL (0.0-0.50); EOS % 0.7 % (0.0-3.0); HEMATOCRIT 27.3 % (36.0-47.0); LYMPH # 1.1 10^3/uL (1.5-4.5); LYMPH % 5.9 % (24.0-44.0); MEAN CORPUSCULAR HEMOGLOBIN 29.4 pg (27.0-33.0); MEAN CORPUSCULAR VOLUME 89.2 fl (80.0-96.0); MONO # 1.6 10^3/uL (0.0-0.8); MONO % 8.7 % (0.0-5.0); NEUTROPHILS # 14.9 10^3/uL (1.8-7.7); NEUTROPHILS % 81.5 % (36.0-66.0); PLATELET COUNT, AUTOMATED 370 10^3/uL (150-450); RED BLOOD COUNT 3.06 10^6/uL (4.00-5.40); WHITE BLOOD COUNT 18.3 10^3/uL (4.0-10.0)
[2018-10-31] MEDS: SERTRALINE HCL 25 MG TABLET PEG SCH (09:00)
[2018-10-31 09:03] LABS: ALBUMIN 1.3 GM/DL (3.2-5.2); ALT/SGPT 31 U/L (12-78); BILIRUBIN,TOTAL 0.2 MG/DL (0.2-1.0); BLOOD UREA NITROGEN 27 MG/DL (7-18); CALCIUM LEVEL 8.6 MG/DL (8.8-10.2); CARBON DIOXIDE LEVEL 24 MEQ/L (21-32); CHLORIDE LEVEL 102 MEQ/L (98-107); CREATININE FOR GFR 0.56 MG/DL (0.55-1.30); GLOMERULAR FILTRATION RATE > 60.0 (>32); GLUCOSE, FASTING 165 MG/DL (70-100); POTASSIUM SERUM 3.5 MEQ/L (3.5-5.1); SODIUM LEVEL 134 MEQ/L (136-145); TOTAL PROTEIN 5.6 GM/DL (6.4-8.2)
[2018-10-31] MEDS: MOXIFLOXACIN HCL 400 MG in APPROPRIATE DILUENT 1 EA IV SCH (09:13)
[2018-10-31] MEDS: PANTOPRAZOLE 40MG INJ (PROTONIX) (C9113) IV SCH (09:13)
[2018-10-31 10:00] VITALS: BP 109/56
[2018-10-31] MEDS: SODIUM CHLORIDE 0.9% INJ 10 ML SYR IV PRN ×2 (10:34→23:46)
--- NOTE | 2018-10-31 11:33 | IPNPDOC ---
Subjective Date Seen The patient was seen on 10/31/18. Subjective Chief Complaint/HPI Patient is tired and lethargic than usualwith complaint at this point, also had a urinary retention for which a straight cath later on. Clancy has been placed. Patient finish 5 days of Avelox General: Reports: Fatigue, Malaise Constitutional: Denies: Chills, Fever, Malaise, Night Sweats, Weakness, Fat igue, Weight Loss, Lethargy, Other ENT: Denies: Head Aches, Ear Pain, Dysphagia, Sinus Congestion, Post Nasal Drip, Sore Throat, Epistaxis, Other Symptoms Skin: Denies: Rash, Lesions, Jaundice, Bruising, Itching, Dry, Breakdown, Nail Changes, Other Pulmonary: Denies: Dyspnea, Cough, Pleuritic Chest Pain, Other Symptoms Cardiovascular: Denies: Chest Pain, Palpitations, Orthopnea, Paroxysmal Noc. Dyspnea, Edema, Lt Headedness, Other Symptoms Gastrointestinal: Denies: Nausea, Vomiting, Abdominal Pain, Diarrhea, Constipation, Melena, Hematochezia, Other Symptoms Objective Physical Examination General Exam: Positive: Alert, Cooperative ENT Exam: Positive: Atraumatic Neck Exam: Negative: JVD Chest Exam: Positive: Clear to auscultation, Normal air movement Heart Exam: Positive: Rate Normal, Regular Rhythm, Normal S1, Normal S2; Negative: Gallops, Murmurs, Rubs Abdomen Exam: Positive: BS Hypoactive, Soft, Other (+J/P drain, +Sutton Tube); Negative: Tenderness Psych Exam: Positive: Mental status NL, Mood NL, Oriented x 3 Assessment /Plan Problems (1) Gastric outflow obstruction Status: Acute Problem Text: # 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 - It is complicated by leak in the esophagogastrostomy. - She also has PEG, continue enteral feeding. Only allowed to have ice chips. - Per Dr. Hurst's recommendation, keep her on gravity drainage for her G-tube and then if she has some minimal output rechecking on Friday by clamping the G- tube to see if she has increased output. If she does, then considering the next step, which may be clipping the area or esophageal stent. - s/p ertapenem and fluconazole. -Patient. WBC count is improving with the addition of moxifloxacin, will continue the same for at least 5 days EGD with clipping of fistula was done by GI. Last night Feeding and further, as per surgical recommendations Patient J-tube has not been working. Hence, she is been started on TPN by surgery . She also finish 5 days of her antibiotics Also was reported to have a urinary retention, hence Clancy catheter has been placed in and will keep an eye on intake and output # Depression - The patient feels hopeless. Continue zoloft 25 mg daily. # Right foot pain with redness of the dorsum - Gout attack, now improved with toradol and methyl pred 1 dose. # Mild cardiomegaly and mild amount of pericardial fluid. - Cont to monitor # Left renal mass exophytic, 2 cm - Could be renal cell carcinoma. Follow urine cytology # Acute renal failure - Resolved. # Constipation - Miralax PRN and senna-S ATC # Moderate protein calorie malnutrition - Continue enteral fee Plan/VTE VTE Prophylaxis Ordered?: Yes VS, I&O, [facility] Vital Signs/I&O Vital Signs Date Time Temp Pulse Resp B/P (MAP) Pulse Ox O2 Delivery O2 Flow Rate FiO2 10/31/18 10:00 97.5 80 20 109/56 (73) 10/31/18 06:00 94 I&O- Last 24 Hours up to 6 AM 10/31/18 06:00 Intake Total 1075 ml Output Total 545 ml Balance 530 ml Laboratory Data 24H LABS Laboratory Tests 2 10/30/18 11:32: Bedside Glucose (Misc Panel) 112H 10/30/18 17:17: Bedside Glucose (Misc Panel) 75L 10/31/18 00:15: Bedside Glucose (Misc Panel) 160H 10/31/18 06:09: Bedside Glucose (Misc Panel) 165H 10/31/18 08:06: Immature Granulocyte % (Auto) 3.0, White Blood Count 18.3H, Red Blood Count 3.06L, Hemoglobin 9.0L, Hematocrit 27.3L, Mean Corpuscular Volume 89.2, Mean Corpuscular Hemoglobin 29.4, Mean Corpuscular Hemoglobin Concent 33.0, Red Cell Distribution Width 14.7H, Platelet Count 370, Neutrophils (%) (Auto) 81.5H, Lymphocytes (%) (Auto) 5.9L, Monocytes (%) (Auto) 8.7H, Eosinophils (%) (Auto) 0.7, Basophils (%) (Auto) 0.2, Neutrophils # (Auto) 14.9H, Lymphocytes # (Auto) 1.1L, Monocytes # (Auto) 1.6H, Eosinophils # (Auto) 0.1, Basophils # (Auto) 0.0, Nucleated Red Blood Cells % (auto) 0.0, Anion Gap 8, Glomerular Filtration Rate > 60.0, Blood Urea Nitrogen 27H, Creatinine 0.56, Sodium Level 134L, Potassium Level 3.5, Chloride Level 102, Carbon Dioxide Level 24, Calcium Level 8.6L, Aspartate Amino Transf (AST/SGOT) 16, Alanine Aminotransferase (ALT/SGPT) 31, Alkaline Phosphatase 138H, Total Bilirubin 0.2, Total Protein 5.6L, Albumin 1.3L , Magnesium Level 2.0, Albumin/Globulin Ratio 0.30L CBC/BMP Laboratory Tests 10/31/18 08:06 Red Blood Count 3.06 L, Mean Corpuscular Volume 89.2, Mean Corpuscular Hemoglobin 29.4, Mean Corpuscular Hemoglobin Concent 33.0, Red Cell Distribution Width 14.7 H, Neutrophils (%) (Auto) 81.5 H, Lymphocytes (%) (Auto) 5.9 L, Monocytes (%) (Auto) 8.7 H, Eosinophils (%) (Auto) 0.7, Basophils (%) (Auto) 0.2, Neutrophils # (Auto) 14.9 H, Lymphocytes # (Auto) 1.1 L, Monocytes # (Auto) 1.6 H, Eosinophils # (Auto) 0.1, Basophils # (Auto) 0.0, Calcium Level 8.6 L, Aspartate Amino Transf (AST/SGOT) 16, Alanine Aminotransferase (ALT/SGPT) 31, Alkaline Phosphatase 138 H, Total Bilirubin 0.2, Total Protein 5.6 L, Albumin 1.3 L GERALD PRIDE MD Oct 31, 2018 11:32
[2018-10-31 12:12] LABS: APPEARANCE, URINE HAZY (CLEAR); BACTERIA, URINE AUTO 3+ (NEGATIVE); BILIRUBIN, URINE AUTO NEGATIVE (NEGATIVE); BLOOD, URINE BLOOD NEGATIVE (NEGATIVE); COLOR, URINE AMBER (YELLOW); GLUCOSE, URINE (UA) AUTO NEGATIVE (NEGATIVE); KETONE, URINE AUTO NEGATIVE (NEGATIVE); LEUKOCYTE ESTERASE, URINE AUTO TRACE (NEGATIVE); MUCUS, URINE LARGE (NEGATIVE); NITRITE, URINE AUTO POSITIVE (NEGATIVE); PROTEIN, URINE AUTO 1+ mg/dL (NEGATIVE); RBC, URINE AUTO 1 /HPF (0-3); SPECIFIC GRAVITY URINE AUTO 1.023 (1.002-1.035); SQUAMOUS EPITHELIAL CELL UR AU 1 /HPF (0-6); UROBILINOGEN, URINE AUTO 0.2 mg/dL (0.0-2.0); WBC, URINE AUTO 4 /HPF (0-3)
[2018-10-31 14:00] VITALS: BP 124/57
--- NOTE | 2018-10-31 15:02 | REP ---
Clinical: Chest pain. Pneumonia. Comparison: 10/15/2018. Findings: Small to moderate right pleural effusion and bibasilar atelectasis/infiltrates have increased from prior examination. Mediastinum and cardiac silhouette are stable. Left-sided PICC line with tip in the SVC. Postsurgical changes including pigtail catheter in stable position midline upper abdomen. Impression: Small to moderate right pleural effusion with bibasilar infiltrates increased from prior examination. Electronically Signed by Harlan Bell MD 10/31/2018 12:36 P
--- NOTE | 2018-10-31 15:03 | IPN ---
DATE: 10/31/2018 30 days postop from her proximal gastrectomy and esophagogastric she had developed an anastomotic leak and Dr. Beaza performed endoscopy yesterday and was able to close what he described as a 1 cm leak with two clips. He held her tube feedings overnight and had been restarted this morning. Initially, these seem to be going okay but I was called shortly thereafter that her jejunostomy (J) feeding port was completely plugged. I therefore ordered a peripherally inserted central catheter (PICC) line placement and will start her on total parenteral nutrition (TPN) to provide nutritional support and just avoid any enteral feedings for this time while we see if the clips are successful in closing her leak. Vital signs show that she has been afebrile for the past 24 hours. Her pulse has generally been in the 80s with one pulse up to 100. Her blood pressure is good. Intake and output shows that yesterday she had 1200 in with only 300 recorded out. She had 81 mL from her drain yesterday. She has had only minimal drainage reported from her drain today. PHYSICAL EXAMINATION: Patient is alert when roused but generally seems quite sleepy. Heart exam shows a regular rhythm. The lungs are clear. The abdomen is soft and nontender and the J-tube site is clean. Her drain has a middle minimal amount of yellowish staining primarily of the bag with no significant fluid present. IMPRESSION: Patient has done very well since application of the clips to her esophagogastric anastomotic leak. Hopefully this will allow closure. PLAN: In order to reduce the amount of fluid within the stomach that might perpetuate the leak and also since her J-tube has clogged, I will start her on TPN. A PICC line was ordered and TPN using standard formula at 70 mL/h was ordered. I will continue her TPN at least through the weekend and perhaps longer as we monitor the drain for any further leakage.
[2018-10-31] MEDS: MEROPENEM INJ 1 GM in APPROPRIATE DILUENT 1 EA IV SCH ×2 (16:30→23:46)
[2018-10-31] MEDS ORDERED: FAT EMULSION IV 20% 500 ML IV SCH (18:00)
[2018-10-31] MEDS ORDERED: POTASSIUM CHLORIDE INJ 20 MEQ in AMINO AC/ELECTROLYTE/DEX/CALC 2,000 ML IV SCH (18:00)
[2018-10-31] MEDS: ENOXAPARIN 40 MG/0.4 ML SYRINGE (J1650) SC SCH (19:45)
[2018-10-31 22:00] VITALS: BP 127/67
[2018-11-01] MEDS: HumaLOG INSULIN (NovoLOG) PER UNIT SC SCH ×4 (00:11→17:53)
[2018-11-01 02:54] VITALS: BP 129/67
[2018-11-01] MEDS: SODIUM CHLORIDE 0.9% INJ 10 ML SYR IV SCH ×2 (05:01→17:53)
[2018-11-01 05:57] LABS: HEMATOCRIT 27.6 % (36.0-47.0); MEAN CORPUSCULAR HEMOGLOBIN 28.8 pg (27.0-33.0); MEAN CORPUSCULAR HGB CONC 32.6 g/dl (32.0-36.5); MEAN CORPUSCULAR VOLUME 88.5 fl (80.0-96.0); PLATELET COUNT, AUTOMATED 375 10^3/uL (150-450); RED BLOOD COUNT 3.12 10^6/uL (4.00-5.40); WHITE BLOOD COUNT 20.6 10^3/uL (4.0-10.0)
[2018-11-01 06:00] VITALS: BP 132/68
[2018-11-01 06:23] LABS: ALBUMIN 1.3 GM/DL (3.2-5.2); ALT/SGPT 26 U/L (12-78); BILIRUBIN,TOTAL 0.3 MG/DL (0.2-1.0); BLOOD UREA NITROGEN 29 MG/DL (7-18); CARBON DIOXIDE LEVEL 25 MEQ/L (21-32); CHLORIDE LEVEL 101 MEQ/L (98-107); CREATININE FOR GFR 0.53 MG/DL (0.55-1.30); GLOMERULAR FILTRATION RATE > 60.0 (>32); GLUCOSE, FASTING 150 MG/DL (70-100); POTASSIUM SERUM 3.7 MEQ/L (3.5-5.1); SODIUM LEVEL 136 MEQ/L (136-145); TOTAL PROTEIN 5.4 GM/DL (6.4-8.2)
[2018-11-01] MEDS: PANTOPRAZOLE 40MG INJ (PROTONIX) (C9113) IV SCH (08:27)
[2018-11-01] MEDS: MEROPENEM INJ 1 GM in APPROPRIATE DILUENT 1 EA IV SCH ×2 (08:28→15:26)
[2018-11-01] MEDS: SERTRALINE HCL 25 MG TABLET PEG SCH (08:28)
--- NOTE | 2018-11-01 11:00 | IPNPDOC ---
Subjective Date Seen The patient was seen on 11/01/18. Subjective Chief Complaint/HPI Patient is feeling much better, in no apparent distress and offers no complaints General: Denies: ROS Unobtainable, Chills, Night Sweats, Fatigue, Malaise, Normal Appetite, Other Symptoms Constitutional: Denies: Chills, Fever, Malaise, Night Sweats, Weakness, Fatigue, Weight Loss, Lethargy, Other Eyes: Denies: Pain, Vision change, Conjunctivae inflammation, Eyelid inflammation, Redness, Other ENT: Denies: Head Aches, Ear Pain, Dysphagia, Sinus Congestion, Post Nasal Drip, Sore Throat, Epistaxis, Other Symptoms Skin: Denies: Rash, Lesions, Jaundice, Bruising, Itching, Dry, Breakdown, Nail Changes, Other Pulmonary: Denies: Dyspnea, Cough, Pleuritic Chest Pain, Other Symptoms Cardiovascular: Denies: Chest Pain, Palpitations, Orthopnea, Paroxysmal Noc. Dyspnea, Edema, Lt Headedness, Other Symptoms Gastrointestinal: Denies: Nausea, Vomiting, Abdominal Pain, Diarrhea, Constipation, Melena, Hematochezia, Other Symptoms Neurological: Denies: Weakness, Numbness, Incoordination, Change in speech, Confusion, Seizures, Other Symptoms Psych: Denies: Mood Normal, Anxiety, Depression, Memory Issues, Thoughts of Self Harm, Anger, Thoughts of Harming Other, Other Psych Objective Physical Examination General Exam: Positive: Alert, Cooperative ENT Exam: Positive: Atraumatic Neck Exam: Negative: JVD Chest Exam: Positive: Clear to auscultation, Normal air movement Heart Exam: Positive: Rate Normal, Regular Rhythm, Normal S1, Normal S2; Negative: Gallops, Murmurs, Rubs Abdomen Exam: Positive: BS Hypoactive, Soft, Other (+J/P drain, +Sutton Tube); Negative: Tenderness Psych Exam: Positive: Mental status NL, Mood NL, Oriented x 3 Assessment /Plan Problems (1) Gastric outflow obstruction Status: Acute Problem Text: # 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 - It is complicated by leak in the esophagogastrostomy. - She also has PEG, continue enteral feeding. Only allowed to have ice chips. - Per Dr. Hurst's recommendation, keep her on gravity drainage for her G-tube and then if she has some minimal output rechecking on Friday by clamping the G- tube to see if she has increased output. If she does, then considering the next step, which may be clipping the area or esophageal stent. - s/p ertapenem and fluconazole. -Patient. WBC count is improving with the addition of moxifloxacin, will continue the same for at least 5 days EGD with clipping of fistula was done by GI. Last night Feeding and further, as per surgical recommendations Patient J-tube has not been working. Hence, she is been started on TPN by surgery Also was reported to have a urinary retention, hence Clancy catheter has been placed in and will keep an eye on intake and output # Depression - The patient feels hopeless. Continue zoloft 25 mg daily. # Right foot pain with redness of the dorsum - Gout attack, now improved with toradol and methyl pred 1 dose. # Mild cardiomegaly and mild amount of pericardial fluid. - Cont to monitor # Left renal mass exophytic, 2 cm - Could be renal cell carcinoma. Follow urine cytology # Acute renal failure - Resolved. # Constipation - Miralax PRN and senna-S ATC # Moderate protein calorie malnutrition On TPN diet # Bilat Infiltrated possible aspiration pneumonia Started on Merrem 1 g every 8 hours Follow chest x-ray and CBC regularly Plan/VTE VTE Prophylaxis Ordered?: Yes VS, I&O, 24H, Fishbone Vital Signs/I&O Vital Signs Date Time Temp Pulse Resp B/P (MAP) Pulse Ox O2 Delivery O2 Flow Rate FiO2 11/01/18 06:00 96.8 74 18 132/68 (89) 94 I&O- Last 24 Hours up to 6 AM 11/01/18 06:00 Intake Total 1380 ml Output Total 668 ml Balance 712 ml Laboratory Data 24H LABS Laboratory Tests 2 10/31/18 11:55: Urine Appearance HAZY, Urine Color PERLITA, Urine pH 5.0, Urine Specific [place] 1.023, Urine Protein 1+H, Urine Glucose (UA) NEGATIVE, Urine Ketones NEGATIVE, Urine Urobilinogen 0.2, Urine Bilirubin NEGATIVE, Urine Leukocyte Esterase TRACEH, Urine Blood NEGATIVE, Urine Nitrite POSITIVE, Urine WBC (Auto) 4H, Urine RBC (Auto) 1, Urine Hyaline Casts (Auto) 0, Urine Bacteria (Auto) 3+H, Urine Squamous Epithelial Cells 1, Urine Mucus (Auto) LARGE, Urine Sperm (Auto) 11/01/18 05:45: Nucleated Red Blood Cells % (auto) 0.1H, Anion Gap 10, Glomerular Filtration Rate > 60.0, Blood Urea Nitrogen 29H, Creatinine 0.53L, Sodium Level 136, Potassium Level 3.7, Chloride Level 101, Carbon Dioxide Level 25, Calcium Level 8.0L, Aspartate Amino Transf (AST/SGOT) 15, Alanine Aminotransferase (ALT/SGPT) 26, Alkaline Phosphatase 134H, Total Bilirubin 0.3, Total Protein 5.4L, Albumin 1.3L, Magnesium Level 2.0, Albumin/Globulin Ratio 0.32L 11/01/18 06:28: Bedside Glucose (Misc Panel) 147H CBC/BMP Laboratory Tests 11/01/18 05:45 Red Blood Count 3.12 L, Mean Corpuscular Volume 88.5, Mean Corpuscular Hemoglobin 28.8, Mean Corpuscular Hemoglobin Concent 32.6, Red Cell Distribution Width 15.0 H, Calcium Level 8.0 L, Aspartate Amino Transf (AST/SGOT) 15, Alanine Aminotransferase (ALT/SGPT) 26, Alkaline Phosphatase 134 H, Total Bilirubin 0.3, Total Protein 5.4 L, Albumin 1.3 L GERALD PRIDE MD Nov 01, 2018 11:00
--- NOTE | 2018-11-01 11:40 | IPNPDOC ---
Subjective General Date/Time Seen The patient was seen on 10/31/18 Subject Chief Complaint/History Patient reports not feeling well over all, aches and pain all over, prominent on right leg/knee. Denies abdominal pain, shortness of breath, chest pain. She is NPO on TPN (new line). She's been afebrile. A Clancy catheter was placed yesterday for urinary retention. She has been on Avelox for 5 days and was switched to meropenem. Current Medications Current Medications Current Medications Acetaminophen (Tylenol Suppository) 650 mg Q4HP PRN [place] PAIN / FEVER Last a dministered on 10/31/18at 01:11; Start 10/30/18 at 21:15 Acetaminophen (Tylenol Suspension) 650 mg Q4HP PRN JT MILD PAIN or TEMP > 100.4 Last administered on 10/30/18at 03:51; Start 10/05/18 at 14:15 Dextrose (Dextrose 50%) 25 ml ASDIRECTED PRN IV SEE LABEL COMMENTS; Start 09/30/18 at 03:30; Stop 09/30/18 at 20:04; Status DC Dextrose/Sodium Chloride 1,000 ml @ 125 mls/hr Q8H IV Last administered on 10/02/18at 22:50; Start 10/01/18 at 15:30; Stop 10/03/18 at 08:46; Status DC Dextrose/Sodium Chloride 1,000 ml @ 150 mls/hr Q6H40M IV Last administered on 09/30/18at 04:38; Start 09/30/18 at 03:30; Stop 09/30/18 at 20:04; Status DC Dextrose/Water 1,000 ml @ 15 mls/hr Q24H IV Last administered on 10/29/18at 18:26; Start 10/29/18 at 18:00; Stop 10/30/18 at 10:45; Status DC Diatrizoate Meglum/ Diatrizoate Sod (Gastrografin) 10 ml Q30M PO Last administered on 10/17/18at 08:12; Start 10/17/18 at 07:00; Stop 10/17/18 at 07:31; Status DC Enoxaparin Sodium (Lovenox) 40 mg DAILY SC Last administered on 10/06/18at 10:15; Start 10/04/18 at 11:00; Stop 10/06/18 at 16:54; Status DC Enoxaparin Sodium (Lovenox) 40 mg DAILY@2000 SC Last administered on 10/31/18at 19:45; Start 10/07/18 at 20:00 Ertapenem 1 gm/ Sodium Chloride 50 ml @ 100 mls/hr Q24H IV Last administered on 10/10/18at 09:59; Start 10/01/18 at 09:00; Stop 10/11/18 at 09:18; Status DC Ertapenem 1 gm/ Sodium Chloride 50 ml @ 100 mls/hr Q24H IV Last administered on 10/15/18at 09:50; Start 10/12/18 at 08:00; Stop 10/16/18 at 07:59; Status DC Fat Emulsion Intravenous 500 ml @ 20 mls/hr ONCE@1800 IV Last administered on 10/30/18at 17:37; Start 10/30/18 at 18:00; Stop 10/31/18 at 17:59; Status DC Fat Emulsion Intravenous 500 ml @ 20 mls/hr ONCE@1800 IV Last administered on 10/31/18at 18:05; Start 10/31/18 at 18:00; Stop 11/01/18 at 17:59 Fentanyl Citrate (Sublimaze) 25 mcg Q5MP PRN IV MODERATE PAIN (PS 4-7) Last administered on 09/30/18at 21:25; Start 09/30/18 at 20:45; Stop 09/30/18 at 21:34; Status DC Fluconazole 200 mg/IV Miscellaneous Supplies 100 ml @ 100 mls/hr Q24H IV Last administered on 10/19/18at 20:35; Start 10/07/18 at 20:00; Stop 10/20/18 at 18:00; Status DC Furosemide (LASIX injection) 20 mg BID@09,17 IV Last administered on 10/15/18at 17:16; Start 10/15/18 at 17:00; Stop 10/16/18 at 06:21; Status DC Glucagon (Glucagon) 1 mg ASDIRECTED PRN SC SEE LABEL COMMENTS; Start 09/30/18 at 03:30; Stop 09/30/18 at 20:04; Status DC Glucose (Glucose) 16 GM ASDIRECTED PRN PO SEE LABEL COMMENTS; Start 09/30/18 at 03:30; Stop 09/30/18 at 20:04; Status DC Heparin Sodium (Heparin (Flush)) 200 units ASDIRECTED PRN IV SEE LABEL COMMENTS Last administered on 10/31/18at 23:46; Start 10/30/18 at 18:15 Heparin Sodium (Heparin (Flush)) 200 units PICC IV Last administered on 11/01/18at 05:01; Start 10/31/18 at 06:00 Heparin Sodium (Porcine) (Heparin) 5,000 units Q12H SC ; Start 09/30/18 at 21:00; Stop 09/30/18 at 21:00; Status DC Home Med (Med Rec Complete!) ASDIRECTED XX ; Start 10/01/18 at 08:15; Stop at 08:15; Status DC Insulin Human Lispro (HumaLOG INSULIN) SEE PROTOCOL TABLE Q6H SC Last a dministered on 11/01/18at 06:47; Start 10/01/18 at 00:00 Insulin Human Lispro (HumaLOG INSULIN) See Protocol Table Q6H SC ; Start 10/30/18 at 18:00; Stop 10/31/18 at 12:01; Status Cancel Ketorolac Tromethamine (ToRADol) 15 mg Q6H PRN IV PAIN Last administered on 10/12/18at 21:47; Start 10/08/18 at 09:45; Stop 10/13/18 at 09:44; Status DC Ketorolac Tromethamine (ToRADol) 15 mg Q6HP PRN IV MILD/MODERATE PAIN (PS 1-7) Last administered on 10/02/18at 16:37; Start 09/30/18 at 20:00; Stop 10/05/18 at 1 4:20; Status DC Lactated Ringer's 1,000 ml @ 80 mls/hr [id number] IV Last administered on 10/30/18at 06:38; Start 10/29/18 at 18:00; Stop 10/30/18 at 10:45; Status DC Lactated Ringer's 1,000 ml @ 100 mls/hr Q10H IV ; Start 09/30/18 at 20:45; Stop 09/30/18 at 21:45; Status DC Lactated Ringer's 1,000 ml @ 125 mls/hr Q8H IV Last administered on 10/01/18at 12:34; Start 09/30/18 at 19:50; Stop 10/01/18 at 15:25; Status DC Lactulose (Cephulac) 15 ml Q6HP PRN PO CONSTIPATION Last administered on at 13:54; Start 10/15/18 at 13:45; Stop 10/16/18 at 08:42; Status DC Magnesium Hydroxide (Milk Of Magnesia) 30 ml Q6HP PRN PO CONSTIPATION Last administered on 10/15/18at 13:53; Start 10/15/18 at 13:45; Stop 10/16/18 at 08:42; Status DC Meropenem 1 gm/IV Miscellaneous Supplies 50 ml @ 100 mls/hr Q8H IV Last administered on 11/01/18at 08:28; Start 10/31/18 at 16:00 Metoclopramide HCl (REGLAN INJection) 10 mg Q6HP PRN IV NAUSEA OR VOMITING; Start 09/30/18 at 20:00; Stop 10/05/18 at 14:20; Status DC Morphine Sulfate (Morphine Sulfate Inj) 2 mg Q2HP PRN IV MODERATE/SEVERE PAIN (PS 5-10); Start 09/30/18 at 20:00; Stop 10/05/18 at 09:24; Status DC Morphine Sulfate (Morphine Sulfate Inj) 2 mg Q5M PRN IV MODERATE/SEVERE PAIN (PS 5-10); Start 09/30/18 at 20:45; Stop 09/30/18 at 21:45; Status DC Morphine Sulfate (Morphine Sulfate Inj) 4 mg Q2HP PRN IV SEVERE PAIN (PS 8-10) Last administered on 10/01/18at 23:23; Start 09/30/18 at 20:00; Stop 10/05/18 at 09:24; Status DC Moxifloxacin HCl 400 mg/IV Miscellaneous Supplies 250 ml @ 250 mls/hr Q24H IV Last administered on 10/31/18at 09:13; Start 10/26/18 at 09:00; Stop 10/31/18 at 09:17; Status DC Multivitamins 10 ml/Chromium/ Copper/Manganese/ Seleni/Zn 1 ml/ Amino Ac/Electrol/ Dextrose/Calcium 2,011 ml @ 70 mls/hr ONCE@1800 IV Last administered on 10/30/18at 17:38; Start 10/30/18 at 18:00; Stop 10/31/18 at 17:59; Status DC Ondansetron HCl (ZOFRAN INJection) 4 mg Q4HP PRN IV NAUSEA OR VOMITING; Start 09/30/18 at 20:45; Stop 09/30/18 at 21:45; Status DC Ondansetron HCl (ZOFRAN INJection) 4 mg Q6HP PRN IV NAUSEA OR VOMITING; Start 09/30/18 at 20:00 Pantoprazole Sodium (Protonix) 40 mg DAILY IV Last administered on 09/30/18 08:11; Start 09/30/18 at 09:00; Stop 09/30/18 at 20:04; Status DC Pantoprazole Sodium (Protonix) 40 mg DAILY IV Last administered on 11/01/18at 08:27; Start 10/01/18 at 09:00 Polyethylene Glycol (Miralax) 1 pkt DAILYPRN PRN JT CONSTIPATION Last administered on 10/21/18at 07:51; Start 10/20/18 at 23:30 Polyethylene Glycol (Miralax) 1 pkt DAILYPRN PRN PO CONSTIPATION Last administered on 10/20/18 14:24; Start 10/20/18 at 14:00; Stop 10/20/18 at 23:32; Status DC Potassium Chloride 10 meq/ IV Miscellaneous Supplies 100 ml @ 100 mls/hr Q1H IV Last administered on 10/05/18at 15:52; Start 10/05/18 at 08:00; Stop 10/05/18 at 11:59; Status DC Potassium Chloride 20 meq/ Amino Ac/Electrol/ Dextrose/Calcium 2,010 ml @ 70 mls/hr ONCE@1800 IV Last administered on 10/31/18 18:05; Start 10/31/18 at 18:00; Stop 11/01/18 at 17:59 Potassium Chloride/Dextrose 1,000 ml @ 50 mls/hr Q20H IV Last administered on 10/04/18 11:52; Start 10/04/18 at 12:00; Stop 10/05/18 at 08:00; Status DC Senna/Docusate Sodium (Senokot S) 2 tab BID PO Last administered on 10/30/18 08:52; Start 10/20/18 at 21:00; Stop 10/30/18 at 10:45; Status DC Sertraline HCl (Zoloft) 25 mg DAILY PEG Last administered on 11/01/18 08:28; Start 10/22/18 at 13:00 Sodium Biphosphate/ Sodium Phosphate (Fleet Enema) 1 ea DAILYPRN PRN [place] CONSTIPATION Last administered on 10/21/18 16:19; Start 10/21/18 at 15:00 Sodium Chloride 1,000 ml @ 30 mls/hr Q24H IV Last administered on 10/21/18 05:35; Start 10/19/18 at 09:15; Stop 10/21/18 at 11:50; Status DC Sodium Chloride 1,000 ml @ 60 mls/hr [id number] IV Last administered on 10/18/18 07:22; Start 10/18/18 at 07:00; Stop 10/18/18 at 23:39; Status DC Sodium Chloride 1,000 ml @ 75 mls/hr [id number] IV Last administered on 10/28/18at 02:31; Start 10/26/18 at 08:45; Stop 10/28/18 at 08:02; Status DC Sodium Chloride 1,000 ml @ 75 mls/hr [id number] IV Last administered on 10/09/18at 00:45; Start 10/06/18 at 05:45; Stop 10/09/18 at 11:45; Status DC Sodium Chloride (Saline Lock Flush) 10 ml ASDIRECTED PRN IV SEE LABEL COMMENTS Last administered on 10/31/18at 23:46; Start 10/30/18 at 18:15 Sodium Chloride (Saline Lock Flush) 10 ml PICC IV Last administered on 11/01/18at 05:01; Start 10/31/18 at 06:00 Allergies Coded Allergies: Penicillins (Verified Allergy, Intermediate, RASH, 09/30/18) diphenhydramine (Verified Allergy, Intermediate, RASH, 09/30/18) Objective Physical Examination Examination GENERAL APPEARANCE: Patient looks mildly uncomfortable she is multiple complaints of aches and pains. SKIN: Warm and dry. NECK: [Supple, no thyromegaly. No obvious jugular venous distention]. LUNGS: [Clear to auscultation bilaterally. No wheezing appreciated]. HEART: [No chest wall abnormalities. Regular rate and rhythm with no murmurs appreciated]. ABDOMEN: Abdomen is nondistended, soft, and nontender on palpation. She has a gastrojejunostomy tube. Tried to flush the jejunostomy portion and this remains clogged. The gastrostomy portion is open.. EXTREMITIES: Mild lower extremity edema, mild tenderness along the right knee without any accompanying erythema or gross swelling. Vital Signs Vital Signs Date Time Temp Pulse Resp B/P (MAP) Pulse Ox O2 Delivery O2 Flow Rate FiO2 11/01/18 06:00 96.8 74 18 132/68 (89) 94 I&Os I&O- Last 24 Hours up to 6 AM 11/01/18 06:00 Intake Total 1380 ml Output Total 668 ml Balance 712 ml Laboratory Data Labs 24H Laboratory Tests 2 10/31/18 11:55: Urine Appearance HAZY, Urine Color PERLITA, Urine pH 5.0, Urine Specific [place] 1.023, Urine Protein 1+H, Urine Glucose (UA) NEGATIVE, Urine Ketones NEGATIVE, Urine Urobilinogen 0.2, Urine Bilirubin NEGATIVE, Urine Leukocyte Esterase TRACEH, Urine Blood NEGATIVE, Urine Nitrite POSITIVE, Urine WBC (Auto) 4H, Urine RBC (Auto) 1, Urine Hyaline Casts (Auto) 0, Urine Bacteria (Auto) 3+H, Urine Squamous Epithelial Cells 1, Urine Mucus (Auto) LARGE, Urine Sperm (Auto) 11/01/18 05:45: Nucleated Red Blood Cells % (auto) 0.1H, Anion Gap 10, Glomerular Filtration Rate > 60.0, Blood Urea Nitrogen 29H, Creatinine 0.53L, Sodium Level 136, Potassium Level 3.7, Chloride Level 101, Carbon Dioxide Level 25, Calcium Level 8.0L, Aspartate Amino Transf (AST/SGOT) 15, Alanine Aminotransferase (ALT/SGPT) 26, Alkaline Phosphatase 134H, Total Bilirubin 0.3, Total Protein 5.4L, Albumin 1.3L, Magnesium Level 2.0, Albumin/Globulin Ratio 0.32L 11/01/18 06:28: Bedside Glucose (Misc Panel) 147H CBC/BMP Laboratory Tests 11/01/18 05:45 Red Blood Count 3.12 L, Mean Corpuscular Volume 88.5, Mean Corpuscular Hemoglobin 28.8, Mean Corpuscular Hemoglobin Concent 32.6, Red Cell Distribution Width 15.0 H, Calcium Level 8.0 L, Aspartate Amino Transf (AST/SGOT) 15, Alanine Aminotransferase (ALT/SGPT) 26, Alkaline Phosphatase 134 H, Total Bilirubin 0.3, Total Protein 5.4 L, Albumin 1.3 L Impression s/p hemigastrectomy for gastric volvulus with esophagogastrostomy anastomosis anastomotic leak persistent after 4 weeks s/p recent EGD and clipping of the in ternal opening of the fistula malnutrition. Continue with TPN. At some point next week she will be arranged for an upper GI series to see if the fistula remains closed. Also we need to work on replacing the gastrojejunostomy tube for distal, postpyloric feeding if the fistula persists. Plan / VTE VTE Prophylaxis Ordered?: Yes JAILYN PANDYA MD Nov 01, 2018 09:45
--- NOTE | 2018-11-01 11:46 | IPNPDOC ---
Subjective General Date/Time Seen The patient was seen on 11/01/18 at 11:42. Subject Chief Complaint/History The patient is a 88-year-old female admitted with a reason for visit of Intrathoracic Stomach. Current Medications Current Medications Current Medications Meropenem day 1 Allergies Coded Allergies: Penicillins (Verified Allergy, Intermediate, RASH, 09/30/18) diphenhydramine (Verified Allergy, Intermediate, RASH, 09/30/18) Objective Physical Examination Examination GENERAL APPEARANCE: Was asleep when I came in. Wakes up easily though she dosed off towards the end of my visit. LUNGS: Clear to auscultation bilaterally. No wheezing appreciated. HEART: No chest wall abnormalities. Regular rate and rhythm with no murmurs appreciated. ABDOMEN: Abdomen is nondistended, soft, and nontender. Nonfunctioning jejunostomy part of the gastrojejunostomy tube. No drainage. EXTREMITIES: Right knee tenderness, mild no erythema or swelling. Vital Signs Vital Signs Date Time Temp Pulse Resp B/P (MAP) Pulse Ox O2 Delivery O2 Flow Rate FiO2 11/01/18 06:00 96.8 74 18 132/68 (89) 94 I&Os I&O- Last 24 Hours up to 6 AM 11/01/18 06:00 Intake Total 1380 ml Output Total 668 ml Balance 712 ml Laboratory Data Labs 24H Laboratory Tests 2 10/31/18 11:55: Urine Appearance HAZY, Urine Color PERLITA, Urine pH 5.0, Urine Specific [place] 1.023, Urine Protein 1+H, Urine Glucose (UA) NEGATIVE, Urine Ketones NEGATIVE, Urine Urobilinogen 0.2, Urine Bilirubin NEGATIVE, Urine Leukocyte Esterase TRACEH, Urine Blood NEGATIVE, Urine Nitrite POSITIVE, Urine WBC (Auto) 4H, Urine RBC (Auto) 1, Urine Hyaline Casts (Auto) 0, Urine Bacteria (Auto) 3+H, Urine Squamous Epithelial Cells 1, Urine Mucus (Auto) LARGE, Urine Sperm (Auto) 11/01/18 05:45: Nucleated Red Blood Cells % (auto) 0.1H, Anion Gap 10, Glomerular Filtration Rate > 60.0, Blood Urea Nitrogen 29H, Creatinine 0.53L, Sodium Level 136, Potassium Level 3.7, Chloride Level 101, Carbon Dioxide Level 25, Calcium Level 8.0L, Aspartate Amino Transf (AST/SGOT) 15, Alanine Aminotransferase (ALT/SGPT) 26, Alkaline Phosphatase 134H, Total Bilirubin 0.3, Total Protein 5.4L, Albumin 1.3L, Magnesium Level 2.0, Albumin/Globulin Ratio 0.32L 11/01/18 06:28: Bedside Glucose (Misc Panel) 147H CBC/BMP Laboratory Tests 11/01/18 05:45 Red Blood Count 3.12 L, Mean Corpuscular Volume 88.5, Mean Corpuscular Hemoglobin 28.8, Mean Corpuscular Hemoglobin Concent 32.6, Red Cell Distribution Width 15.0 H, Calcium Level 8.0 L, Aspartate Amino Transf (AST/SGOT) 15, Alanine Aminotransferase (ALT/SGPT) 26, Alkaline Phosphatase 134 H, Total Bilirubin 0.3, Total Protein 5.4 L, Albumin 1.3 L Impression s/p hemigastrectomy for gastric volvulus with esophagogastrostomy anastomosis anastomotic leak persistent after 4 weeks s/p recent EGD and clipping of the internal opening of the fistula malnutrition. Continue with TPN. At some point next week she will be arranged for an upper GI series to see if the fistula remains closed. Also we need to work on replacing the gastrojejunostomy tube for distal, postpyloric feeding if the fistula persists. She is on meropenem day 2. She continues to have leukocytosis increased today to 20.6. Chest x-ray done yesterday shows some right-sided pleural effusion with infiltrates that are mildly increased. I'm not sure if she is declining physiologically or just depressed. Plan / VTE VTE Prophylaxis Ordered?: Yes JAILYN PANDYA MD Nov 01, 2018 11:46
[2018-11-01 14:00] VITALS: BP 126/76
[2018-11-01] MEDS: ACETAMINOPHEN 325 MG/10.15 ML UDC JT PRN (15:25)
[2018-11-01] MEDS ORDERED: HumaLOG INSULIN (NovoLOG) PER UNIT SC SCH (18:00)
[2018-11-01] MEDS ORDERED: POTASSIUM CHLORIDE INJ 20 MEQ in AMINO AC/ELECTROLYTE/DEX/CALC 2,000 ML IV SCH (18:00)
[2018-11-01] MEDS ORDERED: FAT EMULSION IV 20% 500 ML IV SCH (18:00)
[2018-11-01] MEDS: ENOXAPARIN 40 MG/0.4 ML SYRINGE (J1650) SC SCH (21:02)
[2018-11-01 22:00] VITALS: BP 135/78
[2018-11-02] MEDS: HumaLOG INSULIN (NovoLOG) PER UNIT SC SCH ×4 (00:17→18:25)
[2018-11-02] MEDS: MEROPENEM INJ 1 GM in APPROPRIATE DILUENT 1 EA IV SCH ×3 (00:18→16:34)
[2018-11-02] MEDS: SODIUM CHLORIDE 0.9% INJ 10 ML SYR IV PRN (00:18)
[2018-11-02] MEDS: ACETAMINOPHEN 325 MG/10.15 ML UDC JT PRN ×2 (02:13→14:28)
[2018-11-02 06:00] VITALS: BP 109/65
[2018-11-02 06:18] LABS: HEMATOCRIT 28.6 % (36.0-47.0); HEMOGLOBIN 9.6 g/dl (12.0-15.5); MEAN CORPUSCULAR HEMOGLOBIN 30.2 pg (27.0-33.0); MEAN CORPUSCULAR HGB CONC 33.6 g/dl (32.0-36.5); MEAN CORPUSCULAR VOLUME 89.9 fl (80.0-96.0); PLATELET COUNT, AUTOMATED 355 10^3/uL (150-450); RED BLOOD COUNT 3.18 10^6/uL (4.00-5.40); WHITE BLOOD COUNT 20.1 10^3/uL (4.0-10.0)
[2018-11-02] MEDS: SODIUM CHLORIDE 0.9% INJ 10 ML SYR IV SCH ×2 (06:32→18:29)
[2018-11-02 06:45] LABS: ALBUMIN 1.3 GM/DL (3.2-5.2); ALT/SGPT 28 U/L (12-78); BILIRUBIN,TOTAL 0.4 MG/DL (0.2-1.0); BLOOD UREA NITROGEN 28 MG/DL (7-18); CALCIUM LEVEL 8.3 MG/DL (8.8-10.2); CARBON DIOXIDE LEVEL 26 MEQ/L (21-32); CHLORIDE LEVEL 100 MEQ/L (98-107); CREATININE FOR GFR 0.47 MG/DL (0.55-1.30); GLOMERULAR FILTRATION RATE > 60.0 (>32); GLUCOSE, FASTING 145 MG/DL (70-100); POTASSIUM SERUM 3.8 MEQ/L (3.5-5.1); SODIUM LEVEL 135 MEQ/L (136-145); TOTAL PROTEIN 5.3 GM/DL (6.4-8.2)
[2018-11-02] MEDS: SERTRALINE HCL 25 MG TABLET PEG SCH (09:11)
[2018-11-02] MEDS: PANTOPRAZOLE 40MG INJ (PROTONIX) (C9113) IV SCH (09:11)
--- NOTE | 2018-11-02 11:25 | IPNPDOC ---
Subjective Date Seen The patient was seen on 11/02/18. Subjective Chief Complaint/HPI Patient not ready communicator verbally but offers no new complaints. When asked General: Denies: ROS Unobtainable, Chills, Night Sweats, Fatigue, Malaise, Normal Appetite, Other Symptoms Constitutional: Denies: Chills, Fever, Malaise, Night Sweats, Weakness, Fatigue, Weight Loss, Lethargy, Other Eyes: Denies: Pain, Vision change, Conjunctivae inflammation, Eyelid inflammation, Redness, Other ENT: Denies: Head Aches, Ear Pain, Dysphagia, Sinus Congestion, Post Nasal Drip, Sore Throat, Epistaxis, Other Symptoms Skin: Denies: Rash, Lesions, Jaundice, Bruising, Itching, Dry, Breakdown, Nail Changes, Other Pulmonary: Denies: Dyspnea, Cough, Pleuritic Chest Pain, Other Symptoms Cardiovascular: Denies: Chest Pain, Palpitations, Orthopnea, Paroxysmal Noc. Dyspnea, Edema, Lt Headedness, Other Symptoms Gastrointestinal: Denies: Nausea, Vomiting, Abdominal Pain, Diarrhea, Constipation, Melena, Hematochezia, Other Symptoms Neurological: Denies: Weakness, Numbness, Incoordination, Change in speech, Confusion, Seizures, Other Symptoms Psych: Denies: Mood Normal, Anxiety, Depression, Memory Issues, Thoughts of Self Harm, Anger, Thoughts of Harming Other, Other Psych Objective Physical Examination General Exam: Positive: Alert, Cooperative ENT Exam: Positive: Atraumatic Neck Exam: Negative: JVD Chest Exam: Positive: Clear to auscultation, Normal air movement Heart Exam: Positive: Rate Normal, Regular Rhythm, Normal S1, Normal S2; Negative: Gallops, Murmurs, Rubs Abdomen Exam: Positive: BS Hypoactive, Soft, Other (+J/P drain, +Sutton Tube); Negative: Tenderness Psych Exam: Positive: Mental status NL, Mood NL, Oriented x 3 Assessment /Plan Problems (1) Gastric outflow obstruction Status: Acute Problem Text: # 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 - It is complicated by leak in the esophagogastrostomy. - She also has PEG, continue enteral feeding. Only allowed to have ice chips. - Per Dr. Hurst's recommendation, keep her on gravity drainage for her G-tube and then if she has some minimal output rechecking on Friday by clamping the G- tube to see if she has increased output. If she does, then considering the next step, which may be clipping the area or esophageal stent. - s/p ertapenem and fluconazole. -Patient. WBC count is improving with the addition of moxifloxacin, will continue the same for at least 5 days EGD with clipping of fistula was done by GI. Last night Continue TPN as per surgery orders Esophagogram in day or 2, then will decide whether patient could be fed orally Prognosis is guarded Discussed with patient's family at bedside last evening. # Depression - The patient feels hopeless., Zoloft on hold. as G-tube is not functioning # Mild cardiomegaly and mild amount of pericardial fluid. - Cont to monitor # Left renal mass exophytic, 2 cm - Could be renal cell carcinoma. Follow urine cytology # Acute renal failure - Resolved. # Constipation - Miralax PRN and senna-S ATC # Moderate protein calorie malnutrition On TPN diet # Bilat Infiltrated possible aspiration pneumonia Started on Merrem 1 g every 8 hours Follow chest x-ray and CBC regularly Plan/VTE VTE Prophylaxis Ordered?: Yes VS, I&O, 24H, Fishbone Vital Signs/I&O Vital Signs Date Time Temp Pulse Resp B/P (MAP) Pulse Ox O2 Delivery O2 Flow Rate FiO2 11/02/18 06:00 96.6 79 23 109/65 (80) 95 I&O- Last 24 Hours up to 6 AM 11/02/18 06:00 Intake Total 1860 ml Output Total 1450 ml Balance 410 ml Laboratory Data 24H LABS Laboratory Tests 2 11/01/18 11:51: Bedside Glucose (Misc Panel) 108 11/01/18 16:48: Bedside Glucose (Misc Panel) 118H 11/02/18 00:06: Bedside Glucose (Misc Panel) 128H 11/02/18 05:51: Nucleated Red Blood Cells % (auto) 0.0, Anion Gap 9, Glomerular Filtration Rate > 60.0, Blood Urea Nitrogen 28H, Creatinine 0.47L, Sodium Level 135L, Potassium Level 3.8, Chloride Level 100, Carbon Dioxide Level 26, Calcium Level 8.3L, Aspartate Amino Transf (AST/SGOT) 21, Alanine Aminotransferase (ALT/SGPT) 28, Alkaline Phosphatase 229H, Total Bilirubin 0.4, Total Protein 5.3L, Albumin 1.3L, Albumin/Globulin Ratio 0.33L CBC/BMP Laboratory Tests 11/02/18 05:51 Red Blood Count 3.18 L, Mean Corpuscular Volume 89.9, Mean Corpuscular Hemoglobin 30.2, Mean Corpuscular Hemoglobin Concent 33.6, Red Cell Distribution Width 14.6 H, Calcium Level 8.3 L, Aspartate Amino Transf (AST/SGOT) 21, Alanine Aminotransferase (ALT/SGPT) 28, Alkaline Phosphatase 229 H, Total Bilirubin 0.4, Total Protein 5.3 L, Albumin 1.3 L GERALD PRIDE MD Nov 02, 2018 11:25
[2018-11-02 14:00] VITALS: BP_DIAS 147
[2018-11-02] MEDS ORDERED: FUROSEMIDE 20 MG/2 ML VIAL (J1940) IV ONE (16:45)
[2018-11-02] MEDS ORDERED: FAT EMULSION IV 20% 500 ML IV SCH (18:00)
[2018-11-02] MEDS ORDERED: MULTIVITAMIN -ADULT INJECTION 10 ML, CR/CU/SE/MN/ZN INJ 1 ML in AMINO AC/ELECTROLYTE/DE... IV SCH (18:00)
[2018-11-02] MEDS ORDERED: FLUCONAZOLE 400 MG in APPROPRIATE DILUENT 1 EA IV ONE (18:00)
[2018-11-02] MEDS ORDERED: HumaLOG INSULIN (NovoLOG) PER UNIT SC SCH (18:00)
--- NOTE | 2018-11-02 19:42 | IPN ---
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 She had a small anastomotic leak postop. Dr. Baeza, of gastroenterology, was able to apply clips endoscopically to the leak this past week. For several days she had little to no drainage from her mediastinal drain, but today there is 80 mL recorded from her drain first thing this morning. VITAL SIGNS: Patient has been afebrile for the last 24 hours. Her pulse in the 70s and 80s and her blood pressure is good. Intake and output shows that yesterday she had 2400 recorded in with 1200 recorded out. I note this morning that she has a Clancy catheter in place. It was placed on the 10/31/2018. PHYSICAL EXAMINATION: Patient is dozing quite regularly. Apparently she has not been out of bed for at least a day or two, as physical therapy found that she was not strong enough even to be out of bed. She has been on total parenteral nutrition for the last 3-4 days since her jejunostomy (J) tube clogged this last Friday. She does have some edema in both hands and arms. Skin is warm and dry. Heart exam shows a regular rhythm. The abdomen is soft and nontender. Laboratory studies this morning show that the patient has a white count of 20,000, hemoglobin of 10, hematocrit of 29 and a platelet count of 355,000. Her chemistry profile shows a sodium of 135, potassium 3.8, chloride 100, CO2 of 26, BUN of 28.0, creatinine 0.47 and glucose of 145. Total protein is 5.3 with an albumin of 1.3. Her fingerstick blood sugars have been running between 118 and 146. IMPRESSION: Patient continues to do acceptably. I am concerned that she had an increased amount from her mediastinal drain reported this morning, although yesterday she had only 18 mL total recorded. She is now on meropenem and I am not certain why this was ordered by the hospitalist. She does not have any outward signs of infection. Her white count is remained somewhat elevated into the upper teens to 20,000 for quite some time. PLAN: I will continue her total parenteral nutrition (TPN) for now. I will start her on Diflucan again, as she did have yeast in her mediastinum earlier in her stay. I will also give her a small amount of Lasix, as she seems to be getting somewhat fluid ahead, given the TPN as opposed to the tube feedings. If it looks like we are going to need to continue with nutritional support, then I will consider replacing her Sutton gastrostomy tube with a new tube in the near future and resume the tube feedings potentially.
[2018-11-02 22:00] VITALS: BP 116/72
[2018-11-02] MEDS: ENOXAPARIN 40 MG/0.4 ML SYRINGE (J1650) SC SCH (22:06)
[2018-11-03] MEDS: HumaLOG INSULIN (NovoLOG) PER UNIT SC SCH ×4 (00:42→18:09)
[2018-11-03] MEDS: MEROPENEM INJ 1 GM in APPROPRIATE DILUENT 1 EA IV SCH ×2 (00:43→08:44)
[2018-11-03] MEDS: ACETAMINOPHEN 325 MG/10.15 ML UDC JT PRN ×4 (00:43→21:09)
[2018-11-03 06:00] VITALS: BP 97/64
[2018-11-03] MEDS: SODIUM CHLORIDE 0.9% INJ 10 ML SYR IV SCH ×2 (06:32→18:08)
[2018-11-03] MEDS: SERTRALINE HCL 25 MG TABLET PEG SCH (08:44)
[2018-11-03] MEDS: PANTOPRAZOLE 40MG INJ (PROTONIX) (C9113) IV SCH (08:44)
[2018-11-03 10:13] LABS: BLOOD UREA NITROGEN 30 MG/DL (7-18); CALCIUM LEVEL 8.5 MG/DL (8.8-10.2); CARBON DIOXIDE LEVEL 29 MEQ/L (21-32); CHLORIDE LEVEL 99 MEQ/L (98-107); CREATININE FOR GFR 0.47 MG/DL (0.55-1.30); GLOMERULAR FILTRATION RATE > 60.0 (>32); GLUCOSE, FASTING 117 MG/DL (70-100); POTASSIUM SERUM 3.6 MEQ/L (3.5-5.1); SODIUM LEVEL 133 MEQ/L (136-145)
--- NOTE | 2018-11-03 12:11 | IPNPDOC ---
Text Note Date of Service The patient was seen on 11/03/18. NOTE Patient was seen and examined this morning. Denies any complaints. No family at the bedside. Physical Examination General Exam: Positive: Alert, Cooperative ENT Exam: Positive: Atraumatic Neck Exam: Negative: JVD Chest Exam: Positive: Clear to auscultation, Normal air movement Heart Exam: Positive: Rate Normal, Regular Rhythm, Normal S1, Normal S2; Negative: Gallops, Murmurs, Rubs Abdomen Exam: Positive: BS Hypoactive, Soft, Other (+J/P drain, +Sutton Tube); Negative: Tenderness Psych Exam: Positive: Mental status NL, Mood NL, Oriented x 3 Laboratory Tests 11/03/18 09:16 Calcium Level 8.5 L Vital Sign - Last 24 Hours 11/02/18 11/02/18 11/03/18 14:00 22:00 06:00 Temp 98.0 96.4 96.9 Pulse 86 76 79 Resp 16 22 23 B/P (MAP) /147 (98) 116/72 (87) 97/64 (75) Pulse Ox 96 94 18 1. 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 She also has PEG, continue enteral feeding. Only allowed to have ice chips. As Per Dr. Hurst's recommendation, keep her on gravity drainage for her G-tube and then if she has some minimal output rechecking on Friday by clamping the G-tube to see if she has increased output. If she does, then considering the next step, which may be clipping the area or esophageal stent. She continues to be only on fluconazole. Meropenem has been discontinued as the patient does not show any sign of infection. Obviously count is elevated for the last 6 days around 20,000. If she spikes a fever or the white count started going up and alternative for culture. Patient continues to be on TPN. Possible esophagogram in a day or 2. The patient prognosis is guarded 2. Depression: The patient feels hopeless., Zoloft on hold. as G-tube is not functioning 3. Mild cardiomegaly and mild amount of pericardial fluid. Cont to monitor 4. Left renal mass exophytic, 2 cm: Could be renal cell carcinoma. Follow urine cytology 5. Acute renal failure: Resolved. 6. Constipation: Miralax PRN and senna-S ATC 7. Moderate protein calorie malnutrition: On TPN diet Prognosis guarded. Talk to the family regarding the palliative versus hospice care. VS,Fishbone, I+O VS, Fishbone, I+O Laboratory Tests 11/03/18 09:16 Calcium Level 8.5 L Vital Signs Date Time Temp Pulse Resp B/P (MAP) Pulse Ox O2 Delivery O2 Flow Rate FiO2 11/03/18 06:00 96.9 79 23 97/64 (75) 18 I&O- Last 24 Hours up to 6 AM 11/03/18 06:00 Intake Total 1130 ml Output Total 2682 ml Balance -1552 ml PRISCA RATLIFF MD Nov 03, 2018 12:11
[2018-11-03 14:00] VITALS: BP 118/62
[2018-11-03 14:46] LABS: BLOOD UREA NITROGEN 31 MG/DL (7-18); CALCIUM LEVEL 8.3 MG/DL (8.8-10.2); CARBON DIOXIDE LEVEL 31 MEQ/L (21-32); CHLORIDE LEVEL 98 MEQ/L (98-107); CREATININE FOR GFR 0.47 MG/DL (0.55-1.30); GLOMERULAR FILTRATION RATE > 60.0 (>32); GLUCOSE, FASTING 116 MG/DL (70-100); POTASSIUM SERUM 3.6 MEQ/L (3.5-5.1); SODIUM LEVEL 133 MEQ/L (136-145)
[2018-11-03] MEDS ORDERED: FAT EMULSION IV 20% 500 ML IV SCH (18:00)
[2018-11-03] MEDS ORDERED: HumaLOG INSULIN (NovoLOG) PER UNIT SC SCH (18:00)
[2018-11-03] MEDS ORDERED: AMINO AC/ELECTROLYTE/DEX/CALC 2,000 ML IV SCH (18:00)
--- NOTE | 2018-11-03 19:29 | IPN ---
DATE: 11/03/2018 HISTORY: The patient is now approaching 5 weeks postoperative from her proximal gastric resection with esophagogastric anastomosis. Her anastomotic leak was addressed by Dr. Baeza with clips to the leak site, endoscopically placed. She seemed to have diminished output from her drain, but this had spiked up yesterday to 80 mL recorded in the morning. This morning she had only 2 mL recorded out. She looks a little more alert and aware today. Her daughter is in visiting today. VITAL SIGNS: The patient has been afebrile over the past 24 hours. Her pulse is in the 60s to 80s, and her blood pressure is good. Intake and output: The patient showed good diuresis with her one dose of Lasix yesterday with 2700 recorded out in urine yesterday. She had 1130 recorded in, although this should actually significantly underestimate her total parenteral nutrition (TPN) intake. Again, only 2 mL was noted in her drain by nursing this morning. PHYSICAL EXAMINATION: The patient is alert and reports that she is comfortable. Sclerae are anicteric. Skin is warm and dry. Heart exam shows a regular rate and rhythm. The lungs are clear. The swelling in her upper extremities seems to have diminished bilaterally. She has no significant swelling in her lower extremities. The abdomen is soft. Her gastrostomy (G )tube site is clean. She has active bowel sounds. Laboratory studies today show most recently a sodium of 133, potassium 3.6, chloride 98, CO2 of 31, BUN of 31, creatinine 0.47, and glucose of 116. She did not have a CBC today. Her fingerstick blood sugars have been running between 109 and 132. MEDICATIONS: The patient does not remain on meropenem, which was apparently stopped by the hospitalist. She remains on Lovenox and sliding-scale insulin. She is receiving TPN at 70 mL per hour. I did irrigate to her drain personally today and changed the drainage bag so that there was a clean bag to start from. She had some light-colored, faintly bilious fluid in the bag, and that was a total of 45 mL, which are reported to the nurse to record. When I flushed the drain, I managed to put in 5 mL but could not aspirate any fluid, though once I connected the new bag, I noticed that over the next 5 minutes or so, some of the saline returned. IMPRESSION: The patient appears to be doing well. It is unclear to me if she has a persistent leak at her anastomosis or if she is just having poor drainage from her percutaneous drain, which has been in now for several weeks. PLAN: We will continue the TPN. I will consider replacing her plugged Sutton gastrostomy tube, possibly just with a plain jejunostomy tube. We will see what drains from her drain overnight. I may consider having our new interventional radiologist see if she could trade the patient's current drain for something that might be more effective.
[2018-11-03] MEDS: ENOXAPARIN 40 MG/0.4 ML SYRINGE (J1650) SC SCH (20:31)
[2018-11-03 21:29] LABS: BLOOD UREA NITROGEN 31 MG/DL (7-18); CALCIUM LEVEL 8.2 MG/DL (8.8-10.2); CARBON DIOXIDE LEVEL 30 MEQ/L (21-32); CHLORIDE LEVEL 99 MEQ/L (98-107); CREATININE FOR GFR 0.48 MG/DL (0.55-1.30); GLOMERULAR FILTRATION RATE > 60.0 (>32); GLUCOSE, FASTING 94 MG/DL (70-100); POTASSIUM SERUM 3.6 MEQ/L (3.5-5.1); SODIUM LEVEL 135 MEQ/L (136-145)
[2018-11-03 22:00] VITALS: BP 129/75
[2018-11-04] MEDS: HumaLOG INSULIN (NovoLOG) PER UNIT SC SCH ×4 (01:03→18:57)
[2018-11-04 03:16] LABS: BLOOD UREA NITROGEN 31 MG/DL (7-18); CALCIUM LEVEL 8.5 MG/DL (8.8-10.2); CARBON DIOXIDE LEVEL 28 MEQ/L (21-32); CHLORIDE LEVEL 99 MEQ/L (98-107); CREATININE FOR GFR 0.48 MG/DL (0.55-1.30); GLOMERULAR FILTRATION RATE > 60.0 (>32); GLUCOSE, FASTING 110 MG/DL (70-100); POTASSIUM SERUM 3.6 MEQ/L (3.5-5.1); SODIUM LEVEL 133 MEQ/L (136-145)
[2018-11-04 06:00] VITALS: BP 125/66
[2018-11-04 06:42] LABS: HEMATOCRIT 26.6 % (36.0-47.0); HEMOGLOBIN 8.8 g/dl (12.0-15.5); MEAN CORPUSCULAR HEMOGLOBIN 29.1 pg (27.0-33.0); MEAN CORPUSCULAR HGB CONC 33.1 g/dl (32.0-36.5); MEAN CORPUSCULAR VOLUME 88.1 fl (80.0-96.0); PLATELET COUNT, AUTOMATED 352 10^3/uL (150-450); RED BLOOD COUNT 3.02 10^6/uL (4.00-5.40); WHITE BLOOD COUNT 21.2 10^3/uL (4.0-10.0)
[2018-11-04] MEDS: SODIUM CHLORIDE 0.9% INJ 10 ML SYR IV SCH ×2 (06:51→18:58)
[2018-11-04 07:15] LABS: BLOOD UREA NITROGEN 30 MG/DL (7-18); CALCIUM LEVEL 8.3 MG/DL (8.8-10.2); CARBON DIOXIDE LEVEL 28 MEQ/L (21-32); CHLORIDE LEVEL 98 MEQ/L (98-107); CREATININE FOR GFR 0.39 MG/DL (0.55-1.30); GLOMERULAR FILTRATION RATE > 60.0 (>32); GLUCOSE, FASTING 114 MG/DL (70-100); POTASSIUM SERUM 3.7 MEQ/L (3.5-5.1); SODIUM LEVEL 133 MEQ/L (136-145)
[2018-11-04] MEDS: PANTOPRAZOLE 40MG INJ (PROTONIX) (C9113) IV SCH (08:28)
[2018-11-04] MEDS: SODIUM CHLORIDE 0.9% INJ 10 ML SYR IV PRN (08:29)
[2018-11-04] MEDS: SERTRALINE HCL 25 MG TABLET PEG SCH (08:30)
[2018-11-04] MEDS ORDERED: FUROSEMIDE 20 MG/2 ML VIAL (J1940) IV ONE (11:30)
--- NOTE | 2018-11-04 11:31 | IPNPDOC ---
Text Note Date of Service The patient was seen on 11/04/18. NOTE Patient was seen and examined this morning. Denies any complaints. No family at the bedside. Physical Examination General Exam: Positive: Alert, Cooperative ENT Exam: Positive: Atraumatic Neck Exam: Negative: JVD Chest Exam: Positive: Clear to auscultation, Normal air movement Heart Exam: Positive: Rate Normal, Regular Rhythm, Normal S1, Normal S2; Negative: Gallops, Murmurs, Rubs Abdomen Exam: Positive: BS Hypoactive, Soft, Other (+J/P drain, +Sutton Tube); Negative: Tenderness Psych Exam: Positive: Mental status NL, Mood NL, Oriented x 3 Assessment and plan 1. 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 As per surgery will consider replacing her plugged Sutton gastrostomy tube, possibly just with a plain jejunostomy tube. Continue monitoring the drain She continues to be only on fluconazole. But the white count is increasing to 21,000 Meropenem has been discontinued as the patient does not show any sign of infection. Obviously count is elevated for the last 6 days around 20,000. We will get blood cultures, repeat today. She continues to be on TPN . The patient prognosis is guarded 2. Depression: The patient feels hopeless., Zoloft on hold. as G-tube is not functioning 3. Mild cardiomegaly and mild amount of pericardial fluid. Cont to monitor 4. Left renal mass exophytic, 2 cm: Could be renal cell carcinoma. Follow urine cytology 5. Acute renal failure: Resolved. 6. Constipation: Miralax PRN and senna-S ATC 7. Moderate protein calorie malnutrition: On TPN diet Prognosis guarded. Talk to the family regarding the palliative versus hospice care. VS,Fishbone, I+O VS, Fishbone, I+O Laboratory Tests 11/03/18 13:58 Calcium Level 8.3 L 11/03/18 21:00 Calcium Level 8.2 L 11/04/18 02:51 Calcium Level 8.5 L 11/04/18 06:03 Calcium Level 8.3 L, Red Blood Count 3.02 L, Mean Corpuscular Volume 88.1, Mean Corpuscular Hemoglobin 29.1, Mean Corpuscular Hemoglobin Concent 33.1, Red Cell Distribution Width 14.9 H Vital Signs Date Time Temp Pulse Resp B/P (MAP) Pulse Ox O2 Delivery O2 Flow Rate FiO2 11/04/18 06:00 97.8 82 22 125/66 (85) 95 I&O- Last 24 Hours up to 6 AM 11/04/18 06:00 Intake Total 1670 ml Output Total 1745 ml Balance -75 ml PRISCA RATLIFF MD Nov 04, 2018 11:31
--- NOTE | 2018-11-04 11:55 | REP ---
Left upper extremity duplex Doppler venous ultrasound. Real time compression and duplex Doppler evaluation of the left upper extremity deep venous system is performed. The left subclavian, jugular, axillary, brachial, basilic and cephalic veins are fully compressible where accessible with transducer pressure, and demonstrate no intraluminal thrombus and normal venous waveforms. There is no evidence of deep venous thrombosis. Impression: No evidence of deep venous thrombosis of the left upper extremity deep vein system. Electronically Signed by Amado Arteaga MD 11/04/2018 11:47 A
[2018-11-04] MEDS: FLUCONAZOLE 200 MG in APPROPRIATE DILUENT 1 EA IV SCH (13:42)
[2018-11-04 14:00] VITALS: BP 130/82
--- NOTE | 2018-11-04 15:13 | IPN ---
DATE: 11/04/2018 HISTORY: The patient is now 5 weeks postop from proximal gastric resection with esophagogastric anastomosis. She had a small leak at the anastomosis. Dr. Baeza placed clips internally to try to close this endoscopically approximately a week ago. She has continued to have a small amount of drainage from a percutaneous drain placed into the mediastinum through her back. Today she was sent down for a left upper extremity ultrasound by the hospitalist to look for a deep venous thrombosis (DVT) and this was negative. Vital signs: Show that the patient has been afebrile over the past 24 hours. Her pulse has ranged from the 60s to the 80s her blood pressure is good. Intake and output shows that yesterday she had 1700 recorded in with 1650 recorded out. She had a total of 57 out from her mediastinal drain. She had 20 mL recorded out this morning. She remains on total parenteral nutrition (TPN). PHYSICAL EXAMINATION: The patient is alert when roused. She is not having any pain but feels the need to have a bowel movement. Heart exam shows a regular rhythm. The abdomen is soft and nontender. Her G-tube site is clean. Laboratory studies today include a CBC showing a white count of 21,000, hemoglobin 9, hematocrit of 27 and a platelet count of 352,000. Her chemistry profile shows a sodium of 133, potassium 3.7, chloride 98, CO2 of 28, BUN of 30, creatinine 0.4 and a glucose of 114. IMPRESSION: The patient appears to be remaining quite stable. PLAN: I will in the next day or two plan on removing her current GJ tube and replacing this with a simple jejunal feeding tube through the same site. I will attempt this just at the bedside to see if the tube will advance spontaneously by peristalsis. If not I can scope her to advance this into the pylorus. She will remain on her TPN for now. I will give her another dose of Lasix.
[2018-11-04 15:29] LABS: BLOOD UREA NITROGEN 30 MG/DL (7-18); CALCIUM LEVEL 8.5 MG/DL (8.8-10.2); CARBON DIOXIDE LEVEL 31 MEQ/L (21-32); CHLORIDE LEVEL 96 MEQ/L (98-107); CREATININE FOR GFR 0.47 MG/DL (0.55-1.30); GLOMERULAR FILTRATION RATE > 60.0 (>32); GLUCOSE, FASTING 123 MG/DL (70-100); POTASSIUM SERUM 3.8 MEQ/L (3.5-5.1); SODIUM LEVEL 134 MEQ/L (136-145)
[2018-11-04] MEDS ORDERED: HumaLOG INSULIN (NovoLOG) PER UNIT SC SCH (18:00)
[2018-11-04] MEDS ORDERED: AMINO AC/ELECTROLYTE/DEX/CALC 2,000 ML IV SCH (18:00)
[2018-11-04] MEDS ORDERED: FAT EMULSION IV 20% 500 ML IV SCH (18:00)
[2018-11-04] MEDS: ENOXAPARIN 40 MG/0.4 ML SYRINGE (J1650) SC SCH (20:33)
[2018-11-04 21:34] LABS: BLOOD UREA NITROGEN 29 MG/DL (7-18); CALCIUM LEVEL 8.4 MG/DL (8.8-10.2); CARBON DIOXIDE LEVEL 30 MEQ/L (21-32); CHLORIDE LEVEL 97 MEQ/L (98-107); CREATININE FOR GFR 0.48 MG/DL (0.55-1.30); GLOMERULAR FILTRATION RATE > 60.0 (>32); GLUCOSE, FASTING 111 MG/DL (70-100); POTASSIUM SERUM 3.7 MEQ/L (3.5-5.1); SODIUM LEVEL 133 MEQ/L (136-145)
[2018-11-04 22:00] VITALS: BP 121/68
[2018-11-05] MEDS: HumaLOG INSULIN (NovoLOG) PER UNIT SC SCH ×4 (00:24→17:54)
[2018-11-05 03:12] LABS: BLOOD UREA NITROGEN 30 MG/DL (7-18); CALCIUM LEVEL 8.4 MG/DL (8.8-10.2); CARBON DIOXIDE LEVEL 31 MEQ/L (21-32); CHLORIDE LEVEL 97 MEQ/L (98-107); CREATININE FOR GFR 0.45 MG/DL (0.55-1.30); GLOMERULAR FILTRATION RATE > 60.0 (>32); GLUCOSE, FASTING 108 MG/DL (70-100); POTASSIUM SERUM 3.9 MEQ/L (3.5-5.1); SODIUM LEVEL 134 MEQ/L (136-145)
[2018-11-05 06:00] VITALS: BP 129/71
[2018-11-05] MEDS: SODIUM CHLORIDE 0.9% INJ 10 ML SYR IV SCH ×2 (06:18→17:56)
[2018-11-05 06:53] LABS: HEMATOCRIT 29.5 % (36.0-47.0); HEMOGLOBIN 9.7 g/dl (12.0-15.5); MEAN CORPUSCULAR HEMOGLOBIN 29.4 pg (27.0-33.0); MEAN CORPUSCULAR HGB CONC 32.9 g/dl (32.0-36.5); MEAN CORPUSCULAR VOLUME 89.4 fl (80.0-96.0); PLATELET COUNT, AUTOMATED 361 10^3/uL (150-450); WHITE BLOOD COUNT 20.5 10^3/uL (4.0-10.0)
--- NOTE | 2018-11-05 08:13 | REP ---
Clinical: Chest pain. Comparison: 10/31/2018. Findings: Cardiac silhouette is grossly normal. Right-sided effusion and underlying atelectasis/consolidation appears to be increased. Pigtail catheter overlying the lower mediastinum unchanged in position. Rounded area of opacity overlying the mediastinum and cardiac silhouette is again noted and unchanged. No obvious pneumothorax. Skeletal structures stable. Left PICC line again identified with tip in the SVC. Impression: Increased right sided opacities suggesting pleural effusion and lower lobe consolidation/atelectasis Electronically Signed by Harlan Bell MD 11/05/2018 08:04 A
[2018-11-05] MEDS: SERTRALINE HCL 25 MG TABLET PEG SCH (09:35)
[2018-11-05] MEDS: PANTOPRAZOLE 40MG INJ (PROTONIX) (C9113) IV SCH (09:35)
--- NOTE | 2018-11-05 11:14 | IPNPDOC ---
Text Note Date of Service The patient was seen on 11/05/18. NOTE Patient was seen and examined this morning. Denies any complaints. No family at the bedside. Physical Examination General Exam: Positive: Alert, Cooperative ENT Exam: Positive: Atraumatic Neck Exam: Negative: JVD Chest Exam: Positive: Clear to auscultation, Normal air movement Heart Exam: Positive: Rate Normal, Regular Rhythm, Normal S1, Normal S2; Negative: Gallops, Murmurs, Rubs Abdomen Exam: Positive: BS Hypoactive, Soft, Other (+J/P drain, +Sutton Tube); Negative: Tenderness Psych Exam: Positive: Mental status NL, Mood NL, Oriented x 3 Assessment and plan 1. 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 As per surgery will consider replacing her plugged Sutton gastrostomy tube, possibly just with a plain jejunostomy tube. Continue monitoring the drain She continues to be only on fluconazole. But the white count is increasing to 21,000 Meropenem has been discontinued as the patient does not show any sign of infection. Obviously count is elevated for the last 6 days around 20,000. We will get blood cultures, repeat today. She continues to be on TPN . The patient prognosis is guarded 2. Depression: The patient feels hopeless., Zoloft on hold. as G-tube is not functioning 3. Mild cardiomegaly and mild amount of pericardial fluid. Cont to monitor 4. Left renal mass exophytic, 2 cm: Could be renal cell carcinoma. Follow urine cytology 5. Acute renal failure: Resolved. 6. Constipation: Miralax PRN and senna-S ATC 7. Moderate protein calorie malnutrition: On TPN Prognosis guarded. Talk to the family regarding the palliative versus hospice care. VS,Fishbone, I+O VS, Fishbone, I+O Laboratory Tests 11/04/18 14:48 Calcium Level 8.5 L 11/04/18 20:45 Calcium Level 8.4 L 11/05/18 02:40 Calcium Level 8.4 L 11/05/18 06:39 Red Blood Count 3.30 L, Mean Corpuscular Volume 89.4, Mean Corpuscular Hemoglobin 29.4, Mean Corpuscular Hemoglobin Concent 32.9, Red Cell Distribution Width 14.8 H Vital Signs Date Time Temp Pulse Resp B/P (MAP) Pulse Ox O2 Delivery O2 Flow Rate FiO2 11/05/18 06:00 98.2 85 19 129/71 (90) 90 I&O- Last 24 Hours up to 6 AM 11/05/18 06:00 Intake Total 990 ml Output Total 2593 ml Balance -1603 ml PRISCA RATLIFF MD Nov 05, 2018 11:14
[2018-11-05] MEDS: FLUCONAZOLE 200 MG in APPROPRIATE DILUENT 1 EA IV SCH (12:08)
[2018-11-05 14:00] VITALS: BP 121/60
[2018-11-05] MEDS ORDERED: AMINO AC/ELECTROLYTE/DEX/CALC 2,000 ML IV SCH (18:00)
[2018-11-05] MEDS ORDERED: FAT EMULSION IV 20% 500 ML IV SCH (18:00)
[2018-11-05] MEDS: ENOXAPARIN 40 MG/0.4 ML SYRINGE (J1650) SC SCH (20:07)
[2018-11-05 22:00] VITALS: BP 114/59
[2018-11-06] MEDS: HumaLOG INSULIN (NovoLOG) PER UNIT SC SCH ×4 (00:46→18:12)
[2018-11-06 06:00] VITALS: BP 126/77
[2018-11-06] MEDS: SODIUM CHLORIDE 0.9% INJ 10 ML SYR IV SCH ×2 (06:05→18:12)
[2018-11-06 06:17] LABS: HEMATOCRIT 26.6 % (36.0-47.0); HEMOGLOBIN 8.8 g/dl (12.0-15.5); MEAN CORPUSCULAR HEMOGLOBIN 29.1 pg (27.0-33.0); MEAN CORPUSCULAR HGB CONC 33.1 g/dl (32.0-36.5); MEAN CORPUSCULAR VOLUME 88.1 fl (80.0-96.0); PLATELET COUNT, AUTOMATED 366 10^3/uL (150-450); RED BLOOD COUNT 3.02 10^6/uL (4.00-5.40); WHITE BLOOD COUNT 19.3 10^3/uL (4.0-10.0)
[2018-11-06 06:42] LABS: ALBUMIN 1.3 GM/DL (3.2-5.2); ALT/SGPT 30 U/L (12-78); BILIRUBIN,TOTAL 0.5 MG/DL (0.2-1.0); BLOOD UREA NITROGEN 27 MG/DL (7-18); CALCIUM LEVEL 8.3 MG/DL (8.8-10.2); CARBON DIOXIDE LEVEL 29 MEQ/L (21-32); CHLORIDE LEVEL 95 MEQ/L (98-107); GLOMERULAR FILTRATION RATE > 60.0 (>32); GLUCOSE, FASTING 123 MG/DL (70-100); POTASSIUM SERUM 4.1 MEQ/L (3.5-5.1); SODIUM LEVEL 131 MEQ/L (136-145); TOTAL PROTEIN 5.5 GM/DL (6.4-8.2)
[2018-11-06] MEDS: PANTOPRAZOLE 40MG INJ (PROTONIX) (C9113) IV SCH (09:36)
[2018-11-06] MEDS: SERTRALINE HCL 25 MG TABLET PEG SCH (09:36)
--- NOTE | 2018-11-06 10:25 | IPNPDOC ---
Text Note Date of Service The patient was seen on 11/06/18. NOTE Patient was seen and examined this morning. Denies any complaints. No family at the bedside. Physical Examination General Exam: Positive: Alert, Cooperative ENT Exam: Positive: Atraumatic Neck Exam: Negative: JVD Chest Exam: Positive: Clear to auscultation, Normal air movement Heart Exam: Positive: Rate Normal, Regular Rhythm, Normal S1, Normal S2; Negative: Gallops, Murmurs, Rubs Abdomen Exam: Positive: BS Hypoactive, Soft, Other (+J/P drain, +Sutton Tube); Negative: Tenderness Psych Exam: Positive: Mental status NL, Mood NL, Oriented x 3 Assessment and plan 1. 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 As per surgery will consider replacing her plugged Sutton gastrostomy tube, possibly just with a plain jejunostomy tube. Continue monitoring the drain She continues to be only on fluconazole. But the white count is increasing to 21,000 Meropenem has been discontinued as the patient does not show any sign of infection. Obviously count is elevated for the last 6 days around 20,000. We will get blood cultures, repeat today. She continues to be on TPN . The patient prognosis is guarded 2. Depression: The patient feels hopeless., Zoloft on hold. as G-tube is not functioning 3. Mild cardiomegaly and mild amount of pericardial fluid. Cont to monitor 4. Left renal mass exophytic, 2 cm: Could be renal cell carcinoma. Follow urine cytology/she would require an outpatient follow-up for that with urology 5. Acute renal failure: Resolved. 6. Constipation: Miralax PRN and senna-S ATC 7. Moderate protein calorie malnutrition: On TPN Prognosis guarded. Talk to the family regarding the palliative versus hospice care. VS,Fishbone, I+O VS, Fishbone, I+O Laboratory Tests 11/06/18 05:42 Red Blood Count 3.02 L, Mean Corpuscular Volume 88.1, Mean Corpuscular Hemoglobin 29.1, Mean Corpuscular Hemoglobin Concent 33.1, Red Cell Distribution Width 14.9 H, Calcium Level 8.3 L, Aspartate Amino Transf (AST/SGOT) 25, Alanine Aminotransferase (ALT/SGPT) 30, Alkaline Phosphatase 241 H, Total Bilirubin 0.5, Total Protein 5.5 L, Albumin 1.3 L Vital Signs Date Time Temp Pulse Resp B/P (MAP) Pulse Ox O2 Delivery O2 Flow Rate FiO2 11/06/18 06:00 97.0 82 18 126/77 (93) 91 I&O- Last 24 Hours up to 6 AM 11/06/18 06:00 Intake Total 540 ml Output Total 1788 ml Balance -1248 ml PRISCA RATLIFF MD Nov 06, 2018 10:24
[2018-11-06] MEDS: FLUCONAZOLE 200 MG in APPROPRIATE DILUENT 1 EA IV SCH (12:23)
[2018-11-06 14:00] VITALS: BP 134/71
[2018-11-06] MEDS ORDERED: MULTIVITAMIN -ADULT INJECTION 10 ML, CR/CU/SE/MN/ZN INJ 1 ML in AMINO AC/ELECTROLYTE/DE... IV SCH (18:00)
[2018-11-06] MEDS ORDERED: FAT EMULSION IV 20% 500 ML IV SCH (18:00)
[2018-11-06] MEDS ORDERED: HumaLOG INSULIN (NovoLOG) PER UNIT SC SCH (18:00)
[2018-11-06] MEDS ORDERED: FUROSEMIDE 20 MG/2 ML VIAL (J1940) IV ONE (18:30)
[2018-11-06] MEDS: ENOXAPARIN 40 MG/0.4 ML SYRINGE (J1650) SC SCH (20:49)
[2018-11-06 22:00] VITALS: BP 127/66
[2018-11-07] MEDS: HumaLOG INSULIN (NovoLOG) PER UNIT SC SCH ×5 (00:04→23:59)
--- NOTE | 2018-11-07 03:48 | IPN ---
DATE: 11/05/2018 HISTORY: Patient is postop day #36 from her proximal gastrectomy with esophagogastrostomy. It has continued to have a small amount of watery, faintly greenish fluid from her mediastinal drain. She remains on total parenteral nutrition. Her Sutton gastrostomy tube remains clogged as far as feedings are concerned. Vital signs show that she has been afebrile over the past 24 hours. Her pulse has been in the 70s to low 80s. Blood pressure is good and her room air oxygen saturations are fine. Intake and output shows that yesterday she had 450 mL recorded in with 2400 recorded out. Clearly, the full amount of her total parenteral nutrition has not been recorded. She had 88 mL recorded from her mediastinal drain yesterday. PHYSICAL EXAMINATION: The patient is alert and seems oriented when awake. Skin is warm and dry. She continues with some mild edema in her upper extremities. She had a vascular ultrasound of her left upper extremity yesterday that was normal. Heart exam shows a regular rate and rhythm. The lungs are clear. The abdomen is soft and nontender. Laboratory studies show a white count of 20, which is relatively stable. Her hemoglobin is 10 with a hematocrit of 30 and her platelet count is 361,000. Chemistry profile showed a sodium of 134, potassium 3.9, chloride 97, CO2 of 31, BUN of 30, creatinine 0.45 and a glucose of 108. IMPRESSION: The patient is stable, but still with some persistent drainage from her mediastinal drain, suggesting a continued anastomotic leak. She remains on total parenteral nutrition (TPN). She appears somewhat fluid overloaded with edema in her upper extremities in particular. PLAN: The patient's TPN will be continued. I will plan on changing her Sutton tube to a simple jejunostomy tube in the next day or two to allow us to resume her tube feedings. This had been working quite well for her. We will then need to reassess her leak and determine how best to proceed.
--- NOTE | 2018-11-07 03:53 | IPN ---
DATE: 11/06/2018 HISTORY: Patient is now day #37 from her gastric resection. She has been doing fairly well overall and is tolerating her total parenteral nutrition (TPN). She had a chest x-ray earlier today that suggested an increased right pleural effusion. Vital signs show that she has been afebrile for the past 24 hours. Her pulses in the 70s to 80s. Blood pressure is good. Intake and output shows that yesterday she has 1080 recorded in with 1800 recorded out. Her drain had 28 mL yesterday. PHYSICAL EXAMINATION: The patient is alert. She appears comfortable at rest. Heart exam shows a regular rhythm. Her lungs sound clear on anterior auscultation. The abdomen is soft with bowel sounds present. Her gastrostomy (G) tube site is clean. Laboratory studies show stable electrolytes with a BUN of 27, creatinine 0.4 and glucose of 123. Her white count is 19, with a hemoglobin of 9, hematocrit of 27 and a platelet count of 366,000. IMPRESSION: Patient is hemodynamically stable and overall doing well, but still has some evidence of fluid leakage from her mediastinal drain suggesting a continuing leakage from her anastomosis. Her Sutton tube has been plugged and has not been able to provide enteral nutrition support. PLAN: I removed her Sutton tube today and inserted an 18-[place] single-lumen jejunal tube. I did trim the length approximately 10 cm before inserting the tube. It is uncertain if this advanced directly into the pylorus, but I will leave it in place and the balloon was inflated. We will check a KUB in the morning to see if the tube has advanced to the appropriate position. If not, I will consider endoscopy to position it. She will continue her TPN today. I have ordered an upright in the x-ray department, chest x-ray, tomorrow to better evaluate her pleural effusion. It may be prudent to obtain a CT scan, but we will see how the x-ray looks. TIRSO
[2018-11-07] MEDS: SODIUM CHLORIDE 0.9% INJ 10 ML SYR IV SCH ×2 (05:51→17:41)
[2018-11-07 06:00] VITALS: BP 144/85
[2018-11-07 06:43] LABS: HEMOGLOBIN 8.6 g/dl (12.0-15.5); MEAN CORPUSCULAR HEMOGLOBIN 29.1 pg (27.0-33.0); MEAN CORPUSCULAR HGB CONC 33.1 g/dl (32.0-36.5); MEAN CORPUSCULAR VOLUME 87.8 fl (80.0-96.0); PLATELET COUNT, AUTOMATED 355 10^3/uL (150-450); RED BLOOD COUNT 2.96 10^6/uL (4.00-5.40); WHITE BLOOD COUNT 17.3 10^3/uL (4.0-10.0)
[2018-11-07 07:04] LABS: ALBUMIN 1.3 GM/DL (3.2-5.2); ALT/SGPT 28 U/L (12-78); BILIRUBIN,TOTAL 0.7 MG/DL (0.2-1.0); BLOOD UREA NITROGEN 29 MG/DL (7-18); CALCIUM LEVEL 8.3 MG/DL (8.8-10.2); CARBON DIOXIDE LEVEL 29 MEQ/L (21-32); CHLORIDE LEVEL 95 MEQ/L (98-107); CREATININE FOR GFR 0.42 MG/DL (0.55-1.30); GLOMERULAR FILTRATION RATE > 60.0 (>32); GLUCOSE, FASTING 119 MG/DL (70-100); POTASSIUM SERUM 3.9 MEQ/L (3.5-5.1); SODIUM LEVEL 130 MEQ/L (136-145); TOTAL PROTEIN 5.4 GM/DL (6.4-8.2)
--- NOTE | 2018-11-07 08:16 | REP ---
Clinical: Follow up effusion. Comparison: 11/05/2018, 10/31/2018. Findings: Small bilateral pleural effusions (right greater than left) are suggested along with trace bibasilar passive atelectasis. No pneumothorax. Cardiomegaly is stable. Degenerative changes the skeletal structures. Impression: Small bilateral pleural effusions and passive atelectasis (record left) suggested. Electronically Signed by Harlan Bell MD 11/07/2018 08:07 A
--- NOTE | 2018-11-07 08:21 | REP ---
Clinical: Jejunostomy tube. Technique: Two supine views of the abdomen and pelvis. Findings: A jejunostomy tube is identified via the left anterior abdominal wall with intraluminal portion of the tube possibly kinked and extending cranially remaining within the stomach. Evidence for prior gastric bypass surgery. Bowel gas pattern is nonspecific. Drainage catheter overlies the mid upper abdomen in stable position. Skeletal structures stable. Impression: 1. Jejunostomy tube as described above likely is a remaining within the residual stomach. Electronically Signed by Harlan Bell MD 11/07/2018 08:12 A
[2018-11-07] MEDS: SERTRALINE HCL 25 MG TABLET PEG SCH (09:00)
[2018-11-07] MEDS: PANTOPRAZOLE 40MG INJ (PROTONIX) (C9113) IV SCH (10:04)
[2018-11-07] MEDS: FUROSEMIDE 20 MG/2 ML VIAL (J1940) IV SCH (10:05)
--- NOTE | 2018-11-07 10:15 | IPNPDOC ---
Text Note Date of Service The patient was seen on 11/07/18. NOTE Patient was seen and examined this morning. Denies any complaints. Physical Examination General Exam: Positive: Alert, Cooperative ENT Exam: Positive: Atraumatic Neck Exam: Negative: JVD Chest Exam: Positive: Clear to auscultation, Normal air movement Heart Exam: Positive: Rate Normal, Regular Rhythm, Normal S1, Normal S2; Negative: Gallops, Murmurs, Rubs Abdomen Exam: Positive: BS Hypoactive, Soft, Other (+J/P drain, +JTube); Negative: Tenderness Psych Exam: Positive: Mental status NL, Mood NL, Oriented x 3 Assessment and plan Hospital course/sign off note This is a 88-year-old female who was admitted for gastric outlet obstruction because of incarcerated hernia with obstruction and gangrene stratus post proximal gastrectomy with esophago gastrostomy. It got complicated by leak in the gastrostomy and the patient had a IR distended drainage placed. Surgery has been following the patient as well. The patient already has Sutton gastrostomy ev kareem. The patient was initially on broad-spectrum antibiotics and has completed the antibiotic course because of sepsis. The patient is DNR/DNI. Patient continues to be on TPN and surgery has been following all along. I had a detailed discussion with the daughter this morning along with the son-in-law and explained the prognosis. They do not want her to suffer more and understand the hospice care. They are going to talk to the other family members and probably make the patient hospice on Friday. 1. 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 As per surgery her Sutton tube was removed today on 11/07/18 and inserted an 18- [place] single-lumen jejunal tube. As it is uncertain if this advanced directly into the pylorus, KUB has been ordered by surgery for tomorrow morning to see if the tube has advanced to the appropriate position. They are also planning and considering If not, endoscopy to position it , but we will updated the surgeons about the patient's willingness to be hospice care if any more procedures are required She continues to be only on fluconazole. Meropenem has been discontinued as the patient does not show any sign of infection. Obviously count is elevated for the last 6 days around 20,000. We will get blood cultures, repeat today. She continues to be on TPN . The patient prognosis is guarded 2. Depression: The patient feels hopeless., Zoloft on hold. as G-tube is not functioning 3. Mild cardiomegaly and mild amount of pericardial fluid. Cont to monitor 4. Left renal mass exophytic, 2 cm: Could be renal cell carcinoma. Follow urine cytology/she would require an outpatient follow-up for that with urology 5. Acute renal failure: Resolved. 6. Constipation: Miralax PRN and senna-S ATC 7. Moderate protein calorie malnutrition: On TPN Prognosis guarded. I had a detailed discussion with the daughter this morning along with the son-in-law and explained the prognosis. They do not want her to suffer more and understand the hospice care. They are going to talk to the other family members and probably make the patient hospice on Friday. VS,Yasmanibone, I+O VS, Fishbone, I+O Laboratory Tests 11/07/18 06:03 Red Blood Count 2.96 L, Mean Corpuscular Volume 87.8, Mean Corpuscular Hemoglobin 29.1, Mean Corpuscular Hemoglobin Concent 33.1, Red Cell Distribution Width 14.7 H, Calcium Level 8.3 L, Aspartate Amino Transf (AST/SGOT) 25, Alanine Aminotransferase (ALT/SGPT) 28, Alkaline Phosphatase 219 H, Total Bilirubin 0.7, Total Protein 5.4 L, Albumin 1.3 L Vital Signs Date Time Temp Pulse Resp B/P (MAP) Pulse Ox O2 Delivery O2 Flow Rate FiO2 11/07/18 06:00 98.8 86 18 144/85 (104) 91 I&O- Last 24 Hours up to 6 AM 11/07/18 06:00 Intake Total 2260 ml Output Total 3045 ml Balance -785 ml PRISCA RATLIFF MD Nov 07, 2018 10:15
[2018-11-07] MEDS: FLUCONAZOLE 200 MG in APPROPRIATE DILUENT 1 EA IV SCH (12:22)
[2018-11-07 14:00] VITALS: BP 138/45
[2018-11-07] MEDS ORDERED: FAT EMULSION IV 20% 500 ML IV SCH (18:00)
[2018-11-07] MEDS ORDERED: AMINO AC/ELECTROLYTE/DEX/CALC 2,000 ML IV SCH (18:00)
--- NOTE | 2018-11-07 20:05 | IPN ---
DATE: 11/07/2018 HISTORY: Patient is now 38 days postop from her gastric resection with an esophagogastrostomy. I tried placing a new jejunostomy (J) tube through her existing gastrostomy-jejunostomy (GJ) tube site and her x-ray this morning shows that the tube is just coiled in her gastric remnant. Patient has no complaints today. Apparently, someone from the hospitalist program was talking to them about hospice today without my knowledge. The daughter is very upset about how the discussion apparently went. Vital signs show that the patient has been afebrile over the past 24 hours. Her pulse is in the 70s to low 80s and her blood pressure is excellent. Intake and output shows that yesterday she had 2200 recorded in with 2900 recorded out. PHYSICAL EXAMINATION: The patient is lying quietly in the hospital bed. She has a small amount of lightly bilious-colored fluid from her mediastinal drain. The abdomen is soft and without any significant tenderness. Heart exam shows a regular rhythm. Laboratory studies today showed a white count of 17,000, which is down slightly. Hemoglobin is 9, with a hematocrit of 26 and a platelet count is 355,000. Chemistry profile showed a sodium of 130, potassium 3.9, chloride 95, CO2 of 29, a BUN of 29, creatinine 0.4 and a glucose of 119. Her liver function tests are normal, with a total protein of 5.4 and an albumin of 1.3. IMAGING STUDIES: Patient had a chest x-ray today, which better showed small bilateral pleural effusions, more so on the right. A KUB had been done, which confirmed that her J tube was curled up in the stomach. IMPRESSION: Patient remained overall quite stable. I have put her on a daily dose of Lasix to try to diurese her further. She was doing better with the J tube feedings, but the tube is out of position now. I will either consider endoscopy in the next couple days or ask interventional radiology, if available on Friday, to reposition her J tube. We then need to make another attempt or plan for how to address her continued anastomotic leak. I did speak with the patient and the daughter about how I thought things were going. She has certainly not made rapid progress and improvement, but has surprisingly, in some ways, not deteriorated as much as one might have thought given her ongoing leak. The patient and her daughter were encouraged to talk with other family about how much more treatment she would be willing to undergo. I advised them that I will continue to make plans for replacement of the J tube so we can get her back on tube feedings instead of the total parenteral nutrition (TPN) and also try to address her anastomotic leak further.
[2018-11-07] MEDS: ENOXAPARIN 40 MG/0.4 ML SYRINGE (J1650) SC SCH (21:18)
[2018-11-07 22:00] VITALS: BP 117/80
[2018-11-08 06:00] VITALS: BP 133/74
[2018-11-08] MEDS: SODIUM CHLORIDE 0.9% INJ 10 ML SYR IV SCH ×2 (06:04→17:10)
[2018-11-08] MEDS: HumaLOG INSULIN (NovoLOG) PER UNIT SC SCH ×3 (06:04→18:13)
[2018-11-08] MEDS: FLEET ENEMA PR PRN (06:05)
[2018-11-08 06:34] LABS: HEMATOCRIT 27.2 % (36.0-47.0); HEMOGLOBIN 9.1 g/dl (12.0-15.5); MEAN CORPUSCULAR HEMOGLOBIN 29.9 pg (27.0-33.0); MEAN CORPUSCULAR HGB CONC 33.5 g/dl (32.0-36.5); MEAN CORPUSCULAR VOLUME 89.5 fl (80.0-96.0); PLATELET COUNT, AUTOMATED 377 10^3/uL (150-450); RED BLOOD COUNT 3.04 10^6/uL (4.00-5.40); WHITE BLOOD COUNT 17.9 10^3/uL (4.0-10.0)
[2018-11-08 06:52] LABS: ALBUMIN 1.3 GM/DL (3.2-5.2); ALT/SGPT 30 U/L (12-78); BILIRUBIN,TOTAL 0.7 MG/DL (0.2-1.0); BLOOD UREA NITROGEN 29 MG/DL (7-18); CALCIUM LEVEL 8.5 MG/DL (8.8-10.2); CARBON DIOXIDE LEVEL 29 MEQ/L (21-32); CHLORIDE LEVEL 94 MEQ/L (98-107); CREATININE FOR GFR 0.46 MG/DL (0.55-1.30); GLOMERULAR FILTRATION RATE > 60.0 (>32); GLUCOSE, FASTING 133 MG/DL (70-100); SODIUM LEVEL 129 MEQ/L (136-145); TOTAL PROTEIN 5.7 GM/DL (6.4-8.2)
[2018-11-08] MEDS: SERTRALINE HCL 25 MG TABLET PEG SCH (09:00)
[2018-11-08] MEDS: FUROSEMIDE 20 MG/2 ML VIAL (J1940) IV SCH (09:07)
[2018-11-08] MEDS: PANTOPRAZOLE 40MG INJ (PROTONIX) (C9113) IV SCH (09:07)
[2018-11-08] MEDS: SODIUM CHLORIDE 0.9% INJ 10 ML SYR IV PRN (09:07)
[2018-11-08] MEDS: FLUCONAZOLE 200 MG in APPROPRIATE DILUENT 1 EA IV SCH (13:35)
[2018-11-08 14:00] VITALS: BP 116/69
--- NOTE | 2018-11-08 17:15 | IPNPDOC ---
Text Note Date of Service The patient was seen on 11/08/18. NOTE The patient appears reasonably comfortable at the moment. She has had an exten ded hospital stay due to complications from her gastric outlet obstruction. She is status post proximal gastrectomy with esophagogastrostomy. She has residual leak. She is currently receiving nutrition via TPN. Physical exam: General: Mildly diaphoretic, but afebrile HENT: Atraumatic, neck supple and without adenopathy or thyromegaly, oral mucosa moist Respiratory: Clear to auscultation, Normal air movement Cardiovascular: Regular rate and rhythm with a normal S1 and S2, no appreciable murmur Abdomen: No tenderness elicited, tube sites are intact, no acute signs of skin infection Extremities: No appreciable edema or lesions Assessment/plan: 1. Gastric outlet obstruction: Patient is status post proximal gastrectomy with esophagogastrostomy. Patient has residual leak. There has been difficulty with placement/introduction of a J-tube. Consequently, patient is on TPN for nutrition. Surgery service is hopeful of replacing this tube perhaps via endoscopy. 2. Protein calorie malnutrition--patient continues with TPN for now. Hopefully she can be restored to enteral feeds after replacement of jejunostomy tube. 3. Leukocytosis--this is been persistent. Patient has completed a treatment course of meropenem. No discrete organism has been isolated. She has not exhibited fever or sepsis, but we continue to monitor. 4. Left renal mass--concern has been raised for renal cell carcinoma. Ideally, patient would have an outpatient follow-up for this. However, given her extended hospital stay, we may need to consider at least urology opinion, as it will have bearing on her overall management. VS,Fishbone, I+O VS, Fishbone, I+O Laboratory Tests 11/08/18 05:52 Red Blood Count 3.04 L, Mean Corpuscular Volume 89.5, Mean Corpuscular Hemoglo bin 29.9, Mean Corpuscular Hemoglobin Concent 33.5, Red Cell Distribution Width 14.7 H, Calcium Level 8.5 L, Aspartate Amino Transf (AST/SGOT) 24, Alanine Aminotransferase (ALT/SGPT) 30, Alkaline Phosphatase 238 H, Total Bilirubin 0.7, Total Protein 5.7 L, Albumin 1.3 L Vital Signs Date Time Temp Pulse Resp B/P (MAP) Pulse Ox O2 Delivery O2 Flow Rate FiO2 11/08/18 14:00 97.6 96 17 116/69 (29) 95 I&O- Last 24 Hours up to 6 AM 11/08/18 06:00 Intake Total 2920 ml Output Total 2885 ml Balance 35 ml DURAN HICKMAN MD Nov 08, 2018 17:15
[2018-11-08] MEDS ORDERED: FAT EMULSION IV 20% 500 ML IV SCH (18:00)
[2018-11-08] MEDS ORDERED: AMINO AC/ELECTROLYTE/DEX/CALC 2,000 ML IV SCH (18:00)
--- NOTE | 2018-11-08 20:27 | IPN ---
DATE: 11/08/2018 HISTORY: Patient is now postop day # 39 from her partial gastrectomy and esophagogastrostomy. She has been draining increased fluid from her back drain over the last few days and now has over 100 mL per day. She and her family have spoken and decided that they would like to continue with management to try to cure her anastomotic leak and try to return her to her previous level of functioning as much as possible. Vital signs show that she has been afebrile. Her pulse is in the 60s to low 90s. Blood pressure is good and her room air oxygen saturation is also good. Intake and output show that yesterday she had 2200 in with 3200 out. Her drain yesterday had 120 mL. It is 135 so far today. PHYSICAL EXAMINATION: Patient is lying quietly on the hospital bed. Her upper extremity edema seems to have resolved and she has no evidence of any significant edema of the lower extremities. Her abdomen is soft and nontender. The gastrostomy (G) tube site is clean. Laboratory studies show that her white count is 18,000 with a hemoglobin of 9, hematocrit 27 and a platelet count of 377,000. Her chemistries today show a sodium of 129, potassium 4.0, chloride 94, CO2 of 29, BUN of 29, creatinine 0.46 and a glucose of 133. Her liver function tests are normal with the exception of an alkaline phosphatase slightly elevated to 238. Total protein is 5.7 with an albumin of 1.3. IMPRESSION: Patient continues to do fairly well. She has some drainage from her back drain that is slightly more bilious in color now. Her jejunostomy (J) tube is coiled in the stomach as of yesterday's KUB and I doubt that this has changed. PLAN: Tomorrow I will see if the interventional radiologist is available to try advancing her J tube into the duodenum. If not, I will add her on for a upper endoscopy this week to try to advance the tube and reassess her anastomotic leak. If the interventional radiologist can advance the J tube, we will restart her J tube feeds and discontinue the total parenteral nutrition (TPN). She will require repeat endoscopy regardless of the J tube repositioning to reassess her leak and see if other endeavors can be used to try to block this leak. TIRSO
[2018-11-08] MEDS: ENOXAPARIN 40 MG/0.4 ML SYRINGE (J1650) SC SCH (20:38)
[2018-11-08 22:00] VITALS: BP 112/68
[2018-11-09] MEDS: HumaLOG INSULIN (NovoLOG) PER UNIT SC SCH ×5 (00:23→17:44)
[2018-11-09 06:00] VITALS: BP 116/62
[2018-11-09 06:13] LABS: HEMATOCRIT 27.7 % (36.0-47.0); HEMOGLOBIN 9.1 g/dl (12.0-15.5); MEAN CORPUSCULAR HEMOGLOBIN 28.9 pg (27.0-33.0); MEAN CORPUSCULAR HGB CONC 32.9 g/dl (32.0-36.5); MEAN CORPUSCULAR VOLUME 87.9 fl (80.0-96.0); PLATELET COUNT, AUTOMATED 406 10^3/uL (150-450); RED BLOOD COUNT 3.15 10^6/uL (4.00-5.40); WHITE BLOOD COUNT 20.9 10^3/uL (4.0-10.0)
[2018-11-09] MEDS: SODIUM CHLORIDE 0.9% INJ 10 ML SYR IV SCH ×2 (06:35→17:22)
[2018-11-09 06:40] LABS: ALBUMIN 1.3 GM/DL (3.2-5.2); ALT/SGPT 28 U/L (12-78); BILIRUBIN,TOTAL 0.8 MG/DL (0.2-1.0); BLOOD UREA NITROGEN 36 MG/DL (7-18); CALCIUM LEVEL 8.2 MG/DL (8.8-10.2); CARBON DIOXIDE LEVEL 29 MEQ/L (21-32); CHLORIDE LEVEL 94 MEQ/L (98-107); CREATININE FOR GFR 0.54 MG/DL (0.55-1.30); GLOMERULAR FILTRATION RATE > 60.0 (>32); GLUCOSE, FASTING 151 MG/DL (70-100); POTASSIUM SERUM 3.4 MEQ/L (3.5-5.1); SODIUM LEVEL 129 MEQ/L (136-145); TOTAL PROTEIN 5.9 GM/DL (6.4-8.2)
--- NOTE | 2018-11-09 07:58 | REP ---
PICC line insertion under ultrasound guidance. The procedure was performed by PAZ Bañuelos, under the direct supervision of Dr. Cantor. The risks and benefits of the procedure were explained to the patient and informed consent was obtained the verbally and written. Directly prior to the start of the procedure, a formal timeout was completed in the procedure room. The left brachial vein was localized using ultrasound guidance. The skin was prepped and draped in the sterile fashion. 3 ml 1% lidocaine was used as a local anesthetic. Using ultrasound guidance the left brachial vein was cannulated and a 0.018 guidewire was inserted and advanced to the SVC using fluoroscopic guidance. The needle was removed and a 5.5 [place] dilator and peel-away sheath was inserted over the guidewire. A 5.5 [place] double lumen catheter was cut to the length of 40 cm. The dilator was removed and the catheter was inserted over the guide wire with the tip ending in the SVC. The peel-away sheath was removed and the catheter was flushed with heparinized saline as per hospital protocol. The catheter was affixed to the skin and a sterile dressing was applied. The patient tolerated the procedure well and there were no immediate complications. 0.2 minutes of fluoroscopy time was utilized for this procedure. Some fluoroscopic images are performed with last image hold technology. These images require no additional radiation. Reviewed by PAZ Goodrich 11/02/2018 08:22 A Electronically Signed by Beto Cantor MD 11/09/2018 07:50 A
[2018-11-09] MEDS: FUROSEMIDE 20 MG/2 ML VIAL (J1940) IV SCH (08:13)
[2018-11-09] MEDS: PANTOPRAZOLE 40MG INJ (PROTONIX) (C9113) IV SCH (08:13)
[2018-11-09] MEDS: SERTRALINE HCL 25 MG TABLET PEG SCH (09:00)
[2018-11-09] MEDS: FLUCONAZOLE 200 MG in APPROPRIATE DILUENT 1 EA IV SCH (13:00)
[2018-11-09] MEDS ORDERED: fentaNYL 100 MCG/2 ML INJECTION (J3010) As Ordered ONE (13:59)
[2018-11-09] MEDS ORDERED: MIDAZOLAM INJ 2 MG/2 ML VIAL (J2250) As Ordered ONE (13:59)
[2018-11-09] MEDS ORDERED: ISOVUE-300 61% 50ML VIAL (Q9967) As Ordered ONE (14:00)
[2018-11-09] MEDS ORDERED: LIDOCAINE 1% MDV 20ML VIAL As Ordered ONE (14:00)
--- NOTE | 2018-11-09 14:04 | IPNPDOC ---
Subjective Date Seen The patient was seen on 11/09/18. Subjective Chief Complaint/HPI GJ flipped into stomach Objective Physical Examination General Exam: Positive: Alert, Cooperative ENT Exam: Positive: Atraumatic Neck Exam: Negative: JVD Chest Exam: Positive: Clear to auscultation, Normal air movement Heart Exam: Positive: Rate Normal, Regular Rhythm, Normal S1, Normal S2; Negative: Gallops, Murmurs, Rubs Abdomen Exam: Positive: BS Hypoactive, Soft, Other (+J/P drain, +Sutton Tube); Negative: Tenderness Psych Exam: Positive: Mental status NL, Mood NL, Oriented x 3 Other physical findings ASA Mallampat II Assessment /Plan Assessment GJ flipped into stomach on recent KUB. attempt percutaneous reposition and replacement. 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 - It is complicated by leak in the esophagogastrostomy. - She also has PEG, continue enteral feeding. Only allowed to have ice chips. - Per Dr. Hurst's recommendation, keep her on gravity drainage for her G-tube and then if she has some minimal output rechecking on Friday by clamping the G- tube to see if she has increased output. If she does, then considering the next step, which may be clipping the area or esophageal stent. - s/p ertapenem and fluconazole. -Patient. WBC count is improving with the addition of moxifloxacin, will continue the same for at least 5 days EGD with clipping of fistula was done by GI. Last night Continue TPN as per surgery orders Esophagogram in day or 2, then will decide whether patient could be fed orally Prognosis is guarded Discussed with patient's family at bedside last evening. # Depression - The patient feels hopeless., Zoloft on hold. as G-tube is not functioning # Mild cardiomegaly and mild amount of pericardial fluid. - Cont to monitor # Left renal mass exophytic, 2 cm - Could be renal cell carcinoma. Follow urine cytology # Acute renal failure - Resolved. # Constipation - Miralax PRN and senna-S ATC # Moderate protein calorie malnutrition On TPN diet # Bilat Infiltrated possible aspiration pneumonia Started on Merrem 1 g every 8 hours Follow chest x-ray and CBC regularly Plan/VTE VTE Prophylaxis Ordered?: Yes VS, I&O, 24H, Fishbone Vital Signs/I&O Vital Signs Date Time Temp Pulse Resp B/P (MAP) Pulse Ox O2 Delivery O2 Flow Rate FiO2 11/09/18 06:00 97.9 98 19 116/62 (80) 98 I&O- Last 24 Hours up to 6 AM 11/09/18 06:00 Intake Total 2080 ml Output Total 1670 ml Balance 410 ml Laboratory Data 24H LABS Laboratory Tests 2 11/08/18 18:06: Bedside Glucose (Misc Panel) 128H 11/08/18 23:47: Bedside Glucose (Misc Panel) 128H 11/09/18 05:57: Nucleated Red Blood Cells % (auto) 0.0, Anion Gap 6L, Glomerular Filtration Rate > 60.0, Blood Urea Nitrogen 36H, Creatinine 0.54L, Sodium Level 129L, Potassium Level 3.4L, Chloride Level 94L, Carbon Dioxide Level 29, Calcium Level 8.2L, Aspartate Amino Transf (AST/SGOT) 21, Alanine Aminotransferase (ALT/SGPT) 28, Alkaline Phosphatase 227H, Total Bilirubin 0.8, Total Protein 5.9L, Albumin 1.3L, Albumin/Globulin Ratio 0.28L 11/09/18 06:25: Bedside Glucose (Misc Panel) 146H 11/09/18 11:30: Bedside Glucose (Misc Panel) 130H CBC/BMP Laboratory Tests 11/09/18 05:57 Red Blood Count 3.15 L, Mean Corpuscular Volume 87.9, Mean Corpuscular Hemoglob in 28.9, Mean Corpuscular Hemoglobin Concent 32.9, Red Cell Distribution Width 14.5, Calcium Level 8.2 L, Aspartate Amino Transf (AST/SGOT) 21, Alanine Aminotransferase (ALT/SGPT) 28, Alkaline Phosphatase 227 H, Total Bilirubin 0.8, Total Protein 5.9 L, Albumin 1.3 L Microbiology Microbiology 11/04/18 Blood Culture - Final, Complete NO GROWTH AFTER 5 DAYS 11/04/18 Urine Culture - Final, Complete HELLEN CHOU MD Nov 09, 2018 14:04
--- NOTE | 2018-11-09 15:43 | ROOPDOC ---
[facility] Report Of Operation Report of Operation DATE OF PROCEDURE: 11/09/18 PREPROCEDURE DIAGNOSES: partial gastrectomy. GJ flipped into stomach POSTPROCEDURE DIAGNOSES: partial gastrectomy. GJ flipped into stomach PROCEDURE: GJ reposition and exchange SURGEON: Shantal JAY ANESTHESIA: moderate sedation ESTIMATED BLOOD LOSS: Approximately [< 5] mL. COMPLICATIONS: none REMARKS: succesful GJ exchange with only tube we have available at this time. Patient to return for upsize to 22 F edgar GJ. current tube may be used for feeds after 1530 hours on 11/10/2018. HELLEN CHOU MD Nov 09, 2018 15:43
--- NOTE | 2018-11-09 16:03 | IPNPDOC ---
Date Seen The patient was seen on 11/09/18. Progress Note SUBJECTIVE: The patient sadly states that she does not have a particular complaint and not feel there is anything we can do for her at the moment. She does not even complain of pain. The patient has had extended hospital stay due to complications associated with her proximal gastrectomy with esophagogastrostomy. OBJECTIVE PHYSICAL EXAMINATION: VITAL SIGNS: Please see below. General: Mildly diaphoretic, but afebrile HENT: Atraumatic, neck supple and without adenopathy or thyromegaly, oral mucosa moist Respiratory: Clear to auscultation, Normal air movement Cardiovascular: Regular rate and rhythm with a normal S1 and S2, no appreciable murmur Abdomen: No tenderness elicited, tube sites/drain sites are intact--somewhat bilious drainage to bag, no acute signs of skin infection Extremities: No appreciable edema or lesions LABORATORY DATA, IMAGING STUDIES, MICROBIOLOGY: Please see below. Echocardiogram: . DVT prophylaxis ordered?: Serial compression devices ASSESSMENT AND PLAN: 1. Gastric outlet obstruction: Patient is status post proximal gastrectomy with esophagogastrostomy. Patient has residual leak. There has been difficulty with placement/introduction of a J-tube. Consequently, patient is on TPN for nutrition. Surgery service is hopeful of replacing this tube perhaps via endoscopy. 2. Protein calorie malnutrition--patient continues with TPN for now. Hopefully she can be restored to enteral feeds after replacement of jejunostomy tube. 3. Leukocytosis--this has been persistent; there has been no net improvement--white blood cell count today is 20.9. Patient has completed a treatment course of meropenem. No discrete organism has been isolated. She has not exhibited fever or sepsis, but we continue to monitor. 4. Left renal mass--concern has been raised for renal cell carcinoma. Ideally, patient would have an outpatient follow-up for this. However, given her extended hospital stay, we may need to consider at least urology opinion, as it will have bearing on her overall management. DISPOSITION: . VS, I&O, 24H, Fishbone Vital Signs/I&O Vital Signs Date Time Temp Pulse Resp B/P (MAP) Pulse Ox O2 Delivery O2 Flow Rate FiO2 11/09/18 06:00 97.9 98 19 116/62 (80) 98 I&O- Last 24 Hours up to 6 AM 11/09/18 06:00 Intake Total 2080 ml Output Total 1670 ml Balance 410 ml Laboratory Data 24H LABS Laboratory Tests 2 11/08/18 18:06: Bedside Glucose (Misc Panel) 128H 11/08/18 23:47: Bedside Glucose (Misc Panel) 128H 11/09/18 05:57: Nucleated Red Blood Cells % (auto) 0.0, Anion Gap 6L, Glomerular Filtration Rate > 60.0, Blood Urea Nitrogen 36H, Creatinine 0.54L, Sodium Level 129L, Potassium Level 3.4L, Chloride Level 94L, Carbon Dioxide Level 29, Calcium Level 8.2L, Aspartate Amino Transf (AST/SGOT) 21, Alanine Aminotransferase (ALT/SGPT) 28, Alkaline Phosphatase 227H, Total Bilirubin 0.8, Total Protein 5.9L, Albumin 1.3L, Albumin/Globulin Ratio 0.28L 11/09/18 06:25: Bedside Glucose (Misc Panel) 146H 11/09/18 11:30: Bedside Glucose (Misc Panel) 130H CBC/BMP Laboratory Tests 11/09/18 05:57 Red Blood Count 3.15 L, Mean Corpuscular Volume 87.9, Mean Corpuscular H emoglobin 28.9, Mean Corpuscular Hemoglobin Concent 32.9, Red Cell Distribution Width 14.5, Calcium Level 8.2 L, Aspartate Amino Transf (AST/SGOT) 21, Alanine Aminotransferase (ALT/SGPT) 28, Alkaline Phosphatase 227 H, Total Bilirubin 0.8, Total Protein 5.9 L, Albumin 1.3 L Microbiology Microbiology 11/04/18 Blood Culture - Final, Complete NO GROWTH AFTER 5 DAYS 11/04/18 Urine Culture - Final, Complete DURAN HICKMAN MD Nov 09, 2018 16:03
--- NOTE | 2018-11-09 16:59 | REP ---
IR Gastrojejunostomy replacement. Moderate sedation Indication: Status post partial gastrectomy. GJ tube flipped into stomach. Technique: The patient and family member were advised of the benefits, risks, and alternatives of the procedure and consent was obtained. The time-out was performed with verification of the patient's name, site of procedure and type of procedure to be performed. The patient was positioned in the supine position on the angiographic table. The site was prepped and draped in the usual sterile fashion. After the administration of Versed and Fentanyl, the physician spent 60 minutes face to face time with the patient. A powerhouse oiler radiograph reveals GJ tube coiled back in stomach. The wire was advanced through the existing catheter into the stomach and the catheter was removed over wire. With the aid of a kumpe catheter, the wire was negotiated under fluoroscopy guidance, through the stomach through the duodenum into the jejunum. The wire was removed and injection of contrast confirms location within the jejunum. The wire was reinserted through the catheter into the jejunum the catheter was removed over the wire. A 16-Spanish Fer Fossil feeding tube was advanced over the wire into the jejunum, under fluoroscopy guidance . The pigtail was formed for security in the stomach. Injection of contrast confirms location of the tip in the jejunum. The catheter bumper was attached and the catheter was secured to the skin. The patient tolerated the procedure well and was returned to the inpatient unit in stable condition. Complications: None Impression: 1. Successful repositioning and exchange of GJ feeding tube. Tube may be used after 24 hours. 2. Patient to return for upsize to balloon retention 22-Spanish GJ tube once we have this available. Thank you for this referral Electronically Signed by Claudette Murguia MD 11/09/2018 04:58 P
[2018-11-09] MEDS ORDERED: FAT EMULSION IV 20% 500 ML IV SCH (18:00)
[2018-11-09] MEDS ORDERED: MULTIVITAMIN -ADULT INJECTION 10 ML, CR/CU/SE/MN/ZN INJ 1 ML in AMINO AC/ELECTROLYTE/DE... IV SCH (18:00)
[2018-11-09] MEDS: ENOXAPARIN 40 MG/0.4 ML SYRINGE (J1650) SC SCH (21:12)
[2018-11-09 22:00] VITALS: BP 120/73
[2018-11-10] MEDS: HumaLOG INSULIN (NovoLOG) PER UNIT SC SCH ×5 (00:47→23:55)
[2018-11-10] MEDS: ACETAMINOPHEN 650 MG SUPP PR PRN ×2 (02:39→11:04)
[2018-11-10] MEDS: SODIUM CHLORIDE 0.9% INJ 10 ML SYR IV SCH ×2 (05:51→18:11)
[2018-11-10 06:00] VITALS: BP 121/71
[2018-11-10 06:12] LABS: HEMATOCRIT 24.9 % (36.0-47.0); HEMOGLOBIN 8.2 g/dl (12.0-15.5); MEAN CORPUSCULAR HEMOGLOBIN 28.5 pg (27.0-33.0); MEAN CORPUSCULAR HGB CONC 32.9 g/dl (32.0-36.5); MEAN CORPUSCULAR VOLUME 86.5 fl (80.0-96.0); PLATELET COUNT, AUTOMATED 404 10^3/uL (150-450); RED BLOOD COUNT 2.88 10^6/uL (4.00-5.40); WHITE BLOOD COUNT 20.5 10^3/uL (4.0-10.0)
[2018-11-10 06:35] LABS: ALBUMIN 1.1 GM/DL (3.2-5.2); ALT/SGPT 19 U/L (12-78); BLOOD UREA NITROGEN 39 MG/DL (7-18); CALCIUM LEVEL 8.8 MG/DL (8.8-10.2); CARBON DIOXIDE LEVEL 30 MEQ/L (21-32); CHLORIDE LEVEL 98 MEQ/L (98-107); CREATININE FOR GFR 0.65 MG/DL (0.55-1.30); GLOMERULAR FILTRATION RATE > 60.0 (>32); GLUCOSE, FASTING 132 MG/DL (70-100); POTASSIUM SERUM 3.4 MEQ/L (3.5-5.1); SODIUM LEVEL 126 MEQ/L (136-145); TOTAL PROTEIN 5.5 GM/DL (6.4-8.2)
[2018-11-10] MEDS: PANTOPRAZOLE 40MG INJ (PROTONIX) (C9113) IV SCH (08:52)
[2018-11-10] MEDS: SERTRALINE HCL 25 MG TABLET PEG SCH (08:53)
[2018-11-10] MEDS: FLUCONAZOLE 200 MG in APPROPRIATE DILUENT 1 EA IV SCH (12:00)
[2018-11-10 14:00] VITALS: BP 140/80
[2018-11-10] MEDS ORDERED: FAT EMULSION IV 20% 500 ML IV SCH (18:00)
[2018-11-10] MEDS ORDERED: HumaLOG INSULIN (NovoLOG) PER UNIT SC SCH (18:00)
[2018-11-10] MEDS ORDERED: AMINO AC/ELECTROLYTE/DEX/CALC 2,000 ML IV SCH (18:00)
[2018-11-10] MEDS: NS 1,000 ML IV SCH (18:10)
[2018-11-10 22:00] VITALS: BP 121/69
[2018-11-10] MEDS: ENOXAPARIN 40 MG/0.4 ML SYRINGE (J1650) SC SCH (22:26)
--- NOTE | 2018-11-11 05:13 | IPN ---
DATE: 11/09/2018 HISTORY: The patient is now postop day 40 from her partial gastrectomy and esophagogastrostomy. Her drainage from her anastomotic leak is somewhat more bilious than it has been. She is not complaining of any pain. VITAL SIGNS: Show that she has been afebrile over the past 24 hours. Her pulse has generally been in the 60s to 90s. Her blood pressure is good. Intake and output shows that she had 2300 in yesterday with 2000 out. The drain recorded 135 out yesterday. PHYSICAL EXAMINATION: The patient is lying quietly in the hospital bed. She has had a new gastrojejunal tube inserted by Dr. Murguia of interventional radiology. The abdomen is soft and nontender. She has a dressing where the new tube goes in through the existing site. Laboratory studies show that she had a white count of 21,000 today with a hemoglobin of 9, hematocrit of 28 and platelet count of 406,000. Chemistries showed a sodium of 129, potassium 3.4, chloride 94 with CO2 of 29, BUN of 36, creatinine 0.54 and glucose of 151. Total protein is 5.9 with an albumin of 1.3. IMPRESSION: The patient continues to have a leak from her anastomosis being drained through a mediastinal drain. She has a new feeding tube in place which is not what I would consider the ideal tube, but it allows us to resume her jejunal feedings. PLAN: We will start her jejunal feedings tomorrow and I anticipate stopping her total parenteral nutrition (TPN). Will be speaking with Dr. Baeza to see if he has any other ideas about trying to occlude her leak. TIRSO
--- NOTE | 2018-11-11 05:19 | IPN ---
DATE: 11/10/2018 HISTORY: The patient is now postop day number 41 from her surgery. Her nonfunctional J-tube was removed yesterday and a G-J tube was inserted by Dr. Murguia. This is a smaller diameter tube which is likely to occlude faster, but will give us a way to proceed with restoring her jejunal feeds. VITAL SIGNS: Show that she has been afebrile. Her pulse has ranged from 58-98 over the last 24 hours. Her blood pressure is good. INTAKE AND OUTPUT: Yesterday she had 1980 in with 1320 out. Her percutaneous drain showed a 170 mL out yesterday. PHYSICAL EXAMINATION: The patient is dozing when I entered, but arouses to voice. He denies any pain. The G-tube site looks clean and the abdomen is soft and nontender. Laboratory studies today show sodium of 126, potassium 3.4, chloride 98, CO2 of 30, BUN of 39, creatinine 0.65 and a glucose of 132. Her blood white count was 20 with a hemoglobin of 8, hematocrit of 25 and platelet count of 404,000. IMPRESSION: The patient's labs remained fairly stable though her electrolytes show that she has developed some hyponatremia and hypochloremia. Her BUN and creatinine are stable. PLAN: I will start her on tube feedings with three-quarter strength Jevity 1.5 at 75 mL per hour. I will stop her total parenteral nutrition (TPN) this evening. I anticipate her having another upper endoscopy tomorrow or , probably more likely . I have not yet had a chance to speak with Dr. Baeza about other options. I believe the patient should probably have another CT scan to assess her mediastinum and the placement of the drain. TIRSO
[2018-11-11] MEDS: SODIUM CHLORIDE 0.9% INJ 10 ML SYR IV SCH ×2 (05:55→18:50)
[2018-11-11] MEDS: HumaLOG INSULIN (NovoLOG) PER UNIT SC SCH ×2 (05:55→11:34)
[2018-11-11 06:00] VITALS: BP 119/69
[2018-11-11 06:20] LABS: HEMATOCRIT 27.7 % (36.0-47.0); MEAN CORPUSCULAR HGB CONC 32.5 g/dl (32.0-36.5); MEAN CORPUSCULAR VOLUME 86.3 fl (80.0-96.0); PLATELET COUNT, AUTOMATED 479 10^3/uL (150-450); RED BLOOD COUNT 3.21 10^6/uL (4.00-5.40)
[2018-11-11 06:46] LABS: ALBUMIN 1.3 GM/DL (3.2-5.2); ALT/SGPT 56 U/L (12-78); BILIRUBIN,TOTAL 1.2 MG/DL (0.2-1.0); BLOOD UREA NITROGEN 38 MG/DL (7-18); CALCIUM LEVEL 8.8 MG/DL (8.8-10.2); CARBON DIOXIDE LEVEL 28 MEQ/L (21-32); CHLORIDE LEVEL 95 MEQ/L (98-107); CREATININE FOR GFR 0.59 MG/DL (0.55-1.30); GLOMERULAR FILTRATION RATE > 60.0 (>32); GLUCOSE, FASTING 138 MG/DL (70-100); SODIUM LEVEL 130 MEQ/L (136-145); TOTAL PROTEIN 6.2 GM/DL (6.4-8.2)
[2018-11-11] MEDS: SERTRALINE HCL 25 MG TABLET PEG SCH (09:52)
[2018-11-11] MEDS: PANTOPRAZOLE 40MG INJ (PROTONIX) (C9113) IV SCH (09:53)
[2018-11-11] MEDS: FLUCONAZOLE 200 MG in APPROPRIATE DILUENT 1 EA IV SCH (13:00)
--- NOTE | 2018-11-11 16:15 | IPN ---
DATE: 11/11/2018 HISTORY: The patient is now 6 weeks postop from her surgery. She has had a leak from her esophagogastric anastomosis. There is a small drain in the mediastinum, which continues to drain. Her tube feedings through a gastrojejunostomy (G-J) tube were resumed yesterday evening and her total parenteral nutrition (TPN) was held. Vital signs show that she has been afebrile. Her pulse is in the 70s-90s. Blood pressure is good. Intake and output show that yesterday she had 1840 in with 960 out. She had only 63 from her mediastinal drain yesterday. She did have two bowel movements recorded. PHYSICAL EXAM: The patient is somewhat somnolent but still will answer simple questions. She does not appear in any acute distress currently. Lungs are clear and the abdomen is soft. Her drain has a small amount of bilious fluid within it. Laboratory studies show that she has a white count of 23, hemoglobin 9, hematocrit of 28, and platelet count of 479,000. Chemistry profile shows a sodium of 130, potassium 4.0, chloride 95, CO2 of 28, BUN of 38, creatinine 0.6, and a glucose of 138. Total protein is 6.2 today with an albumin of 1.3. IMPRESSION: The patient has remained fairly stable but with a persistent leak from her mediastinal drain. The family has apparently had a family get together and they have all agreed that it is time to convert to comfort measures with a consideration of hospice care. They are in agreement that their mother would not want to be like this. The patient has apparently told them that she does not wish to continue with more aggressive care. They had spoken with Dr. Granger of the hospitalist group earlier about this and she informed me. PLAN: Hospice has apparently been consulted. The daughter will not be able to care for her in her own home, so [facility] are [facility]. We will begin to withdraw some of her cares. I will leave her tube feedings running for right now but these can certainly be stopped at any time. TIRSO
[2018-11-11] MEDS: NS 1,000 ML IV SCH (17:30)
--- NOTE | 2018-11-11 17:36 | IPNPDOC ---
Text Note Date of Service The patient was seen on 11/11/18. NOTE Ms. Goldstein has had an extended hospital stay due to complications from her gastric outlet obstruction. She is status post proximal gastrectomy with esophagogastrostomy. She has residual leak and has had difficulty with positioning/placement of her J-tube. She had been on TPN. The tube had been re- placed and patient had been started on enteral feeds. Family has called me into the room and requested that the patient be made comfort measures only. They do not wish to pursue any further treatment. They're also requesting inquiries into hospice service. They have had their own family conference amongst themselves and have decided that they are following the patient's wishes. Surgery service has been contacted. Case management has been contacted. All medications not necessary for her comfort have been stopped. Tube feeds have been stopped. I will add Roxanol as needed for pain. VS,Fishbone, I+O VS, Fishbone, I+O Laboratory Tests 11/11/18 05:56 Red Blood Count 3.21 L, Mean Corpuscular Volume 86.3, Mean Corpuscular Hemoglobin 28.0, Mean Corpuscular Hemoglobin Concent 32.5, Red Cell Distribution Width 14.7 H, Calcium Level 8.8, Aspartate Amino Transf (AST/SGOT) 71 H, Alanine Aminotransferase (ALT/SGPT) 56, Alkaline Phosphatase 384 H, Total Bilirubin 1.2 H, Total Protein 6.2 L, Albumin 1.3 L Vital Signs Date Time Temp Pulse Resp B/P (MAP) Pulse Ox O2 Delivery O2 Flow Rate FiO2 11/11/18 06:00 98.4 81 18 119/69 (86) 96 I&O- Last 24 Hours up to 6 AM 11/11/18 06:00 Intake Total 2185 ml Output Total 1065 ml Balance 1120 ml DURAN HICKMAN MD Nov 11, 2018 17:36
[2018-11-11] MEDS ORDERED: MORPHINE 10MG/0.5ML ORAL CONCENTRATE SOLUTION U/D SL PRN (17:45)
[2018-11-12] MEDS: SODIUM CHLORIDE 0.9% INJ 10 ML SYR IV SCH (06:08)
[2018-11-12] MEDS: MORPHINE 10MG/0.5ML ORAL CONCENTRATE SOLUTION U/D SL SCH ×4 (08:06→22:01)
--- NOTE | 2018-11-12 18:37 | IPNPDOC ---
Text Note Date of Service The patient was seen on 11/12/18. NOTE Ms. Goldstein is comfortable. Her pain is adequately controlled with morphine dosing. Family members are at bedside. Other family members are in route. The patient remains comfort care status; subsequent plans are for hospice placement. VS,Fishbone, I+O VS, Fishbone, I+O Vital Signs Date Time Temp Pulse Resp B/P (MAP) Pulse Ox O2 Delivery O2 Flow Rate FiO2 11/11/18 06:00 98.4 81 18 119/69 (86) 96 I&O- Last 24 Hours up to 6 AM 11/12/18 06:00 Intake Total 480 ml Output Total 1540 ml Balance -1060 ml DURAN HICKMAN MD Nov 12, 2018 18:37
[2018-11-13] MEDS: MORPHINE 10MG/0.5ML ORAL CONCENTRATE SOLUTION U/D SL SCH ×6 (01:59→21:31)
[2018-11-13] MEDS ORDERED: LORazepam 1 MG TAB SL PRN (17:45)
--- NOTE | 2018-11-13 17:54 | IPN ---
DATE: 11/13/2018 HISTORY: The patient is now six weeks plus postoperative from her partial gastrectomy and esophagogastrostomy. Two days ago, the patient and family decided that she did not wish to undergo anymore invasive testing or treatment and to be treated with COMFORT MEASURES ONLY with a hospice consultation. The hospitalist has stopped her other medications and remove the peripherally inserted central catheter (PICC) line. She is no longer receiving tube feeds. She is receiving morphine sublingually on a scheduled basis. PHYSICAL EXAMINATION: The patient is lying quietly in the hospital bed. Her breathing appears a little more rapid today but still adequate. Her daughter is sitting at the bedside with a friend also in attendance. The patient responds to my voice and replies that she is doing okay. She does not appear in discomfort at this point. Her urine output has diminished consistent with some developing dehydration. IMPRESSION: The patient appears comfortable on comfort measures at this point with routine scheduled morphine. PLAN: At this point, I will not plan to visit further but I may check on her depending on how her course progresses. TIRSO
[2018-11-14] MEDS: MORPHINE 10MG/0.5ML ORAL CONCENTRATE SOLUTION U/D SL SCH ×6 (00:54→21:16)
[2018-11-15] MEDS: MORPHINE 10MG/0.5ML ORAL CONCENTRATE SOLUTION U/D SL SCH ×6 (01:45→20:55)
[2018-11-16] MEDS: MORPHINE 10MG/0.5ML ORAL CONCENTRATE SOLUTION U/D SL SCH ×6 (01:00→21:06)
[2018-11-17] MEDS: MORPHINE 10MG/0.5ML ORAL CONCENTRATE SOLUTION U/D SL SCH ×6 (01:07→21:07)
--- NOTE | 2018-11-17 15:18 | IPNPDOC ---
Text Note Date of Service The patient was seen on 11/17/18. NOTE Subjective: Patient was seen and examined at the bedside. Patient currently not communicative, but appears comfortable. Patient's family was present at the bedside. I have addressed all their questions and concerns. 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
[2018-11-18] MEDS: MORPHINE 10MG/0.5ML ORAL CONCENTRATE SOLUTION U/D SL SCH ×9 (01:21→22:03)
--- NOTE | 2018-11-18 15:51 | IPNPDOC ---
Text Note Date of Service The patient was seen on 11/18/18. NOTE Subjective: Patient was seen and examined at the bedside. remains noncommunicative but does appear to be comfortable at this time. Has indicated that certain times. She does experience pain and appears to be uncomfortable. They're requesting to increase the pain medications, and we will adjust for comfort. I have addressed all their questions and concerns. 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
[2018-11-19] MEDS: MORPHINE 10MG/0.5ML ORAL CONCENTRATE SOLUTION U/D SL SCH ×5 (00:12→08:05)
[2018-11-19] MEDS ORDERED: SCOPOLAMINE 1MG TRANSDERMAL PATCH TOP SCH (09:00)
--- NOTE | 2018-11-19 15:41 | DS.PDOC ---
Discharge Summary General Date of Admission September 30, 2018 at 02:29 Date of Discharge 11/19/18 Discharge Summary PROCEDURES PERFORMED DURING STAY: 09/30/[address] Deana Germain; Laparoscopy and laparotomy, reduction of incarcerated hiatal hernia, proximal hemigastrectomy with esophagogastrostomy, placement of gastrojejunal tube, and esophagoscopy 10/29/[address] Crescencio Baeza; Upper GI endoscopy ADMITTING DIAGNOSES / DISCHARGE DIAGNOSES: Gastric outlet obstruction - s/p proximal gastrectomy with esophagogastrostomy; with residual leak Acute encephalopathy s/p TPN nutrition Protein calorie malnutrition Leukocytosis Left renal mass - suspicion for renal cell carcinoma GI prophylaxis DVT prophylaxis COMPLICATIONS/CHIEF COMPLAINT: Abdominal pain HISTORY OF PRESENT ILLNESS / HOSPITAL COURSE: Patient is an 88-year-old female who is admitted for gastric outlet obstruction because of incarcerated hernia with obstruction and gangrene, status post proximal gastrectomy with esophago-gastrostomy. Patient had several surgeries to help correct this problem. However, her hospital course was complicated with infection for which she received broad-spectrum antibiotics. Patient was also placed on TPN for nutrition. Ultimately patient's family had decided that the patient should be made comfort measures on 11/11/2018. Nonessential medications were discontinued and medications for pain and anxiety relief were instituted. Patient ultimately succumbed to her illness on 11/19/2018 at 9:01 AM DISCHARGE MEDICATIONS: Please see below. ALLERGIES: Please see below. PHYSICAL EXAMINATION ON DISCHARGE: Full exam not completed LABORATORY DATA: Please see below. DISPOSITION: . TIME SPENT ON DISCHARGE: 20 minutes Vital Signs/I&Os Vital Signs Date Time Temp Pulse Resp B/P (MAP) Pulse Ox O2 Delivery O2 Flow Rate FiO2 11/18/18 09:34 16 I&O- Last 24 Hours up to 6 AM 11/19/18 06:00 Intake Total 0 ml Output Total 815 ml Balance -815 ml Discharge Medications No Active Prescriptions or Reported Meds Allergies Coded Allergies: Penicillins (Verified Allergy, Intermediate, RASH, 09/30/18) diphenhydramine (Verified Allergy, Intermediate, RASH, 09/30/18) CA TRAYLOR MD Nov 19, 2018 15:41
== END 2018-11-19 09:01 | disposition expired | DRG 326 ==
LOC: M PCU 02:29 → M ICU 22:04 → M MSPAV 10-03 11:39
PROVIDERS: ADMIT Internal Medicine; ATTEND Internal Medicine
PROC: 0DN60ZZ Release Stomach, Open Approach (ICD-10-PCS; 2018-09-30)
PROC: 0DH60UZ Insertion of Feeding Device into Stomach, Open Approach (ICD-10-PCS; 2018-09-30)
PROC: 0DQ48ZZ Repair Esophagogastric Junction, Via Natural or Artificial Opening Endoscopic (ICD-10-PCS; 2018-09-30)
PROC: 0DB60ZZ Excision of Stomach, Open Approach (ICD-10-PCS; principal; 2018-09-30 10:50)
PROC: 0W9C3ZZ Drainage of Mediastinum, Percutaneous Approach (ICD-10-PCS; 2018-10-07)
PROC: 0W3P8ZZ Control Bleeding in Gastrointestinal Tract, Via Natural or Artificial Opening Endoscopic (ICD-10-PCS; 2018-10-29)
PROC: 02HV33Z Insertion of Infusion Device into Superior Vena Cava, Percutaneous Approach (ICD-10-PCS; 2018-10-30)
PROC: 0D20XUZ Change Feeding Device in Upper Intestinal Tract, External Approach (ICD-10-PCS; 2018-11-09)
PROC: 0D20XUZ Change Feeding Device in Upper Intestinal Tract, External Approach (ICD-10-PCS; 2018-11-09)
DX: K44.0 Diaphragmatic hernia with obstruction, without gangrene (principal); J85.3 Abscess of mediastinum; J69.0 Pneumonitis due to inhalation of food and vomit; E87.0 Hyperosmolality and hypernatremia; K91.89 Other postprocedural complications and disorders of digestive system; J90 Pleural effusion, not elsewhere classified; J98.11 Atelectasis; N17.9 Acute kidney failure, unspecified; E87.1 Hypo-osmolality and hyponatremia; E87.2 Acidosis; K31.6 Fistula of stomach and duodenum; K94.23 Gastrostomy malfunction; E44.0 Moderate protein-calorie malnutrition; N28.89 Other specified disorders of kidney and ureter; E87.6 Hypokalemia; F03.90 Unspecified dementia, unspecified severity, without behavioral disturbance, psychotic disturbance, mood disturbance, and anxiety; E87.5 Hyperkalemia; K31.84 Gastroparesis; Z88.0 Allergy status to penicillin; Z88.8 Allergy status to other drugs, medicaments and biological substances; Z79.899 Other long term (current) drug therapy; D72.829 Elevated white blood cell count, unspecified; I95.9 Hypotension, unspecified; K21.9 Gastro-esophageal reflux disease without esophagitis; Z79.01 Long term (current) use of anticoagulants; I48.91 Unspecified atrial fibrillation; M10.9 Gout, unspecified; E86.0 Dehydration; K59.00 Constipation, unspecified; F32.9 Major depressive disorder, single episode, unspecified; Z51.5 Encounter for palliative care